=== PATIENT | female | born 1960 | race Caucasian/White ===

== ENCOUNTER 2022-09-17 11:26 | Emergency (ER) | payer BC, OTHER, SELFPAY ==
--- NOTE | ~2022-09-17 | CT_ITS ---
EXAMINATION: CT abdomen pelvis w con DATE: 09/17/2022 13:39 INDICATION: Left upper and lower quadrant abdominal pain, nausea, vomiting and diarrhea for 2 to 3 da ys. TECHNIQUE: Computed tomography (CT) of the abdomen and pelvis was performed with 100 CC Omnipaque 350 intravenous contrast. Automated exposure control and iterative reconstruction technique were employe d. Exam dose: 266.80 mGy-cm total exam DLP. COMPARISON: None. FINDINGS: Minimal dependent posterior basilar left lower lobe atelectasis. The lung bases are otherwi se clear. Normal heart size. No pericardial or pleural effusion. No hepatic, splenic, pancreatic, and adrenal space-occupying mass lesion. The gallbladder is present. No bile duct or pancreatic duct dilatation. There is a 7 mm cortical cyst of the lower pole of left kidney. The kidneys are otherwise unremarkabl e. Normal caliber of the abdominal aorta. No intraperitoneal or retroperitoneal or pelvic mass lesion or adenopathy or ascites. The uterus, adnexal areas and urinary bladder are unremarkable except for a prominent left adnexal ve ins and prominent left gonadal vein. No bowel obstruction or intraperitoneal free air. Severe degenerative disc disease at L4-5 and L5-S1 Very small fat-containing umbilical hernia.. There is degenerative change at the apophyseal joints wi th associated grade 1 anterolisthesis at L4-5. No suspicious osteolytic or osteoblastic lesions are noted. IMPRESSION: 7 mm left renal cyst Prominent left adnexal vessels Severe degenerative disc disease at L4-5 and L5-S1 Grade 1 anterolisthesis at L4-5 due to degenerative change at the apophyseal joints Reviewed, dictated and finalized at [facility]. Reviewed, dictated and finalized at [facility]. IMPRESSION: 7 mm left renal cyst Prominent left adnexal vessels Severe degenerative disc disease at L4-5 and L5-S1 Grade 1 anterolisthesis at L4-5 due to degenerative change at the apophyseal daryl ints
--- NOTE | ~2022-09-17 | XR_ITS ---
XR chest 2V DATE: 09/17/2022 13:45 INDICATION: Left lower rib pain. No injury. TECHNIQUE: AP and lateral views COMPARISON: None FINDINGS: Normal heart size. No hilar or mediastinal enlargement. Aortic arch calcification. No pulmonary infiltrate or consolidation, pleural effusion or pulmonary vascular congestion or pneumo thorax. IMPRESSION: No active cardiac pulmonary disease Reviewed, dictated and finalized at [facility].
--- NOTE | ~2022-09-17 | US_ITS ---
Pelvic ultrasound. Clinical History: Torsion, pelvic pain Technique: Realtime transabdominal scanning of the pelvis was performed. Color flow Doppler and Doppl er spectral analysis were performed. Findings: The uterus is anteverted. The endometrial stripe has a thickness of 3 mm. No focal mass is identified. The right ovary measures 2.1 x 1.5 x 1.2 cm. No significant right ovarian or adnexal mass is seen. The left ovary measures 3.0 x 2.2 x 2.0 cm. No significant left ovarian or adnexal mass is seen. Vascular flow present in both ovaries on Doppler spectral analysis. There is no evidence of free fluid in the cul de sac. Impression: Unremarkable pelvic ultrasound. No evidence for torsion. Reviewed, dictated and finalized at [facility]. Impression: Unremarkable pelvic ultrasound. No evidence for torsion.
[2022-09-17 11:34] VITALS: BP 162/75; PULSE 67; RESP 16; TEMP 36.4; O2SAT 99
--- NOTE | 2022-09-17 11:53 | ECG_ITS ---
Measurements Intervals [place] Rate: 60 P: 75 ND: 155 QRS: 56 QRSD: 92 T: 59 QT: 429 QTc: 429 Interpretive Statements SINUS RHYTHM NORMAL ECG NO PREVIOUS ECG AVAILABLE FOR COMPARISON Electronically Signed On 09-18-2022 9:32:30 CDT by Antonio Bennett M.D.
--- NOTE | 2022-09-17 11:56 | ED.GENADULT ---
HPI - General Adult General Chief complaint: Abdominal Pain Stated complaint: abd pain Time Seen by Provider: 09/17/22 11:45 Related Data Allergies Allergy/AdvReac Type Severity Reaction Status Date / Time codeine Allergy Itching Verified 09/17/22 11:27 Sulfa (Sulfonamide Allergy Itching Verified 09/17/22 11:27 Antibiotics) Course Vital Signs Vital signs: Vital Signs Temperature 97.6 F 09/17/22 11:34 Pulse Rate 67 09/17/22 11:34 Respiratory Rate 16 09/17/22 11:34 Blood Pressure 162/75 H 09/17/22 11:34 Pulse Oximetry 99 09/17/22 11:34 Oxygen Delivery Room Air 09/17/22 11:34 Temperature 97.6 F 09/17/22 11:34 Pulse Rate 67 09/17/22 11:34 Respiratory Rate 16 09/17/22 11:34 Blood Pressure 162/75 H 09/17/22 11:34 Pulse Oximetry 99 09/17/22 11:34 Oxygen Delivery Room Air 09/17/22 11:34 Medical Decision Making Vital Signs Vital Signs: Vital Signs Temperature 97.6 F 09/17/22 11:34 Pulse Rate 67 09/17/22 11:34 Respiratory Rate 16 09/17/22 11:34 Blood Pressure 162/75 H 09/17/22 11:34 Pulse Oximetry 99 09/17/22 11:34 Oxygen Delivery Room Air 09/17/22 11:34 Temperature 97.6 F 09/17/22 11:34 Pulse Rate 67 09/17/22 11:34 Respiratory Rate 16 09/17/22 11:34 Blood Pressure 162/75 H 09/17/22 11:34 Pulse Oximetry 99 09/17/22 11:34 Oxygen Delivery Room Air 09/17/22 11:34 Discharge Plan Discharge Instructions: Antibiotic Form Follow-up/Referrals: Simone Mckeon MD [Primary Care Provider] -
--- NOTE | 2022-09-17 11:58 | ED.ABDPAIN ---
HPI - Abdominal Pain General Chief Complaint: Abdominal Pain Stated Complaint: abd pain Time Seen by Provider: 09/17/22 11:45 History of Present Illness HPI narrative: 62-year-old female with a history of appendectomy and section reports for evaluation of abdominal pain x4 days. Patient reports the first 2-day of abdominal pain, was located in the left lower quadrant. She reports 2 episodes of diarrhea on the first day and one episode the second day. She reports the diarrhea is since resolved but she has been having soft stools. Last bowel movement was this morning and soft. She states now the pain has moved to her left upper quadrant up into her left lower ribs. She denies nausea, vomiting, fever, bodies, chills, cough or congestion, chest pain or shortness of breath, urinary complaints, back pain. Patient was seen in urgent care prior to arrival and was sent here to evaluate for diverticulitis. Related Data Allergies Allergy/AdvReac Type Severity Reaction Status Date / Time codeine Allergy Itching Verified 09/17/22 11:27 Sulfa (Sulfonamide Allergy Itching Verified 09/17/22 11:27 Antibiotics) Review of Systems Review of Systems: CONSTITUTIONAL: Denies fever, chills EYES: Denies visual changes, redness, or discharge. ENT: Denies rhinorrhea, congestion, sore throat, or otalgia. CARDIOVASCULAR: Denies chest pain, palpitations, or edema. RESPIRATORY: Denies cough or dyspnea. GASTROINTESTINAL: See HPI GENITOURINARY: Denies dysuria or hematuria. SKIN: Denies rash or itching. MUSCULOSKELETAL: Denies back pain, joint pain, or myalgia. NEUROLOGIC: Denies headache, numbness, dizziness, or weakness. PSYCHIATRIC: Denies anxiety or depression. Exam Narrative: GENERAL: Well-appearing, in no acute distress. Patient resting comfortably in exam bed. She is pleasant and conversational HEAD: Normocephalic EYES: PERRLA ENT: Nares clear. Mucous membranes moist. Oropharynx without tonsillar hypertrophy exudate or other lesions. NECK: Supple. CHEST: No respiratory distress. Clear to auscultation, no adventitious breath sounds. No tenderness to left lower ribs with palpation. HEART: Regular rate and rhythm. No murmur heard. Normal peripheral pulses. ABDOMEN: Normal active bowel sounds. Abdomen soft, tenderness to the left lower and left upper quadrant without rebound, guarding or rigidity. No peritoneal signs. Negative CVA tenderness. EXTREMITIES: Normal range of motion. No edema. SKIN: Warm, dry, no rash. NEURO: No focal deficits. Alert and oriented x3. PSYCH: Normal mood and affect. Course Vital Signs Vital signs: Vital Signs Temperature 97.6 F 09/17/22 11:34 Pulse Rate 67 09/17/22 11:34 Respiratory Rate 16 09/17/22 11:34 Blood Pressure 162/75 H 09/17/22 11:34 Pulse Oximetry 99 09/17/22 11:34 Oxygen Delivery Room Air 09/17/22 11:34 Temperature 97.6 F 09/17/22 11:34 Pulse Rate 63 09/17/22 16:32 Respiratory Rate 18 09/17/22 16:32 Blood Pressure 131/81 09/17/22 16:32 Pulse Oximetry 100 09/17/22 16:32 Oxygen Delivery Room Air 09/17/22 12:22 MDM - Abdominal Pain MDM Narrative Medical decision making narrative: 62-year-old female reports for evaluation of left lower quadrant, left upper quadrant and left lower rib pain x4 days. Vital stable. Work-up for abdominal pain and chest pain initiated. EKG reveals normal sinus rhythm without ST elevations or depressions. Troponin negative. D-dimer not elevated. Chest x-ray without acute cardiopulmonary findings. Chemistries unremarkable. CBC without leukocytosis. Lipase unremarkable. Urinalysis with 1+ blood. CT abdomen pelvis shows a 7 mm left renal cyst, prominent left adnexal vessels, severe degenerative disc disease at L4-L5 and L5-S1 and grade 1 anterior listhesis at L4-L5 due to degenerative changes of the apophyseal joints. Due to prominent left adnexal vessels, pelvic ultrasound obtained to rule out torsio
[2022-09-17 12:22] VITALS: BP 151/77; PULSE 60; RESP 18; O2SAT 100
[2022-09-17] MEDS: KETOROLAC 15 MG/ML VIAL (*BKC) IV PUSH ×2 (12:39→14:30)
[2022-09-17] MEDS: SODIUM CHLORIDE 0.9% IV 1,000 ML 999 ML IV CONT (12:46)
[2022-09-17 13:02] LABS: Basophils Absolute Auto 0.1 K/mm3 (0.0-0.1); Basophils Percent Auto 1.6 % (0.2-1.2); Eosinophils Absolute Auto 0.4 K/mm3 (0-0.3); Eosinophils Percent Auto 6.9 % (0-4.4); Hematocrit 36.3 % (37.0-47.0); Hemoglobin 11.9 g/dL (12.0-15.0); Lymphocytes Absolute Auto 1.46 K/mm3 (0.9-3.2); Lymphocytes Percent Auto 25.7 % (18.3-44.2); Mean Corpuscular HGB Conc 32.8 g/dl (32-36); Mean Corpuscular Hemoglobin 30.7 pg (26-34); Mean Corpuscular Volume 93.8 fl (80-100); Mean Platelet Volume 10.6 fl (7.4-10.4); Monocytes Absolute Auto 0.5 K/mm3 (0.1-0.6); Monocytes Percent Auto 8.3 % (2.6-8.5); Neutrophils Absolute Auto 3.3 K/mm3 (1.3-6.7); Neutrophils Percent Auto 57.5 % (45.5-73.1); Platelet Count Result 253 k/mm3 (150-375); Red Blood Count 3.87 M/mm3 (4.2-5.4); Red Cell Distribution Width 12.3 % (11.5-14.5); White Blood Count 5.7 K/mm3 (4.5-10.0)
[2022-09-17 13:09] LABS: Appearance Urine Clear (Clear); Bacteria Urine None Seen /hpf; Bilirubin Urine Negative (Negative); Blood Urine 1+ (Negative); Color Urine Yellow (Yellow); Glucose Urine UA Negative (Negative); Ketones Urine Negative (Negative); Leukocyte Esterase Ur Negative LEU/UL (Negative); Nitrate Urine Negative (Negative); Non Pathogenic Casts 0-2; Protein Urine Negative (Negative); Specific Grav Ur 1.007 (1.001-1.035); Squamous Epithelial Cell Urine None seen /hpf (Few); Urobilinogen Urine 0.2 mg/dL (<2.0); WBC Urine 0-5 /hpf; pH Urine 7.5 (5.0-9.0)
[2022-09-17 13:11] LABS: Add Urine Microscopic? YES
[2022-09-17 13:15] LABS: Alanine Aminotransferase 25 U/L (6-35); Albumin Level 4.1 g/dL (3.5-5.1); Alkaline Phosphatase 71 U/L (38-126); Anion Gap 3 mmol/L (8-16); Aspartate Amino Transferase 30 U/L (14-36); Bilirubin,Total 0.6 mg/dL (0.2-1.3); Blood Urea Nitrogen 15 mg/dL (7-17); Calcium 9.2 mg/dL (8.4-10.2); Carbon Dioxide 34 mmol/L (22-30); Chloride 102 mmol/L (98-107); Estimated CRCL calculation 53 ml/min; Estimated Glomerular Filt Rate > 60; Glucose 84 mg/dL (65-110); Lipase 63 U/L (23-300); Potassium 3.4 mmol/L (3.4-5.0); Sodium 139 mmol/L (137-145)
[2022-09-17 13:27] LABS: Troponin I < 0.012 ng/mL (0.000-0.034)
[2022-09-17 14:56] LABS: D Dimer 0.46 ug/mL (<0.48)
[2022-09-17 16:32] VITALS: BP 131/81; PULSE 63; RESP 18; O2SAT 100
== END 2022-09-17 16:51 | disposition home or self-care (01) ==
PROVIDERS: Emergency Provider Physician Assistant; PCP Family Medicine
DX: R10.12 Left upper quadrant pain (principal); R07.81 Pleurodynia
CPT/HCPCS: 36415; 71046; 74177; 76856; 80053; 81001; 83690; 84484; 85025; 85380; 93005; 96361; 96374; 96375; 99284; J1885; J7030; Q9967

== ENCOUNTER 2022-12-04 11:00 | Outpatient (CLI) | payer BC, SELFPAY ==
[2022-12-04 11:18] LABS: Basophils Absolute Auto 0.1 K/mm3 (0.0-0.1); Eosinophils Absolute Auto 0.3 K/mm3 (0-0.3); Hematocrit 37.2 % (37.0-47.0); Hemoglobin 12.2 g/dL (12.0-15.0); Immature Granulocyte Absolute 0.01 K/mm3 (0.00-0.031); Immature Granulocyte Percent A 0.2 % (0-0.5); Lymphocytes Absolute Auto 1.47 K/mm3 (0.9-3.2); Lymphocytes Percent Auto 26.7 % (18.3-44.2); Mean Corpuscular HGB Conc 32.8 g/dl (32-36); Mean Corpuscular Volume 94.4 fl (80-100); Mean Platelet Volume 10.2 fl (7.4-10.4); Monocytes Absolute Auto 0.5 K/mm3 (0.1-0.6); Monocytes Percent Auto 9.4 % (2.6-8.5); Neutrophils Absolute Auto 3.1 K/mm3 (1.3-6.7); Neutrophils Percent Auto 55.7 % (45.5-73.1); Platelet Count Result 267 k/mm3 (150-375); Red Blood Count 3.94 M/mm3 (4.2-5.4); Red Cell Distribution Width 12.3 % (11.5-14.5); White Blood Count 5.5 K/mm3 (4.5-10.0)
[2022-12-04 11:27] LABS: Cholesterol 218 mg/dL (0-200); HDL Direct 55 mg/dL; Triglycerides 62 mg/dL (<150)
[2022-12-04 11:38] LABS: LDL Cholesterol Direct 129 mg/dL
== END 2022-12-04 11:01 | disposition home or self-care (01) ==
PROVIDERS: PCP Family Medicine; Visit Provider Physician Assistant Medical
DX: E78.5 Hyperlipidemia, unspecified (principal); I10 Essential (primary) hypertension
CPT/HCPCS: 36415; 80061; 85025

== ENCOUNTER 2023-03-20 08:11 | Outpatient (CLI) | payer BC, SELFPAY ==
--- NOTE | ~2023-03-20 | MM_ITS ---
EXAMINATION: MM screening carloz BI w best HISTORY: Screening mammogram, family history of breast cancer in her mother. TECHNIQUE: Craniocaudal and mediolateral oblique 3-D tomosynthesis images were obtained and synthetic 2-D images were generated. CAD analysis was submitted and interpreted. COMPARISON: No prior mammogram is available for comparison at this institution. BREAST PARENCHYMAL COMPOSITION: The breasts are heterogeneously dense, which may obscure small masses . FINDINGS: No suspicious mass, calcification, or architectural distortion are identified in either judd ast to suggest malignancy. IMPRESSION: 1. No mammographic evidence of malignancy. 2. Recommend routine screening mammography in one year. BI-RADS Category 1: Negative Reviewed, dictated and finalized at [facility]. 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
== END 2023-03-20 08:12 | disposition home or self-care (01) ==
PROVIDERS: PCP Family Medicine; Visit Provider Physician Assistant Medical
DX: Z12.31 Encounter for screening mammogram for malignant neoplasm of breast (principal)
CPT/HCPCS: 77063; 77067

== ENCOUNTER 2023-06-06 09:36 | Outpatient (CLI) | payer BC, OTHER, SELFPAY ==
--- NOTE | ~2023-06-06 | US_ITS ---
US renal BI 06/06/2023 10:24 Procedure: Realtime transabdominal ultrasound of the kidneys and bladder. Indication: Disorder of the kidneys and ureter Comparison: No prior studies for comparison. Findings: Renal echotexture is normal bilaterally without hydronephrosis, contour deforming mass or r enal calculus. The right kidney measures 9.6 cm and left kidney measures 9.8 cm. Bladder within norm al limits. Impression: 1: Unremarkable renal ultrasound. No stones, masses or hydronephrosis. Reviewed, dictated and finalized at [facility]. 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 No stones, masses or hydronephrosis.
== END 2023-06-06 09:37 | disposition home or self-care (01) ==
LOC: ANHIMG 09:37
PROVIDERS: PCP Family Medicine; Visit Provider Physician Assistant Medical
DX: N28.89 Other specified disorders of kidney and ureter (principal)
CPT/HCPCS: 76775

== ENCOUNTER 2023-12-05 10:02 | Outpatient (CLI) | payer BC, OTHER, SELFPAY ==
[2023-12-05 11:00] LABS: Basophils Absolute Auto 0.1 K/mm3 (0.0-0.1); Basophils Percent Auto 1.7 % (0.2-1.2); Eosinophils Absolute Auto 0.5 K/mm3 (0-0.3); Eosinophils Percent Auto 7.8 % (0-4.4); Hemoglobin 12.7 g/dL (12.0-15.0); Immature Granulocyte Absolute 0.01 K/mm3 (0.00-0.031); Immature Granulocyte Percent A 0.2 % (0-0.5); Lymphocytes Absolute Auto 1.45 K/mm3 (0.9-3.2); Lymphocytes Percent Auto 22.3 % (18.3-44.2); Mean Corpuscular HGB Conc 32.6 g/dl (32-36); Mean Corpuscular Hemoglobin 30.9 pg (26-34); Mean Corpuscular Volume 94.9 fl (80-100); Mean Platelet Volume 10.8 fl (7.4-10.4); Monocytes Absolute Auto 0.6 K/mm3 (0.1-0.6); Monocytes Percent Auto 9.7 % (2.6-8.5); Neutrophils Absolute Auto 3.8 K/mm3 (1.3-6.7); Neutrophils Percent Auto 58.3 % (45.5-73.1); Platelet Count Result 279 k/mm3 (150-375); Red Blood Count 4.11 M/mm3 (4.2-5.4); Red Cell Distribution Width 12.1 % (11.5-14.5); White Blood Count 6.5 K/mm3 (4.5-10.0)
[2023-12-05 11:07] LABS: Alanine Aminotransferase 16 U/L (6-35); Albumin Level 4.2 g/dL (3.5-5.1); Alkaline Phosphatase 78 U/L (38-126); Anion Gap 7 mmol/L (4-12); Aspartate Amino Transferase 27 U/L (14-36); Bilirubin,Total 0.4 mg/dL (0.2-1.3); Blood Urea Nitrogen 14 mg/dL (7-17); Calcium 9.3 mg/dL (8.4-10.2); Carbon Dioxide 34 mmol/L (22-30); Chloride 99 mmol/L (98-107); Cholesterol 195 mg/dL (0-200); Estimated Glomerular Filt Rate > 60; Glucose 81 mg/dL (65-110); HDL Direct 52 mg/dL; Potassium 3.7 mmol/L (3.4-5.0); Sodium 140 mmol/L (137-145); Triglycerides 70 mg/dL (<150)
[2023-12-05 11:18] LABS: LDL Cholesterol Direct 117 mg/dL
== END 2023-12-05 10:03 | disposition home or self-care (01) ==
PROVIDERS: PCP Family Medicine; Visit Provider Physician Assistant Medical
DX: E78.5 Hyperlipidemia, unspecified (principal); I10 Essential (primary) hypertension
CPT/HCPCS: 36415; 80053; 80061; 84443; 85025

== ENCOUNTER 2023-12-27 06:34 | Outpatient (CLI) | payer BC, OTHER, SELFPAY ==
--- NOTE | ~2023-12-27 | MR_ITS ---
MRI of the lumbar spine Clinical History: Degenerative disc disease Technique: Axial T2-weighted images, and sagittal T1-weighted, T2-weighted, and T2 fat-sat images wer e acquired. Findings: No fracture identified. There is 3 mm anterolisthesis of L3 over L4. There is 5 mm anteroli sthesis of L4 over L5. There is advanced degenerative disc narrowing at L4-L5 and L5-S1. No suspiciou s bone marrow signal abnormality seen. At L1-L2, there is no disc bulge or herniation. There is moderate facet arthropathy. No central canal stenosis or neural foraminal narrowing. At L2-L3, there is no disc bulge or herniation. There is severe facet arthropathy. No central canal s tenosis or neural foraminal narrowing. L3-L4, there is moderate degenerative disc narrowing. There is diffuse disc bulge with severe facet a rthropathy. No norman central canal stenosis. There is mild to moderate bilateral neural foraminal renaldo rowing. At L4-L5, there is disc bulge and severe facet arthropathy. No central canal stenosis. There is moder ate left neural foraminal narrowing, and mild right neural foraminal narrowing. At L5-S1, there is diffuse disc bulge with severe facet arthropathy. No central canal stenosis. There is severe left neural foraminal narrowing and mild right neural foraminal narrowing. Paravertebral soft tissues are unremarkable. Impression: Moderate degenerative spondylosis overall, as detailed above, especially at L3-L4, L4-L5, and L5-S1. 5 mm anterolisthesis of L4 over L5. 3 mm anterolisthesis of L3 over L4. Reviewed, dictated and finalized at [facility]. Impression: Moderate degenerative spondylosis overall, as detailed above, especially at L3- L4, L4-L5, and L5-S1. 5 mm anterolisthesis of L4 over L5. 3 mm anterolisthesis of L3 over L4.
== END 2023-12-27 06:35 | disposition home or self-care (01) ==
PROVIDERS: PCP Family Medicine; Visit Provider Nurse Practitioner Adult Health
DX: M51.37 Other intervertebral disc degeneration, lumbosacral region (principal); M47.896 Other spondylosis, lumbar region; M47.897 Other spondylosis, lumbosacral region
CPT/HCPCS: 72148

== ENCOUNTER 2024-03-30 07:09 | Emergency (ER) | payer BC, SELFPAY ==
--- NOTE | ~2024-03-30 | XR_ITS ---
Clinical Indication: Fever PA and lateral views of the chest: Comparison: 09/17/2022 Findings: The lungs are clear, without evidence of focal consolidation or pleural effusion. Cardiome diastinal silhouette is within normal limits. Bones and soft tissues are unremarkable. Impression: Normal chest. Reviewed, dictated and finalized at [facility]. 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
--- NOTE | ~2024-03-30 | CT_ITS ---
Non-contrast CT scan of the Abdomen and Pelvis Clinical indication: Abdominal pain Technique: 2.5 mm axial scans were obtained through the abdomen and pelvis without intravenous or or al contrast. Dose reduction technique was used on this scan by utilizing automated exposure control a nd iterative reconstruction technique. The dose-length product (DLP) was 198.54 mGy-cm. COMPARISON: 09/17/2022 Findings: Images through the lung bases reveal no abnormalities. There is no evidence of renal or ureteral calculi. The kidneys and the ureters are nondilated. The liver, spleen, pancreas, gallbladder, and adrenals appear normal. There is no aortic aneurysm. There is no evidence of bowel obstruction. Images through the pelvis were performed. There is no evidence of ascites or lymphadenopathy. Urinary bladder unremarkable. No pelvic mass seen. No ascites. Impression: No significant abnormality seen. Reviewed, dictated and finalized at [facility]. SETTER Impression: No significant abnormality seen.
[2024-03-30 07:38] VITALS: BP 99/61; PULSE 82; RESP 18; TEMP 37.1; O2SAT 97
[2024-03-30] MEDS: ONDANSETRON INJ 4 MG/2 ML VIAL IV PUSH (07:58)
[2024-03-30] MEDS: KETOROLAC 15 MG/ML VIAL (*BKC) IV PUSH (08:01)
[2024-03-30] MEDS: SODIUM CHLORIDE 0.9% IV 1,000 ML 999 ML IV CONT (08:02)
--- NOTE | 2024-03-30 08:07 | ED_ITS ---
HPI - General Adult General Chief complaint: Fever Stated complaint: fever x 4 days Time Seen by Provider: 03/30/24 07:36 History of Present Illness HPI narrative: Patient 63-year-old female who presents emergency department with chief complaint of fever and nausea. Patient reports for the last several days she has been having nausea and has had a fever up to 102 at home patient reports that she was seen in Urgent Care tested negative for COVID flu patient reports had nausea and reports that she is developing some abdominal pain worse in the left lower quadrant the patient reports no diarrhea patient denies nuchal rigidity denies headache denies vomiting or diarrhea Related Data Home Medications ?Medication ?Instructions ?Recorded ?Confirmed ?Last Taken ?Type cholecalciferol (vitamin D3) 10 10 mcg PO DAILY 12/04/22 12/05/23 Unknown History mcg (400 unit) capsule naratriptan 2.5 mg tablet See Rx Instructions PO .COMPLEX 12/04/22 12/05/23 Unknown History Allergies Allergy/AdvReac Type Severity Reaction Status Date / Time codeine Allergy Itching Verified 12/05/23 09:32 Sulfa (Sulfonamide Allergy Itching Verified 12/05/23 09:32 Antibiotics) Review of Systems 2 Review of Systems: A 10 system review of systems was completed on the patient and is negative except for what is stated in the HPI. Nursing and ancillary documentation was reviewed. [facility] Past Medical History Medical History Anterolisthesis of lumbar spine Degenerative disc disease, lumbar Degenerative disc disease at L5-S1 level Screening for breast cancer Migraine Hypertension Anxiety Surgical History Surgical History History of rotator cuff surgery History of delivery History of laparoscopic appendectomy Family History Family History Other Anxiety Breast cancer Cerebrovascular accident Diabetes mellitus Hypertension Social History Social History Smoking status: Never smoker Alcohol intake: never Substance use: never Lack of Transportation: No Lack of Food: Never True Current Housing: I Have Housing Concerned About Future Housing: No Difficulty Paying Gas/Electric Bills: No Difficulty Paying for Meds: No Education: Associate Degree Difficulty w/ Childcare or Family Care: No Living arrangements: with family Exam 2 Narrative: GENERAL: Well-appearing, well-nourished, and in no acute distress. HEAD: Normocephalic, atraumatic. EYES: PERRLA and EOMI. ENT: Nares clear, no rhinorrhea or epistaxis. Mucous membranes moist. NECK: Supple. CHEST: Clear to auscultation. No respiratory distress. HEART: Regular rate and rhythm. No murmur heard. Normal peripheral pulses. ABDOMEN: Soft, tenderness to palpation left lower quadrant, nondistended, normal active bowel sounds. EXTREMITIES: Normal range of motion. No edema. SKIN: Warm, dry, no rash. NEURO: No focal deficits. Alert and oriented x3. PSYCH: Normal mood and affect. Course Vital Signs Vital signs: Vital Signs Temperature 37.1 C 03/30/24 07:38 Pulse Rate 82 03/30/24 07:38 Respiratory Rate 18 03/30/24 07:38 Blood Pressure 99/61 L 03/30/24 07:38 Pulse Oximetry 97 03/30/24 07:38 Oxygen Delivery Room Air 03/30/24 07:38 Temperature 37.1 C 03/30/24 07:38 Pulse Rate 71 03/30/24 09:42 Respiratory Rate 20 03/30/24 09:42 Blood Pressure 127/71 03/30/24 09:42 Pulse Oximetry 93 03/30/24 09:42 Oxygen Delivery Room Air 03/30/24 07:38 Medical Decision Making [facility] Narrative Medical decision making narrative: differential diagnosis includes UTI, sepsis, COVID, flu, RSV, intra-abdominal infection pneumonia laboratory studies were obtained on the patient white count 6.6 electrolytes showed a potassium of 3.2 AST and ALT were slightly elevated at 247 and 220 bilirubin was normal procalcitonin 0.3 urinalysis showed 6-10 white blood cells in the urine and 1+ leukocyte esterase influenza RSV COVID and strep were negative chest x-ray showed no focal infiltrate CT scan of the abdomen pelvis showed no acute abnormality the patient will be started on Keflex and will be discharged home to follow-up with her primary care provider Vital Signs Vital Signs: Vital Signs Temperature 37.1 C 03/30/24 07:38 Pulse Rate 82 03/30/24 07:38 Respiratory Rate 18 03/30/24 07:38 Blood Pressure 99/61 L 03/30/24 07:38 Pulse Oximetry 97 03/30/24 07:38 Oxygen Delivery Room Air 03/30/24 07:38 Temperature 37.1 C 03/30/24 07:38 Pulse Rate 71 03/30/24 09:42 Respiratory Rate 20 03/30/24 09:42 Blood Pressure 127/71 03/30/24 09:42 Pulse Oximetry 93 03/30/24 09:42 Oxygen Delivery Room Air 03/30/24 07:38 Lab Data 03/30/24 08:03 03/30/24 08:03 Labs: Lab Results 03/30/24 03/30/24 03/30/24 Range/Units 08:03 08:22 08:43 WBC 6.6 (4.5-10.0) K/mm3 RBC 3.82 L (4.2-5.4) M/mm3 Hgb 11.6 L (12.0-15.0) g/dL Hct 34.2 L (37.0-47.0) % MCV 89.5 (80-100) fl MCH 30.4 (26-34) pg MCHC 33.9 (32-36) g/dl RDW 12.9 (11.5-14.5) % Plt Count 163 (150-375) k/mm3 MPV 10.5 H (7.4-10.4) fl Immature Gran % (Auto) 0.2 (0-0.5) % Neut % (Auto) 43.0 L (45.5-73.1) % Lymph % (Auto) 45.6 H (18.3-44.2) % [place] % (Auto) 5.1 (2.6-8.5) % Eos % (Auto) 4.7 H (0-4.4) % Baso % (Auto) 1.4 H (0.2-1.2) % Lymph # (Auto) 3.02 (0.9-3.2) K/mm3 [place] # (Auto) 0.3 (0.1-0.6) K/mm3 Eos # (Auto) 0.3 (0-0.3) K/mm3 Baso # (Auto) 0.1 (0.0-0.1) K/mm3 Abs Immat Gran (auto) 0.01 (0.00-0.031) K/mm3 Absolute Neuts (auto) 2.9 (1.3-6.7) K/mm3 Absolute Nucleated RBC 0.000 (0.0-0.012) K/mm3 Nucleated RBC % 0.0 (0.0-0.2) % Atypical Lymphocytes Present Platelet Estimate Adequate (Adequate) Large Platelets Present Schistocytes None seen Sodium 134 L (137-145) mmol/L Potassium 3.2 L (3.4-5.0) mmol/L Chloride 102 (98-107) mmol/L Carbon Dioxide 29 (22-30) mmol/L Anion Gap 3 L (4-12) mmol/L BUN 13 (7-17) mg/dL Creatinine 0.80 (0.7-1.0) mg/dL Estim Creat Clear Calc 47 ml/min Estimated GFR > 60 (59 - ) Glucose 130 H (65-110) mg/dL Lactic Acid 1.6 (0.7-2.0) mmol/L Calcium 8.8 (8.4-10.2) mg/dL Total Bilirubin 0.4 (0.2-1.3) mg/dL AST 247 H (14-36) U/L ALT 220 H (6-35) U/L Alkaline Phosphatase 106 (38-126) U/L Total Protein 7.0 (6.3-8.2) g/dL Albumin 3.3 L (3.5-5.1) g/dL Procalcitonin 0.3 ng/mL Urine Color Yellow (Yellow) Urine Appearance Clear (Clear) Urine pH 6.0 (5.0-9.0) Ur Specific [place] 1.009 (1.001-1.035) Urine Protein Negative (Negative) mg/dL Urine Glucose (UA) Negative (Negative) mg/dL Urine Ketones Negative (Negative) mg/dL Ur Blood (Man) 1+ H (Negative) Urine Nitrate Negative (Negative) Urine Bilirubin Negative (Negative) Urine Urobilinogen 1.0 (<2.0) mg/dL Leukocyte Esterase Rfl 1+ H (Negative) DIMA/UL Urine RBC 6-10 H (0-2) /hpf Urine WBC 6-10 H (0-3) /hpf Ur Squamous Epith Cells None seen (Few) /hpf Urine Bacteria None seen /hpf Urine Casts 0-2 Influenza A (RT-PCR) Negative (Negative) Influenza B (RT-PCR) Negative (Negative) RSV (RT-PCR) Negative (Negative) SARS-CoV-2 RNA (RT-PCR) Negative (Negative) Group A Strep (PCR) Not detected (Negative) Discharge Plan Discharge Clinical Impression: UTI (urinary tract infection) Patient Disposition: Home, Self-Care Condition: Stable Instructions: Antibiotic Form Patient Language: Vietnamese Prescriptions: New cephalexin 500 mg capsule 500 mg PO Q12H 7 Days Qty: 14 0RF No Action naratriptan 2.5 mg tablet See Rx Instructions PO .COMPLEX Rx Instructions: take 1 tab at onset of headache; if no relief may repeat 1 tab after at least 4 hrs; max = 2 tabs/24 hrs PO cholecalciferol (vitamin D3) 10 mcg (400 unit) capsule 10 mcg PO DAILY lisinopril 40 mg tablet See Rx Instructions .ROUTE .COMPLEX Qty: 90 0RF Dose Instruction: TAKE 1 TABLET BY MOUTH EVERY DAY Rx Instructions: TAKE 1 TABLET BY MOUTH EVERY DAY meloxicam 7.5 mg tablet 15 mg PO DAILY Qty: 60 6RF hydrochlorothiazide 12.5 mg tablet 12.5 mg PO DAILY Qty: 90 3RF cyclobenzaprine 5 mg tablet 5 mg PO TID PRN (Reason: muscle spasm) Qty: 30 0RF fluoxetine 40 mg capsule See Rx Instructions .ROUTE .COMPLEX Qty: 90 0RF Dose Instruction: TAKE 1 CAPSULE BY MOUTH EVERY DAY Rx Instructions: TAKE 1 CAPSULE BY MOUTH EVERY DAY Follow-up/Referrals: Simone Mckeon MD [Primary Care Provider] - Time of Disposition: 10:07
[2024-03-30 08:09] VITALS: BP 113/61; PULSE 78; RESP 18; O2SAT 95
[2024-03-30 08:11] LABS: Basophils Absolute Auto 0.1 K/mm3 (0.0-0.1); Basophils Percent Auto 1.4 % (0.2-1.2); Eosinophils Absolute Auto 0.3 K/mm3 (0-0.3); Eosinophils Percent Auto 4.7 % (0-4.4); Hematocrit 34.2 % (37.0-47.0); Hemoglobin 11.6 g/dL (12.0-15.0); Immature Granulocyte Absolute 0.01 K/mm3 (0.00-0.031); Immature Granulocyte Percent A 0.2 % (0-0.5); Lymphocytes Absolute Auto 3.02 K/mm3 (0.9-3.2); Lymphocytes Percent Auto 45.6 % (18.3-44.2); Mean Corpuscular HGB Conc 33.9 g/dl (32-36); Mean Corpuscular Hemoglobin 30.4 pg (26-34); Mean Corpuscular Volume 89.5 fl (80-100); Mean Platelet Volume 10.5 fl (7.4-10.4); Monocytes Absolute Auto 0.3 K/mm3 (0.1-0.6); Monocytes Percent Auto 5.1 % (2.6-8.5); Neutrophils Absolute Auto 2.9 K/mm3 (1.3-6.7); Platelet Count Result 163 k/mm3 (150-375); Red Blood Count 3.82 M/mm3 (4.2-5.4); Red Cell Distribution Width 12.9 % (11.5-14.5); White Blood Count 6.6 K/mm3 (4.5-10.0)
[2024-03-30 08:24] LABS: Lactic Acid Reflex 1.6 mmol/L (0.7-2.0)
[2024-03-30 08:25] LABS: Alanine Aminotransferase 220 U/L (6-35); Albumin Level 3.3 g/dL (3.5-5.1); Alkaline Phosphatase 106 U/L (38-126); Anion Gap 3 mmol/L (4-12); Aspartate Amino Transferase 247 U/L (14-36); Bilirubin,Total 0.4 mg/dL (0.2-1.3); Blood Urea Nitrogen 13 mg/dL (7-17); Calcium 8.8 mg/dL (8.4-10.2); Carbon Dioxide 29 mmol/L (22-30); Chloride 102 mmol/L (98-107); Estimated CRCL calculation 47 ml/min; Estimated Glomerular Filt Rate > 60; Glucose 130 mg/dL (65-110); Potassium 3.2 mmol/L (3.4-5.0); Sodium 134 mmol/L (137-145)
[2024-03-30 08:42] LABS: Procalcitonin 0.3 ng/mL
[2024-03-30 08:43] LABS: Atypical Lymphocytes Present; Large Platelets Present; Platelet Estimate Adequate (Adequate); Schistocytes None Seen
[2024-03-30 08:49] LABS: Strep Group A RT-PCR NOT DETECTED (Negative)
[2024-03-30 08:50] LABS: Influenza A QL RT-PCR Negative (Negative); Influenza B QL RT-PCR Negative (Negative); RSV RNA, RT-PCR Negative (Negative); SARS-CoV-2 RNA PCR Negative (Negative)
[2024-03-30 08:59] LABS: Add Urine Microscopic? YES; Appearance Urine Clear (Clear); Bacteria Urine None Seen /hpf; Bilirubin Urine Negative (Negative); Blood Urine 1+ (Negative); Color Urine Yellow (Yellow); Glucose Urine UA Negative (Negative); Ketones Urine Negative (Negative); Leukocyte Esterase Ur 1+ LEU/UL (Negative); Nitrate Urine Negative (Negative); Non Pathogenic Casts 0-2; Protein Urine Negative (Negative); Specific Grav Ur 1.009 (1.001-1.035); Squamous Epithelial Cell Urine None Seen /hpf (Few)
[2024-03-30 09:42] VITALS: BP 127/71; PULSE 71; RESP 20; O2SAT 93
[2024-03-30 10:16] VITALS: BP 120/78; PULSE 74; RESP 18; O2SAT 96
--- OUTSIDE RECORDS SUMMARY | 2024-04-03 16:03 | XMS_ITS | Encounter Summary ---
Author Organization [facility] Address [address] [place] [address]. [place], [place] [id number] [place] [id number] Care Team Providers Care Veterinary Manager Name Role Phone Rhonda De La Paz MD Unavailable [phone] Yoselin Murdock NP Primary Care Provider [phone] Encounter Details Date Type Department Care Team (Late st Contact Info) Description 10/05/2022 Orders Only [facility] Family & Internal Medicine [address] [phone] Paulie Braxton I, RN Social History Tobacco Use Types Packs/Day Years Used Date Smoking Tobacco: Never Smokeless Tobacco: Never Alcohol Use Standard Drinks/Week Comments Not Currently 0 (1 standard drink = 0.6 oz pur e alcohol) PHQ-2 Answer Date Recorded Patient Health Questionnaire-2 Score 0 06/30/2022 Comments No Sex and Gender Information Value Date Recorded Sex Assigned at Not on file Legal Sex Female 9:22 AM CDT Gender Identity Not on file Sexual Orientation Not on file Occupation Industry Job Start Date Job End Date [employer] Not on file Not on file Not on file documented as of this encounter Plan of Treatment Not on file documented as of this encounter Visit Diagnoses Diagnosis Migraine without aura and without status migrainosus, not intractable Migraine without aura, without mention of intractable migraine without mention of status migrainosus documented in this encounter Additional Health Concerns Assessment Noted Time PHQ-9 Depression Total Score: 0 07/01/19 7:09 AM CDT documented as of this encounter Care Teams Veterinary Manager Relationship Specialty Start [place] [address] [facility] [address] [place] [address] PCP - General Nurse Practitioner Family 10/05/22 Rhonda De La Paz MD Physician INTERNAL MEDICINE 09/08/20 documented as of this encounter
--- OUTSIDE RECORDS SUMMARY | 2024-04-03 16:03 | XMS_ITS | Encounter Summary ---
Author Organization [facility] Address [address] [place] [address]. [place], [place] [id number] [place] [address] Care Team Providers Care Tool Hardener Name Role Phone Rhonda De La Paz MD Unavailable [phone] Yoselin Murdock NP Primary Care Provider Encounter Details Date Type Department Care Team (Late st Contact Info) Description 11/06/2022 [employer] Message Enc [facility] Family & Internal Medicine [address] [phone] Yoselin Murdock NP [address] [place] [address]. [place] [address] Cyclobenzapril Social History Tobacco Use Types Packs/Day Years [...] on file documented as of this encounter Progress Notes * Yoselin Murdock NP - 11/06/2022 11:11 AM CDT Refills have been sent, TY * Paulie Braxton RN - 11/06/2022 11:07 AM CDT Please advise documented in this encounter Plan of Treatment Not on file documented as of this encounter Visit Diagnoses Diagnosis Muscle spasm Spasm of muscle documented in this encounter Additional Health Concerns Assessment Noted Time PHQ-9 Depression Total Score: 0 07/01/19 7:09 AM CDT documented as of this encounter Care Teams Tool Hardener Relationship Specialty Start [place] [id number] [address] PCP - General Nurse Practitioner Family 10/05/22 Rhonda De La Paz MD Physician INTERNAL MEDICINE 09/08/20 documented as of this encounter
--- OUTSIDE RECORDS SUMMARY | 2024-04-03 16:03 | XMS_ITS | Encounter Summary ---
Author Organization [facility] Address [address] [place] [address]. [place], [place] [address] [place] [address] Care Team Providers Care Intensive Care Nurse Name Role Phone Rhonda De La Paz MD Unavailable [phone] Peggy Best Primary Care Provider [phone] Reason for Visit * Reason Comments Medication Follow up blood pres sure medis Encounter Details Date Type Department Care Team (Late st Contact Info) Description 06/30/2022 7:00 AM CDT Office Visit [facility] Family & Internal Medicine [facility] [address] [place] [address] Peggy Best APNP [address] [address] Medication (Follow up blood pressure medis) Social History Tobacco Use Types Packs/Day Years Used Date Smoking Tobacco: Never Smokeless Tobacco: Never Tobacco Cessation:Counseling Given: No Alcohol Use Standard Drinks/Week Comments Not Currently [...] file Not on file Not on file COVID-19 Exposure Response Date Recorded In the last 10 days, have yo u been in contact with someone who was confirmed or suspected to have Coronavirus/COVID-19? No / Unsure 06/30/2022 6:57 AM CDT documented as of this encounter Last Filed Vital Signs Vital Sign Reading Time Taken Comments Blood Pressure 138/82 06/30/2022 7:28 AM CDT manual taken and provider aware Pulse 74 06/30/2022 7:01 AM CDT Temperature 35.8 ??C (96.4 ??F) 06/30/2022 7 :01 AM CDT Respiratory Rate 20 06/30/2022 7:01 AM CDT Oxygen Saturation 98% 06/30/2022 7:0 1 AM CDT Inhaled Oxygen Concentration - - Weight 59.5 kg (131 lb 3.2 oz) 06/30/2022 7:01 AM CDT Height 154.9 cm (5' 1 ) 06/30/2022 7:01 AM CDT Body Mass Index 24.79 06/30/2022 7:01 AM CDT documented in this encounter Progress Notes * CATALINA Lomas - 06/30/2022 7:00 AM CDTSummary: BP f/u. Reason for Visit: Medication (Follow up blood pressure medis) History of Present Illness: Danielle Brito is a 61-year-old female here for BP f/u. Hypertension ROS: taking medications as instructed, no medication side effects noted, no chest painon exertion, no dyspnea on exertion, no swelling of ankles and no orthostatic dizziness or lightheadedness. New concerns: none. Does not take BP at home. ROS: Review of Systems Constitutional: Negative for appetite change, diaphoresis, fatigue and fever. HENT: Negative for congestion, sore throat and trouble swallowing. Eyes: Negative for photophobia and discharge. Respiratory: Negative for cough, shortness of breath and wheezing. Cardiovascular: Negative for chest pain, palpitations and leg swelling. Gastrointestinal: Negative for abdominal pain. Genitourinary: Negative for dysuria. Musculoskeletal: Negative for gait problem. Skin: Negative for rash. Neurological: Negative for dizziness, syncope and weakness. Psychiatric/Behavioral: Negative for confusion. The patient is not nervous/anxious. Medications: Current Outpatient Medications: ??? Cholecalciferol (VITAMIN D) 50 MCG (1999) Tab, , Disp: , Rfl: ??? cyclobenzaprine 5 MG tablet, Take 1 tablet (5 mg total) by mouth 3 (three) times daily as needed., Disp: 30 tablet, Rfl: 5 ??? FLUoxetine (PROZAC) 40 MG capsule, Take 1 capsule (40 mg total) by mouth daily., Disp: 90 capsule, Rfl: 0 ??? hydroCHLOROthiazide (MICROZIDE) 12.5 MG capsule, Take 1 capsule (12.5 mg total) by mouth every morning., Disp: 90 capsule, Rfl: 0 ??? lisinopril (PRINIVIL) 40 MG tablet, Take 1 tablet (40 mg total) by mouth daily., Disp: 90 tablet, Rfl: 0 ??? multiple vitamins-minerals (OCUVITE-LUTEIN) Cap, Take 1 capsule by mouth daily., Disp: , Rfl: ??? naratriptan 2.5 MG tablet, TAKE 1 TABLET BY MOUTH ONCE. MAY REPEAT AFTER 4 HOURS., Disp: 27 tablet, Rfl: 3 ??? omeprazole (PRILOSEC) 40 MG capsule, Take 1 capsule (40 mg total) by mouth daily., Disp: 90 capsule, Rfl: 1 ??? vitamin B-12 100 MCG tablet, Take 0.5 tablets (50 mcg total) by mouth daily., Disp: , Rfl: Allergies Allergen Reactions ??? Sulfa Antibiotics Hives and Rash ??? Codeine Itching Past Medical History: Diagnosis Date ??? Anxiety ??? Back pain ??? Hypertension Past Surgical History: Procedure Laterality Date ??? APPENDECTOMY ??? COLONOSCOPY N/A 04/22/2021 COLONOSCOPY performed by Charli Yi MD at [facility] OR ??? NASAL AIRWAY ??? TONSILLECTOMY Social History Socioeconomic History ??? Marital status: Occupational History ??? Occupation: [employer] Tobacco Use ??? Smoking status: Never ??? Smokeless tobacco: Never Vaping Use ??? Vaping Use: Never used Substance and Sexual Activity ??? Alcohol use: Not Currently ??? Drug use: Never Social History Narrative LIVE AT WITH Family History Problem Relation Name Age of Onset ??? Breast Cancer Mother ??? Breast Cancer Paternal Grandmother ??? Heart Attack Father Family Status Relation Name Status ??? Mother (Not Specified) ??? PGM (Not Specified) ??? Father (Not Specified) Physical Exam Vitals and nursing note reviewed. Constitutional: General: She is not in acute distress. Appearance: She is well-developed. HENT: Head: Normocephalic. Nose: Nose normal. Cardiovascular: Rate and Rhythm: Normal rate and regular rhythm. Pulses: Normal pulses. Heart sounds: Normal heart sounds. Pulmonary: Effort: Pulmonary effort is normal. No respiratory distress. Breath sounds: Normal breath sounds. Musculoskeletal: Cervical back: Normal range of motion. Neurological: Mental Status: She is alert and oriented to person, place, and time. Psychiatric: Mood and Affect: Mood normal. Behavior: Behavior normal. Thought Content: Thought content normal. Judgment: Judgment normal. Filed Vitals: 06/30/22 0701 06/30/22 0711 06/30/22 0728 BP: (!) 167/92 (!) 173/86 138/82 Pulse: 74 Resp: 20 Temp: 96.4 ??F (35.8 ??C) TempSrc: Temporal SpO2: 98% Weight: 59.5 kg (131 lb 3.2 oz) Height: 5' 1 (1.549 m) Diagnoses/Impression: 1. Essential hypertension lisinopril (PRINIVIL) 40 MG tablet hydroCHLOROthiazide (MICROZIDE) 12.5 MG capsule BASIC METABOLIC PANEL 2. Screening for hyperlipidemia LIPID PANEL Recommendations and Plan: 1. Essential hypertension current treatment plan is effective, no change in therapy, lab results and schedule of future lab studies reviewed with patient, repeat labs ordered prior to next appointment, orders and follow [facility], reviewed diet, exercise and weight control, recommended sodium restriction,very strongly urged to quit smoking to reduce cardiovascular risk, cardiovascular risk and specificlipid/LDL goals reviewed and reviewed medications and side effects in detail. - lisinopril (PRINIVIL) 40 MG tablet; Take 1 tablet (40 mg total) by mouth daily. Dispense: 90 tablet; Refill: 0 - hydroCHLOROthiazide (MICROZIDE) 12.5 MG capsule; Take 1 capsule (12.5 mg total) by mouth every morning. Dispense: 90 capsule; Refill: 0 - BASIC METABOLIC PANEL; Future - BASIC METABOLIC PANEL 2. Screening for hyperlipidemia - LIPID PANEL; Future - LIPID PANEL Counseling: Body mass index is 24.79 kg/m??. ?? Diet recommendations: Vitamins and minerals better absorbed through diet and supplementation; sodium and caffeine in moderation; high fiber through fresh fruits, vegetables and whole grains; low saturated and trans fats. ?? Increasing exercise as is tolerated. ?? Recommend annual physical. ?? See safety paragraph as checked items also addressed F/u in 3 months. Orders Placed This Encounter ??? LIPID PANEL ??? BASIC METABOLIC PANEL ??? lisinopril (PRINIVIL) 40 MG tablet ??? hydroCHLOROthiazide (MICROZIDE) 12.5 MG capsule CATALINA Lomas Referring Provider: No ref. provider found PCP: CATALINA Lomas documented in this encounter Plan of Treatment Scheduled Orders Name Type Priority Associated Diagnoses Orde r Schedule LIPID PANEL Lab Routine Screening for hyperlipidemia Expected: 07/31/2022, Expires: 06/30/2023 BASIC METABOLIC PANEL Lab Routine Essential hypertension Expected: 07/31/2022, Expires: 06/30/2023 documented as of this encounter Visit Diagnoses Diagnosis Essential hypertension- Primary Unspecified essential hypertension Screening for hyperlipidemia Screening for lipoid disorders documented in this encounter Additional Health Concerns Assessment Noted Time PHQ-9 Depression Total Score: 0 07/01/19 23 7:09 AM CDT documented as of this encounter Care Teams Intensive Care Nurse Relationship Specialty Start Date End Date Peggy Best APNP [address] [address] PCP - General Nurse Practitioner Family 12/27/21 6/05/08 Rhonda De La Paz MD Physician INTERNAL MEDICINE 09/08/20 documented as of this encounter
--- OUTSIDE RECORDS SUMMARY | 2024-04-03 16:03 | XMS_ITS | Encounter Summary ---
Author Organization [facility] Address [address] [place] [address]. [place], [place] [address] [place] [address] Care Team Providers Care Industrial Methods Consultant Name Role Phone Rhonda De La Paz MD Unavailable [phone] Peggy Best Primary Care Provider [phone] Reason for Visit * Reason Onset Date Comments Medication Request 08/11/2022 Encounter Details Date Type Department Care Team (Late st Contact Info) Description 08/11/2022 Telephone [facility] Medical Group Family & Internal Medicine [facility] [address] [place] [address] Peggy Best APNP [address] [address] Medication Request Social History Tobacco Use Types Packs/Day Years [...] as of this encounter Progress Notes * Paulie Braxton RN - 08/11/2022 11:54 AM CDT Sent * CATALINA Lomas - 08/11/2022 11:19 AM CDT Ok to send. * Paulie Braxton RN - 08/11/2022 10:56 AM CDT Ok to send? * Michelle Miller LPN - 08/11/2022 10:51 AM CDT Pt called back with [facility] fax [phone] * Michelle Miller LPN - 08/11/2022 10:09 AM CDT Pt called she is in [place] , in family, and did not bring enough meds needs 3 days of Lisinopril 40 mg HTCZ 12.5 mg Fluoxetine 40 mg Send to [address] [place] [address] Fax not known pt was looking for # but call lost or she hung up PT CB # [phone] documented in this encounter Plan of Treatment Not on file documented as of this encounter Visit Diagnoses Diagnosis Essential hypertension Unspecified essential hypertension Anxiety Anxiety state, unspecified documented in this encounter Additional Health Concerns Assessment Noted Time PHQ-9 Depression Total Score: 0 07/01/19 23 7:09 AM CDT documented as of this encounter Care Teams Industrial Methods Consultant Relationship Specialty Start Date End Date Peggy Best APNP [address] [place] [address] PCP - General Nurse Practitioner Family 9/13/22 6/05/08 Rhonda De La Paz MD Physician INTERNAL MEDICINE 09/08/20 documented as of this encounter
--- OUTSIDE RECORDS SUMMARY | 2024-04-03 16:03 | XMS_ITS | Encounter Summary ---
Author Organization [facility] Address [address] [place] [address]. [place], [place] [address] [place] [address] Care Team Providers Care Die Cast Supervisor Name Role Phone Rhonda De La Paz MD Unavailable [phone] Peggy Best Primary Care Provider [phone] Encounter Details Date Type Department Care Team (Latest Contact Info) Description 06/29/2022 Scan HEALTH INFO [facility] Scanned, Doc Med Group Social History Tobacco Use Types Packs/Day Years [...] AM CDT documented as of this encounter Plan of Treatment Not on file documented as of this encounter Visit Diagnoses Not on filedocumented in this encounter Additional Health Concerns Assessment Noted Time PHQ-9 Depression Total Score: 0 03/18/20 21 4:05 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
--- OUTSIDE RECORDS SUMMARY | 2024-04-03 16:03 | XMS_ITS | Clinical Summary ---
Author Organization [facility] Address [address] [place] [address]. [place], [place] [address] [place] [address] Care Team Providers Care Boiler Out Name Role Phone Rhonda De La Paz MD Unavailable [phone] Yoselin Murdock NP Primary Care Provider Allergies Active Allergy Reactions Criticality Noted Date Comments Codeine Itching 04/12/2021 Sulfa Antibiotics Hives,Rash High 09/08/2020 Medications Cholecalciferol (VITAMIN D) 50 MCG (1999) Tab Ac tive lisinopril (PRINIVIL) 40 MG tabletIndications :Essential hypertension Take 1 tablet (40 mg total) by mouth daily. 90 tablet 2 3 Active hydroCHLOROthiazi de (MICROZIDE) 12.5 MG capsuleIndication s:Essential hypertension Take 1 capsule (12.5 mg total) by mouth every morning. 90 capsule 2 3 Active FLUoxetine (PROZAC) 40 MG capsuleIndication s:Anxiety Take 1 capsule (40 mg total) by mouth daily. 90 capsule 2 3 Active cyclobenzaprine (FLEXERIL) 5 MG tabletIndications :Muscle spasm Take 1 tablet (5 mg total) by mouth 3 (three) times daily as needed. 30 tablet 5 3 Active naratriptan (AMERGE) 2.5 MG tabletIndications :Migraine without aura and without status migrainosus, not intractable TAKE 1 TABLET BY MOUTH ONCE. MAY REPEAT AFTER 4 HOURS. 10 tablet 3 4 Active Active Problems Problem Noted Date Diagnosed Date Gastroesophageal reflux disease without esophagi tis 01/30/2022 Screen for colon cancer 03/23/2021 Overview (03/23/2021): Added automatically from request for surgery [id number] History of colon polyps 03/23/2021 Overview (03/23/2021): Added automatically from request for surgery [id number] Essential hypertension Anxiety Immunizations Name Administration Dates Next Due Influenza (Generic) 12/16/2020 Influenza Adult (Generic) 12/25/2021,12/18/2020 Td (Generic) 09/07/2020 Td, Adsorbed, Preservative F ree, Adult Use, Lf Unspecified 09/07/2020 Tetanus Diptheria 09/07/2020 Family History Medical History Relation Comments Heart Attack Father Breast Cancer Mother Breast Cancer Paternal Grandmother Relation Status Comments Father Mother Paternal Grandmother Social History Tobacco Use Types Packs/Day Years [...] file Not on file Not on file Last Filed Vital Signs Vital Sign Reading Time Taken Comments Blood Pressure 155/80 10/16/2022 2:15 PM CDT Pulse 69 10/16/2022 2:10 PM CDT Temperature 37.3 ??C (99.1 ??F) 10/16/2022 2:10 PM CD T Respiratory Rate 16 10/16/2022 2:10 PM CDT Oxygen Saturation 100% 10/16/2022 2:10 PM CDT Inhaled Oxygen Concentration - - Weight 59 kg (130 lb) 10/16/2022 2:10 PM CDT Height 154.9 cm (5' 1 ) 10/16/2022 2:10 PM CDT Body Mass Index 24.56 10/16/2022 2:10 PM CDT Plan of Treatment Health Maintenance Due Date Last Done Comments RSV Immunization or 60+ Years (1 - 1-dose 60+ series) 2019 Annual Physical 02/07/2023 02/07/2022, 10/14, 09/15/2020 Mammogram Screening 11/15/2023 11/14/2021, COVID-19 Vaccine ( season) 2023 12/25/2021, 07/21/2021, 02/03/2021, Additional history exists Influenza Adult (#1) 2024 12/25/2021, 12/18/2020, 12/16/2020 Cervical Cancer Screening Pap Smear (Age 30 to 64) Every 3 Years 02/07/2025 02/07/2022, 09/15/2020 Cervical Cancer Screening Pap with HPV Testing (Age 30 to 64) Every 5 Years 02/07/2027 02/07/2022 Cervical Cancer Screening with HPV 02/07/2027 DTaP, Tdap and Td Vaccines (1 - Tdap) 09/04/2030 09/07/2020, 09/07/2020, 09/07/2020 Postponed from 09/08/2020 (Future Appointment) Colorectal Cancer Screening Colonoscopy (10 Years) 04/22/2031 04/22/2021 Zoster Vaccines (1 of 2) 09/22/2060 Pos tponed from 09/12/2009 (Future Appointment) Hepatitis C Completed 09/15/2020 Meningococcal Vaccine Aged Out No [place]her [place] eligible based on patient's age to complete this topic Pneumococcal Vaccine: Pediatrics (0 to 5 Years) and At-Risk Patients (6 to 64 Years) Aged Out No longer eligible based on patient's age to complete this topic RSV Immunizations Under 20 Months Aged Out No longer eligible based on patient's age to complete this topic Procedures Procedure Name Priority Date/Time Associated Diagnosis Comments THINPREP PAP W AGE BASED SCREENING PROTOCOLS Routine 02/07/2022 10:23 AM CDT Encounter for screening for cervical cancer MG SCREENING W TERRI DELMI DIGI Routine 11/14/2021 10:35 AM CDT Encounter for screening mammogram for malignant neoplasm of breast HEPATITIS C ANTIBODY Routine 09/15/2020 9:30 AM CDT Need for hepatitis C screening test from Last 3 Months or Most Recently Relevant to Health Maintenance Results * THINPREP PAP W AGE BASED SCREENING (QUEST ONLY) (02/07/2022 10:23 AM CDT) Comment: [facility] Comment: This order for age-based cervical cancer and STI screening follows ACOG guidelines(PB 168, 140, XJU230). See individual assays for performing site location. CLINICAL INFORMATION: None given [facility] Clinical Information: NONE GIVEN [facility] Date of Last Pap NONE GIVEN [facility] Previous Biopsy? NONE GIVEN [facility] SOURCE (QST) Endocervix [facility] STATEMENT OF ADEQUACY: SATISFACTORY FOR EVALUATION Partially obscuring inflammation [facility] PAP INTERPRETATION/RESU LTS [facility] [employer] [facility] Comment: Negative for intraepithelial lesion or malignancy. Atrophic pattern; predominantly parabasal cells COMMENT: This Pap test has been evaluated with computer assisted technology. [facility] PUBLICATION MANAGER [facility] Comment: AMW, CT(ASCP) CT screening location: [place] [address] [place] [address] COMMENT: [facility] Comment: EXPLANATORY NOTE: The Pap is a screening test for cervical cancer. It is not a diagnostic test and is subject to false negative and false positive results. It is most reliable when a satisfactory sample, regularly obtained, is submitted with relevant clinical findings and history, and when the Pap result is evaluated along with historic and current clinical information. HPV MRNA E6/E7 Not Detected Not Detected [facility] Comment: Methodology: Metal Furniture Repairer-Mediated Amplification This assay detects E6/E7 viral messenger RNA (mRNA) from 14 high-risk HPV types (16,18,31,33,35,39,45,51,52,56,58,59,66,68). Cervical sources are required for HPV testing. If a vaginal source from a patient who has had a total hysterectomy with removal of cervix was submitted, please contact the testing laboratory for alternative testing options. For additional information, please refer to http://education.Glovico/faq/EEC066w0 (This link if provided for information/ educational purposes only.) 02/07/2022 10:2 3 AM CDT 02/08/2022 12:29 AM CDT us Mis [facility] ORDERABLE S Final Result [facility]AVE[facility] ORD[facility] [address] [place] [address] [facility] [address] [address] [facility] [place] [address] * MG SCREENING W TERRI DELMI DIGI (11/14/2021 10:35 AM CDT) Anatomical Region Laterality Modality Breast Bilateral Mammography 11/14/2021 11:3 8 AM CDT Impressions 11/14/2021 12:17 PM CDT IMPRESSION: 1. No mammographic evidence of malignancy. 2. BI-RADS Category 2 - benign findings. MQSA BI-RADS Categories: Category 0 - needs additional imaging evaluation. Category 1 - negative. Category 2 - benign findings. Category 3 - probably benign findings, but short interval follow-up ?is recommended. Category 4 - suspicious abnormality and biopsy should be considered ?though the lesion may well be benign. Category 5 - highly suggestive of malignancy and appropriate action ?should be taken. ?? Category 6 - known biopsy-proven malignancy A) ??A negative report should not delay a biopsy if a dominant or ?clinically suspicious mass is present. B) ??Adenosis and dense breasts may obscure an underlying neoplasm. C) ??Study interpreted with computer aided detection. Ordered By: ASHLY LANDIN Interpreted By: Leandro Waters, 11/14/2021 11:38 AM Narrative 11/14/2021 12:17 PM CDT IMAGING STUDIES: Bilateral screening mammograms with computer-aided detection with 2-D and 3-D imaging. Tomosynthesis. DATE: 11/14/2021 10:11 AM HISTORY: screen brca ?? . ??Mother diagnosed breast carcinoma age 71. Routine exam. COMPARISON: ??02/16/2017. 09/28/2020 TISSUE TYPE: The breast tissue is heterogeneously dense, which may obscure small masses. FINDINGS: 1. ??Bilateral screening mammograms with computer detection with ??2-D and 3-D imaging. Tomosynthesis. ??Moderate scattered ??fibroglandular tissue pattern is present. This does limit sensitivity of mammography. Benign nodularity. Benign calcifications. 2. ??No malignant microcalfcifications, new dominant masses, or architectural distortion. 3. No skin thickening or nipple retraction. ??Axillary regions are within normal limits. Ashly Landin NP MAMMO Final Result * HEPATITIS C ANTIBODY (09/15/2020 9:30 AM CDT) HEPATITIS C AB NON-REACTI VE NON-REACTI VE 09/15/2020 9:02 PM CDT [facility] 09/15/2020 9:30 AM CDT Mis [facility] Final Result [facility] [address] [place] [address], from Last 3 Months or Most Recently Relevant to Health Maintenance Insurance [facility] [employer] Care Teams Boiler Out Relationship Specialty [place] [address] [address] PCP - General Nurse Practitioner Family 10/05/22 Rhonda De La Paz MD Physician INTERNAL MEDICINE 09/08/20
--- OUTSIDE RECORDS SUMMARY | 2024-04-03 16:03 | XMS_ITS | Encounter Summary ---
Author Organization [facility] Address [address] [place] [address]. [place], [place] [address] [place] [address] Care Team Providers Care Instrument Assembly Supervisor Name Role Phone Rhonda De La Paz MD Unavailable [phone] Peggy Best Primary Care Provider [phone] Encounter Details Date Type Department Care Team (Late st Contact Info) Description 09/22/2022 Orders Only [facility] Medical Group Family & Internal Medicine [address] [address] Paulie Braxton I, IVAN Social History Tobacco Use Types Packs/Day Years [...] Diagnoses Diagnosis Essential hypertension Unspecified essential hypertension Migraine without aura and without status migrainosus, not intractable Migraine without aura, without mention of intractable migraine without mention of status migrainosus Anxiety Anxiety state, unspecified documented in this encounter Additional Health Concerns Assessment Noted Time PHQ-9 Depression Total Score: 0 07/01/19 7:09 AM CDT documented as of this encounter Care Teams Instrument Assembly Supervisor Relationship Specialty Start Date End Date Peggy Best APNP [address] [address] PCP - General Nurse Practitioner Family 12/27/2109/15 Rhonda De La Paz MD Physician INTERNAL MEDICINE 09/08/20 documented as of this encounter
--- OUTSIDE RECORDS SUMMARY | 2024-04-03 16:03 | XMS_ITS | Encounter Summary ---
Author Organization [facility] Address [address] [place] [address]. [place], [place] [address] [place] [address] Care Team Providers Care Glass Smoother Name Role Phone Rhonda De La Paz MD Unavailable [phone] Yoselin Murdock NP Primary Care Provider [phone] Reason for Visit * Reason Comments Follow Up Transfer follow up ( Peggy wetzel)3 month follow up Hypertension Anxiety Encounter Details Date Type Department Care Team (Late st Contact Info) Description 10/16/2022 2:20 PM CDT Office Visit [facility] Medical Group Family & Internal Medicine [address] [address] Yoselin Murdock NP [address] [place] [address]. [place] [address] Follow Up (Transfer follow up (Peggy pt)/3 month follow up); Hypertension; Anxiety Social History Tobacco Use Types Packs/Day Years [...] on file documented as of this encounter Last Filed [...] Mass Index 24.56 10/16/2022 2:10 PM CDT documented in this encounter Progress Notes * Yoselin Murodck, FLOORMAN - 10/16/2022 2:20 PM CDT Reason for Visit: Follow Up (Transfer follow up (Peggy wetzel)/3 month follow up), Hypertension, and Anxiety History of Present Illness: Danielle a 62-year-old female presents for follow-up migraines, HTN, and anxiety needing medication refills. She states she will take Flexeril once monthly as needed for generalized back pain. She denies needfor refill but would like to keep the medication active on her chart. She states migraines are well controlled with PRN triptan use. She may have symptoms once every other month and 1 dose often resolved her symptoms. Her migraine pain is typically to the right scientologist. Blood pressure had measured elevated in the office visit today. She has been monitoring her b/p at home and always gets lower readings 120's / 70's on averaged. She denies CP, palpitations, WINNIE, dizziness, weakness, SOB, or activity intolerance. She states her anxiety is well controlled and wishes to continue the Prozac. ROS: Review of Systems Constitutional: Negative. HENT: Negative. Eyes: Negative. Respiratory: Negative. Cardiovascular: Negative. Negative for chest pain and palpitations. Gastrointestinal: Negative. Musculoskeletal: Positive for back pain (intermittent and chronic). Skin: Negative. Neurological: Positive for headaches (controlled). Negative for dizziness. Psychiatric/Behavioral: Negative. Medications: Current Outpatient Medications: Cholecalciferol (VITAMIN D) 50 MCG (1999) Tab, , Disp: , Rfl: cyclobenzaprine 5 MG tablet, Take 1 tablet (5 mg total) by mouth 3 (three) times daily as needed., Disp: 30 tablet, Rfl: 5 FLUoxetine (PROZAC) 40 MG capsule, Take 1 capsule (40 mg total) by mouth daily., Disp: 90 capsule, Rfl: 2 hydroCHLOROthiazide (MICROZIDE) 12.5 MG capsule, Take 1 capsule (12.5 mg total) by mouth every morning., Disp: 90 capsule, Rfl: 2 lisinopril (PRINIVIL) 40 MG tablet, Take 1 tablet (40 mg total) by mouth daily., Disp: 90 tablet, Rfl: 2 naratriptan (AMERGE) 2.5 MG tablet, TAKE 1 TABLET BY MOUTH ONCE. MAY REPEAT AFTER 4 HOURS., Disp: 10 tablet, Rfl: 3 Review of patient's allergies indicates: Allergen Reactions Sulfa Antibiotics Hives and Rash Codeine Itching Past Medical History: Diagnosis Date Anxiety Back pain Hypertension Past Surgical History: Procedure Laterality Date APPENDECTOMY COLONOSCOPY N/A 04/22/2021 COLONOSCOPY performed by Charli Yi MD at [facility] OR NASAL AIRWAY TONSILLECTOMY Social History Tobacco Use Smoking status: Never Smokeless tobacco: Never Vaping Use Vaping Use: Never used Substance Use Topics Alcohol use: Not Currently Drug use: Never Family History Problem Relation Name Age of Onset Breast Cancer Mother Breast Cancer Paternal Grandmother Heart Attack Father Family Status Relation Name Status Mother (Not Specified) PGM (Not Specified) Father (Not Specified) Physical Exam Vitals and [...] Musculoskeletal: Cervical back: Normal range of motion. Right lower leg: No edema. Left lower leg: No edema. Neurological: Mental Status: She is alert and oriented to person, place, and time. Psychiatric: Mood and Affect: Mood normal. Behavior: Behavior normal. Thought Content: Thought content normal. Judgment: Judgment normal. Filed Vitals: 10/16/22 1410 10/16/22 1415 BP: (!) 150/78 (!) 155/80 Pulse: 69 Resp: 16 Temp: 99.1 ??F (37.3 ??C) TempSrc: Core SpO2: 100% Weight: 59 kg (130 lb) Height: 5' 1 (1.549 m) Assessment Encounter Diagnose(s) ICD-10-CM ICD-9-CM SNOMED CT(R) 1. Essential hypertension I10 401.9 ESSENTIAL HYPERTENSION lisinopril (PRINIVIL) 40 MG tablet hydroCHLOROthiazide (MICROZIDE) 12.5 MG capsule 2. Migraine without aura and without status migrainosus, not intractable G43.009 346.10 MIGRAINE WITHOUT AURA, NOT REFRACTORY naratriptan (AMERGE) 2.5 MG tablet 3. Anxiety F41.9 300.00 ANXIETY FLUoxetine (PROZAC) 40 MG capsule Recommendations and Plan: 1. Essential hypertension Patient reports b/p are controlled with home monitoring Asked her to check and provide log for screening and review Refills today Informant a DASH eating plan. Reduce sodium or salt in daily diet. Increase fruits, vegetables, whole grains. Reduce saturated fat intake. Recommend 90-150 minutes of aerobic exercises and/or 3 sessions of isometric resistance exercises per week. Reduce alcohol intake to 1 drink per day for women. Manage stress. Avoid tobacco products. Monitor blood pressure once weekly at a minimum of 1 hour after blood pressure medication has been taken. - lisinopril (PRINIVIL) 40 MG tablet; Take 1 tablet (40 mg total) by mouth daily. Dispense: 90 tablet; Refill: 2 - hydroCHLOROthiazide (MICROZIDE) 12.5 MG capsule; Take 1 capsule (12.5 mg total) by mouth every morning. Dispense: 90 capsule; Refill: 2 2. Migraine without aura and without status migrainosus, not intractable Controlled PRN Refills, continue current regimen - naratriptan (AMERGE) 2.5 MG tablet; TAKE 1 TABLET BY MOUTH ONCE. MAY REPEAT AFTER 4 HOURS. Dispense: 10 tablet; Refill: 3 3. Anxiety Chronic, controlled, continue current regimen - FLUoxetine (PROZAC) 40 MG capsule; Take 1 capsule (40 mg total) by mouth daily. Dispense: 90 capsule; Refill: 2 Follow up in 6 months. Return to clinic with new, persistent, or worsening symptoms. Danielle Brito is in agreement to and verbalized understanding of treatment plan with no further questions at this time. Yoselin Murdock NP 10/24/2022 10:25 AM Cosigned by Luke Rivera MD at 10/24/2022 1:15 PM CDT documented in this encounter Plan of Treatment Not on file documented as of this encounter Visit Diagnoses Diagnosis Essential hypertension- Primary Unspecified essential hypertension Migraine without aura and without status migrainosus, not intractable Migraine without aura, without mention of intractable migraine without mention of status migrainosus Anxiety Anxiety state, unspecified documented in this encounter Additional Health Concerns Assessment Noted Time PHQ-9 Depression Total Score: 0 07/01/19 23 7:09 AM CDT documented as of this encounter Care Teams Glass Smoother Relationship Specialty [place] [address] [address] PCP - General Nurse Practitioner Family 10/05/22 Rhonda De La Paz MD Physician INTERNAL MEDICINE 09/08/20 documented as of this encounter
--- OUTSIDE RECORDS SUMMARY | 2024-04-03 16:03 | XMS_ITS | Encounter Summary ---
Author Organization [facility] Address [address] [place] [address]. [place], [place] [address] [place] [address] Care Team Providers Care Community Education Specialist Name Role Phone Rhonda De La Paz MD Unavailable [phone] Peggy Best Primary Care Provider [phone] Encounter Details Date Type Department Care Team (Late st Contact Info) Description 06/02/2022 Orders Only [facility] Medical Group Family & Internal Medicine [address] [address] Paulie Braxton I, IVAN Social History Tobacco Use Types Packs/Day Years Used Date Smoking Tobacco: Never Smokeless Tobacco: Never Alcohol Use Standard Drinks/Week Comments Not Currently 0 (1 standard drink = 0.6 oz pur e alcohol) PHQ-2 Answer Date Recorded PHQ-2 Score - If the patient scores above 3, please move on to questions 3-9 0 12/02/2021 Comments No Sex and Gender Information Value [...] suspected to have Coronavirus/COVID-19? No / Unsure 05/30/2022 2:30 PM DESKIDDING MACHINE OPERATOR documented as of this encounter Plan of Treatment Not on file documented as of this encounter Visit Diagnoses Diagnosis Essential hypertension Unspecified essential hypertension documented in this encounter Additional Health Concerns Assessment Noted Time PHQ-9 Depression Total Score: 0 03/18/20 21 4:05 PM DESKIDDING MACHINE OPERATOR documented as of this encounter Care Teams Community Education Specialist Relationship Specialty Start Date End Date Peggy Best APNP [address] [address] PCP - General Nurse Practitioner Family 12/27/21 6/05/08 Rhonda De La Paz MD Physician INTERNAL MEDICINE 09/08/20 documented as of this encounter
--- OUTSIDE RECORDS SUMMARY | 2024-04-03 16:03 | XMS_ITS | Encounter Summary ---
Author Organization [facility] Address [address] [place] [address]. [place], [place] [address] [place] [address] Care Team Providers Care Contact Acid Plant Operator Helper Name Role Phone Rhonda De La Paz MD Unavailable [phone] Peggy Best Primary Care Provider [phone] Encounter Details Date Type Department Care Team (Latest Contact Info) Description 05/30/2022 Travel Social History Tobacco Use Types Packs/Day Years [...] Recorded In the last 10 days, have acosta u been in contact with someone who was confirmed or suspected to have Coronavirus/COVID-19? No / Unsure 05/30/2022 2:30 PM CHIEF DISPATCHER documented as of this encounter Plan of Treatment Not on file documented as of this encounter Visit Diagnoses Not on filedocumented in this encounter Additional Health Concerns Assessment Noted Time PHQ-9 Depression Total Score: 0 03/18/20 21 4:05 PM CHIEF DISPATCHER documented as of this encounter Care Teams Contact Acid Plant Operator Helper Relationship Specialty Start Date End Date Peggy Best APNP [address] [address] PCP - General Nurse Practitioner Family 12/27/2109/15 Rhonda De La Paz MD Physician INTERNAL MEDICINE 09/08/20 documented as of this encounter
--- OUTSIDE RECORDS SUMMARY | 2024-04-03 16:03 | XMS_ITS | Encounter Summary ---
Author Organization [facility] Address [address] [place] [address]. [place], [place] [address] [place] [address] Care Team Providers Care Casing Runner Name Role Phone Rhonda De La Paz MD Unavailable [phone] Peggy Best Primary Care Provider [phone] Encounter Details Date Type Department Care Team (Latest Contact Info) Description 06/30/2022 Travel Social History Tobacco Use Types Packs/Day [...] documented as of this encounter Care Teams Casing Runner Relationship Specialty Start Date End Date Peggy Best APNP [address] [place] [address], [place] [address] PCP - General Nurse Practitioner Family 12/27/2109/15 Rhonda De La Paz MD Physician INTERNAL MEDICINE 09/08/20 documented as of this encounter
--- OUTSIDE RECORDS SUMMARY | 2024-04-03 16:03 | XMS_ITS | Encounter Summary ---
Author Organization [facility] Address [address] [place] [address]. [place], [place] [address] [place] [address] Care Team Providers Care Senior Software Development Manager Name Role Phone Rhonda De La Paz MD Unavailable [phone] Peggy Best Primary Care Provider [phone] Encounter Details Date Type Department Care Team (Late st Contact Info) Description 05/04/2022 Orders Only [facility] Medical Group Family & Internal Medicine [address] [address] Paulie Braxton I, IVAN Social [...] as of this encounter Visit Diagnoses Diagnosis Anxiety Anxiety state, unspecified documented in this encounter Additional Health Concerns Assessment Noted Time PHQ-9 Depression Total Score: 0 03/18/20 21 4:05 PM TERMITE INSPECTOR documented as of this encounter Care Teams Senior Software Development Manager Relationship Specialty Start Date End Date Peggy Best APNP [address] [address] PCP - General Nurse Practitioner Family 12/27/2109/15 Rhonda De La Paz MD Physician INTERNAL MEDICINE 09/08/20 documented as of this encounter
--- OUTSIDE RECORDS SUMMARY | 2024-04-03 16:03 | XMS_ITS | Encounter Summary ---
Author Organization [facility] Address [address] [place] [address]. [place], [place] [address] [place] [address] Care Team Providers Care Irrigator Overhead Name Role Phone Rhonda De La Paz MD Unavailable [phone] Peggy Best Primary Care Provider [phone] Reason for Visit * Reason Onset Date Comments Billing Issue 08/14/2022 Encounter Details Date Type Department Care Team (Late st Contact Info) Description 08/14/2022 Telephone [facility] Medical Group Family & Internal Medicine [facility] [address] [place] [address] Peggy Best APNP [address] [facility] [address] [place] [address] Billing Issue Social History Tobacco Use Types Packs/Day Years [...] as of this encounter Progress Notes * Rachel Allen MA - 08/22/2022 3:05 PM CDT Rosa emailed me and I emailed her back asking to contact through the office or through [email or web address]. * Angela Benavides - 08/14/2022 10:30 AM CDT Rosa calling asking to speak to the telemarketing manager (Rachel) States she has been working with her regarding a billing issue for the lab work. She is also asking for office. Rosa mentioned that she has Rachel's email address and will email trae she does not want to get anyone else involved. documented in this encounter Plan of Treatment Not on file documented as of this encounter Visit Diagnoses Not on filedocumented in this encounter Additional Health Concerns Assessment Noted Time PHQ-9 Depression Total Score: 0 07/01/19 23 7:09 AM CDT documented as of this encounter Care Teams Irrigator Overhead Relationship Specialty Start Date End Date Peggy Best APNP [address] [address] PCP - General Nurse Practitioner Family 12/27/2109/15 Rhonda De La Paz MD Physician INTERNAL MEDICINE 09/08/20 documented as of this encounter
--- OUTSIDE RECORDS SUMMARY | 2024-04-03 16:03 | XMS_ITS | Encounter Summary ---
Author Organization [facility] Address [facility] [place], [place] [address] [place] [address] Care Team Providers Care Medical Equipment Sales Name Role Phone Rhonda De La Paz MD Unavailable [phone] Yoselin Murdock NP Primary Care Provider [phone] Encounter Details Date Type Department Care Team (Latest Contact Info) Description 10/16/2022 Travel Social History Tobacco Use Types Packs/Day [...] documented as of this encounter Care Teams Medical Equipment Sales Relationship Specialty [place] [address] [address]. [place] [address] PCP - General Nurse Practitioner Family 10/05/22 Rhonda De La Paz MD Physician INTERNAL MEDICINE 09/08/20 documented as of this encounter
--- OUTSIDE RECORDS SUMMARY | 2024-04-03 16:03 | XMS_ITS | Encounter Summary ---
Author Organization [facility] Address [address] [place] [address]. [place], [place] [address] [place] [address] Care Team Providers Care Tapeman Name Role Phone Rhonda De La Paz MD Unavailable [phone] Peggy Best Primary Care Provider [phone] Encounter Details Date Type Department Care Team (Late st Contact Info) Description 09/28/2022 Orders Only [facility] Medical Group Family & Internal Medicine [address] [address] Paulie Braxton RN Social History Tobacco Use Types Packs/Day [...] Progress Notes * Paulie Braxton RN - 09/28/2022 12:57 PM CDT Pa requested documented in this encounter Plan of Treatment [...] documented as of this encounter Care Teams Tapeman Relationship Specialty Start Date End Date Peggy Best APNP [address] [address] PCP - General Nurse Practitioner Family 12/27/2109/15 Rhonda De La Paz MD Physician INTERNAL MEDICINE 09/08/20 documented as of this encounter
--- OUTSIDE RECORDS SUMMARY | 2024-04-03 16:03 | XMS_ITS | Encounter Summary ---
Author Organization [facility] Address [address] [place] [address]. [place], [place] [address] [place] [address] Care Team Providers Care Senior Estimator Name Role Phone Rhonda De La Paz MD Unavailable [phone] Peggy Best APNP Primary Care Provider [phone] Yoselin Murdock FORGE HEATER Primary Care Provider [phone] Reason for Visit * Reason Onset Date Comments Billing Issue 06/02/2022 Coding issue Encounter Details Date Type Department Care Team (Late st Contact Info) Description 06/02/2022 Acrolinxt Message Enc [facility] Medical Group Family & Internal Medicine [facility] [address] [place] [address] [place], [place] [address] [place] [address] My Pap test Social History Tobacco Use Types Packs/Day Years [...] Coronavirus/COVID-19? No / Unsure 05/30/2022 2:30 PM SYSTEMS CHECKOUT MECHANIC documented as of this encounter Progress Notes * Rachel Allen MA - 06/07/2022 8:20 AM CST Spoke with patient and Peggy has written a letter for her. I then left her a v/m that her letter and paperwork will be at the front desk assistant for her to picker operator and she should be able to view her letter on My Chart. EMS CHECKOUT MECHANIC * Angela Benavides - 06/05/2022 8:49 AM CST Danielle calling this morning asking to set up an appointment via phone or face to face with Rachel staff antisubmarine officer o discuss the billing issue she is having. CB # [phone] danielle EMS CHECKOUT MECHANIC * Kirsten Diallo - 06/02/2022 3:19 PM CST Patient stopped by the office dropping off forms regarding coding or billing issue for last pap culture. Was told by her insurance the culture sent to [facility] will not be covered do to being not safe and effective for patients condition. Patient contacted [facility] and was told this is not a billing issue that it's a coding issue. Placed in Rachel Allen folder for review. EMS CHECKOUT MECHANIC documented in this encounter Plan of Treatment Not on file documented as of this encounter Visit Diagnoses Not on filedocumented in this encounter Additional Health Concerns Assessment Noted Time PHQ-9 Depression Total Score: 0 03/18/20 21 4:05 PM SYSTEMS CHECKOUT MECHANIC documented as of this encounter Care Teams Senior Estimator Relationship Specialty Start Date End Date Peggy Best APNP [address] [place] [address] PCP - General Nurse Practitioner Family 12/27/21 6/05/08 [place] [address] [address] PCP - General Nurse Practitioner Family 10/05/22 Rhonda De La Paz MD Physician INTERNAL MEDICINE 09/08/20 documented as of this encounter
--- OUTSIDE RECORDS SUMMARY | 2024-04-03 16:03 | XMS_ITS | Encounter Summary ---
Author Organization [facility] Address [address] [place] [address]. [place], [place] [address] [place] [address] Care Team Providers Care Pie Baker Name Role Phone Rhonda De La Paz MD Unavailable [phone] Peggy Best Primary Care Provider [phone] Reason for Visit * Reason Onset Date Comments Follow Up Call 06/06/2022 Encounter Details Date Type Department Care Team (Late st Contact Info) Description 06/06/2022 Telephone [facility] Medical Group Family & Internal Medicine [facility] [address] [place] [address] Peggy Best APNP [address] [facility] [address] [place] [address] Follow Up Call Social History Tobacco Use Types Packs/Day Years [...] Coronavirus/COVID-19? No / Unsure 05/30/2022 2:30 PM SEWING MACHINE REPAIRER documented as of this encounter Progress Notes * CATALINA Lomas - 06/06/2022 10:35 AM CST Note for pt. NG MACHINE REPAIRER documented in this encounter Plan of Treatment Not on file documented as of this encounter Visit Diagnoses Not on filedocumented in this encounter Additional Health Concerns Assessment Noted Time PHQ-9 Depression Total Score: 0 03/18/20 21 4:05 PM SEWING MACHINE REPAIRER documented as of this encounter Care Teams Pie Baker Relationship Specialty Start Date End Date Peggy Best APNP [address] [address] PCP - General Nurse Practitioner Family 12/27/2109/15 Rhonda De La Paz MD Physician INTERNAL MEDICINE 09/08/20 documented as of this encounter
--- OUTSIDE RECORDS SUMMARY | 2024-04-03 16:03 | XMS_ITS | Encounter Summary ---
Author Organization [facility] Address [address] [place] [address]. [place], [place] [address] [place] [address] Care Team Providers Care Spraying Machine Operator Name Role Phone Rhonda De La Paz MD Unavailable [phone] Peggy Best APNP Primary Care Provider [phone] Yoselin Murdock NP Primary Care Provider [phone] Encounter Details Date Type Department Care Team (Late st Contact Info) Description 05/31/[address] [facility] Medical Group Family & Internal Medicine [address] [address] Guilherme, [facility] Provider medication refill Social History Tobacco Use Types Packs/Day Years [...] Coronavirus/COVID-19? No / Unsure 05/30/2022 2:30 PM ENTRY LEVEL ELECTRICAL ENGINEER documented as of this encounter Plan of Treatment Not on file documented as of this encounter Visit Diagnoses Not on filedocumented in this encounter Additional Health Concerns Assessment Noted Time PHQ-9 Depression Total Score: 0 03/18/20 21 4:05 PM ENTRY LEVEL ELECTRICAL ENGINEER documented as of this encounter Care Teams Spraying Machine Operator Relationship Specialty Start Date End Date Peggy Best APNP [address] [address] PCP - General Nurse Practitioner Family 12/27/2109/15 [place] [address] [facility] [address] [facility] [place] [address] PCP - General Nurse Practitioner Family 10/05/22 Rhonda De La Paz MD Physician INTERNAL MEDICINE 09/08/20 documented as of this encounter
--- OUTSIDE RECORDS SUMMARY | 2024-04-03 16:04 | XMS_ITS | Encounter Summary ---
Author Organization [facility] Address [address] [place] [address]. [place], [place] [address] [place] [address] Care Team Providers Care Assembler Chassis Name Role Phone Rhonda De La Paz MD Unavailable [phone] Peggy Best APNP Primary Care Provider [phone] Yoselin Murdock CARTRIDGE ASSEMBLING MACHINE ADJUSTER Primary Care Provider + [phone] Reason for Visit * Reason Comments Lab (SCAN) Encounter Details Date Type Department Care Team (Latest Contact Info) Description 02/24/2022 Scan HEALTH INFO [facility] Scanned, Doc Med Group Lab (SCAN) Social History Tobacco Use Types Packs/Day Years [...] on file documented as of this encounter Procedures Procedure Name Priority Date/Time Associated Diagnosis Comments OUTSIDE LAB (SCAN ORDER) 02/24/2022 documented in this encounter Results * OUTSIDE LAB (SCAN) (02/24/2022) 02/24/2022 us Doc Med Group Scanned SCANNING Final Resu lt documented in this encounter Visit Diagnoses Not on filedocumented in this encounter Additional Health Concerns Assessment Noted Time PHQ-9 Depression Total Score: 0 03/18/20 21 4:05 PM REGIONAL TRAINER documented as of this encounter Care Teams Assembler Chassis Relationship Specialty Start Date End Date Peggy Best APNP [address] [facility] [address] [place] [address] PCP - General Nurse Practitioner Family 12/27/2109/15 [place] [address] [facility] [address] [place] [address] PCP - General Nurse Practitioner Family 10/05/22 Rhonda De La Paz MD Physician INTERNAL MEDICINE 09/08/20 documented as of this encounter
--- OUTSIDE RECORDS SUMMARY | 2024-04-03 16:04 | XMS_ITS | Encounter Summary ---
Author Organization [facility] Address [address] [place] [address]. [place], [place] [address] [place] [address] Care Team Providers Care Irish Moss Bleacher Name Role Phone Rhonda De La Paz MD Unavailable [phone] Peggy Best Primary Care Provider [phone] Encounter Details Date Type Department Care Team (Late st Contact Info) Description 01/25/2022 Orders Only [facility] Family & Internal Medicine [address] [address] Paulie Braxton I, IVAN Social [...] suspected to have Coronavirus/COVID-19? No / Unsure 01/10/2022 2:27 PM CDT documented as of this encounter Plan of Treatment Not on file documented as of this encounter Visit Diagnoses Not on filedocumented in this encounter Additional Health Concerns Assessment Noted Time PHQ-9 Depression Total Score: 0 03/18/20 21 4:05 PM REDEVELOPMENT SPECIALIST documented as of this encounter Care Teams Irish Moss Bleacher Relationship Specialty Start Date End Date Peggy Best APNP [id number] [address] PCP - General Nurse Practitioner Family 12/27/21 6/05/08 Rhonda De La Paz MD Physician INTERNAL MEDICINE 09/08/20 documented as of this encounter
--- OUTSIDE RECORDS SUMMARY | 2024-04-03 16:04 | XMS_ITS | Encounter Summary ---
Author Organization [facility] Address [address] [place] [address]. [place], [place] [address] [place] [address] Care Team Providers Care Emergency Room Registered Nurse Name Role Phone Rhonda De La Paz MD Unavailable Peggy Best Primary Care Provider [phone] Encounter Details Date Type Department Care Team (Latest Contact Info) Description 12/27/2021 Travel Social History Tobacco Use Types Packs/Day [...] suspected to have Coronavirus/COVID-19? No / Unsure 12/27/2021 2:22 PM CDT documented as of this encounter Plan of Treatment Not on file documented as of this encounter Visit Diagnoses Not on filedocumented in this encounter Additional Health Concerns Assessment Noted Time PHQ-9 Depression Total Score: 0 03/18/20 21 4:05 PM PAPER TWISTER documented as of this encounter Care Teams Emergency Room Registered Nurse Relationship Specialty Start Date End Date Peggy Best APNP [address] [address] PCP - General Nurse Practitioner Family 12/27/21 605/08 Rhonda De La Paz MD Physician INTERNAL MEDICINE 09/08/20 documented as of this encounter
--- OUTSIDE RECORDS SUMMARY | 2024-04-03 16:04 | XMS_ITS | Encounter Summary ---
Author Organization [facility] Address [facility] [place] [place], [place] [address] [place] [address] Care Team Providers Care Displayer Merchandise Name Role Phone Rhonda De La Paz MD Unavailable [phone] Peggy Best Primary Care Provider [phone] Reason for Visit * Reason Comments Hypertension 3 month follow up on high bp. Pt forgot to take bp med today. Refill Request Ran out of omeprazol e and needs refill Encounter Details Date Type Department Care Team (Late st Contact Info) Description 01/30/2022 9:00 AM CDT Office Visit [facility] Medical [facility] Family & Internal Medicine [address] [address] Yoselin Murdock, RECEIVING LEAD [id number] [place] [address] [place] [address] Hypertension (3 month follow up on high bp. Pt forgot to take bp med today. ); Refill Request ( Ran out of omeprazole and needs refill ) Social History Tobacco Use Types Packs/Day Years [...] suspected to have Coronavirus/COVID-19? No / Unsure 02/24/2022 2:47 PM ASSISTANT LIBRARIAN documented as of this encounter Last Filed Vital Signs Vital Sign Reading Time Taken Comments Blood Pressure 157/93 01/30/2022 9:05 AM CDT Pulse 72 01/30/2022 9:05 AM CDT Temperature 37.4 ??C (99.3 ??F) 01/30/2022 9:05 AM CD T Respiratory Rate 17 01/30/2022 9:05 AM CDT Oxygen Saturation 98% 01/30/2022 9:05 AM CDT Inhaled Oxygen Concentration - - Weight 56.6 kg (124 lb 12.8 oz) 01/30/2022 9:05 AM CDT Height 154.9 cm (5' 1 ) 01/30/2022 9:05 AM CDT Body Mass Index 23.58 01/30/2022 9:05 AM CDT documented in this encounter Progress Notes * Yoselin Murdock, DIOMEDES - 01/30/2022 9:00 AM CDT Reason for Visit: Hypertension (3 month follow up on high bp. Pt forgot to take bp med today. ) and Refill Request ( Ran out of omeprazole and needs refill ) History of Present Illness: Danielle a 61-year-old female presents for concerns of HTN and medication refills. She has not been monitoring her blood pressure at home and admits to forgetting to take her medication daily at times. She does not feel comfortable increasing or making medication changes today. She would like a refill of omeprazole today. She states she will develop nausea if without her PPI dose. ROS: Review of Systems Constitutional: Negative. HENT: Negative. Eyes: Negative. Respiratory: Negative. Cardiovascular: Negative for chest pain, palpitations, orthopnea, claudication, leg swelling and PND. Gastrointestinal: Positive for heartburn and nausea. Skin: Negative. Neurological: Negative. Negative for dizziness and headaches. Psychiatric/Behavioral: Negative. Medications: Current Outpatient Medications: ??? Cholecalciferol (VITAMIN D) 50 MCG (1999) Tab, , Disp: , Rfl: ??? cyclobenzaprine 5 MG tablet, Take 1 tablet (5 mg total) by mouth 3 (three) times daily as needed., Disp: 30 tablet, Rfl: 5 ??? FLUoxetine (PROZAC) 40 MG capsule, TAKE 2 CAPSULES BY MOUTH IN THE MORNING, Disp: 180 capsule, Rfl: 0 ??? hydroCHLOROthiazide (MICROZIDE) 12.5 MG capsule, TAKE 1 CAPSULE BY MOUTH EVERY DAY IN THE MORNING, Disp: 30 capsule, Rfl: 0 ??? lisinopril (PRINIVIL) 10 MG tablet, TAKE 1 TABLET BY MOUTH EVERY DAY, Disp: 30 tablet, Rfl: 1 ??? multiple vitamins-minerals (OCUVITE-LUTEIN) Cap, Take 1 capsule by mouth daily., Disp: , Rfl: ??? naratriptan 2.5 MG tablet, TAKE 1 TABLET BY MOUTH ONCE. MAY REPEAT AFTER 4 HOURS., Disp: 27 tablet, Rfl: 3 ??? omeprazole (PRILOSEC) 40 MG capsule, Take 1 capsule (40 mg total) by mouth daily., Disp: 90 capsule, Rfl: 1 ??? vitamin B-12 100 MCG tablet, Take 50 mcg by mouth daily., Disp: , Rfl: Allergies Allergen Reactions ??? Sulfa Antibiotics Hives and Rash ??? Codeine Itching Past Medical History: Diagnosis Date ??? Anxiety ??? Back pain ??? Hypertension Past Surgical History: Procedure Laterality Date ??? APPENDECTOMY ??? COLONOSCOPY N/A 04/22/2021 COLONOSCOPY performed by Charli Yi MD at [facility] OR ??? NASAL AIRWAY ??? TONSILLECTOMY Social History Tobacco Use ??? Smoking status: Never Smoker ??? Smokeless tobacco: Never Used Vaping Use ??? Vaping Use: Never used Substance Use Topics ??? Alcohol use: Not Currently ??? Drug use: Never Family History Problem Relation Name Age of Onset ??? Breast Cancer Mother ??? Breast Cancer Paternal Grandmother ??? Heart Attack Father Family Status Relation Name Status ??? Mother (Not Specified) ??? PGM (Not Specified) ??? Father (Not Specified) Physical Exam Vitals and nursing note reviewed. Constitutional: General: She is not in acute distress. Appearance: Normal appearance. She is not ill-appearing. Cardiovascular: Rate and Rhythm: Normal rate and regular rhythm. Pulses: Normal pulses. Heart sounds: Normal heart sounds. Pulmonary: Effort: Pulmonary effort is normal. Breath sounds: Normal breath sounds. Abdominal: General: Abdomen is flat. Bowel sounds are normal. There is no distension. Palpations: Abdomen is soft. There is no mass. Tenderness: There is no abdominal tenderness. There is no right CVA tenderness, left CVA tenderness, guarding or rebound. Hernia: No hernia is present. Lymphadenopathy: Cervical: No cervical adenopathy. Skin: General: Skin is warm and dry. Capillary Refill: Capillary refill takes less than 2 seconds. Neurological: Mental Status: She is alert and oriented to person, place, and time. Psychiatric: Mood and Affect: Mood normal. Behavior: Behavior normal. Filed Vitals: 01/30/22 0905 BP: (!) 157/93 Pulse: 72 Resp: 17 Temp: 99.3 ??F (37.4 ??C) TempSrc: Temporal SpO2: 98% Weight: 56.6 kg (124 lb 12.8 oz) Height: 5' 1 (1.549 m) Assessment Encounter Diagnose(s) ICD-10-CM ICD-9-CM SNOMED CT(R) 1. Essential hypertension I10 401.9 ESSENTIAL HYPERTENSION 2. Gastroesophageal reflux disease without esophagitis K21.9 530.81 GASTROESOPHAGEAL REFLUX DISEASEWITHOUT ESOPHAGITIS omeprazole (PRILOSEC) 40 MG capsule Recommendations and Plan: 1. Essential hypertension Patient declined medication changes today Encouraged home monitoring and recording resutls Reduce sodium or salt in daily diet. [...] after blood pressure medication has been taken. Encouraged compliance with daily dose. 2. Gastroesophageal reflux disease without esophagitis Refill Chronic, controlled, continue current regimen - omeprazole (PRILOSEC) 40 MG capsule; Take 1 capsule (40 mg total) by mouth daily. Dispense: 90 capsule; Refill: 1 Follow up in 4 weeks, sooner if needed. Return to clinic with new, persistent, or worsening symptoms. Danielle Brito is in agreement to and verbalized understanding of treatment plan with no further questions at this time. Yoselin Murdock NP 02/09/2022 4:56 PM STANT LIBRARIAN documented in this encounter Plan of Treatment Not on file documented as of this encounter Visit Diagnoses Diagnosis Essential hypertension- Primary Unspecified essential hypertension Gastroesophageal reflux disease without esophagitis Esophageal reflux documented in this encounter Additional Health Concerns Assessment Noted Time PHQ-9 Depression Total Score: 0 03/18/20 21 4:05 PM ASSISTANT LIBRARIAN documented as of this encounter Care Teams Displayer Merchandise Relationship Specialty Start Date End Date Peggy Best APNP [phone] [address] PCP - General Nurse Practitioner Family 12/27/2109/15 Rhonda De La Paz MD Physician INTERNAL MEDICINE 09/08/20 documented as of this encounter
--- OUTSIDE RECORDS SUMMARY | 2024-04-03 16:04 | XMS_ITS | Encounter Summary ---
Author Organization [facility] Address [address] [place] [address]. [place], [place] [address] [place] [address] Care Team Providers Care Yarn Winder Name Role Phone Rhonda De La Paz MD Unavailable [phone] Peggy Best Primary Care Provider [phone] Encounter Details Date Type Department Care Team (Late st Contact Info) Description 01/31/2022 Orders Only [facility] Medical Group Family & Internal Medicine [address] [address] Paulie Braxton I, IVAN Social [...] suspected to have Coronavirus/COVID-19? 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
--- OUTSIDE RECORDS SUMMARY | 2024-04-03 16:04 | XMS_ITS | Encounter Summary ---
Author Organization [facility] Address [address] [place] [address]. [place], [place] [address] [place] [address] Care Team Providers Care Water Valve Mechanic Name Role Phone Rhonda De La Paz MD Unavailable [phone] Job Martínez Primary Care Provider [phone] Encounter Details Date Type Department Care Team (Latest Contact Info) Description 12/27/2021 3:16 PM CDT - 12/27/2021 11:59 PM CDT Hospital Encounter [facility] [id number] [place] [address] Job Martínez APNP [address] [place] [address] Discharge Disposition: Home or Self Care (Routine Discharge) Social History Tobacco Use Types Packs/Day Years [...] PM CDT documented as of this encounter Medications at Time of Discharge Cholecalciferol (VITAMIN D) 50 MCG (1999) Tab biotin [address] MCG tablet Take 5,000 mcg by mouth daily. 2 cyclobenzaprine 5 MG tabletIndications: Muscle spasm Take 1 tablet (5 mg total) by mouth 3 (three) times daily as needed. 30 tablet 5 07/22/2021 3 famotidine (PEPCID) 40 MG tabletIndications: Gastroesophageal reflux disease without esophagitis TAKE 1 TABLET BY MOUTH EVERY DAY 90 tablet 12/23/2021 2 FLUOXETINE 40 MG capsuleIndications :Anxiety TAKE 2 CAPSULES BY MOUTH IN THE MORNING 180 capsule 10/24/2021 2 hydroCHLOROthiazid e (MICROZIDE) 12.5 MG capsuleIndications :Essential hypertension TAKE 1 CAPSULE BY MOUTH EVERY DAY IN THE MORNING 30 capsule 11/17/2021 2 lisinopril (PRINIVIL) 10 MG tabletIndications: Essential hypertension Take 1 tablet (10 mg total) by mouth daily. 30 tablet 1 10/31/2021 2 multiple vitamins-minerals (OCUVITE-LUTEIN) Cap Take 1 capsule by mouth daily. 3 naproxen (NAPROSYN) 500 MG tabletIndications: Acute pain of left knee Take 1 tablet (500 mg total) by mouth 2 (two) times daily with meals. 14 tablet 12/27/2021 2 naratriptan 2.5 MG tabletIndications: Migraine without aura and without status migrainosus, not intractable TAKE 1 TABLET BY MOUTH ONCE. MAY REPEAT AFTER 4 HOURS. 27 tablet 3 07/22/2021 3 omeprazole (PRILOSEC) 40 MG capsuleIndications :Gastroesophageal reflux disease without esophagitis Take 1 capsule (40 mg total) by mouth daily. 30 capsule 1 10/31/2021 2 vitamin B-12 100 MCG tablet Take 0.5 tablets (50 mcg total) by mouth daily. 3 documented as of this encounter Progress Notes * CATALINA Lomas - 12/27/2021 3:30 PM CDT No acute findings. Some mild spurring but this is a chronic finding. Will see how she does in the next few weeks and consider f/u if needed. Thank you. documented in this encounter Plan of Treatment Not on file documented as of this encounter Procedures Procedure Name Priority Date/Time Associated Diagnosis Comments XR KNEE LT MIN 4V Routine 12/27/2021 3:2 9 PM CDT Acute pain of left knee documented in this encounter Results * XR KNEE LT MIN 4V (12/27/2021 3:29 PM CDT) Anatomical Region Laterality Modality Knee Radiographic Elisabeth ging 12/27/2021 3:43 PM CDT Impressions 12/27/2021 3:44 PM CDT IMPRESSION: 1. ??No evidence of acute fracture or dislocation. 2. ??Mild tricompartmental narrowing. Mild spurring along the superior and inferior aspect of the patella. No bone destruction or large joint effusion. 3. ??If clinical concern persists, consider MRI. Ordered By: JOB MARTÍNEZ Interpreted By: Cari Moon, 12/27/2021 3:43 PM Narrative 12/27/2021 3:44 PM CDT EXAMINATION: XR KNEE LT MIN 4V EXAM DATE/TIME: 12/27/2021 3:21 PM CLINICAL HISTORY: Pain. Injury. COMPARISON: No comparison. Procedure Note Raul Moon MD - 12/27/2021 EXAMINATION: XR KNEE LT MIN 4V EXAM DATE/TIME: 12/27/2021 3:21 PM CLINICAL HISTORY: Pain. Injury. COMPARISON: No comparison. IMPRESSION: 1. No evidence of acute fracture or dislocation. 2. Mild tricompartmental narrowing. Mild spurring along the superior andinferior aspect of the patella. No bone destruction or large jointeffusion. 3. If clinical concern persists, consider MRI. Ordered By: JOB MARTÍNEZ Interpreted By: Cari Moon, 12/27/2021 3:43 PM us Job [facility] Final Resul t documented in this encounter Visit Diagnoses Diagnosis Acute pain of left knee documented in this encounter Additional Health Concerns Assessment Noted Time PHQ-9 Depression Total Score: 0 03/18/20 21 4:05 PM HELPDESK ANALYST documented as of this encounter Care Teams Water Valve Mechanic Relationship Specialty Start Date End Date Job Martínez APNP [address] [address] PCP - General Nurse Practitioner Family 12/27/21 6/05/08 Rhonda De La Paz MD Physician INTERNAL MEDICINE 09/08/20 documented as of this encounter
--- OUTSIDE RECORDS SUMMARY | 2024-04-03 16:04 | XMS_ITS | Encounter Summary ---
Author Organization [facility] Address [address] [place] [address]. 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
--- OUTSIDE RECORDS SUMMARY | 2024-04-03 16:04 | XMS_ITS | Encounter Summary ---
Author Organization [facility] Address [facility] access hospital[facility]. [place], [place] [address] [place] [address] Care Team Providers Care It Technical Support Specialist Name Role Phone Rhonda De La Paz MD Unavailable [phone] Peggy Best Primary Care Provider [phone] Reason for Visit * Reason Comments Follow Up Pt here for follow u p on left knee pain. Pt states she is still having pain in the knee. Encounter Details Date Type Department Care Team (Late st Contact Info) Description 01/10/2022 2:40 PM CDT Office Visit [facility] Medical Group Family & Internal Medicine [address] [address] Peggy Best APNP [address] [place] [address] Follow Up (Pt here for follow up on left knee pain. Pt states she is still having pain in the knee.) Social History Tobacco Use Types Packs/Day Years [...] PM CDT documented as of this encounter Last Filed Vital Signs Vital Sign Reading Time Taken Comments Blood Pressure 152/84 01/10/2022 2:33 PM CDT Pulse 73 01/10/2022 2:33 PM CDT Temperature 37.3 ??C (99.2 ??F) 01/10/2022 2:33 PM CD T Respiratory Rate 18 01/10/2022 2:33 PM CDT Oxygen Saturation 97% 01/10/2022 2:33 PM CDT Inhaled Oxygen Concentration - - Weight 59.4 kg (131 lb) 01/10/2022 2:33 PM CDT Height 154.9 cm (5' 1 ) 01/10/2022 2:33 PM CDT Body Mass Index 24.75 01/10/2022 2:33 PM CDT documented in this encounter Progress Notes * Peggy Best, CATALINA - 01/10/2022 2:40 PM CDTSummary: f/u knee pain. Reason for Visit: Follow Up (Pt here for follow up on left knee pain. Pt states she is still having pain in the knee.) History of Present Illness: Danielle Brito is a 61-year-old female here for acute pain in left knee. Was doing water exercises in her pool and noted pain in her knee. Has cont to get worse. Using some ice/heat that has helped. 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 Hurts with movement and walking. Daily icing. ROS: Review of Systems Constitutional: Negative for appetite change, diaphoresis, fatigue and fever. HENT: Negative for congestion, sore throat and trouble swallowing. Eyes: Negative for photophobia and discharge. Respiratory: Negative for cough, shortness of breath and wheezing. Cardiovascular: Negative for chest pain, palpitations and leg swelling. Gastrointestinal: Negative for abdominal pain. Genitourinary: Negative for dysuria. Musculoskeletal: Negative for gait problem. Left knee pain Skin: Negative for rash. Neurological: Negative for dizziness, syncope and weakness. Psychiatric/Behavioral: Negative for confusion. The patient is not nervous/anxious. Medications: Current Outpatient Medications: ??? Cholecalciferol (VITAMIN D) 50 MCG (1999) Tab, , Disp: , Rfl: ??? cyclobenzaprine 5 MG tablet, Take 1 tablet (5 mg total) by mouth 3 (three) times daily as needed., Disp: 30 tablet, Rfl: 5 ??? FLUOXETINE 40 MG capsule, TAKE 2 CAPSULES BY [...] by mouth daily., Disp: , Rfl: ??? naproxen (NAPROSYN) 500 MG tablet, Take 1 tablet (500 mg total) by mouth 2 (two) times daily with meals., Disp: 14 tablet, Rfl: 0 ??? naratriptan 2.5 MG tablet, TAKE 1 TABLET BY MOUTH ONCE. MAY REPEAT AFTER 4 HOURS., Disp: 27 tablet, Rfl: 3 ??? omeprazole (PRILOSEC) 40 MG capsule, Take 1 capsule (40 mg total) by mouth daily., Disp: 30 capsule, Rfl: 1 ??? vitamin B-12 100 MCG tablet, Take 50 mcg by mouth daily., Disp: , Rfl: ??? biotin [address] MCG tablet, Take 5,000 mcg by mouth daily., Disp: , Rfl: ??? famotidine (PEPCID) 40 MG tablet, TAKE 1 TABLET BY MOUTH EVERY DAY, Disp: 90 tablet, Rfl: 0 Allergies Allergen Reactions ??? Sulfa Antibiotics Hives and Rash ??? Codeine Itching Past Medical History: Diagnosis Date ??? Anxiety ??? Back pain ??? Hypertension Past Surgical History: Procedure Laterality Date ??? APPENDECTOMY ??? COLONOSCOPY N/A 04/22/2021 COLONOSCOPY performed by Charli Yi MD at [facility] OR ??? NASAL AIRWAY ??? TONSILLECTOMY Social History Socioeconomic History ??? Marital status: Occupational History ??? Occupation: [employer] Tobacco Use ??? Smoking status: Never Smoker [...] in acute distress. Appearance: She is well-developed. Cardiovascular: Rate and Rhythm: Normal rate. Pulmonary: Effort: Pulmonary effort is normal. No respiratory distress. Musculoskeletal: Cervical back: Normal range of motion. Left knee: Swelling present. Decreased range of motion. Tenderness present over the ACL and patellar tendon. Neurological: Mental Status: She is alert and oriented to person, place, and time. Psychiatric: Behavior: Behavior normal. Filed Vitals: 01/10/22 1433 BP: (!) 152/84 Pulse: 73 Resp: 18 Temp: 99.2 ??F (37.3 ??C) TempSrc: Core SpO2: 97% Weight: 59.4 kg (131 lb) Height: 5' 1 (1.549 m) Diagnoses/Impression: 1. Acute pain of left knee Recommendations and Plan: 1. Acute pain of left knee Will do depo 80mg today and pt does not want oral steroids so will do another round of high dose nsaids x 2 weeks. If no improvement or worsens in 10 days pt to call office and consider MRI. Cont to focus on RICE. Reviewed XR with pt. - naproxen (NAPROSYN) 500 MG tablet; Take 1 tablet (500 mg total) by mouth 2 (two) times daily withmeals. Dispense: 14 tablet; Refill: 0 - XR KNEE LT MIN 4V; Future No orders of the defined types were placed in this encounter. CATALINA Lomas Referring Provider: No ref. provider found PCP: CATALINA Lomas documented in this encounter Plan of Treatment Not on file documented as of this encounter Visit Diagnoses Diagnosis Acute pain of left knee- Primary documented in this encounter Administered Medications Inactive Administered Medications - up to 3 most recent administrations Medication Order MAR Action Action Date Dose Rate Site methylPREDNISolone acetate (DEPO-Medrol) injection 80 mg 80 mg, Intramuscular, Once, 1 dose, On Sun01/10/22 at 1530, Shake WellIndications:Acute pain of left knee Given 01/10/2022 3:14 PM CDT 80 mg Left Dorsal Gluteal documented in this encounter Additional Health Concerns Assessment Noted Time PHQ-9 Depression Total Score: 0 03/18/20 21 4:05 PM SENIOR 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
--- OUTSIDE RECORDS SUMMARY | 2024-04-03 16:04 | XMS_ITS | Encounter Summary ---
Author Organization [facility] Address [address] [place] [address]. [place], [place] [id number] [place] [address] Care Team Providers Care Physician Primary Care Sports Medicine Name Role Phone Rhonda De La Paz MD Unavailable [phone] Peggy Best Primary Care Provider [phone] Reason for Visit * Reason Onset Date Comments Information 01/30/2022 Billing Instruct ions for patient Ins. Encounter Details Date Type Department Care Team (Late st Contact Info) Description 01/30/2022 Telephone [facility] - [place] [address] [place] [address] Peggy Best APNP [id number] [facility] [address] [place] [address] Information (Billing Instructions for patient Ins.) Social History Tobacco Use Types Packs/Day Years [...] AM CDT documented as of this encounter Progress Notes * Nayla Alvarez Sarwat - 01/30/2022 11:31 AM CDT I called [place], and was sent over to [facility] and I spoke with Mitra Montes De Oca, and she stated that all claims for PCP care are to go to [facility] [address] [facility] [address] All hospital claims are to be sent to [facility] [address] [place] [address] Call Ref# Mitra Montes De Oca / [id number] I then called [facility] [employer] [facility] where I spoke with Rain. She stated to leave the [facility] and the [facility] as they are in the chart. She will also be putting in a note with they information that we discussed. 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
--- OUTSIDE RECORDS SUMMARY | 2024-04-03 16:04 | XMS_ITS | Encounter Summary ---
Author Organization [facility] Address [address] [place] [address]. [place], [place] [id number] [place] [address] Care Team Providers Care Sr. Media Manager Name Role Phone Rhonda De La Paz MD Unavailable [phone] Ashly Cabrales MAMMOGRAPHY TECHNICIAN Primary Care Provider Unavailabl e Encounter Details Date Type Department Care Team (Latest Contact Info) Description 12/05/2021 Travel Social History Tobacco Use Types Packs/Day [...] suspected to have Coronavirus/COVID-19? No / Unsure 12/05/2021 7:53 AM CDT documented as of this encounter Plan of Treatment Not on file documented as of this encounter Visit Diagnoses Not on filedocumented in this encounter Additional Health Concerns Assessment Noted Time PHQ-9 Depression Total Score: 0 03/18/20 21 4:05 PM ICE SCULPTOR documented as of this encounter Care Teams Sr. Media Manager Relationship Specialty Start Date End Date Ashly Cabrales, MAMMOGRAPHY TECHNICIAN PCP - General NURSE PRACTITIONER 07/22/21 12/26/21 Rhonda De La Paz MD Physician INTERNAL MEDICINE 09/08/20 documented as of this encounter
--- OUTSIDE RECORDS SUMMARY | 2024-04-03 16:04 | XMS_ITS | Encounter Summary ---
Author Organization [facility] Address [address] [place] [address]. [place], [place] [id number] [place] [address] Care Team Providers Care Hygiene Teacher Name Role Phone Rhonda De La Paz MD Unavailable [phone] Peggy Best Primary Care Provider [phone] Encounter Details Date Type Department Care Team (Latest Contact Info) Description 02/24/2022 Travel Social History Tobacco Use Types Packs/Day [...] Coronavirus/COVID-19? No / Unsure 02/24/2022 2:47 PM LEGAL WORD PROCESSOR documented as of this encounter Plan of Treatment Not on file documented as of this encounter Visit Diagnoses Not on filedocumented in this encounter Additional Health Concerns Assessment Noted Time PHQ-9 Depression Total Score: 0 03/18/20 21 4:05 PM LEGAL WORD PROCESSOR documented as of this encounter Care Teams Hygiene Teacher Relationship Specialty Start Date End Date Peggy Best APNP [phone] [address] PCP - General Nurse Practitioner Family 12/27/2109/15 Rhonda De La Paz MD Physician INTERNAL MEDICINE 09/08/20 documented as of this encounter
--- OUTSIDE RECORDS SUMMARY | 2024-04-03 16:04 | XMS_ITS | Encounter Summary ---
Author Organization [facility] Address [address] [place] [address]. [place], [place] [id number] [place], [place] [id number] Care Team Providers Care Nutritionists Name Role Phone Rhonda De La Paz MD Unavailable [phone] Ashly Cabrales NP Primary Care Provider Unavailabl e Reason for Referral * Imaging (Emergency) - Closed Specialty Diagnoses / Procedures Referred By Contac t Referred To Contact RADIOLOGY Procedures CT CERV SPINE WO CON Nayla Kevin NP [address] [address] Phone: tel: fax: Referral ID Status Reason Start Date Expiration Date Visits Re quested Visits Authorized [id number] Closed 12/13/2021 12/13/2022 1 1 * Imaging (Emergency) - Closed Specialty Diagnoses / Procedures Referred By Contac t Referred To Contact RADIOLOGY Procedures CT HEAD WO CON Nayla Kevin NP [address] [address] Phone: tel: fax: Referral ID Status Reason Start Date Expiration Date Visits Re quested Visits Authorized [id number] Closed 12/13/2021 12/13/2022 1 1 Reason for Visit * Reason Comments Head Injury Encounter Details Date Type Department Care Team (Late st Contact Info) Description 12/13/2021 2:50 PM CDT - 12/13/2021 4:32 PM CDT Emergency [facility] Emergency Room [address] [place] [address] Nayla Kevin NP [address] [address] Head Injury Discharge Disposition: Home or Self Care (Routine [...] suspected to have Coronavirus/COVID-19? No / Unsure 12/13/2021 2:44 PM CDT documented as of this encounter Last Filed Vital Signs Vital Sign Reading Time Taken Comments Blood Pressure 144/69 12/13/2021 3:05 PM CDT Pulse 74 12/13/2021 3:05 PM CDT Temperature 36.8 ??C (98.2 ??F) 12/13/2021 3:05 PM CD T Respiratory Rate 18 12/13/2021 3:09 PM CDT Oxygen Saturation 100% 12/13/2021 3:05 PM CDT Inhaled Oxygen Concentration - - Weight - - Height - - Body Mass Index - - documented in this encounter Discharge Instructions * Discharge Instructions* Nayla Kevin NP - 12/13/2021 3:57 PM CDT Take Tylenol every 4 hours as needed for headache or neck pain. Be sure to apply ice pack to affected area on forehead for 10 minutes every 6 hours for the next 72hours. You may have a bruise that will take more than a week to heal on your forehead. You may use ice pack for 30 minutes on your neck and alternate with 10 minutes of heat for comfort. If he have any continuing symptoms related to this injury, you need to follow-up with Workmen's Comp. from [facility]. Your senior production supervisor can help direct you to human resources or their occupational healthprogram. * Attachments The following attachments cannot be sent through Care Everywhere. * Concussion Discharge Instructions, Adult (Liberian) documented in this encounter Medications at Time of Discharge Cholecalciferol (VITAMIN D) 50 MCG (2000 UT) Tab biotin 78656 MCG tablet Take 5,000 mcg by mouth daily. 2 cyclobenzaprine (FLEXERIL) 5 MG tablet Take 1 tablet (5 mg total) by mouth 3 (three) times daily as needed for Muscle Spasms. 30 tablet 12/13/2021 2 cyclobenzaprine 5 MG tabletIndications: Muscle spasm Take 1 tablet (5 mg total) by mouth 3 (three) times daily as needed. 30 tablet 5 07/22/2021 3 famotidine 40 MG tabletIndications: Gastroesophageal reflux disease without esophagitis Take 1 tablet (40 mg total) by mouth daily. 90 tablet 07/22/2021 2 FLUOXETINE 40 MG capsuleIndications :Anxiety TAKE [...] Take 1 capsule by mouth daily. 3 naratriptan 2.5 MG tabletIndications: Migraine without aura [...] daily. 3 documented as of this encounter ED Notes * Corry Alexander RN - 12/13/2021 4:31 PM CDT Provider discussed today's findings with the patient/family. The patient has been given informationregarding their treatment, follow up and concerning symptoms for which they should seek urgent or emergent attention. I have expressed the importance of seeking attention should there be any new, or w orsening symptoms or persistence of their condition. Patient verbalized understanding of the discharge instructions. * Nayla Kevin NP - 12/13/2021 3:21 PM CDT Images from the original note were not included. Emergency Department Note Chief Complaint Chief Complaint Patient presents with ??? 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 She reaches above her head at is a 10 foot shelf, with a tool in order to grab a 10 ounce can of soup from the top shelf. The can fell struck another can on the same 10 foot shelf and that can that second can, fell and hit her in the left side of the head. She was dazed for a moment, did not fall down, and has had a mild headache all day. Denies any blurry vision, did not break her glasses. She did take a dose of Tylenol at the time of the injury for aheadache which has continued to bother her. She woke up with a sore neck this morning and it has remained sore all day. Denies any weakness or numbness. She was able to work through the rest the day and came in to get checked out. She is not on blood thinners. She has a history of hypertension anxiety and back pain. Medical History ALLERGIES: Allergies Allergen Reactions ??? Sulfa Antibiotics Hives and Rash ??? Codeine Itching MEDICATIONS: Prior to Admission medications Medication Sig Start Date End Date Taking? Authorizing Provider cyclobenzaprine (FLEXERIL) 5 MG tablet Take 1 tablet (5 mg total) by mouth 3 (three) times daily asneeded for Muscle Spasms. 12/13/21 12/23/21 Yes Nayla Kevin NP biotin 98980 MCG tablet Take 5,000 mcg by mouth daily. Doc Abstract Cholecalciferol (VITAMIN D) 50 MCG (1999 UT) Tab Doc Abstract cyclobenzaprine 5 MG tablet Take 1 tablet (5 mg total) by mouth 3 (three) times daily as needed. 07/22/21 Ashly Cabrales NP famotidine 40 MG tablet Take 1 tablet (40 mg total) by mouth daily. 07/22/21 Ashly Cabrales NP FLUOXETINE 40 MG capsule TAKE 2 CAPSULES BY MOUTH IN THE MORNING 10/24/21 Ashly Cabrales NP hydroCHLOROthiazide (MICROZIDE) 12.5 MG capsule TAKE 1 CAPSULE BY MOUTH EVERY DAY IN THE MORNING 11/17/21 Rhonda De La Paz MD lisinopril (PRINIVIL) 10 MG tablet Take 1 tablet (10 mg total) by mouth daily. 10/31/21 10/31/22 Aslhy Cabrales NP multiple vitamins-minerals (OCUVITE-LUTEIN) Cap Take 1 capsule by mouth daily. Doc Abstract naratriptan 2.5 MG tablet TAKE 1 TABLET BY MOUTH ONCE. MAY REPEAT AFTER 4 HOURS. 07/22/21 Ashly Cabrales NP omeprazole (PRILOSEC) 40 MG capsule Take 1 capsule (40 mg total) by mouth daily. 10/31/21 Ashly Cabrales NP vitamin B-12 100 MCG tablet Take 50 mcg by mouth daily. Doc Abstract PAST MEDICAL HISTORY: Past Medical History: Diagnosis Date ??? Anxiety ??? Back pain ??? Hypertension PAST SURGICAL HISTORY: Past Surgical History: Procedure Laterality Date ??? APPENDECTOMY ??? COLONOSCOPY N/A 04/22/2021 COLONOSCOPY performed by Charli Yi MD at [facility] OR ??? NASAL AIRWAY ??? TONSILLECTOMY FAMILY HISTORY: Family History Problem Relation Name Age of Onset ??? Breast Cancer Mother ??? Breast Cancer Paternal Grandmother ??? Heart Attack Father SOCIAL HISTORY: Social History Tobacco Use ??? Smoking status: Never Smoker ??? Smokeless tobacco: Never Used Vaping Use ??? Vaping Use: Never used Substance Use Topics ??? Alcohol use: Not Currently ??? Drug use: Never Review of Systems Review of Systems Neurological: Positive for headaches. Negative for tremors, syncope, weakness and numbness. All other systems reviewed and are negative. Physical Exam Filed Vitals: 12/13/21 1505 12/13/21 1509 BP: (!) 144/69 Pulse: 74 Resp: 18 Temp: 98.2 ??F (36.8 ??C) TempSrc: Oral SpO2: 100% Physical Exam Vitals reviewed. Constitutional: General: She is not in acute distress. Appearance: She is well-developed. HENT: Head: Normocephalic. Comments: 2 cm raised hematoma to left side of forehead. No abrasion and no repair required. No drainage from nose or ears Eyes: Pupils: Pupils are equal, round, and reactive to light. Cardiovascular: Rate and Rhythm: Normal rate and regular rhythm. Heart sounds: Normal heart sounds. No murmur heard. Pulmonary: Effort: Pulmonary effort is normal. Breath sounds: Normal breath sounds. Musculoskeletal: General: No tenderness. Cervical back: Normal range of motion and neck supple. No rigidity or tenderness. Skin: General: Skin is warm and dry. Coloration: Skin is not pale. Neurological: General: No focal deficit present. Mental Status: She is alert and oriented to person, place, and time. Mental status is at baseline. Sensory: No sensory deficit. Coordination: Coordination normal. Psychiatric: Behavior: Behavior normal. Thought Content: Thought content normal. Judgment: Judgment normal. Diagnostic Studies / Procedures ELECTROCARDIOGRAMS: No results found for this visit on 12/13/21. LABORATORY STUDIES: No results found for this visit on 12/13/21. IMAGING STUDIES CT HEAD WO CON Final Result by User, [email or web address] (12/13 9417) IMAGING STUDIES: CT HEAD WO CON DATE: 12/13/2021 3:22 PM CLINICAL HISTORY: Head trauma, minor, normal mental status (Age 19-64y) . Pain IMPRESSION: 1. Routine noncontrast head CT. No comparison. Radiation dose reduction technique was utilized. 2. No evidence of intracranial hemorrhage or major vessel infarct. 3. Brainstem and posterior fossa within normal limits. Mild intracranial vascular calcifications.. Slightly low-lying cerebellar tonsils. 4. Martinez/white differentiation is within normal limits. No significant atrophy. 5. No cranial fracture. Visualized mastoid air cells and paranasal air cells are well aerated. Ordered By: NAYLA KEVIN Interpreted By: Leandro Waters, 12/13/2021 3:[address] CERV SPINE WO CON Final Result by User, [email or web address] (12/13 9631) IMAGING STUDIES: CT CERV SPINE WO CON DATE: 12/13/2021 3:22 PM CLINICAL HISTORY: Polytrauma, critical, head/C-spine injury suspected . Pain IMPRESSION: 1. Routine ct of the cervical spine with coronal and sagittal reconstructions performed at the workstation. No comparison. Radiation dose reduction technique was utilized. 2. C1-C7 without acute fracture or dislocation. No prevertebral soft tissue swelling. Straightening of normal cervical lordosis may be due to patient positioning versus cervical strain. 3. Moderate multilevel endplate and facet joint degenerative change. Multilevel neural foramen narrowing due to degenerative change. Mild spinal stenosis due to degenerative change at C5-6 and C6-7. Minor grade 1 anterior spondylolisthesis of C3 on C4 and C4 on C5 due to facet joint degenerative change. 4. Airways is patent. No neck mass. Minor carotid arterial calcifications.. Mild scar formation in lung apices. Ordered By: NAYLA KEVIN Interpreted By: Leandro Waters, 12/13/2021 3:43 PM ED Course / Medical Decision Making Results: I reviewed old medical records, obtained from Care Everywhere, as well as internal past medical records, where needed and available. I interpreted the patient's pulse oximeter at rest, which is 100% on room air which is normal and determined that this patient is not hypoxic The elements of the HPI, review of systems, past medical history, past surgical history, past family history, social history, medication list, allergies, and examination documented above were personally obtained by me via direct interaction of the patient when possible, with the exception of circumstances or patient factors limiting my ability to do so, as above. In instances where nursing or other providers documented this information prior to my encounter, I personally confirmed the accuracy of this information to the best of my ability given the circumstances. Laboratory Data Reviewed: Noted labs, and abnormals noted on work sheet Imaging Studies Reviewed: Read interpretation report from radiologist. Reviewed images of xrays, independently. Did not speakwith radiologist re: CT head and c spine ED Course: Patient was provided with a prescription : see discharge instructions Outpatient recommendation to PCP ordered, and provided with phone number to call for an appointment. Patient instructed to call on the next business day during business hours, and informed that he should be evaluated by this specialist within 1 week Patient provided with printed and verbal discharge care instructions and was instructed to return to the emergency department immediately with worsening symptoms or new worrisome symptoms. I did spend time answering questions. Patient condition at time of discharge stable Diagnoses & treatment discussed with patient Patient expressed understanding and agreed. ED Diagnosis: Clinical Impression Concussion without loss of consciousness, initial encounter (Primary) DJD (degenerative joint disease) of cervical spine Disposition: Discharge Medications - No data to display Clinical Impression Concussion without loss of consciousness, initial encounter (Primary) DJD (degenerative joint disease) of cervical spine Discharge Medication List as of 12/13/2021 3:59 PM START taking these medications Details !! cyclobenzaprine (FLEXERIL) 5 MG tablet Take 1 tablet (5 mg total) by mouth 3 (three) times dailyas needed for Muscle Spasms., Starting Sun12/13/2021, Until Sun12/23/2021 at 2359, Eprescribe Class: Eprescribe Pharmacy: [facility]/pharmacy #[id number] [facility] [address] (Ph #: [phone]) !! - Potential duplicate medications found. Please discuss with provider. Medications - No data to display Discharge Medication List as of 12/13/2021 3:59 PM START taking these medications Details !! cyclobenzaprine (FLEXERIL) 5 MG tablet Take 1 tablet (5 mg total) by mouth 3 (three) times dailyas needed for Muscle Spasms., Starting Sun12/13/2021, Until Sun12/23/2021 at 2359, Eprescribe Class: Eprescribe Pharmacy: [facility]/pharmacy [id number] - [place], [place] - [address] [address] (Ph #: [phone]) !! - Potential duplicate medications found. Please discuss with provider. Disposition: Discharge Follow-[place]: [place] [id number] [facility] [address] [facility] [address] As needed NAYLA KEVIN NP 12/14/2021 Note: This H+P / note was created with the aid of dictation software, thus there may be some word substitutions or errors. Nayla Kevin NP 12/14/21 7824 Cosigned by Valentin Han MD at 12/15/2021 8:32 AM CDT * Corry Alexander RN - 12/13/2021 3:14 PM CDT Patient presents to ED from work for chief complaint of head injury. 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 Patient reports this happen at about 0900 this morning. Denies loss of consciousness. Endorses mild blurred vision to lefteye. Mild swelling noted to head at hairline. Vital signs stable. documented in this encounter Plan of Treatment Not on file documented as of this encounter Procedures Procedure Name Priority Date/Time Associated Diagnosis Comments CT HEAD WO CON STAT 12/13/2021 3:[address] CERV SPINE WO CON STAT 12/13/2021 3:38 PM CDT documented in this encounter Results * CT CERV SPINE WO CON (12/13/2021 3:38 PM CDT) Anatomical Region Laterality Modality Spine Computed Tomogra phy 12/13/2021 3:43 PM CDT Impressions 12/13/2021 3:50 PM CDT IMPRESSION: 1. ??Routine ct of the cervical spine with coronal and sagittal reconstructions performed at the workstation. No comparison. Radiation dose reduction technique was utilized. 2. ??C1-C7 without acute fracture or dislocation. No prevertebral soft tissue swelling. Straightening of normal cervical lordosis may be due to patient positioning versus cervical strain. 3. ??Moderate multilevel endplate and facet joint degenerative change. Multilevel neural foramen narrowing due to degenerative change. Mild spinal stenosis due to degenerative change at C5-6 and C6-7. Minor grade 1 anterior spondylolisthesis of C3 on C4 and C4 on C5 due to facet joint degenerative change. 4. ??Airways is patent. No neck mass. Minor carotid arterial calcifications.. Mild scar formation in lung apices. Ordered By: NAYLA KEVIN Interpreted By: Leandro Waters, 12/13/2021 3:43 PM Narrative 12/13/2021 3:50 PM CDT IMAGING STUDIES: CT CERV SPINE WO CON ?? DATE: 12/13/2021 3:22 PM CLINICAL HISTORY: Polytrauma, critical, head/C-spine injury suspected ?? . ??Pain Procedure Note Royal Waters MD - 12/13/2021 IMAGING STUDIES: CT CERV SPINE WO CON DATE: 12/13/2021 3:22 PM CLINICAL HISTORY: Polytrauma, critical, head/C-spine injury suspected .Pain IMPRESSION: 1. Routine ct of the cervical spine with coronal and sagittalreconstructions performed at the workstation. No comparison. Radiationdose reduction technique was utilized. 2. C1-C7 without acute fracture or dislocation. No prevertebral softtissue swelling. Straightening of normal cervical lordosis may be due topatient positioning versus cervical strain. 3. Moderate multilevel endplate and facet joint degenerative change.Multilevel neural foramen narrowing due to degenerative change. Mildspinal stenosis due to degenerative change at C5-6 and C6-7. Minor grade 1anterior spondylolisthesis of C3 on C4 and C4 on C5 due to facet jointdegenerative change. 4. Airways is patent. No neck mass. Minor carotid arterialcalcifications.. Mild scar formation in lung apices. Ordered By: NAYLA KEVIN Interpreted By: Leandro Waters, 12/13/2021 3:43 PM Nayla Kevin LIVING SKILLS ADVISOR CT Final Result * CT HEAD WO CON (12/13/2021 3:38 PM CDT) Anatomical Region Laterality Modality Head Computed Tomogra phy 12/13/2021 3:40 PM CDT Impressions 12/13/2021 3:43 PM CDT IMPRESSION: 1. ??Routine noncontrast head CT. No comparison. Radiation dose reduction technique was utilized. 2. ??No evidence of intracranial hemorrhage or major vessel infarct. 3. ??Brainstem and posterior fossa within normal limits. Mild intracranial vascular calcifications.. Slightly low-lying cerebellar tonsils. 4. ??Martinez/white differentiation is within normal limits. No significant atrophy. 5. ??No cranial fracture. Visualized mastoid air cells and paranasal air cells are well aerated. Ordered By: NAYLA KEVIN Interpreted By: Leandro Waters, 12/13/2021 3:40 PM Narrative 12/13/2021 3:43 PM CDT IMAGING STUDIES: CT HEAD WO CON ??DATE: 12/13/2021 3:22 PM CLINICAL HISTORY: Head trauma, minor, normal mental status (Age 19-64y) ?? . Pain Procedure Note Royal Waters MD - 12/13/2021 IMAGING STUDIES: CT HEAD WO CON DATE: 12/13/2021 3:22 PM CLINICAL HISTORY: Head trauma, minor, normal mental status (Age 19-64y). Pain IMPRESSION: 1. Routine noncontrast head CT. No comparison. Radiation dose reductiontechnique was utilized. 2. No evidence of intracranial hemorrhage or major vessel infarct. 3. Brainstem and posterior fossa within normal limits. Mild intracranialvascular calcifications.. Slightly low-lying cerebellar tonsils. 4. Maritnez/white differentiation is within normal limits. No significantatrophy. 5. No cranial fracture. Visualized mastoid air cells and paranasal aircells are well aerated. Ordered By: NAYLA KEVIN Interpreted By: Leandro Waters, 12/13/2021 3:40 PM us Nayla Kevin LIVING SKILLS ADVISOR CT Final Result documented in this encounter Visit Diagnoses Diagnosis Concussion without loss of consciousness, initial encounter- Primary DJD (degenerative joint disease) of cervical spine Cervical spondylosis without myelopathy documented in this encounter Active and Recently Administered Medications Times are shown in CDT. Scheduled Medication Order 12/11/2021 12/12/2021 12/13/2021 acetaminophen (TYLENOL) tablet 1,000 mg 1,000 mg, Oral, Once, 1 dose, On Sun12/13/21 at 1530, Maximum dose of acetaminophen is 4000 mg from all sources in 24 hours. 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
--- OUTSIDE RECORDS SUMMARY | 2024-04-03 16:04 | XMS_ITS | Encounter Summary ---
Author Organization [facility] Address [address] [place] [address]. [place], [place] [address] [place] [address] Care Team Providers Care Cloth Burler Name Role Phone Rhonda De La Paz MD Unavailable [phone] Peggy Best Primary Care Provider [phone] Encounter Details Date Type Department Care Team (Latest Contact Info) Description 02/07/2022 Travel Social History Tobacco Use Types Packs/Day [...] suspected to have Coronavirus/COVID-19? No / Unsure 02/07/2022 9:27 AM CDT documented as of this encounter Plan of Treatment Not on file documented as of this encounter Visit Diagnoses Not on filedocumented in this encounter Additional Health Concerns Assessment Noted Time PHQ-9 Depression Total Score: 0 03/18/20 21 4:05 PM POULTRY HATCHERY SUPERVISOR documented as of this encounter Care Teams Cloth Burler Relationship Specialty Start Date End Date Peggy Best APNP [phone] [address] PCP - General Nurse Practitioner Family 12/27/21 605/08 Rhonda De La Paz MD Physician INTERNAL MEDICINE 09/08/20 documented as of this encounter
--- OUTSIDE RECORDS SUMMARY | 2024-04-03 16:04 | XMS_ITS | Encounter Summary ---
Author Organization [facility] Address [address] [place] [address]. [place], [place] [address] [place] [id number] Care Team Providers Care Toll Test Worker Name Role Phone Rhonda De La Paz MD Unavailable [phone] Peggy Best Primary Care Provider [phone] Encounter Details Date Type Department Care Team (Latest Contact Info) Description 01/10/2022 Travel Social History Tobacco Use Types Packs/Day [...] Total Score: 0 03/18/20 21 4:05 PM PREVENTION SPECIALIST documented as of this encounter Care Teams Toll Test Worker Relationship Specialty Start Date End Date Peggy Best APNP [phone] [address] PCP - General Nurse Practitioner Family 12/27/21 605/08 Rhonda De La Paz MD Physician INTERNAL MEDICINE 09/08/20 documented as of this encounter
--- OUTSIDE RECORDS SUMMARY | 2024-04-03 16:04 | XMS_ITS | Encounter Summary ---
Author Organization [facility] Address [address] [place] [address]. [place], [place] [address] [place] [address] Care Team Providers Care Hat Finishing Materials Preparer Name Role Phone Rhonda De La Paz MD Unavailable [phone] Peggy Best Primary Care Provider [phone] Reason for Visit * Reason Onset Date Comments Refill Request 03/28/2022 Encounter Details Date Type Department Care Team (Late st Contact Info) Description 03/28/2022 Telephone [facility] Family & Internal Medicine [facility] [address] [place] [address] Peggy Best APNP [address] [facility] [address] [place] [address] Refill Request Social History Tobacco Use Types Packs/Day [...] Progress Notes * Paulie Braxton RN - 03/30/2022 12:49 PM CST Called patient and she states she is not taking Famotidine or Omeprazole. Disregard. No further action needed. SCAPE ARCHITECT AND PLANNER * JONATHAN Zee - 03/29/2022 5:37 PM CST With review of chart patient is on chronic PPI therapy. Does she use the famotidine as needed for break though? The 40 mg daily dose is typically treatment for ulcers. For acid reflux I recommend famotidine 20 mg twice a day. If symptoms are worsening on omeprazole I do recommend an appointment with PCP. Yoselin documented on last chronic disease management appointment she was well controlled. SCAPE ARCHITECT AND PLANNER * Paulie Braxton RN - 03/28/2022 1:35 PM CST Received a refill request for famotidine 40mg daily. Medication is not on med list. Ok to send in? SCAPE ARCHITECT AND PLANNER documented in this encounter Plan of Treatment Not on file documented as of this encounter Visit Diagnoses Not on filedocumented in this encounter Additional Health Concerns Assessment Noted Time PHQ-9 Depression Total Score: 0 03/18/20 21 4:05 PM LANDSCAPE ARCHITECT AND PLANNER documented as of this encounter Care Teams Hat Finishing Materials Preparer Relationship Specialty Start Date End Date Peggy Best APNP [address] [address] PCP - General Nurse Practitioner Family 12/27/2109/15 Rhonda De La Paz MD Physician INTERNAL MEDICINE 09/08/20 documented as of this encounter
--- OUTSIDE RECORDS SUMMARY | 2024-04-03 16:04 | XMS_ITS | Encounter Summary ---
Author Organization [facility] Address [address] [place] [address]. [place], [place] [address] [place] [address] Care Team Providers Care Child Care Specialist Name Role Phone Rhonda De La Paz MD Unavailable [phone] Peggy Best Primary Care Provider [phone] Reason for Visit * Reason Comments Key Ringer Exam [employer] Encounter Details Date Type Department Care Team (Late st Contact Info) Description 02/07/2022 9:40 AM CDT Office Visit [facility] Family & Internal Medicine [facility] [id number] [place] [phone] [place]ks [place] [id number] [place] [address] Key Ringer Exam (WWE) Social History Tobacco Use Types Packs/Day Years [...] Sign Reading Time Taken Comments Blood Pressure 155/82 02/07/2022 9:42 AM CDT Pulse 73 02/07/2022 9:38 AM CDT Temperature 36.6 ??C (97.9 ??F) 02/07/2022 9:38 AM CD T Respiratory Rate 18 02/07/2022 9:38 AM CDT Oxygen Saturation 98% 02/07/2022 9:38 AM CDT Inhaled Oxygen Concentration - - Weight 57.2 kg (126 lb) 02/07/2022 9:38 AM CDT Height 154.9 cm (5' 1 ) 02/07/2022 9:38 AM CDT Body Mass Index 23.81 02/07/2022 9:38 AM CDT documented in this encounter Progress Notes * RAFIQ Zavala - 02/07/2022 9:40 AM CDT Images from the original note were not included. Reason for Visit: Key Ringer Exam (WWE) Exam Chaperoned By by Jazmín. History of Present Illness: Danielle Brito is a 61-year-old female here for well woman examination. She is asking for a Pap test today. She is still having issues with elevated blood pressure and we discussed treatment options. Menopausal yes LMP: No LMP recorded. Patient is postmenopausal. Last Pap smear over a year ago ROS: Review of Systems Feeling well. Denies headaches, vision or hearing problems. No recent colds or flus, denies symptoms suggestive of allergies. Denies dysphagia, heartburn or indigestion. No dyspnea or chest pain on exertion. No nausea, abdominal pain, change in bowel habits, black or bloody stools. No urinary tractsymptoms. No muscle or joint aches or pains. No foot or leg edema. No numbness, tingling,or weakness. No anxiety or depressive symptoms, Sleeping well. No significant weight gain or loss. No fatigue. Medications: Outpatient Medications Marked as Taking for the 02/07/22 encounter (Office Visit) with RAFIQ Zavala Medication Sig Dispense Refill ??? Cholecalciferol (VITAMIN D) 50 MCG (1999 UT) Tab ??? cyclobenzaprine 5 MG tablet Take 1 tablet (5 mg total) by mouth 3 (three) times daily as needed. 30 tablet 5 ??? FLUoxetine (PROZAC) 40 MG capsule TAKE 2 CAPSULES BY MOUTH IN THE MORNING 180 capsule 0 ??? hydroCHLOROthiazide (MICROZIDE) 12.5 MG capsule TAKE 1 CAPSULE BY MOUTH EVERY DAY IN THE MORNING 30 capsule 0 ??? lisinopril (PRINIVIL) 10 MG tablet TAKE 1 TABLET BY MOUTH EVERY DAY 30 tablet 1 ??? multiple vitamins-minerals (OCUVITE-LUTEIN) Cap Take 1 capsule by mouth daily. ??? naratriptan 2.5 MG tablet TAKE 1 TABLET BY MOUTH ONCE. MAY REPEAT AFTER 4 HOURS. 27 tablet 3 ??? vitamin B-12 100 MCG tablet Take 50 mcg by mouth daily. Allergies Allergen Reactions ??? Sulfa Antibiotics Hives and Rash ??? Codeine Itching Past Medical History: Diagnosis Date ??? Anxiety ??? Back pain ??? Hypertension Past Surgical History: Procedure Laterality Date ??? APPENDECTOMY ??? COLONOSCOPY N/A 04/22/2021 COLONOSCOPY performed by Charli Yi MD at [facility] OR ??? NASAL AIRWAY ??? TONSILLECTOMY Social [...] Specified) ??? Father (Not Specified) Physical Exam Constitutional: She is oriented to person, place, and time. She appears well- developed and well-nourished. HENT: Head: Normocephalic. Nose: Nose normal. Mouth/Throat: Oropharynx is clear and moist. Eyes: Pupils are equal, round, and reactive to light. Neck: No JVD present. No thyromegaly present. Cardiovascular: Normal rate, regular rhythm, normal heart sounds and intact distal pulses. No murmur heard. Pulmonary/Chest: No respiratory distress. She has no wheezes. She has no rales. She exhibits no tenderness. Abdominal: She exhibits no distension and no mass. There is no tenderness. There is no rebound and no guarding. No enlargement of the spleen or liver. No evidence of abdominal or inguinal hernia noted BREAST EXAM: bilateral no lump or mass noted no tenderness no dimpling no retraction Genitourinary: external genitalia no lesions normal appearance, no urethral masses .Bladder not distended Vagina pale no cystocele or rectocele noted and uterus normal contour and size No adnexal masses or enlargement noted. No vaginal discharge found. Cervix pale atrophy no lesions, vagina pink Digital Rectal exam shows guaiac negative for occult blood, no rectal masses, no hemorrhoids and normal sphincter tone and normal appearing anus Musculoskeletal: Normal range of motion. She exhibits no edema, tenderness or deformity. Lymphadenopathy: She has no cervical adenopathy. Neurological: She is alert and oriented to person, place, and time. Skin: No rash noted. No erythema. Psychiatric: She has a normal mood and affect. Her behavior is normal. Thought content normal. No flowsheet data found. Vitals: 02/07/22 0938 02/07/22 0942 Patient Position: Sitting BP Location: Left arm Cuff size: Adult Regular BP: (!) 155/86 (!) 155/82 Pulse: 73 Body mass index is 23.81 kg/m??. Diagnoses/Impression: 1. Encounter for screening for cervical cancer THINPREP PAP W AGE BASED SCREENING ([facility] ONLY) 2. Well woman exam 3. Essential hypertension Orders Placed This Encounter ??? THINPREP PAP W AGE BASED SCREENING ([facility] ONLY) We discussed increasing her lisinopril to 20 mg daily. She will return next week and a nurses schedule to have her blood pressure check. She will bring her home cuff with her. We also discussed if this dosage is better for her we can then switch her medication to have lisinopril/hydrochlorothiazidecombined. She is agreeable. HTN Suggest that patient consistently eat a reduced calorie diet low fat low cholesterol diet and rich in fresh fruits and vegetables low carbs. Deitary consult available if desires. Recommend exercise 3-5 times weekly up to 45 minutes or for both cardiac endurance. Suggest the patient be compliant with medication. Avoid tobacco of any form including cigarettes cigars chewing tobacco and vaping. Suggested patient keep their BMI around 25. Encourage patient to use a home cuff to monitor blood pressure and contact the office if blood pressure is consistently above 140/90. Recommendations and Plan: Take Calcium with Vitamin D 1200mg daily if not eating in diet. Do monthly self-breast exams. Genetic testing is available for patients with family history of cancer. It is strongly advised to have an annual flu shot in the fall, keep up to date with Tdap every 10 years and consider a Shingles Vaccine. She could obtain at most pharmacies. Have mammogram yearly, bone density every 2-3 years and colonoscopy every 5-10 years depending on history. Engage in daily exercise of low impact aerobic exercise 45-60 minutes 4-5 times weekly. Avoid tobacco and illicit drugs as well as using moderation with alcohol intake less than 1-2 8 oz beverages daily. This lifestyle behavior pattern will lead to less health conditions and longer life span. If Body Mass Index greater than 25 weight watchers or dietary consult advise If PAP is normal, next PAP is due in 3-5 years. Follow up with Primary Care needs if any abnormalities are noted. Mammograms should continue annually age 50-70, discussed recommendation to start baseline at 40 and reviewed her Family Risk Factors for Breast Cancer. Portions of this note were dictated using [employer] speech recognition software. Occasional wrong wordor sound-alike substitutions may have occurred due to the inherent limitations of voice recognition software. Please read the chart carefully and recognize, using context, where the substitutions may have occurred. Mis Burks PA-C evaluated and Dr Luke Rivera reviewed and agrees with plan. Cosigned by Luke Rivera MD at 02/07/2022 7:30 PM CDT documented in this encounter Plan of Treatment Not on file documented as of this encounter Procedures Procedure Name Priority Date/Time Associated Diagnosis Comments THINPREP PAP W AGE BASED SCREENING PROTOCOLS Routine 02/07/2022 10:23 AM CDT Encounter for screening for cervical cancer documented in this encounter Results * THINPREP PAP W AGE BASED SCREENING ([facility] ONLY) (02/07/2022 10:23 AM CDT) Comment: [facility] Comment: This order for age-based cervical cancer and STI screening follows ACOG guidelines(PB 168, 140, CJD729). See individual assays for performing site location. CLINICAL INFORMATION: None given [facility] Clinical Information: NONE GIVEN [facility] [employer] [facility] Date of Last Pap NONE GIVEN [employer] [facility] Previous Biopsy? NONE GIVEN [employer] [facility] SOURCE (QST) [employer]erv[employer] [facility] [employer] [facility] STATEMENT OF ADEQUACY: SATISFACTORY FOR EVALUATION Partially obscuring inflammation [facility] PAP INTERPRETATION/RESU LTS [facility] [employer] [facility] Comment: Negative for intraepithelial lesion or malignancy. Atrophic pattern; predominantly parabasal cells COMMENT: This Pap test has been evaluated with computer assisted technology. [facility] TRAVEL ADMINISTRATOR Grant [employer] [facility] Comment: AMW, CT(ASCP) CT screening location: [place] [address] [place] [address] COMMENT: [facility] Comment: EXPLANATORY NOTE: The Pap is a [...] HPV MRNA E6/E7 Not Detected Not Detected [facility] [place] Comment: Methodology: Senior Data Scientist-Mediated Amplification This assay detects E6/E7 viral messenger RNA (mRNA) from 14 high-risk HPV types (16,18,31,33,35,39,45,51,52,56,58,59,66,68). Cervical sources are required for HPV testing. If a vaginal source from a patient who has had a total hysterectomy with removal of cervix was submitted, please contact the testing laboratory for alternative testing options. For additional information, please refer to http://education.pocketvillage/faq/XZN603u4 (This link if provided for information/ educational purposes only.) 02/07/2022 10:2 3 AM CDT 02/08/2022 12:29 AM CDT us Mis [facility] PATHOLOGY/CYTOLOGY ORDERABLE S Final Result [facility] [address] [place] [address] [facility] [address] [place] [address] documented in this encounter Visit Diagnoses Diagnosis Encounter for screening for cervical cancer- Primary Well woman exam Routine general medical examination at a health care facility Essential hypertension Unspecified essential hypertension documented in this encounter Additional Health Concerns Assessment Noted Time PHQ-9 Depression Total Score: 0 03/18/20 21 4:05 PM SECTION REPAIRER documented as of this encounter Care Teams Child Care Specialist Relationship Specialty Start Date End Date Peggy Best APNP [address] [place] [address] PCP - General Nurse Practitioner Family 12/27/21 6/05/08 Rhonda De La Paz MD Physician INTERNAL MEDICINE 09/08/20 documented as of this encounter
--- OUTSIDE RECORDS SUMMARY | 2024-04-03 16:04 | XMS_ITS | Encounter Summary ---
Author Organization [facility] Address [facility]. [place], [place] [address] [place] [address] Care Team Providers Care Dot Etcher Apprentice Name Role Phone Rhonda De La Paz MD Unavailable [phone] Job Martínez Primary Care Provider [phone] Reason for Visit * Reason Comments Knee Pain Left knee pain. Was jumping in the pool Sunday/Sunday with some swelling. Used ice for relief Encounter Details Date Type Department Care Team (Late st Contact Info) Description 12/27/2021 2:40 PM CDT Office Visit [facility] Family & Internal Medicine [address] [address] Job Martínez APNP [phone] [place] [address] [place] [address] Knee Pain (Left knee pain. /Was jumping in the pool Sunday/Sunday with some swelling. /Used ice for relief ) Social History Tobacco Use Types Packs/Day [...] Sign Reading Time Taken Comments Blood Pressure 131/75 12/27/2021 2:37 PM CDT Pulse 79 12/27/2021 2:37 PM CDT Temperature 36.8 ??C (98.3 ??F) 12/27/2021 2:37 PM CD T Respiratory Rate 19 12/27/2021 2:37 PM CDT Oxygen Saturation 98% 12/27/2021 2:37 PM CDT Inhaled Oxygen Concentration - - Weight 58.9 kg (129 lb 12.8 oz) 12/27/2021 2:37 PM CDT Height 154.9 cm (5' 1 ) 12/27/2021 2:37 PM CDT Body Mass Index 24.53 12/27/2021 2:37 PM CDT documented in this encounter Patient Instructions * Patient Instructions* CATALINA Lomas - 12/27/2021 2:40 PM CDT Knee injury: Focus on taking NSAIDs (sent to pharmacy: naproxen) Brace: obtain a compression knee brace at your pharmacy and use this daily, removed at night. You will get an Xray today and we will follow up with results this week. Follow up if no improvement in 2 weeks. documented in this encounter Progress Notes * CATALINA Lomas - 12/27/2021 2:40 PM CDTSummary: knee pain Reason for Visit: Knee Pain (Left knee pain. /Was jumping in the pool Sunday/Sunday with some swelling. /Used ice for relief ) History of Present Illness: Danielle Brito is a 61-year-old female here for acute pain in left knee. Was doing water exercises in her pool and noted pain in her knee. Has cont to get worse. Using some ice/heat that has helped. ROS: Review of Systems Constitutional: Negative for [...] not nervous/anxious. Medications: Current Outpatient Medications: ??? biotin [address]4747 MCG tablet, Take 5,000 mcg by mouth daily., Disp: , Rfl: ??? Cholecalciferol (VITAMIN D) 50 MCG (1999 UT) Tab, , Disp: , Rfl: ??? cyclobenzaprine 5 MG tablet, Take 1 tablet (5 mg total) by mouth 3 (three) times daily as needed., Disp: 30 tablet, Rfl: 5 ??? famotidine (PEPCID) 40 MG tablet, TAKE 1 TABLET BY MOUTH EVERY DAY, Disp: 90 tablet, Rfl: 0 ??? FLUOXETINE 40 MG capsule, TAKE 2 CAPSULES BY MOUTH IN THE MORNING, Disp: 180 capsule, Rfl: 0 ??? hydroCHLOROthiazide (MICROZIDE) 12.5 MG capsule, TAKE 1 CAPSULE BY MOUTH EVERY DAY IN THE MORNING, Disp: 30 capsule, Rfl: 0 ??? lisinopril (PRINIVIL) 10 MG tablet, Take 1 tablet (10 mg total) by mouth daily., Disp: 30 tablet, Rfl: 1 ??? multiple [...] COLONOSCOPY performed by Charli Yi MD at [facility] OR ??? NASAL AIRWAY ??? TONSILLECTOMY Social [...] time. Psychiatric: Behavior: Behavior normal. Filed Vitals: 12/27/21 1437 BP: 131/75 Pulse: 79 Resp: 19 Temp: 98.3 ??F (36.8 ??C) TempSrc: Temporal SpO2: 98% Weight: 58.9 kg (129 lb 12.8 oz) Height: 5' 1 (1.549 m) Diagnoses/Impression: 1. Acute pain of left knee naproxen (NAPROSYN) 500 MG tablet XR KNEE LT MIN 4V Recommendations and Plan: 1. Acute pain of left knee Focus on RICE and nsaid use today. XR, will f/u this week with results. If no improvement f/u in 2 weeks. - naproxen (NAPROSYN) 500 MG tablet; Take 1 tablet (500 mg total) by mouth 2 (two) times daily withmeals. Dispense: 14 tablet; Refill: 0 - XR KNEE LT MIN 4V; Future Orders Placed This Encounter ??? XR KNEE LT MIN 4V ??? naproxen (NAPROSYN) 500 MG tablet CATLAINA Lomas Referring Provider: No ref. provider found PCP: CATALINA Lomas documented in this encounter Plan of Treatment Not on file documented as of this encounter Results * XR KNEE LT [...] Interpreted By: Cari Moon, 12/27/2021 3:43 PM [facility] Final Resul t documented in this encounter Visit Diagnoses Diagnosis Acute pain of left knee- Primary Acute pain of left knee documented in this encounter Additional Health Concerns Assessment Noted Time PHQ-9 Depression Total Score: 0 03/18/20 21 4:05 PM FUNCTIONAL TESTER documented as of this encounter Care Teams Dot Etcher Apprentice Relationship Specialty Start Date End Date Job Martínez APNP [address] [address] PCP - General Nurse Practitioner Family 12/27/21 6/05/08 Rhonda De La Paz MD Physician INTERNAL MEDICINE 09/08/20 documented as of this encounter
--- OUTSIDE RECORDS SUMMARY | 2024-04-03 16:04 | XMS_ITS | Encounter Summary ---
Author Organization [facility] Address [address] [place] [address]. [place], [place] [id number] [place] [address] Care Team Providers Care Microarray Analyst Name Role Phone Rhonda De La Paz MD Unavailable [phone] Peggy Best Primary Care Provider [phone] Yoselin Murdock NP Primary Care Provider [phone] Reason for Referral * (Routine) - Closed Specialty Diagnoses / Procedures Referred By Contac t Referred To Contact Diagnoses Vaginal discharge Procedures VAGINITIS SCREEN Peggy Best APNP [id number] [facility] [address] [place] [address] Phone: tel: fax: Referral ID Status Reason Start Date Expiration Date Visits Re quested Visits Authorized [id number] Closed 02/24/2022 02/24/2023 1 1 LY RESOURCE COORDINATOR Reason for Visit * Reason Comments Vaginal Discharge Pt is having vaginal discharge and is here for a culture. Encounter Details Date Type Department Care Team (Late st Contact Info) Description 02/24/2022 3:00 PM FAMILY RESOURCE COORDINATOR Office Visit [facility] Family & Internal Medicine [address] [address] Peggy Best APNP [id number] [facility] [address] [place] [address] Vaginal Discharge (Pt is having vaginal discharge and is here for a culture. ) Social History Tobacco Use Types Packs/Day [...] Sign Reading Time Taken Comments Blood Pressure 153/86 02/24/2022 3:05 PM FAMILY RESOURCE COORDINATOR Pulse 64 02/24/2022 3:05 PM FAMILY RESOURCE COORDINATOR Temperature 37.2 ??C (99 ??F) 02/24/2022 3:05 PM FAMILY RESOURCE COORDINATOR Respiratory Rate 17 02/24/2022 3:05 PM FAMILY RESOURCE COORDINATOR Oxygen Saturation 99% 02/24/2022 3:05 PM FAMILY RESOURCE COORDINATOR Inhaled Oxygen Concentration - - Weight 58.4 kg (128 lb 11.2 oz) 02/24/2022 3:05 PM FAMILY RESOURCE COORDINATOR Height 154.9 cm (5' 1 ) 02/24/2022 3:05 PM FAMILY RESOURCE COORDINATOR Body Mass Index 24.32 02/24/2022 3:05 PM FAMILY RESOURCE COORDINATOR documented in this encounter Progress Notes * CATALINA Lomas - 02/24/2022 3:00 PM CSTSummary: vaginal dc Reason for Visit: Vaginal Discharge (Pt is having vaginal discharge and is here for a culture. ) History of Present Illness: Danielle Brito is a 61-year-old female here for concerns about vaginal dc before and after pap. Pap noted some inflammation and if she had dc was encouraged to rtc for culture. ROS: Review of Systems Constitutional: Negative for appetite change, diaphoresis, fatigue and fever. HENT: Negative for congestion, sore throat and trouble swallowing. Eyes: Negative for photophobia and discharge. Respiratory: Negative for cough, shortness of breath and wheezing. Cardiovascular: Negative for chest pain, palpitations and leg swelling. Gastrointestinal: Negative for abdominal pain. Genitourinary: Positive for vaginal discharge. Negative for dysuria. Musculoskeletal: Negative for gait [...] MORNING, Disp: 180 capsule, Rfl: 0 ??? lisinopril-hydroCHLOROthiazide (ZESTORETIC) 20-12.5 MG tablet, Take 1 tablet by mouth daily., Disp: 90 tablet, Rfl: 0 ??? multiple vitamins-minerals (OCUVITE-LUTEIN) Cap, Take 1 capsule by mouth daily., Disp: , Rfl: ??? naratriptan 2.5 MG tablet, TAKE 1 TABLET BY MOUTH ONCE. MAY REPEAT AFTER 4 HOURS., Disp: 27 tablet, Rfl: 3 ??? vitamin B-12 100 MCG tablet, Take 50 mcg by mouth daily., Disp: , Rfl: ??? omeprazole (PRILOSEC) 40 MG capsule, Take 1 capsule (40 mg total) by mouth daily., Disp: 90 capsule, Rfl: 1 Allergies Allergen Reactions ??? Sulfa Antibiotics Hives [...] Pulmonary effort is normal. No respiratory distress. Genitourinary: Vagina: Normal. Cervix: Normal. Musculoskeletal: Cervical back: Normal range of motion. Neurological: Mental Status: She is alert and oriented to person, place, and time. Psychiatric: Behavior: Behavior normal. Filed Vitals: 02/24/22 1505 BP: (!) 153/86 Pulse: 64 Resp: 17 Temp: 99 ??F (37.2 ??C) TempSrc: Temporal SpO2: 99% Weight: 58.4 kg (128 lb 11.2 oz) Height: 5' 1 (1.549 m) Diagnoses/Impression: 1. Vaginal discharge VAGINITIS SCREEN Recommendations and Plan: 1. Vaginal discharge I did not see abnormality with exam today. Will wait on results prior to tx. Ok for vit E for possible atrophy. See if this helps. - VAGINITIS SCREEN; Future - VAGINITIS SCREEN 2. Essential hypertension Elevated here and at home. Will add 10mg to her daily BP medication and see if this helps. Will take home BP. reviewed diet, exercise and weight control, recommended sodium restriction and cardiovascular risk and specific lipid/LDL goals reviewed. - lisinopril (PRINIVIL) 10 MG tablet; Take 1 tablet (10 mg total) by mouth daily. Dispense: 30 tablet; Refill: 0 Orders Placed This Encounter ??? VAGINITIS SCREEN CATALINA Lomas Referring Provider: No ref. provider found PCP: CATALINA Lomas LY RESOURCE COORDINATOR documented in this encounter Plan of Treatment Not on file documented as of this encounter Procedures Procedure Name Priority Date/Time Associated Diagnosis Comments VAGINITIS SCREEN Routine 02/24/2022 3:26 PM FAMILY RESOURCE COORDINATOR documented in this encounter Results * VAGINITIS SCREEN (02/24/2022 3:26 PM FAMILY RESOURCE COORDINATOR) BACTERIAL VAGINITIS NEGATIVE [facility] AMRIT SPECIES NOT DETECTED NEGATIVE Q [facility] AMRIT GLABRATA NOT DETECTED [facility] TRICHOMONAS VAGINALIS QL NOT DETECTED [facility] CHLAMYDIA TRACHOMATIS RNA TMA NOT DETECTED [facility] N.GONORRHOEAE RNA TMA (QST) NOT DETECTED [facility] VAGINAL SPECIMEN 02/24/2022 3:26 PM FAMILY RESOURCE COORDINATOR Peggy ARNOLD MICROBIOLOGY - GENERAL VENTURAE CHUCK Final Result [facility] documented in this encounter Visit Diagnoses Diagnosis Vaginal discharge- Primary Leukorrhea, not specified as infective Essential hypertension Unspecified essential hypertension documented in this encounter Additional Health Concerns Assessment Noted Time PHQ-9 Depression Total Score: 0 03/18/20 21 4:05 PM FAMILY RESOURCE COORDINATOR documented as of this encounter Care Teams Microarray Analyst Relationship Specialty Start Date End Date Peggy Best APNP [address] [place] [address] PCP - General Nurse Practitioner Family 12/27/2109/15 Yoselin Murdock NP [address] [place] [address]. [place] [address] PCP - General Nurse Practitioner Family 10/05/22 Rhonda De La Paz MD Physician INTERNAL MEDICINE 09/08/20 documented as of this encounter
--- OUTSIDE RECORDS SUMMARY | 2024-04-03 16:04 | XMS_ITS | Encounter Summary ---
Author Organization [facility] Address [address] [place] [address]. [place], [place] [address] [place] [address] Care Team Providers Care Field Insurance Sales Manager Name Role Phone Rhonda De La Paz MD Unavailable [phone] Ashly Cabrales NEUROSURGICAL PHYSICIAN ASSISTANT Primary Care Provider Unavailabl e Encounter Details Date Type Department Care Team (Latest Contact Info) Description 12/13/2021 Travel Social History Tobacco Use Types Packs/Day [...] Total Score: 0 03/18/20 21 4:05 PM CARE AID documented as of this encounter Care Teams Field Insurance Sales Manager Relationship Specialty Start Date End Date Ashly Cabrales, NEUROSURGICAL PHYSICIAN ASSISTANT PCP - General NURSE PRACTITIONER 07/22/21 12/26/21 Rhonda De La Paz MD Physician INTERNAL MEDICINE 09/08/20 documented as of this encounter
--- OUTSIDE RECORDS SUMMARY | 2024-04-03 16:04 | XMS_ITS | Encounter Summary ---
Author Organization [facility] Address [address] [place] [address]. [place], [place] [address] [place] [address] Care Team Providers Care Division Controller Name Role Phone Rhonda De La Paz MD Unavailable [phone] Peggy Best Primary Care Provider [phone] Encounter Details Date Type Department Care Team (Late st Contact Info) Description 02/22/2022 Orders Only [facility] Family & Internal Medicine [address] [address] Paulie Braxton I, IAVN Social History Tobacco Use Types Packs/Day Years [...] Total Score: 0 03/18/20 21 4:05 PM CORRECTION WARDEN documented as of this encounter Care Teams Division Controller Relationship Specialty Start Date End Date Peggy Best APNP [id number] [address] PCP - General Nurse Practitioner Family 12/27/21 6/05/08 Rhonda De La Paz MD Physician INTERNAL MEDICINE 09/08/20 documented as of this encounter
--- OUTSIDE RECORDS SUMMARY | 2024-04-03 16:05 | XMS_ITS | Encounter Summary ---
Author Organization [facility] Address [address] [place] [address]. [place], [place] [address] [place] [address] Care Team Providers Care Packing Machine Operator Name Role Phone Rhonda De La Paz MD Unavailable [phone] Ashly Cabrales HARBOR TUG CAPTAIN Primary Care Provider Unavailabl e Reason for Visit * Reason Comments Follow Up hemorroids * Consultation (Routine) - Closed Specialty Diagnoses / Procedures Referred By Master sweet Referred To Contact GASTROENTEROLOGY Diagnoses Hemorrhoids, unspecified hemorrhoid type Ashly Cabrales, Charli Pereira [place] [id number] [place] [address] Phone: tel: fax: Referral ID Status Reason Start Date Expiration Date Visits Re quested Visits Authorized [id number] Closed 10/31/2021 12/02/2022 100 100 Encounter Details Date Type Department Care Team (Latest Contact Info) Description 12/02/2021 3:00 PM CDT Office Visit [facility] [address] [address] Charli Yi MD 3 [facility] [address] [place] [address] Ashlee Rivera NP 3 [facility] [address] [place] [address] Follow Up (hemorroids) Social History Tobacco Use Types Packs/Day Years [...] suspected to have Coronavirus/COVID-19? No / Unsure 12/02/2021 2:41 PM CDT documented as of this encounter Last Filed Vital Signs Vital Sign Reading Time Taken Comments Blood Pressure 138/72 12/02/2021 3:24 PM CDT Pulse 80 12/02/2021 3:24 PM CDT Temperature 36.4 ??C (97.5 ??F) 12/02/2021 3:24 PM CD T Respiratory Rate - - Oxygen Saturation 98% 12/02/2021 3:24 PM CDT Inhaled Oxygen Concentration - - Weight 58.1 kg (128 lb) 12/02/2021 3:24 PM CDT Height 154.9 cm (5' 1 ) 12/02/2021 3:24 PM CDT Body Mass Index 24.19 12/02/2021 3:24 PM CDT documented in this encounter Patient Instructions * Attachments The following attachments cannot be sent through Care Everywhere. * Hemorrhoids (Rwandan) documented in this encounter Progress Notes * Ashlee Rivera NP - 12/02/2021 3:00 PM CDT Images from the original note were not included. GASTROENTEROLOGY CONSULT 12/02/2021 3:56 PM Reason for Visit: Follow Up (hemorroids) History of Present Illness: Danielle Brito is a 61-year-old female who presents today with c/o intermittently occurring hemorrhoids for past 3 yrs. Flare-ups occur once a month lasting 10 days. Symptoms are burning, itching and discomfort at her anus when she wipes. Denies any BRBPR. Has used OTC witch apolonia wipes and preparation H suppositories. Has a BM daily, stool is mostly soft and formed. May have a hard stool once a month. No known triggers to the hard stool, however feels she may not be drinking adequate water when that occurs. Deniesmelena, hematochezia, diarrhea, persistent constipation, abdominal pain, N/V, dysphagia, or heartburn. Appetite appropriate. No unexplained weight loss Family history of GI malignancies, Celiac disease, IBD, or colon polyps: None No hx of hepatitis infection, no prior tattoos. NSAID/Anticoagulant use: Denies hx of tobacco use. No alcohol use, denies hx of alcohol abuse. No drug use. Prior abdominal surgeries: appendectomy EGD: None Colonoscopy: 04/22/2021 Past Medical History: Diagnosis Date ??? Anxiety ??? Back pain ??? Hypertension Past Surgical History: Procedure Laterality Date ??? APPENDECTOMY ??? COLONOSCOPY N/A 04/22/2021 COLONOSCOPY performed by Charli Yi MD at [facility] OR ??? NASAL AIRWAY ??? TONSILLECTOMY Family History Problem Relation Name Age of Onset ??? Breast Cancer Mother ??? Breast Cancer Paternal Grandmother ??? Heart Attack Father Social History Tobacco Use ??? Smoking status: Never Smoker ??? Smokeless tobacco: Never Used Vaping Use ??? Vaping Use: Never used Substance Use Topics ??? Alcohol use: Not Currently ??? Drug use: Never Outpatient Medications Marked as Taking for the 12/02/21 encounter (Office Visit) with Ashlee Rivera NP Medication Sig Dispense Refill ??? biotin 85936 MCG tablet Take 5,000 mcg by mouth daily. ??? Cholecalciferol (VITAMIN D) 50 MCG (2000 UT) Tab ??? cyclobenzaprine 5 MG tablet Take 1 tablet (5 mg total) by mouth 3 (three) times daily as needed. 30 tablet 5 ??? famotidine 40 MG tablet Take 1 tablet (40 mg total) by mouth daily. 90 tablet 0 ??? FLUOXETINE 40 MG capsule TAKE 2 CAPSULES BY MOUTH IN THE MORNING 180 capsule 0 ??? hydroCHLOROthiazide (MICROZIDE) 12.5 MG capsule TAKE 1 CAPSULE BY MOUTH EVERY DAY IN THE MORNING 30 capsule 0 ??? lisinopril (PRINIVIL) 10 MG tablet Take 1 tablet (10 mg total) by mouth daily. 30 tablet 1 ??? multiple vitamins-minerals (OCUVITE-LUTEIN) Cap Take 1 capsule by mouth daily. ??? naratriptan 2.5 MG tablet TAKE 1 TABLET BY MOUTH ONCE. MAY REPEAT AFTER 4 HOURS. 27 tablet 3 ??? omeprazole (PRILOSEC) 40 MG capsule Take 1 capsule (40 mg total) by mouth daily. 30 capsule 1 ??? vitamin B-12 100 MCG tablet Take 50 mcg by mouth daily. Allergies Allergen Reactions ??? Sulfa Antibiotics Hives and Rash ??? Codeine Itching REVIEW OF SYSTEMS: Review of Systems Constitutional: Negative for fatigue and fever. Respiratory: Negative for shortness of breath. Cardiovascular: Negative for leg swelling. Gastrointestinal: Per HPI Musculoskeletal: Negative for joint swelling. Skin: Negative for rash. Neurological: Negative for dizziness and headaches. Psychiatric/Behavioral: The patient is not nervous/anxious. PHYSICAL EXAM: Filed Vitals: 12/02/21 1524 BP: 138/72 Pulse: 80 Temp: 97.5 ??F (36.4 ??C) SpO2: 98% Weight: 58.1 kg (128 lb) Height: 5' 1 (1.549 m) Wt Readings from Last 1 Encounters: 12/02/21 58.1 kg (128 lb) Physical Exam Vitals reviewed. Exam conducted with a forestry laborer present. Constitutional: Appearance: Normal appearance. Cardiovascular: Rate and Rhythm: Normal rate and regular rhythm. Pulmonary: Breath sounds: Normal breath sounds. No wheezing. Abdominal: General: Abdomen is flat. Bowel sounds are normal. There is no distension. Palpations: Abdomen is soft. There is no mass. Tenderness: There is no abdominal tenderness. There is no guarding or rebound. Hernia: No hernia is present. Genitourinary: Comments: Negative for fissures, rash or visible bleeding from anus Musculoskeletal: Right lower leg: No edema. Left lower leg: No edema. Skin: General: Skin is warm and dry. Findings: No rash. Neurological: Mental Status: She is alert and oriented to person, place, and time. Psychiatric: Mood and Affect: Mood normal. Behavior: Behavior normal. Labs: Lab Results Component Value Date WBC 5.2 07/22/2021 RBC 4.16 (L) 07/22/2021 HGB 12.8 07/22/2021 HCT 39.3 07/22/2021 RDW 12.5 07/22/2021 PLT 269 07/22/2021 NA 143 07/22/2021 K 4.1 07/22/2021 CL 106 07/22/2021 AGAP 7.4 07/22/2021 GLU 83 07/22/2021 BUN 15 07/22/2021 CR 0.72 07/22/2021 GFRNON >90 07/22/2021 GFR >90 07/22/2021 CA 9.7 07/22/2021 ALB 3.7 07/22/2021 ALT 22 07/22/2021 AST 18 07/22/2021 ALKP 83 07/22/2021 Imaging: None Endoscopies: 04/22/[address] Yi Findings: Negative colon to cecum with excellent bowel prep. Repeat screening colonoscopy in 7 to 10 years. Plan: Repeat screening colonoscopy in 7 to 10 years. Assessment 1. External hemorrhoid Recommendations/Plan: ?? Two non inflamed external hemorrhoids present with physical exam ?? Recommended hydrocortisone cream vs suppositories during exacerbation of hemorrhoids. May continue to use topical witch apolonia wipes as needed ?? Avoid food triggers which may cause constipation, may use OTC Miralax as needed to promote regular, healthy bowel habits ?? It is recommended to consume 20-35 grams of fiber per day and at least 64 ounces/2 liters of water per day. ?? All questions answered ?? More recommendations to follow endoscopic evaluation ?? Co-morbidities: HTN, anxiety Risks/Benefits/Options: Risks, benefits and alternatives of the procedure(s) were discussed which can include but are not limited to: discomfort, missing lesions, allergic or adverse reaction to the sedation, perforation ofthe bowel or upper GI tract which may require hospitalization and surgery, bleeding, infection, aspiration. All questions were answered, patient is in agreement to proceed as planned. Orders placed this encounter: No orders of the defined types were placed in this encounter. Ashlee Rivera NP Gastroenterology documented in this encounter Plan of Treatment Not on file documented as of this encounter Visit Diagnoses Diagnosis External hemorrhoid- Primary External hemorrhoids without mention of complication documented in this encounter Additional Health Concerns Assessment Noted Time PHQ-9 Depression Total Score: 0 03/18/20 21 4:05 PM MEDICAL ACCOUNTING CLERK documented as of this encounter Care Teams Packing Machine Operator Relationship Specialty Start Date End Date Ashly Cabrales NP PCP - General NURSE PRACTITIONER 07/22/21 12/26/21 Rhonda De La Paz MD Physician INTERNAL MEDICINE 09/08/20 documented as of this encounter
--- OUTSIDE RECORDS SUMMARY | 2024-04-03 16:05 | XMS_ITS | Encounter Summary ---
Author Organization [facility] Address [address] [place] [address]. [place], [place] [id number] [place] [address] Care Team Providers Care Geology Associate Name Role Phone Rhonda De La Paz MD Unavailable [phone] Ashly Cabrales RN OR LPN Primary Care Provider Unavailabl e Encounter Details Date Type Department Care Team (Latest Contact Info) Description 12/02/2021 Travel Social History Tobacco Use Types Packs/Day [...] Total Score: 0 03/18/20 21 4:05 PM AIRFREIGHT LOADING SUPERVISOR documented as of this encounter Care Teams Geology Associate Relationship Specialty Start Date End Date Ashly Cabrales, RN OR LPN PCP - General NURSE PRACTITIONER 07/22/21 12/26/21 Rhonda De La Paz MD Physician INTERNAL MEDICINE 09/08/20 documented as of this encounter
--- OUTSIDE RECORDS SUMMARY | 2024-04-03 16:06 | XMS_ITS | Encounter Summary ---
Author Organization [facility] Address [address] [place] [address]. [place], [place] [id number] [place] [id number] Care Team Providers Care Service Representative Name Role Phone Rhonda De La Paz MD Unavailable Ashly Landin NP Primary Care Provider Unavailabl e Reason for Referral * Imaging (Routine) - Closed Specialty Diagnoses / Procedures Referred By Master sweet Referred To Contact RADIOLOGY Diagnoses Encounter for screening mammogram for malignant neoplasm of breast Procedures MG SCREENING W TERRI DELMI DIGI Ashly Landin NP Referral ID Status Reason Start Date Expiration Date Visits Re quested Visits Authorized [id number] Closed 07/22/2021 08/21/2022 1 1 Reason for Visit * Reason Comments Follow Up f/u medication refil ls Encounter Details Date Type Department Care Team (Late st Contact Info) Description 07/22/2021 1:20 PM CDT Office Visit [facility] Family & Internal Medicine [address] [phone] Ashly Landin NP Follow Up (f/u medication refills) Social History Tobacco Use Types Packs/Day Years Used Date Smoking Tobacco: Never Smokeless Tobacco: Never Tobacco Cessation:Counseling Given: No Alcohol Use Standard Drinks/Week Comments Not Currently 0 (1 standard drink = 0.6 oz pur e alcohol) PHQ-2 Answer Date Recorded PHQ-2 Score - If the patient scores above 3, please move on to questions 3-9 0 03/18/2021 Comments No Sex and Gender Information Value [...] suspected to have Coronavirus/COVID-19? No / Unsure 07/22/2021 1:15 PM CDT documented as of this encounter Last Filed Vital Signs Vital Sign Reading Time Taken Comments Blood Pressure 120/74 07/22/2021 1:33 PM CDT Pulse 70 07/22/2021 1:33 PM CDT Temperature 36.2 ??C (97.1 ??F) 07/22/2021 1:33 PM CD T Respiratory Rate 20 07/22/2021 1:33 PM CDT Oxygen Saturation 98% 07/22/2021 1:33 PM CDT Inhaled Oxygen Concentration - - Weight 57.6 kg (127 lb) 07/22/2021 1:33 PM CDT Height 154.9 cm (5' 1 ) 07/22/2021 1:33 PM CDT Body Mass Index 24 07/22/2021 1:33 PM CDT documented in this encounter Patient Instructions * Patient Instructions* Ashly Landin NP - 07/22/2021 1:20 PM CDT Patient Education Patient Education High Blood Pressure in Adults The Basics Written by the doctors and editors at [facility] What is high blood pressure???--??High blood pressure is a condition that puts you at risk for heart attack, stroke, and kidney disease. It does not usually cause symptoms. But it can be serious. When your doctor or nurse tells you your blood pressure, they will say 2 numbers. For instance, your doctor or nurse might say that your blood pressure is 130 over 80. The top number is the pressure inside your arteries when your heart is archana. The bottom number is the pressure inside yourarteries when your heart is relaxed. Elevated blood pressure is a term doctors or nurses use as a warning. People with elevated blood pressure do not yet have high blood pressure. But their blood pressure is not as low as it should befor good health. Many experts define high, elevated, and normal blood pressure as follows: ?? High - Top number of 130 or above and/or bottom number of 80 or above ?? Elevated - Top number between 120 and 129 and bottom number of 79 or below ?? Normal - Top number of 119 or below and bottom number of 79 or below This information is also in the table (table 1). How can I lower my blood pressure???--??If your doctor or nurse has prescribed blood pressure medicine, the most important thing you can do is to take it. If it causes side effects, do not just stop taking it. Instead, talk to your doctor or nurse about the problems it causes. They might be able tolower your dose or switch you to another medicine. If cost is a problem, mention that too. They might be able to put you on a less expensive medicine. Taking your blood pressure medicine can keep youfrom having a heart attack or stroke, and it can save your life! Can I do anything on my own???--??You have a lot of control over your blood pressure. To lower it: ?? Lose weight (if you are overweight) ?? Choose a diet low in fat and rich in fruits, vegetables, and low-fat dairy products ?? Reduce the amount of salt you eat ?? Do something active for at least 30 minutes a day on most days of the week ?? Cut down on alcohol (if you drink more than 2 alcoholic drinks per day) It's also a good idea to get a home blood pressure meter. People who check their own blood pressureat home do better at keeping it low and can sometimes even reduce the amount of medicine they take. All topics are updated as new evidence becomes available and our peer review process is complete. This topic retrieved from [employer] on: Mar 22, 2021. Topic 07283 Version 15.0 Release: 29.5.2 - C29.340 ?2020??[employer]. and/or its affiliates.??All rights reserved. table 1: Definition of normal and high blood pressure Level Top number Bottom number High 130 or above 80 or above Elevated 120 to 129 79 or below Normal 119 or below 79 or below ?? These definitions are from the [place] [employer]/[place] [employer]. Other expert groups might use slightly different definitions. ?? Elevated blood pressure is a term doctor or nurses use as a warning. It means you do not yet have high blood pressure, but your blood pressure is not as low as it should be for good health. Graphic 56818 Version 6.0 Consumer Information Use and Disclaimer This information is not specific medical advice and does not replace information you receive from your health care provider. This is only a brief summary of general information. It does NOT include all information about conditions, illnesses, injuries, tests, procedures, treatments, therapies, discharge instructions or life-style choices that may apply to you. You must talk with your health care provider for complete information about your health and treatment options. This information should not be used to decide whether or not to accept your health care provider's advice, instructions or recommendations. Only your health care provider has the knowledge and training to provide advice that is right for you. The use of this information is governed by the [employer] End User License Agreement, available at https://www.Site Lock/en/solutions/Coupons.com/about/veena.The use of [employer] content is governed by the [employer] Terms of Use. ??2020 [employer]. All rights reserved. Copyright ?2020??[employer] and/or its affiliates.??All rights reserved. Blood work and urine done today and will call with results Patient currently controlled on current treatment for hypertension. Will continue. Continued to discuss weight loss, adequate cardiovascular fitness. DASH diet was discussed as well as decrease in sodium intake. BP goal of < 140/90 expressed. Continue all current medications documented in this encounter Progress Notes * Ashly Landin NP - 07/22/2021 1:20 PM CDT Reason for Visit: Follow Up (f/u medication refills) History of Present Illness: 60-year-old female is here today for refills of medications and regular follow up Chronic low back pain Takes cyclobenzaprine for spasms She has been working out in the yard or other things her back starts to spasm up and she needs refills. Hypertension On hydrochlorothiazide Compliant with medications. Does not report any headaches, blurry vision, dizziness, chest pain, shortness of breath, or palpitations. Following a low sodium diet. Exercising. GERD for which she takes famotidine Depression with anxiety for which she takes fluoxetine she does not need any other refills at this time and is otherwise doing well ROS: Review of Systems Constitutional: Negative. Negative for fatigue and fever. Respiratory: Negative. Negative for cough and shortness of breath. Cardiovascular: Negative. Negative for chest pain. Gastrointestinal: Negative for abdominal pain. Endocrine: Negative. Genitourinary: Negative. Musculoskeletal: Positive for back pain (low back pain). Skin: Negative. Allergic/Immunologic: Negative. Negative for environmental allergies. Neurological: Positive for headaches. Psychiatric/Behavioral: Negative. Negative for suicidal ideas (Denies). Depression controlled Medications: Current Outpatient Medications: ??? biotin 58259 MCG tablet, Take 5,000 mcg by mouth daily., Disp: , Rfl: ??? Cholecalciferol (VITAMIN D) 50 MCG (1999 UT) Tab, , Disp: , Rfl: ??? cyclobenzaprine 5 MG tablet, Take 1 tablet (5 mg total) by mouth 3 (three) times daily as needed., Disp: 30 tablet, Rfl: 5 ??? famotidine 40 MG tablet, Take 1 tablet (40 mg total) by mouth daily., Disp: 90 tablet, Rfl: 0 ??? FLUOXETINE 40 MG capsule, TAKE 2 CAPSULES BY MOUTH EVERY MORNING, Disp: 180 capsule, Rfl: 0 ??? hydroCHLOROthiazide 12.5 MG capsule, Take 1 capsule (12.5 mg total) by mouth every morning., Disp: 30 capsule, Rfl: 0 ??? multiple vitamins-minerals (OCUVITE ADULT 50+) Cap, Take 1 capsule by mouth daily., [...] COLONOSCOPY performed by Charli Yi MD at [facility] OR ??? NASAL AIRWAY ??? TONSILLECTOMY Social History Socioeconomic History ??? Marital status: Spouse name: Not on file ??? Number of children: Not on file ??? Years of education: Not on file ??? Highest education level: Not on file Occupational History ??? Occupation: [employer] Tobacco Use ??? Smoking status: Never Smoker ??? Smokeless tobacco: Never Used Vaping Use ??? Vaping Use: Never used Substance and Sexual Activity ??? Alcohol use: Not Currently ??? Drug use: Never ??? Sexual activity: Not on file Other Topics Concern ??? Not on file Social History Narrative LIVE AT WITH Social Determinants of Health Financial Resource Strain: Not on file Food Insecurity: Not on file Transportation Needs: Not on file Physical Activity: Not on file Stress: Not on file Social Connections: Not on file Intimate Partner Violence: Not on file Family History Problem Relation Name Age of Onset ??? Breast Cancer Mother ??? Breast Cancer Paternal Grandmother ??? Heart Attack Father Family Status Relation Name Status ??? Mother (Not Specified) ??? PGM (Not Specified) ??? Father (Not Specified) PHQ-9: Over the last two weeks, how often have you been bothered by any of the following problems? 03/18/2021 07/22/2021 LITTLE INTEREST OR PLEASURE IN DOING THINGS 0-Not at All - FEELING DOWN, DEPRESSSED,OR HOPELESS 0-Not at All - PHQ2 DEPRESSION TOTAL SCORE 0 - TROUBLE FALLING OR STAYING ASLEEP OR SLEEPING TOO MUCH - 0-Not at All FEELING TIRED OR HAVING LITTLE ENERGY - 0-Not at All POOR APPETITE OR OVEREATING - 0-Not at All FEELING BAD ABOUT YOURSELF - 0-Not at All TROUBLE CONCENTRATING ON THINGS - 0-Not at All MOVING OR SPEAKING SO SLOWLY THAT OTHER PEOPLE COULD HAVE NOTICED - 0-Not at All THOUGHTS THAT YOU WOULD BE BETTER OFF - 0-Not at All DEPRESSION SCREENING TOTAL SCORE 0 - IF YOU CHECKED OFF ANY PROBLEMS - Not difficult at all PHYSICAL EXAM Filed Vitals: 07/22/21 1333 BP: 120/74 Pulse: 70 Resp: 20 Temp: 97.1 ??F (36.2 ??C) TempSrc: Temporal SpO2: 98% Weight: 57.6 kg (127 lb) Height: 5' 1 (1.549 m) Assessment Encounter Diagnose(s) ICD-10-CM ICD-9-CM SNOMED CT(R) 1. Essential hypertension I10 401.9 ESSENTIAL HYPERTENSION CBC W/DIFF AUTOMATED COMPREHENSIVE METABOLIC PANEL LIPID PANEL ALBUMIN URINE RANDOM VENIPUNC ARM DRAW hydroCHLOROthiazide 12.5 MG capsule 2. Gastroesophageal reflux disease without esophagitis K21.9 530.81 GASTROESOPHAGEAL REFLUX DISEASEWITHOUT ESOPHAGITIS VENIPUNC ARM DRAW famotidine 40 MG tablet 3. Anxiety F41.9 300.00 ANXIETY THYROID STIM HORMONE, TSH VENIPUNC ARM DRAW 4. Vitamin D deficiency E55.9 268.9 VITAMIN D DEFICIENCY VITAMIN D, 25 OH VENIPUNC ARM DRAW 5. Migraine without aura and without status migrainosus, not intractable G43.009 346.10 MIGRAINE WITHOUT AURA, NOT REFRACTORY VENIPUNC ARM DRAW naratriptan 2.5 MG tablet 6. Muscle spasm M62.838 728.85 SPASM cyclobenzaprine 5 MG tablet Recommendations and Plan: Blood work and urine done today and will call with results Continue all current medications 1. Essential hypertension Patient currently controlled on current treatment for hypertension. Will continue. Continued to discuss weight loss, adequate cardiovascular fitness. DASH diet was discussed as well as decrease in sodium intake. BP goal of < 140/90 expressed. - CBC W/DIFF AUTOMATED; Future - COMPREHENSIVE METABOLIC PANEL; Future - LIPID PANEL; Future - ALBUMIN URINE RANDOM; Future - VENIPUNC ARM DRAW - hydroCHLOROthiazide 12.5 MG capsule; Take 1 capsule (12.5 mg total) by mouth every morning. Dispense: 30 capsule; Refill: 0 2. Gastroesophageal reflux disease without esophagitis - VENIPUNC ARM DRAW - famotidine 40 MG tablet; Take 1 tablet (40 mg total) by mouth daily. Dispense: 90 tablet; Refill:0 3. Anxiety Continue fluoxetine - THYROID STIM HORMONE, TSH; Future - VENIPUNC ARM DRAW 4. Vitamin D deficiency Will monitor - VITAMIN D, 25 OH; Future - VENIPUNC ARM DRAW 5. Migraine without aura and without status migrainosus, not intractable Continue current medications as needed - VENIPUNC ARM DRAW - naratriptan 2.5 MG tablet; TAKE 1 TABLET BY MOUTH ONCE. MAY REPEAT AFTER 4 HOURS. Dispense: 27 tablet; Refill: 3 6. Muscle spasm continue cyclobenzaprine - cyclobenzaprine 5 MG tablet; Take 1 tablet (5 mg total) by mouth 3 (three) times daily as needed.Dispense: 30 tablet; Refill: 5 ASHLY LANDIN NP 07/22/2021 1:54 PM * Ashly Landin NP - 07/22/2021 1:20 PM CDT Sent through My Chart Your mammogram is normal and advise follow up in 1 year. If you have any questions please call the office documented in this encounter Plan of Treatment Not on file documented as of this encounter Procedures Procedure Name Priority Date/Time Associated Diagnosis Comments MG SCREENING W TERRI DELMI DIGI Routine 11/14/2021 10:35 AM CDT Encounter for screening mammogram for malignant neoplasm of breast VENIPUNC ARM DRAW Routine 07/22/2021 1:5 2 PM CDT Essential hypertension Gastroesophageal reflux disease without esophagitis Anxiety Vitamin D deficiency Migraine without aura and without status migrainosus, not intractable documented in this encounter Results * MG SCREENING W TERRI DELMI DIGI [...] regions are within normal limits. Ashly Landin DESK REPORTER MAMMO Final Result * (ABNORMAL) ALBUMIN URINE RANDOM (07/22/2021 1:52 PM CDT) CREATININE (U) 27.3(L) 28 - 217 MG/DL 07/22/2021 5:36 PM CDT [facility] MICROALBUMIN (U) 0.2 <2.0 mg/dL 07/23/19 5:36 PM CDT [facility] ALBUMIN/CREAT RATIO 7.3 <30.0 MG/G 07/22/2021 5:36 PM CDT [facility] URINE SPECIMEN / Unknown 07/22/2021 1:52 PM CDT us Ashly Landin DESK REPORTER URINE ORDERABLES Final Result Performing Organization Address [facility] de Phone Number [facility] [address] [place] [address], * VITAMIN D, 25 OH (07/22/2021 1:52 PM CDT) VITAMIN D 25 HYDROXY S/P/B 54 30 - 100 NG/ML 07/22/2021 6:00 PM CDT [facility] Comment: ? INTERPRETATION ? DEFICIENT ??<20 ? INSUFFICIENT 20-29 ?SUFFICIENT 30-100 07/22/2021 1:52 PM CDT us Ashly Landin NP LABORATORY Final Result Performing Organization Address [facility] de Phone Number [facility] [address] [place] [address], [place] [phone] * THYROID STIM HORMONE, TSH (07/22/2021 1:52 PM CDT) Pathologist [facility] TSH 1.615 0.358 - 3.74 uIU/ML 07/22/2021 5:41 PM CDT [facility] Comment: HIGH DOSES OF BIOTIN MAY INTERFERE WITH THIS TEST RESULT. CORRELATION TO CLINICAL HISTORY AND PRESENTATION RECOMMENDED. 07/22/2021 1:52 PM CDT us Ashly Landin NP LABORATORY Final Result Performing Organization Address [facility] de Phone Number [facility] [address] [place] [address], * (ABNORMAL) LIPID PANEL (07/22/2021 1:52 PM CDT) [facility] [address] CHOLESTEROL 200(H) <200.0 MG/DL 07/22/2021 5:41 PM T [facility] TRIGLYCERIDES 51 <150 MG/DL 07/22/2021 5:41 PM T [facility] HDL 64 >40.0 MG/DL 07/22/2021 5:41 PM T [facility] LDL (CALCULATED) 126(H) <100 MG/DL 07/22/2021 5:41 PM T [facility] NON HDL CHOLESTEROL 136(H) <130 MG/DL 07/22/2021 5:41 PM T [facility] CHOL/HDL RATIO 3.1 0.0 - 4.5 07/22/2021 5:41 PM T [facility] VLDL CALCULATION 10 5 - 55 MG/DL 07/22/2021 5:41 PM [facility] LIPID INTERPRETATION 07/22/2021 5:41 PM [facility] Comment: [facility] CONCENSUS REPORT RECOMMENDATIONS: ?ADULT ?CHILD ??LOW RISK: ?CHOLESTEROL ? <200 ? <170 ?TRIGLYCERIDE ?<150 ?--- ?HDL ? >=60 ?--- ?LDL ? <100 ? <110 ??BORDERLINE: ?CHOLESTEROL ? 200-239 ?? 170-199 ?TRIGLYCERIDE ?150-199 ? --- ?HDL ?40-59 ?--- ?LDL ? 100-159 ?? 110-129 ??HIGH RISK: ?CHOLESTEROL ? >=240 ?>=200 ?TRIGLYCERIDE ?>=200 ? --- ?HDL ?<40 ?--- ?LDL ? >=160 ?>=130 07/22/2021 1:52 PM CDT us Ashly Landin NP LABORATORY Final Result Performing Organization Address [facility] Co de Phone Number [facility] [address] [place] [address], * COMPREHENSIVE METABOLIC PANEL (07/22/2021 1:52 PM CDT) GLUCOSE 83 70 - 99 MG/DL 07/22/2021 5:41 PM CDT [facility] BUN 15 7 - 18 MG/DL 07/22/2021 5:41 PM CDT [facility] CREATININE S/P/B 0.72 0.55 - 1.02 MG/DL 07/22/2021 5:41 PM CDT [facility] SODIUM S/P/B 143 136 - 145 MMOL/L 07/22/2021 5:41 PM CDT [facility] POTASSIUM S/P/B 4.1 3.5 - 5.1 MMOL/L 07/22/2021 5:41 PM [facility] CHLORIDE S/P/B 106 100 - 108 MMOL/L 07/22/2021 5:41 PM [facility] CO2 29.6 21 - 32 MMOL/L 07/22/2021 5:41 PM [facility] CALCIUM S/P/B 9.7 8.5 - 10.1 MG/DL 07/22/2021 5:41 PM [facility] BILIRUBIN TOTAL S/P/B 0.6 0.2 - 1.2 MG/DL 07/22/2021 5:41 PM [facility] TOTAL PROTEIN S/P/B 6.7 6.4 - 8.2 G/DL 07/22/2021 5:41 PM [facility] ALBUMIN S/P/B 3.7 3.4 - 5.0 G/DL 07/22/2021 5:41 PM [facility] AST 18 15 - 37 U/L 07/22/2021 5:41 PM [facility] ALT 22 14 - 55 U/L 07/22/2021 5:41 PM [facility] ALKALINE PHOSPHATASE S/P/B 83 50 - 136 U/L 07/22/2021 5:41 PM [facility] ANION GAP 7.4 5 - 15 MMOL/L 07/22/2021 5:41 PM [facility] BUN CREATININE RATIO 20.8 6 - 26 07/22/2021 5:41 PM [facility] A/G RATIO 1.2 1.0 - 2.0 RATIO 07/22/2021 5:41 PM CDT [facility] EGFR NON-AFR. AMER. >90 >90 ML/MIN/1.7 3 M2 07/22/2021 5:41 PM CDT [facility] EGFR AFR. AMER. >90 >90 ML/MIN/1.7 3 M2 07/22/2021 5:41 PM CDT [facility] Comment: NOTE: eGFR is not calculated for patients <18 years of age. This is an estimated GFR (CKD EPI) and should not be used for calculating drug doses. 07/22/2021 1:52 PM CDT Ashly Landin NP LABORATORY Final Result [facility] [address] [place] [address], * (ABNORMAL) CBC W/DIFF AUTOMATED (07/22/2021 1:52 PM CDT) WBC 5.2 4.4 - 11.0 x10'3/uL 07/22/2021 5:26 PM CDT [facility] RBC 4.16(L) 4.50 - 5.10 x10'6/uL 07/22/2021 5:26 PM CDT [facility] HGB 12.8 12.3 - 15.3 G/DL 07/22/2021 5:26 PM CDT [facility] HCT 39.3 35.9 - 44.6 % 07/22/2021 5:26 PM CDT [facility] MCV 94.5 80.0 - 96.0 FL 07/22/2021 5:26 PM CDT [facility] MCH 30.8 25.3 - 30.9 PG 07/22/2021 5:26 PM CDT [facility] MCHC 32.6 31.0 - 34.1 G/DL 07/22/2021 5:26 PM CDT [facility] RDW 12.5 12.4 - 15.1 % 07/22/2021 5:26 PM CDT [facility] PLT 269 151 - 353 x10'3/uL 07/22/2021 5:26 PM CDT [facility] MPV 11.5 9.6 - 12.0 FL 07/22/2021 5:26 PM CDT [facility] RBC MORPHOLOGY NORMAL 07/22/2021 5:26 PM T [facility] PLT MORPH. NORMAL 07/22/2021 5:26 PM T [facility] WBC MORPHOLOGY NORMAL 07/22/2021 5:26 PM T [facility] LYMPHOCYTES % 21.6 15.8 - 45.0 % 07/22/2021 5:26 PM T [facility] NEUTROPHILS % 62.4 42.1 - 71.9 % 07/22/2021 5:26 PM CDT [facility] MONOCYTES % 9.1 5.7 - 12.5 % 07/22/2021 5:26 PM CDT [facility] EOSINOPHILS 5.2 0.0 - 5.6 % 07/22/2021 5:26 PM T [facility] BASOPHILS 1.7(H) 0.0 - 1.3 % 07/22/2021 5:26 PM CDT [facility] ABS. NEUTROPHILS 3.23 1.40 - 6.00 x10'3/uL 07/22/2021 5:26 PM T [facility] IMMATURE GRANS % 0.0 0.0 - 0.5 % 07/22/2021 5:26 PM CDT [facility] ABS. LYMPHOCYTES 1.12 0.80 - 4.70 x10'3/uL 07/22/2021 5:26 PM CDT [facility] 07/22/2021 1:52 PM CDT Ashly Landin DESK REPORTER LABORATORY Final Result Performing Organization Address City/State/[facility] Co de Phone Number [facility] [address] [place] [address], documented in this encounter Visit Diagnoses Diagnosis Essential hypertension- Primary Unspecified essential hypertension Gastroesophageal reflux disease without esophagitis Esophageal reflux Anxiety Anxiety state, unspecified Vitamin D deficiency Unspecified vitamin D deficiency Migraine without aura and without status migrainosus, not intractable Migraine without aura, without mention of intractable migraine without mention of status migrainosus Muscle spasm Spasm of muscle Encounter for screening mammogram for malignant neoplasm of breast Other screening mammogram documented in this encounter Additional Health Concerns Assessment Noted Time PHQ-9 Depression Total Score: 0 03/18/20 4:05 PM MAGNETIZER documented as of this encounter Care Teams Service Representative Relationship Specialty Start Date End Date Ashly Landin NP PCP - General NURSE PRACTITIONER 07/22/21 12/26/21 Rhonda De La Paz MD Physician INTERNAL MEDICINE 09/08/20 documented as of this encounter
--- OUTSIDE RECORDS SUMMARY | 2024-04-03 16:06 | XMS_ITS | Encounter Summary ---
Author Organization [facility] Address [address] [place] [address]. [place], [place] [id number] [place] [address] Care Team Providers Care Clam Sorter Name Role Phone Rhonda De La Paz MD Unavailable Ashly Cabrales MANAGEMENT AND BUDGET ANALYST Primary Care Provider Unavailabl e Encounter Details Date Type Department Care Team (Latest Contact Info) Description 07/22/2021 Travel Social History Tobacco Use Types Packs/Day [...] Total Score: 0 03/18/20 21 4:05 PM CLERICAL INVESTIGATOR documented as of this encounter Care Teams Clam Sorter Relationship Specialty Start Date End Date Ashly Cabrales, MANAGEMENT AND BUDGET ANALYST PCP - General NURSE PRACTITIONER 07/22/21 12/26/21 Rhonda De La Paz MD Physician INTERNAL MEDICINE 09/08/20 documented as of this encounter
--- OUTSIDE RECORDS SUMMARY | 2024-04-03 16:06 | XMS_ITS | Encounter Summary ---
Author Organization [facility] Address [address] [place] [address]. [place], [place] [id number] [place] [address] Care Team Providers Care Industrial Paramedic Name Role Phone Rhonda De La Paz MD Unavailable [phone] Rhonda De La Paz MD Primary Care Provider [phone] Reason for Visit * Auth/Cert Specialty Diagnoses / Procedures Referred By Master sweet Referred To Contact Diagnoses Screen for colon cancer History of colon polyps Screening colonoscopy Procedures COLONOSCOPY,DIAGNOSTIC COLONOSCOPY Referral ID Status Reason Start Date Expiration Date Visits Re quested Visits Authorized [id number] 1 1 Encounter Details Date Type Department Care Team (Late st Contact Info) Description 04/22/2021 12:19 PM OLD COIN DEALER Anesthesia Event [facility] Surgery [address] [place] [address] Brandi Corrales CRNA [address] [place] [address] Cecy Marcos CRNA [address] [place] [address] Anesthesia Record Procedure Summary Procedure Name Responsible Anesthesiologist Anesthesia Start Time Anesthesia Stop Time COLONOSCOPY (Colon) Brandi Corrales CRNA 04/22/21 121 9 04/22/21 1238 Events Date Time Event Comment 04/22/2021 0928 0928 AN MEDICAL VOUCHER CLERK Prepped 1219 An Start Patient ID and consent checked and patient reassessed. 1219 An Start Data 1220 AN Immediate Reassess The pa tient was reevaluated immediately before sedation or regional anesthesia. 1220 Face Mask Applied 1222 Anesthesia Ready 1238 An Stop 1238 an stop data Meds Name Total propofol (DIPRIVAN) 200 mg/20 mL injecti on 350 mg lidocaine (PF) (XYLOCAINE) 1% injection 50 mg lactated ringers infusion 900 mL * Agents Name O2 * Blood No blood administrations on file. Lines, Drains, and Airways Type Details Placement Removal Peripheral IV Orientation: Right; Location: Forearm; Site Prep: Chlorhexidine; Insertion attempts: 1; Patient Tolerance: Tolerated well; Removal Date: 04/22/21; Removal Time: 1315; Removal Reason: Patient Discharged 04/22/21 0939 by 04/22/21 1315 by Nayla Wayne RN documented in this encounter Social History Tobacco Use Types Packs/Day Years [...] Exposure Response Date Recorded In the last month, have you been in contact with someone who was confirmed or suspected to have Coronavirus / COVID-19? No / Unsure 04/22/2021 8:58 AM OLD COIN DEALER documented as of this encounter OR Notes * Anesthesia Postprocedure Evaluation - Brandi Corrales CRNA - 04/22/2021 12:38 PM CST Anesthesia Post-op Note Danielle Brito Procedure(s): COLONOSCOPY (N/A Colon) Anesthesia type: MAC Vitals: 04/22/21920 BP: 115/66 Vitals: 04/22/21920 Pulse: 67 Vitals: 04/22/21920 Resp: 16 Vitals: 04/22/21920 Temp: 36.6 ??C Vitals: 04/22/21920 SpO2: 98% Patient Location: Phase II/Outpatient Level of Consciousness: sedated and responds to stimulation Pain Management: adequate analgesia Airway Patency: patent Respiratory Status: acceptable Cardiovascular Status: acceptable Postoperative Hydration: euvolemic There were no known complications for this encounter. COIN DEALER * Anesthesia Preprocedure Evaluation - Brandi Corrales CRNA - 04/13/2021 1:48 PM CST Anesthesia ROS/MED History Reviewed: Patient summary , Nursing notes , Family history anesthesia, Anesthesia history , Medications Pre-Anesthetic State: alert, awake and responds appropriately Pulmonary neg pulmonary ROS Cardiovascular Exercise tolerance:good (+) hypertension, (well controlled) Neuro/Psych (+) psychiatric problem, (anxiety) GI/Hepatic/Renal neg GI/hepatic/renal ROS Endo/Other neg endo/other ROS Physical Evaluation Airway Mallampati: II TM Distance: >3 FB Neck ROM: small mouth opening Dental No notable dental history Pulmonary Pulmonary exam normal Breath sounds clear to auscultation Cardiovascular Rhythm: regular Rate: normal Cardiovascular exam normal Anesthesia Plan ASA 2 Intravenous Induction Anesthesia type: MAC Plan for Airway: nasal cannula/simple face mask Informed Consent Anesthetic plan and risks discussed with patient of whom consent was obtained. . Cosigned by Charli Yi MD at 04/29/2021 10:43 AM OLD COIN DEALER COIN DEALER COIN DEALER COIN DEALER documented in this encounter Plan of Treatment Not on file documented as of this encounter Visit Diagnoses Not on filedocumented in this encounter Administered Medications Inactive Administered Medications - up to 3 most recent administrations Medication Order MAR Action Action Date Dose Rate Site lactated ringers infusion at 10 mL/hr, Intravenous, Continuous, Starting on Sun04/22/21 at 0930, Until Sun04/22/21 at 1535, Infuse at TKO rate, Pre-Op Restarted 04/22/2021 12:19 PM OLD COIN DEALER New Bag 04/22/2021 9:39 AM OLD COIN DEALER 10 mL/hr lidocaine (PF) (XYLOCAINE) 1 % injection Intravenous, PRN, Starting on Sun04/22/21 at 1222, Until Sun04/22/21 at 1238, Anesthesia Intra-Op Given 04/22/2021 12:22 PM OLD COIN DEALER 50 mg propofol (DIPRIVAN) IV bolus Intravenous, PRN, Starting on Sun04/22/21 at 1222, Until Sun04/22/21 at 1238, Anesthesia Intra-Op Given 04/22/2021 12:35 PM OLD COIN DEALER 50 mg Given 04/22/2021 12:33 PM OLD COIN DEALER 50 mg Given 04/22/2021 12:29 PM OLD COIN DEALER 50 mg documented in this encounter Additional Health Concerns Assessment Noted Time PHQ-9 Depression Total Score: 0 03/18/20 21 4:05 PM OLD COIN DEALER documented as of this encounter Care Teams Industrial Paramedic Relationship Specialty Start Date End Date Rhonda De La Paz MD PCP - General INTERNAL MEDICINE 09/08/20 07/05/21 Rhonda De La Paz MD Physician INTERNAL MEDICINE 09/08/20 documented as of this encounter
--- OUTSIDE RECORDS SUMMARY | 2024-04-03 16:06 | XMS_ITS | Encounter Summary ---
Author Organization [facility] Address [address] [place] [address]. [place], [place] [id number] [place] [address] Care Team Providers Care Ice Cream Freezer Helper Name Role Phone Rhonda De La Paz MD Unavailable [phone] Rhonda De La Paz MD Primary Care Provider [phone] Encounter Details Date Type Department Care Team (Latest Contact Info) Description 02/15/2021 Travel Social History Tobacco Use Types Packs/Day Years Used Date Smoking Tobacco: Never Smokeless Tobacco: Never Alcohol Use Standard Drinks/Week Comments Not Currently 0 (1 standard drink = 0.6 oz pur e alcohol) PHQ-2 Answer Date Recorded PHQ-2 Score - If the patient scores above 3, please move on to questions 3-9 0 09/08/2020 Comments No Sex and Gender Information Value [...] have Coronavirus / COVID-19? No / Unsure 02/15/2021 11:43 PM CDT documented as of this encounter Plan of Treatment Not on file documented as of this encounter Visit Diagnoses Not on filedocumented in this encounter Care Teams Ice Cream Freezer Helper Relationship Specialty Start Date End Date Rhonda De La Paz MD PCP - General INTERNAL MEDICINE 5/26/21 3/22/22 Rhonda De La Paz MD Physician INTERNAL MEDICINE 09/08/20 documented as of this encounter
--- OUTSIDE RECORDS SUMMARY | 2024-04-03 16:06 | XMS_ITS | Encounter Summary ---
Author Organization [facility] Address [address] [place] [address]. [place], [place] [id number] [place] [address] Care Team Providers Care Ice Crusher Name Role Phone Rhonda De La Paz MD Unavailable [phone] Rhonda De La Paz MD Primary Care Provider [phone] Reason for Visit * Reason Comments Consult For Colonoscopy * Consultation (Routine) - Closed Specialty Diagnoses / Procedures Referred By Master sweet Referred To Contact GASTROENTEROLOGY Diagnoses Colon cancer screening Polyp of colon, unspecified part of [place], [place] [address] [place] [address] Phone: tel: fax: [facility] [place] [id number] [place] [phone] Phone: tel: fax: Referral ID Status Reason Start Date Expiration Date Visits Re quested Visits Authorized [id number] Closed 09/15/2020 10/17/2021 99 99 Encounter Details Date Type Department Care Team (Latest Contact Info) Description 03/18/2021 2:40 PM PURCHASING ADMINISTRATOR Office Visit [facility] [place] [id number] [place] [phone] Glenn Yi MD [address] [place] [address] Consult For Colonoscopy Social History Tobacco Use Types Packs/Day Years [...] have Coronavirus / COVID-19? No / Unsure 03/18/2021 1:59 PM PURCHASING ADMINISTRATOR documented as of this encounter Last Filed Vital Signs Vital Sign Reading Time Taken Comments Blood Pressure 128/74 03/18/2021 4:04 PM PURCHASING ADMINISTRATOR Pulse 74 03/18/2021 4:04 PM PURCHASING ADMINISTRATOR Temperature 36.5 ??C (97.7 ??F) 03/18/2021 4:04 PM CS T Respiratory Rate - - Oxygen Saturation 98% 03/18/2021 4:04 PM PURCHASING ADMINISTRATOR Inhaled Oxygen Concentration - - Weight 63 kg (139 lb) 03/18/2021 4:04 PM PURCHASING ADMINISTRATOR Height 154.9 cm (5' 1 ) 03/18/2021 4:04 PM PURCHASING ADMINISTRATOR Body Mass Index 26.26 03/18/2021 4:04 PM PURCHASING ADMINISTRATOR documented in this encounter Progress Notes * Glenn Yi MD - 03/18/2021 2:40 PM CST Images from the original note were not included. Gastroenterology Initial Visit Reason for Visit: Consult For Colonoscopy History of Present Illness: Patient comes in for screening colonoscopy. Last examination about 5 years ago. She is doing well. Does have a personal history of colon polyps. Denies any other medical issues at this time. Does nottake any blood thinners. ROS: General: No fever, chills, malaise, fatigue, weight loss or gain HEENT: No acute changes in vision or hearing Respiratory: No shortness of breath, cough, sputum production, hemoptysis Cardiovascular: No chest pain, palpitations, orthopnea Gastrointestinal: As per HPI Musculoskeletal: No dysuria, hematuria, incontinence Neuro: No extremity edema, myalgia Hematology: No easy bruising, bleeding Skin: No new skin rashes or lesions Medications: Current Outpatient Medications: ??? biotin 94005 MCG tablet, Take 5,000 mcg by mouth daily., Disp: , Rfl: ??? Cholecalciferol (VITAMIN D) 50 MCG (1999 UT) Tab, , Disp: , Rfl: ??? cyclobenzaprine 5 MG tablet, Take 1 tablet (5 mg total) by mouth 3 (three) times daily as needed., Disp: 30 tablet, Rfl: 5 ??? FAMOTIDINE 40 MG tablet, TAKE 1 TABLET BY MOUTH EVERY DAY, Disp: 90 tablet, Rfl: 1 ??? FLUoxetine 40 MG capsule, Take 40 mg by mouth daily., Disp: , Rfl: ??? hydroCHLOROthiazide 12.5 MG capsule, Take 1 capsule (12.5 mg total) by mouth every morning., Disp: 90 capsule, Rfl: 1 ??? multiple vitamins-minerals (OCUVITE ADULT 50+) Cap, Take 1 capsule by mouth daily., Disp: , Rfl: ??? NARATRIPTAN 2.5 MG tablet, TAKE 1 TABLET BY MOUTH ONCE. MAY REPEAT AFTER 4 HOURS., Disp: 27 tablet, Rfl: 3 ??? vitamin B-12 100 MCG tablet, Take 50 mcg by mouth daily., Disp: , Rfl: Allergies: Allergies Allergen Reactions ??? Sulfa Antibiotics Hives and Rash Medical History: Past Medical History: Diagnosis Date ??? Anxiety ??? Hypertension Surgical History: Past Surgical History: Procedure Laterality Date ??? APPENDECTOMY ??? NASAL AIRWAY ??? TONSILLECTOMY Social History: Family History: Family History Problem Relation Name Age of Onset ??? Breast Cancer Mother ??? Breast Cancer Paternal Grandmother ??? Heart Attack Father PE: There were no vitals filed for this visit. General: In NAD, pleasant and appropriate HEENT: Anicteric Cardiovascular: RRR, no m Pulmonary: CTA BL, no added sounds Skin: Anicteric, no rashes Neuro: A&Ox3 Labs: Diagnoses/Impression: Screening colonoscopy for personal history of colon polyps. Recommendations and Plan: ?? Colonoscopy ?? All questions answered ?? More recommendations to follow endoscopic evaluation Risks/Benefits/Options: Patient presented with risks (can include but are not limited to: discomfort, missing lesions, allergic or adverse reaction to the sedation, perforation of the bowel which may require hospitaliztion and surgery, bleeding, infection, aspiration), benefits, and alternatives to the procedure(s) and they are in agreement to proceed as planned. GLENN YI MD 03/18/2021 Voice recognition software utilized HASING ADMINISTRATOR documented in this encounter Plan of Treatment Not on file documented as of this encounter Visit Diagnoses Diagnosis Screen for colon cancer- Primary Special screening for malignant neoplasms, colon History of colon polyps Personal history of colonic polyps documented in this encounter Additional Health Concerns Assessment Noted Time PHQ-9 Depression Total Score: 0 03/18/20 21 4:05 PM PURCHASING ADMINISTRATOR documented as of this encounter Care Teams Ice Crusher Relationship Specialty Start Date End Date Rhonda De La Paz MD PCP - General INTERNAL MEDICINE 09/08/20 07/05/21 Rhonda De La Paz MD Physician INTERNAL MEDICINE 09/08/20 documented as of this encounter
--- OUTSIDE RECORDS SUMMARY | 2024-04-03 16:06 | XMS_ITS | Encounter Summary ---
Author Organization [facility] Address [address] [place] [address]. [place], [place] [address] [place] [address] Care Team Providers Care Kingsbury Machine Operator Name Role Phone Rhonda De La Paz MD Unavailable [phone] Ashly Landin [employer]IN ROLLER Primary Care Provider Unavailabl e Reason for Referral * Consultation (Routine) - Closed Specialty Diagnoses / Procedures Referred By Master sweet Referred To Contact GASTROENTEROLOGY Diagnoses Hemorrhoids, unspecified hemorrhoid type Ashly Landin, [place] [address] [place] [address] Phone: tel: fax: Referral ID Status Reason Start Date Expiration Date Visits Re quested Visits Authorized [id number] Closed 10/31/2021 12/02/2022 100 100 Scheduling Instructions For hemorrhoids Reason for Visit * Reason Comments Follow Up 3 month f/u up on me ds. Pt states she has hemorids she's been using preparation H wipes. Also has heartburn. Last cpl of days she has had sore in nose, and end of tongue. Encounter Details Date Type Department Care Team (Late st Contact Info) Description 10/31/2021 9:00 AM CDT Office Visit [facility] [id number] [place] [phone] Ashly Landin, DIOMEDES Follow Up (3 month f/u up on meds. Pt states she has hemorids she's been using preparation H wipes. Also has heartburn. Last cpl of days she has had sore in nose, and end of tongue. ) Social History Tobacco Use Types Packs/Day [...] suspected to have Coronavirus/COVID-19? No / Unsure 10/31/2021 8:20 AM CDT documented as of this encounter Last Filed Vital Signs Vital Sign Reading Time Taken Comments Blood Pressure 170/94 10/31/2021 9:31 AM CDT man ual by Ashly Pulse 64 10/31/2021 8:56 AM CDT Temperature 37.4 ??C (99.4 ??F) 10/31/2021 8:56 AM CD T Respiratory Rate 18 10/31/2021 8:56 AM CDT Oxygen Saturation 100% 10/31/2021 8:56 AM CDT Inhaled Oxygen Concentration - - Weight 58.1 kg (128 lb) 10/31/2021 8:56 AM CDT Height 154.9 cm (5' 1 ) 10/31/2021 8:56 AM CDT Body Mass Index 24.19 10/31/2021 8:56 AM CDT documented in this encounter Patient Instructions * Patient Instructions* Ashly Landin NP - 10/31/2021 9:00 AM CDT Start Lisinopril 10 mg daily Patient currently uncontrolled on current treatment for hypertension. Will continue and adjust medications as ordered. Continued to discuss weight loss, adequate cardiovascular fitness. DASH diet wasdiscussed as well as decrease in sodium intake. BP goal of < 140/90 expressed. Follow up in 1 month * Attachments The following attachments cannot be sent through Care Everywhere. * High Blood Pressure in Adults (Peruvian) documented in this encounter Progress Notes * Ashly Landin NP - 10/31/2021 9:00 AM CDT Reason for Visit: Follow Up (3 month f/u up on meds. Pt states she has hemorids she's been using preparation H wipes.Also has heartburn. Last cpl of days she has had sore in nose, and end of tongue. ) History of Present Illness: 60-year-old female is here today for refills of medications and regular follow up. Reports that shehas hemorrhoids that are painful and itching. Reports that she has a migraine that has been consistent for the past week. Chronic low back pain Takes cyclobenzaprine for spasms She reports that she needs refills. Hypertension On hydrochlorothiazide Compliant with medications. Does report any headaches, Denies blurry vision, dizziness, chest pain, shortness of breath, or palpitations. Following a low sodium diet. Not Exercising. GERD for which she takes famotidine and is uncontrolled. Complains of increase GERD Depression with anxiety for which she takes fluoxetine she does not need any other refills at this time and is otherwise doing well ROS: Review of Systems Constitutional: Negative. Negative for fatigue and fever. HENT: Reports sore to left side of tongue Respiratory: Negative. Negative for cough and shortness of breath. Cardiovascular: Negative. Negative for chest pain. Gastrointestinal: Negative for abdominal pain. Reports hemorrhoids that are painful and itching. Reports increase in GERD symptoms Genitourinary: Negative. Musculoskeletal: Positive for back pain (uses muscle relaxer). Skin: Negative. Allergic/Immunologic: Negative. Negative for environmental allergies. Neurological: Positive for headaches. Hematological: Negative for adenopathy. Psychiatric/Behavioral: Negative. Negative for suicidal ideas (Denies). Medications: Current Outpatient Medications: ??? biotin 66815 MCG tablet, Take 5,000 mcg by mouth [...] MORNING, Disp: 180 capsule, Rfl: 0 ??? HYDROCHLOROTHIAZIDE 12.5 MG capsule, TAKE 1 CAPSULE BY MOUTH EVERY DAY IN THE MORNING, Disp: 30capsule, Rfl: 0 ??? lisinopril (PRINIVIL) 10 MG tablet, Take 1 tablet (10 mg total) by mouth daily., Disp: 30 tablet, Rfl: 1 ??? naratriptan 2.5 MG tablet, TAKE 1 TABLET BY MOUTH ONCE. MAY REPEAT AFTER 4 HOURS., Disp: 27 tablet, Rfl: 3 ??? omeprazole (PRILOSEC) 40 MG capsule, Take 1 capsule (40 mg total) by mouth daily., Disp: 30 capsule, Rfl: 1 ??? multiple vitamins-minerals (OCUVITE-LUTEIN) Cap, Take 1 capsule by mouth daily., Disp: , Rfl: ??? vitamin B-12 100 MCG tablet, Take 50 mcg by mouth daily., Disp: , Rfl: Allergies Allergen Reactions ??? Sulfa Antibiotics Hives and Rash ??? Codeine Itching Past Medical History: Diagnosis Date ??? Anxiety ??? Back pain ??? Hypertension Past Surgical History: Procedure Laterality Date ??? APPENDECTOMY ??? COLONOSCOPY N/A 04/22/2021 COLONOSCOPY performed by Charli Yi MD at [facility] OR ??? NASAL AIRWAY ??? TONSILLECTOMY Social [...] ANY PROBLEMS - Not difficult at all Physical Exam Constitutional: General: She is not in acute distress. Appearance: Normal appearance. She is not ill-appearing. HENT: Mouth/Throat: Oral lesions (blister to tongue) present. Eyes: Pupils: Pupils are equal, round, and reactive to light. Cardiovascular: Rate and Rhythm: Normal rate and regular rhythm. Pulmonary: Effort: Pulmonary effort is normal. Chest: Chest wall: No tenderness. Abdominal: Palpations: Abdomen is soft. Tenderness: There is no abdominal tenderness. Genitourinary: Comments: External hemorrhoid Skin: General: Skin is warm and dry. Neurological: Mental Status: She is alert and oriented to person, place, and time. Psychiatric: Mood and Affect: Mood is anxious. Behavior: Behavior normal. I spent 35 minutes today reviewing the patient's medical record, obtaining history, performing an exam, ordering medications, tests, and/or procedures, documenting in the medical record, counseling and educating the patient/family/caregiver, reviewing and communicating test results and coordinationof care. Filed Vitals: 10/31/21 0856 10/31/21 0931 BP: (!) 172/89 (!) 170/94 Pulse: 64 Resp: 18 Temp: 99.4 ??F (37.4 ??C) TempSrc: Temporal SpO2: 100% Weight: 58.1 kg (128 lb) Height: 5' 1 (1.549 m) Assessment Encounter Diagnose(s) ICD-10-CM ICD-9-CM SNOMED CT(R) 1. Annual physical exam Z00.00 V70.0 PATIENT ENCOUNTER STATUS 2. Body mass index (BMI) 24.0-24.9, adult Z68.24 V85.1 BODY MASS INDEX 20-24 - NORMAL 3. Essential hypertension I10 401.9 ESSENTIAL HYPERTENSION lisinopril (PRINIVIL) 10 MG tablet 4. Gastroesophageal reflux disease without esophagitis K21.9 530.81 GASTROESOPHAGEAL REFLUX DISEASEWITHOUT ESOPHAGITIS omeprazole (PRILOSEC) 40 MG capsule 5. Migraine without aura and without status migrainosus, not intractable G43.009 346.10 MIGRAINE WITHOUT AURA, NOT REFRACTORY 6. Hemorrhoids, unspecified hemorrhoid type K64.9 455.6 HEMORRHOIDS Ambulatory referral to Gastroenterology ([facility]) 7. Screening for depression Z13.31 V79.0 PATIENT ENCOUNTER STATUS Recommendations and Plan: Start Lisinopril 10 mg daily Patient currently uncontrolled on current treatment for hypertension. Will continue and adjust medications as ordered. Continued to discuss weight loss, adequate cardiovascular fitness. DASH diet wasdiscussed as well as decrease in sodium intake. BP goal of < 140/90 expressed. Follow up in 1 month 1. Annual physical exam Patient past medical, surgical, family history and social history updated. Allergies, immunizationsand medications updated. Also did discuss healthy lifestyle including exercising, dietary changes and safe sexual practices as well as safe habits common to patient age group including wearing seat belt when transporting in a vehicle and limiting alcohol and avoiding smoking/second hand smoking. 2. Body mass index (BMI) 24.0-24.9, adult As above 3. Essential hypertension Patient currently uncontrolled on current treatment for hypertension. Will continue and adjust medications as ordered. Continued to discuss weight loss, adequate cardiovascular fitness. DASH diet wasdiscussed as well as decrease in sodium intake. BP goal of < 140/90 expressed. - lisinopril (PRINIVIL) 10 MG tablet; Take 1 tablet (10 mg total) by mouth daily. Dispense: 30 tablet; Refill: 1 4. Gastroesophageal reflux disease without esophagitis Start omeprazole - omeprazole (PRILOSEC) 40 MG capsule; Take 1 capsule (40 mg total) by mouth daily. Dispense: 30 capsule; Refill: 1 5. Migraine without aura and without status migrainosus, not intractable monitor 6. Hemorrhoids, unspecified hemorrhoid type Follow with GI - Ambulatory referral to Gastroenterology ([facility]) ASHLY LANDIN NP 10/31/2021 12:54 PM documented in this encounter Plan of Treatment Scheduled Referrals Name Type Priority Associated Diagnoses Orde r Schedule Ambulatory referral to Gastroenterology ([facility]) Referral Routine Hemorrhoids, unspecified hemorrhoid type Ordered: 10/31/2021 documented as of this encounter Visit Diagnoses Diagnosis Annual physical exam- Primary Routine general medical examination at a health care facility Body mass index (BMI) 24.0-24.9, adult Essential hypertension Unspecified essential hypertension Gastroesophageal reflux disease without esophagitis Esophageal reflux Migraine without aura and without status migrainosus, not intractable Migraine without aura, without mention of intractable migraine without mention of status migrainosus Hemorrhoids, unspecified hemorrhoid type Screening for depression documented in this encounter Additional Health Concerns Assessment Noted Time PHQ-9 Depression Total Score: 0 03/18/20 21 4:05 PM CENTRAL OFFICE MAINTAINER documented as of this encounter Care Teams Kingsbury Machine Operator Relationship Specialty Start Date End Date Ashly Landin NP PCP - General NURSE PRACTITIONER 07/22/21 12/26/21 Rhonda De La Paz MD Physician INTERNAL MEDICINE 09/08/20 documented as of this encounter
--- OUTSIDE RECORDS SUMMARY | 2024-04-03 16:06 | XMS_ITS | Encounter Summary ---
Author Organization [facility] Address [facility]. [place], [place] [address] [place] [address] Care Team Providers Care Oil Deliverer Name Role Phone Rhonda De La Paz MD Unavailable [phone] Rhonda De La Paz MD Primary Care Provider [phone] Reason for Referral * Surgical (Routine) - Closed Specialty Diagnoses / Procedures Referred By Master sweet Referred To Contact Diagnoses Screen for colon cancer History of colon polyps Procedures Case request operating room: COLONOSCOPY DIAGNOSTIC WITH/WITHOUT SPECIMEN BRUSH/WASH Charli Yi MD [address] [place] [address] Phone: tel: fax: Referral ID Status Reason Start Date Expiration Date Visits Re quested Visits Authorized [id number] Closed 03/23/2021 04/23/2022 1 1 RESELLER Encounter Details Date Type Department Care Team (Late st Contact Info) Description 03/23/2021 Orders Only [facility] Medical Group Multispecialty Care - [facility] [address] [facility] [address] [place] [id number] Charli Yi MD [address] [place] [address] [address] [place], [place] [id number] Social History Tobacco Use Types Packs/Day Years [...] COVID-19? No / Unsure 03/18/2021 1:59 PM EBAY RESELLER documented as of this encounter Plan of Treatment Scheduled Orders Name Type Priority Associated Diagnoses Orde r Schedule Case request operating room: COLONOSCOPY DIAGNOSTIC WITH/WITHOUT SPECIMEN BRUSH/WASH Case Request Routine Screen for colon cancer History of colon polyps Expected: 04/01/2021, Expires: 03/23/2022 documented as of this encounter Visit Diagnoses Diagnosis Screen for colon cancer- Primary Special screening for malignant neoplasms, colon History of colon polyps Personal history of colonic polyps documented in this encounter Additional Health Concerns Assessment Noted Time PHQ-9 Depression Total Score: 0 03/18/20 21 4:05 PM EBAY RESELLER documented as of this encounter Care Teams Oil Deliverer Relationship Specialty Start Date End Date Rhonda De La Paz MD PCP - General INTERNAL MEDICINE 09/08/20 07/05/21 Rhonda De La Paz MD Physician INTERNAL MEDICINE 09/08/20 documented as of this encounter
--- OUTSIDE RECORDS SUMMARY | 2024-04-03 16:06 | XMS_ITS | Encounter Summary ---
Author Organization [facility] Address [address] [place] [address]. [place], [place] [address] [place] [address] Care Team Providers Care Orthotic Technician Name Role Phone Rhonda De La Paz MD Unavailable [phone] Rhonda De La Paz MD Primary Care Provider [phone] Encounter Details Date Type Department Care Team (Latest Contact Info) Description 12/27/2020 Travel Social History Tobacco Use Types Packs/Day [...] on file Sexual Orientation Not on file COVID-19 Exposure Response Date Recorded In the last month, have you been in contact with someone who was confirmed or suspected to have Coronavirus / COVID-19? No / Unsure 12/27/2020 10:13 PM CDT documented as of this encounter Plan of Treatment Not on file documented as of this encounter Visit Diagnoses Not on filedocumented in this encounter Care Teams Orthotic Technician Relationship Specialty Start Date End Date Rhonda De La Paz MD PCP - General INTERNAL MEDICINE 09/08/20 07/05/21 Rhonda De La Paz MD Physician INTERNAL MEDICINE 09/08/20 documented as of this encounter
--- OUTSIDE RECORDS SUMMARY | 2024-04-03 16:06 | XMS_ITS | Encounter Summary ---
Author Organization [facility] Address [address] [place] [address]. [place], [place] [address] [place] [address] Care Team Providers Care Carbon Accountant Name Role Phone Rhonda De La Paz MD Unavailable [phone] Rhonda De La Paz MD Primary Care Provider [phone] Reason for Visit * Reason Onset Date Comments Prior Authorization 03/24/2021 Encounter Details Date Type Department Care Team (Late st Contact Info) Description 03/24/2021 Telephone [facility] Medical Group Multispecialty Care - [facility] [address] [facility], [address] [place] [address] Charli Yi MD 3 [facility] [address] [place] [address] Prior Authorization Social History Tobacco Use Types Packs/Day Years [...] COVID-19? No / Unsure 03/18/2021 1:59 PM BINDING MACHINE OPERATOR documented as of this encounter Progress Notes * Lea Joseph MA - 03/24/2021 10:53 AM CSTSummary: prior auth Auth is not required for colonoscopy per Magdalene zafar @ [facility] REF# [id number] ING MACHINE OPERATOR documented in this encounter Plan of Treatment Not on file documented as of this encounter Visit Diagnoses Not on filedocumented in this encounter Additional Health Concerns Assessment Noted Time PHQ-9 Depression Total Score: 0 03/18/20 21 4:05 PM BINDING MACHINE OPERATOR documented as of this encounter Care Teams Carbon Accountant Relationship Specialty Start Date End Date Rhonda De La Paz MD PCP - General INTERNAL MEDICINE 09/08/20 07/05/21 Rhonda De La Paz MD Physician INTERNAL MEDICINE 09/08/20 documented as of this encounter
--- OUTSIDE RECORDS SUMMARY | 2024-04-03 16:06 | XMS_ITS | Encounter Summary ---
Author Organization [facility] Address [address] [place] [address]. [place], [place] [address] [place] [address] Care Team Providers Care Armament Mechanic Name Role Phone Rhonda De La Paz MD Unavailable [phone] Ashly Cabrales COOK APPRENTICE PASTRY Primary Care Provider Unavailabl e Encounter Details Date Type Department Care Team (Latest Contact Info) Description 11/14/2021 Travel Social History Tobacco Use Types Packs/Day [...] suspected to have Coronavirus/COVID-19? No / Unsure 11/14/2021 9:51 AM CDT documented as of this encounter Plan of Treatment Not on file documented as of this encounter Visit Diagnoses Not on filedocumented in this encounter Additional Health Concerns Assessment Noted Time PHQ-9 Depression Total Score: 0 03/18/20 21 4:05 PM CVT RN documented as of this encounter Care Teams Armament Mechanic Relationship Specialty Start Date End Date Ashly Cabrales, COOK APPRENTICE PASTRY PCP - General NURSE PRACTITIONER 07/22/21 12/26/21 Rhonda De La Paz MD Physician INTERNAL MEDICINE 09/08/20 documented as of this encounter
--- OUTSIDE RECORDS SUMMARY | 2024-04-03 16:06 | XMS_ITS | Encounter Summary ---
Author Organization [facility] Address [address] [place] [address]. [place], [place] [address] [place] [address] Care Team Providers Care Horse Show Manager Name Role Phone Rhonda De La Paz MD Unavailable [phone] Rhonda De La Paz MD Primary Care Provider [phone] Encounter Details Date Type Department Care Team (Latest Contact Info) Description 03/18/2021 Travel Social History Tobacco Use Types Packs/Day [...] COVID-19? No / Unsure 03/18/2021 1:59 PM INFORMATION SECURITY ENGINEER documented as of this encounter Plan of Treatment Not on file documented as of this encounter Visit Diagnoses Not on filedocumented in this encounter Additional Health Concerns Assessment Noted Time PHQ-9 Depression Total Score: 0 03/18/20 21 4:05 PM INFORMATION SECURITY ENGINEER documented as of this encounter Care Teams Horse Show Manager Relationship Specialty Start Date End Date Rhonda De La Paz MD PCP - General INTERNAL MEDICINE 09/08/20 07/05/21 Rhonda De La Paz MD Physician INTERNAL MEDICINE 09/08/20 documented as of this encounter
--- OUTSIDE RECORDS SUMMARY | 2024-04-03 16:06 | XMS_ITS | Encounter Summary ---
Author Organization [facility] Address [address] [place] [address]. [place], [place] [address] [place] [address] Care Team Providers Care Drug Safety Specialist Name Role Phone Rhonda De La Paz MD Unavailable [phone] Rhonda De La Paz MD Primary Care Provider [phone] Reason for Visit * Reason Onset Date Comments Follow Up Call 03/18/2021 Encounter Details Date Type Department Care Team (Late st Contact Info) Description 03/18/2021 Telephone [facility] Medical Group Multispecialty Care - [facility] 3 [facility], [address] [place] [address] Charli Yi MD 3 [facility] [address] [place] [address] Follow Up Call Social History Tobacco Use [...] as of this encounter Progress Notes * Antonina Maravilla - 03/18/2021 10:14 AM CST Spoke with patient appt confirmed for today. TECHNICIAN * Jason Partida - 03/18/2021 9:53 AM CST Pt called and asked to speak with 's office. Clicked back over to transfer call to Antonina king was silent and no response. Please give Pt a call back to discuss [phone] TECHNICIAN documented in this encounter Plan of Treatment Not on file documented as of this encounter Visit Diagnoses Not on filedocumented in this encounter Additional Health Concerns Assessment Noted Time PHQ-9 Depression Total Score: 0 03/18/20 21 4:05 PM ROOF TECHNICIAN documented as of this encounter Care Teams Drug Safety Specialist Relationship Specialty Start Date End Date Rhonda De La Paz MD PCP - General INTERNAL MEDICINE 09/08/20 07/05/21 Rhonda De La Paz MD Physician INTERNAL MEDICINE 09/08/20 documented as of this encounter
--- OUTSIDE RECORDS SUMMARY | 2024-04-03 16:06 | XMS_ITS | Encounter Summary ---
Author Organization [facility] Address [address] [place] [address]. [place], [place] [address] [place] [address] Care Team Providers Care Flight Security Specialist Name Role Phone Rhonda De La Paz MD Unavailable [phone] Ashly Cabrales SUB ASSEMBLY TEAM WORKER Primary Care Provider Unavailabl e Encounter Details Date Type Department Care Team (Latest Contact Info) Description 09/28/2021 Travel Social History Tobacco Use Types Packs/Day [...] suspected to have Coronavirus/COVID-19? No / Unsure 09/28/2021 3:02 PM CDT documented as of this encounter Plan of Treatment Not on file documented as of this encounter Visit Diagnoses Not on filedocumented in this encounter Additional Health Concerns Assessment Noted Time PHQ-9 Depression Total Score: 0 03/18/20 21 4:05 PM INOCULATOR documented as of this encounter Care Teams Flight Security Specialist Relationship Specialty Start Date End Date Ashly Cabrales, SUB ASSEMBLY TEAM WORKER PCP - General NURSE PRACTITIONER 07/22/21 12/26/21 Rhonda De La Paz MD Physician INTERNAL MEDICINE 09/08/20 documented as of this encounter
--- OUTSIDE RECORDS SUMMARY | 2024-04-03 16:06 | XMS_ITS | Encounter Summary ---
Author Organization [facility] Address [address] [place] [address]. [place], [place] [address] [place] [address] Care Team Providers Care Case Packer Name Role Phone Rhonda De La Paz MD Unavailable [phone] Rhonda De La Pza MD Primary Care Provider [phone] Encounter Details Date Type Department Care Team (Latest Contact Info) Description 04/18/2021 Travel Social History Tobacco Use Types Packs/Day [...] Total Score: 0 03/18/20 21 4:05 PM TELESALES PROFESSIONAL documented as of this encounter Care Teams Case Packer Relationship Specialty Start Date End Date Rhonda De La Paz MD PCP - General INTERNAL MEDICINE 09/08/20 07/05/21 Rhonda De La Paz MD Physician INTERNAL MEDICINE 09/08/20 documented as of this encounter
--- OUTSIDE RECORDS SUMMARY | 2024-04-03 16:06 | XMS_ITS | Encounter Summary ---
Author Organization [facility] Address [address] [place] [address]. [place], [place] [address] [place] [address] Care Team Providers Care Material Handler Name Role Phone Rhonda De La Paz MD Unavailable [phone] Ashly Cabrales PHP WEBSITE DEVELOPER Primary Care Provider Unavailabl e Encounter Details Date Type Department Care Team (Latest Contact Info) Description 10/31/2021 Travel Social History Tobacco Use Types Packs/Day [...] Total Score: 0 03/18/20 21 4:05 PM [employer] documented as of this encounter Care Teams Material Handler Relationship Specialty Start Date End Date Ashly Cabrales, PHP WEBSITE DEVELOPER PCP - General NURSE PRACTITIONER 07/22/21 12/26/21 Rhonda De La Paz MD Physician INTERNAL MEDICINE 09/08/20 documented as of this encounter
--- OUTSIDE RECORDS SUMMARY | 2024-04-03 16:06 | XMS_ITS | Encounter Summary ---
Author Organization [facility] Address [address] [place] [address]. [place], [place] [address] [place] [address] Care Team Providers Care Chilling Hood Operator Name Role Phone Rhonda De La Paz MD Unavailable [phone] Ashly Cabrales INSULATION BOARD COATER OPERATOR Primary Care Provider Unavailabl e Encounter Details Date Type Department Care Team (Latest Contact Info) Description 07/22/2021 5:07 PM CDT - 07/22/2021 11:59 PM CDT Hospital Encounter [facility] [address] [place] [address] Ashly Cabrales, INSULATION BOARD COATER OPERATOR Discharge Disposition: Home or Self Care (Routine [...] of Discharge Cholecalciferol (VITAMIN D) 50 MCG (1999 UT) Tab biotin 73964 MCG tablet Take 5,000 mcg by mouth daily. 2 cyclobenzaprine 5 MG tabletIndications: Muscle spasm Take 1 tablet (5 mg total) by mouth 3 (three) times daily as needed. 30 tablet 5 07/22/2021 3 famotidine 40 MG tabletIndications: Gastroesophageal reflux disease without esophagitis Take 1 tablet (40 mg total) by mouth daily. 90 tablet 07/22/2021 2 FLUoxetine 40 MG capsuleIndications :Anxiety Take 2 capsules (80 mg total) by mouth every morning. 180 capsule 07/22/2021 2 hydroCHLOROthiazid e 12.5 MG capsuleIndications :Essential hypertension Take 1 capsule (12.5 mg total) by mouth every morning. 30 capsule 07/22/2021 2 multiple vitamins-minerals (OCUVITE-LUTEIN) Cap Take 1 capsule by mouth daily. 3 naratriptan 2.5 MG tabletIndications: Migraine without aura and without status migrainosus, not intractable TAKE 1 TABLET BY MOUTH ONCE. MAY REPEAT AFTER 4 HOURS. 27 tablet 3 07/22/2021 3 vitamin B-12 100 MCG tablet Take 0.5 tablets (50 mcg total) by mouth daily. 3 documented as of this encounter Plan of Treatment Not on file documented as of this encounter Procedures Procedure Name Priority Date/Time Associated Diagnosis Comments ALBUMIN URINE RANDOM W/CREATININE Routine 07/22/2021 1:52 PM CDT Essential hypertension COMPREHENSIVE METABOLIC PANEL Today 07/22/2021 1:52 PM CDT Essential hypertension LIPID PANEL Today 07/22/2021 1:52 PM CDT Essential hypertension CBC W/DIFF AUTOMATED Today 07/22/2021 1:52 PM CDT Essential hypertension THYROID STIM HORMONE TSH Today 07/22/2021 1:52 PM CDT Anxiety VITAMIN D, 25 OH Today 07/22/2021 1:52 PM CDT Vitamin D deficiency documented in this encounter Results * (ABNORMAL) CBC W/DIFF AUTOMATED (07/22/2021 1:52 PM CDT) WBC 5.2 4.4 - 11.0 x10'3/uL 07/22/2021 5:26 PM CDT [facility] RBC 4.16(L) 4.50 - 5.10 x10'6/uL 07/22/2021 5:26 PM CDT [facility] HGB 12.8 12.3 - 15.3 G/DL 07/22/2021 5:26 PM CDT [facility] HCT 39.3 35.9 - 44.6 % 07/22/2021 5:26 PM CDT [facility] MCV 94.5 80.0 - 96.0 FL 07/22/2021 5:26 PM CDT [facility] MCH 30.8 25.3 - 30.9 PG 07/22/2021 5:26 PM CDT [facility] MCHC 32.6 31.0 - 34.1 G/DL 07/22/2021 5:26 PM CDT [facility] RDW 12.5 12.4 - 15.1 % 07/22/2021 5:26 PM CDT [facility] PLT 269 151 - 353 x10'3/uL 07/22/2021 5:26 PM CDT [facility] MPV 11.5 9.6 - 12.0 FL 07/22/2021 5:26 PM CDT [facility] RBC MORPHOLOGY NORMAL 07/22/2021 5:26 PM CDT [facility] PLT MORPH. NORMAL 07/22/2021 5:26 PM CDT [facility] WBC MORPHOLOGY NORMAL 07/22/2021 5:26 PM CDT [facility] LYMPHOCYTES % 21.6 15.8 - 45.0 % 07/22/2021 5:26 PM CDT [facility] NEUTROPHILS % 62.4 42.1 - 71.9 % 07/22/2021 5:26 PM CDT [facility] MONOCYTES % 9.1 5.7 - 12.5 % 07/22/2021 5:26 PM CDT [facility] EOSINOPHILS 5.2 0.0 - 5.6 % 07/22/2021 5:26 PM CDT [facility] BASOPHILS 1.7(H) 0.0 - 1.3 % 07/22/2021 5:26 PM CDT [facility] ABS. NEUTROPHILS 3.23 1.40 - 6.00 x10'3/uL 07/22/2021 5:26 PM CDT [facility] IMMATURE GRANS % 0.0 0.0 - 0.5 % 07/22/2021 5:26 PM CDT [facility] ABS. LYMPHOCYTES 1.12 0.80 - 4.70 x10'3/uL 07/22/2021 5:26 PM CDT [facility] 07/22/2021 1:52 PM CDT us Ashly Cabrales NP LABORATORY Final Result [facility] [address] [place] [address], * COMPREHENSIVE METABOLIC PANEL (07/22/2021 1:52 PM CDT) [facility] GLUCOSE 83 70 - 99 MG/DL 07/22/2021 5:41 PM CDT [facility] BUN 15 7 - 18 MG/DL 07/22/2021 5:41 PM CDT [facility] CREATININE S/P/B 0.72 0.55 - 1.02 MG/DL 07/22/2021 5:41 PM [facility] SODIUM S/P/B 143 136 - 145 MMOL/L 07/22/2021 5:41 PM T [facility] POTASSIUM S/P/B 4.1 3.5 - 5.1 MMOL/L 07/22/2021 5:41 PM [facility] CHLORIDE S/P/B 106 100 - 108 MMOL/L 07/22/2021 5:41 PM T [facility] CO2 29.6 21 - 32 MMOL/L 07/22/2021 5:41 PM [facility] CALCIUM S/P/B 9.7 8.5 - 10.1 MG/DL 07/22/2021 5:41 PM [facility] BILIRUBIN TOTAL S/P/B 0.6 0.2 - 1.2 MG/DL 07/22/2021 5:41 PM [facility] TOTAL PROTEIN S/P/B 6.7 6.4 - 8.2 G/DL 07/22/2021 5:41 PM [facility] ALBUMIN S/P/B 3.7 3.4 - 5.0 G/DL 07/22/2021 5:41 PM [facility] AST 18 15 - 37 U/L 07/22/2021 5:41 PM [facility] ALT 22 14 - 55 U/L 07/22/2021 5:41 PM [facility] ALKALINE PHOSPHATASE S/P/B 83 50 - 136 U/L 07/22/2021 5:41 PM [facility] ANION GAP 7.4 5 - 15 MMOL/L 07/22/2021 5:41 PM CDT [facility] BUN CREATININE RATIO 20.8 6 - 26 07/22/2021 5:41 PM CDT [facility] A/G RATIO 1.2 1.0 - 2.0 RATIO 07/22/2021 5:41 PM CDT [facility] EGFR NON-AFR. AMER. >90 >90 ML/MIN/1.7 3 M2 07/22/2021 5:41 PM CDT [facility] EGFR AFR. AMER. >90 >90 ML/MIN/1.7 3 M2 07/22/2021 5:41 PM CDT [facility] Comment: NOTE: eGFR is not calculated for patients <18 years of age. This is an estimated GFR (CKD EPI) and should not be used for calculating drug doses. 07/22/2021 1:52 PM CDT Ashly Cabrales NP LABORATORY Final Result [facility] [address] [place] [id number], * (ABNORMAL) LIPID PANEL (07/22/2021 1:52 PM CDT) CHOLESTEROL 200(H) <200.0 MG/DL 07/22/2021 5:41 PM CDT [facility] TRIGLYCERIDES 51 <150 MG/DL 07/22/2021 5:41 PM CDT [facility] HDL 64 >40.0 MG/DL 07/22/2021 5:41 PM CDT [facility] LDL (CALCULATED) 126(H) <100 MG/DL 07/22/2021 5:41 PM CDT [facility] NON HDL CHOLESTEROL 136(H) <130 MG/DL 07/22/2021 5:41 PM CDT [facility] CHOL/HDL RATIO 3.1 0.0 - 4.5 07/22/2021 5:41 PM CDT [facility] VLDL CALCULATION 10 5 - 55 MG/DL 07/22/2021 5:41 PM T [facility] LIPID INTERPRETATION 07/22/2021 5:41 PM CDT [facility] Comment: NIH CONCENSUS REPORT RECOMMENDATIONS: [...] ? >=160 ?>=130 07/22/2021 1:52 PM CDT Ashly Cabrales INSULATION BOARD COATER OPERATOR LABORATORY Final Result Performing Organization Address [facility] de Phone Number [facility] [address] [place] [address], [place] [phone] * THYROID STIM HORMONE, TSH (07/22/2021 1:52 PM CDT) Pathologist [facility] TSH 1.615 0.358 - 3.74 uIU/ML 07/22/2021 5:41 PM CDT [facility] Comment: HIGH DOSES OF BIOTIN MAY INTERFERE WITH THIS TEST RESULT. CORRELATION TO CLINICAL HISTORY AND PRESENTATION RECOMMENDED. 07/22/2021 1:52 PM CDT Ashly Cabrales INSULATION BOARD COATER OPERATOR LABORATORY Final Result Performing Organization Address [facility] de Phone Number [facility] [address] [place] [address], [place] [phone] * VITAMIN D, 25 OH (07/22/2021 1:52 PM CDT) Pathologist [facility] VITAMIN D 25 HYDROXY S/P/B 54 30 - 100 NG/ML 07/22/2021 6:00 PM CDT [facility] Comment: ? INTERPRETATION ? DEFICIENT ??<20 ? INSUFFICIENT 20-29 ?SUFFICIENT 30-100 07/22/2021 1:52 PM CDT Ashly Cabrales INSULATION BOARD COATER OPERATOR LABORATORY Final Result Performing Organization Address [facility]/ZIP Co de Phone Number [facility] [address] [place] [address], [place] [phone] * (ABNORMAL) ALBUMIN URINE RANDOM (07/22/2021 1:52 PM CDT) CREATININE (U) 27.3(L) 28 - 217 MG/DL 07/22/2021 5:36 PM CDT [facility] MICROALBUMIN (U) 0.2 <2.0 mg/dL 07/23/19 5:36 PM CDT [facility] ALBUMIN/CREAT RATIO 7.3 <30.0 MG/G 07/22/2021 5:36 PM CDT [facility] URINE SPECIMEN / Unknown 07/22/2021 1:52 PM CDT us Ashly Cabrales INSULATION BOARD COATER OPERATOR URINE ORDERABLES Final Result Performing Organization Address [facility] Co de Phone Number [facility] [address] [place] [address], [place] [phone] documented in this encounter Visit Diagnoses Diagnosis Essential hypertension Unspecified essential hypertension Vitamin D deficiency Unspecified vitamin D deficiency Anxiety Anxiety state, unspecified documented in this encounter Additional Health Concerns Assessment Noted Time PHQ-9 Depression Total Score: 0 03/18/20 21 4:05 PM OPERATIONS VICE PRESIDENT documented as of this encounter Care Teams Chilling Hood Operator Relationship Specialty Start Date End Date Ashly Cabrales NP PCP - General NURSE PRACTITIONER 07/22/21 12/26/21 Rhonda De La Paz MD Physician INTERNAL MEDICINE 09/08/20 documented as of this encounter
--- OUTSIDE RECORDS SUMMARY | 2024-04-03 16:06 | XMS_ITS | Encounter Summary ---
Author Organization [facility] Address [address] [place] [address]. [place], [place] [address] [place] [address] Care Team Providers Care Plan Rep Name Role Phone Rhonda De La Paz MD Unavailable [phone] Grace Landin NP Primary Care Provider Unavailabl e Reason for Visit * Imaging (Routine) - Closed Specialty Diagnoses / Procedures Referred By Master sweet Referred To Contact RADIOLOGY Diagnoses Encounter for screening mammogram for malignant neoplasm of breast Procedures MG SCREENING W TERRI DELMI DIGI Grace Landin NP Referral ID Status Reason Start Date Expiration Date Visits Re quested Visits Authorized [id number] Closed 07/22/2021 08/21/2022 1 1 Encounter Details Date Type Department Care Team (Latest Contact Info) Description 11/14/2021 9:51 AM CDT - 11/14/2021 11:59 PM CDT Hospital Encounter [facility] Mammography [address] [place] [address] Grace Landin, DIOMEDES Discharge Disposition: Home or Self Care (Routine [...] In the last 10 days, have acosta feng been in contact with someone who was confirmed or suspected to have Coronavirus/COVID-19? No / Unsure 11/14/2021 9:51 AM CDT documented as of this encounter Medications at Time of Discharge Cholecalciferol (VITAMIN D) 50 MCG (2000 UT) Tab biotin 44272 MCG tablet Take 5,000 mcg by mouth [...] IN THE MORNING 180 capsule 10/24/2021 2 HYDROCHLOROTHIAZID E 12.5 MG capsuleIndications :Essential hypertension TAKE 1 CAPSULE BY MOUTH EVERY DAY IN THE MORNING 30 capsule 10/06/2021 2 lisinopril (PRINIVIL) 10 MG tabletIndications: Essential [...] screening mammogram for malignant neoplasm of breast documented in this encounter Results * MG [...] interpreted with computer aided detection. Ordered By: GRACE LANDIN Interpreted By: Leandro Waters, 11/14/2021 11:38 [...] retraction. ??Axillary regions are within normal limits. Grace Landin CLINICAL APPLICATIONS SPECIALIST MAMMO Final Result documented in this encounter Visit Diagnoses Not on filedocumented in this encounter Additional Health Concerns Assessment Noted Time PHQ-9 Depression Total Score: 0 03/18/20 21 4:05 PM LABORATORY WORKER documented as of this encounter Care Teams Plan Rep Relationship Specialty Start Date End Date Grace Landin NP PCP - General NURSE PRACTITIONER 07/22/21 12/26/21 Rhonda De La Paz MD Physician INTERNAL MEDICINE 09/08/20 documented as of this encounter
--- OUTSIDE RECORDS SUMMARY | 2024-04-03 16:06 | XMS_ITS | Encounter Summary ---
Author Organization [facility] Address [address] [place] [address]. [place], [place] [address] [place] [address] Care Team Providers Care Maintainer Central Office Name Role Phone Rhonda De La Paz MD Unavailable [phone] Rhonda De La Paz MD Primary Care Provider [phone] Encounter Details Date Type Department Care Team (Latest Contact Info) Description 04/22/2021 Travel Social History Tobacco Use Types Packs/Day [...] COVID-19? No / Unsure 04/22/2021 8:58 AM WATER QUALITY TECHNICIAN documented as of this encounter Plan of Treatment Not on file documented as of this encounter Visit Diagnoses Not on filedocumented in this encounter Additional Health Concerns Assessment Noted Time PHQ-9 Depression Total Score: 0 03/18/20 21 4:05 PM WATER QUALITY TECHNICIAN documented as of this encounter Care Teams Maintainer Central Office Relationship Specialty Start Date End Date Rhonda De La Paz MD PCP - General INTERNAL MEDICINE 09/08/20 07/05/21 Rhonda De La Paz MD Physician INTERNAL MEDICINE 09/08/20 documented as of this encounter
--- OUTSIDE RECORDS SUMMARY | 2024-04-03 16:06 | XMS_ITS | Encounter Summary ---
Author Organization [facility] Address [address] [place] [address]. [place], [place] [address] [place] [address] Care Team Providers Care Gerontology Aide Name Role Phone Rhonda De La Paz MD Unavailable [phone] Yoselin Murdock NP Primary Care Provider [phone] Ashly Cabrales PUPPET MASTER Primary Care Provider Peggy Sheffield APNP Primary Care Provider Yoselin Murdock PUPPET MASTER Primary Care Provider [phone] Encounter Details Date Type Department Care Team (Late st Contact Info) Description 07/06/2021 Photometicst Message Enc [facility] Medical Group Family & Internal Medicine [address] [phone] [place] [id number] [place] [address] [address]. [place] [address] Appointment on 07/08/21 Social History Tobacco Use Types Packs/Day Years [...] Total Score: 0 03/18/20 21 4:05 PM DIRECTOR OF ACCOUNTS RECEIVABLE documented as of this encounter Care Teams Gerontology Aide Relationship Specialty Start Date End Date Yoselin Murdock PUPPET MASTER [address] [facility] [address] [place] [address] PCP - General Nurse Practitioner Family 07/06/2107/21 [place] [address] [facility] [address] [place] [address] PCP - General NURSE PRACTITIONER 07/22/21 12/26/21 Peggy Best APNP [address] [place] [address] PCP - General Nurse Practitioner Family 12/27/2109/15 [place] [address] [facility] [address] [place] [address] PCP - General Nurse Practitioner Family 10/05/22 Rhonda De aL Paz MD Physician INTERNAL MEDICINE 09/08/20 documented as of this encounter
--- OUTSIDE RECORDS SUMMARY | 2024-04-03 16:06 | XMS_ITS | Encounter Summary ---
Author Organization [facility] Address [address] [place] [address]. [place], [place] [address] [place] [address] Care Team Providers Care Timber Watchman Name Role Phone Rhonda De La Paz MD Unavailable [phone] Ashly Cabrales RUBBER THREAD SPOOLER Primary Care Provider Unavailabl e Reason for Visit * Reason Onset Date Comments Referral 10/31/2021 Encounter Details Date Type Department Care Team (Late st Contact Info) Description 10/31/2021 Telephone [facility] [id number] [place] [phone] Ashly Cabrales, RUBBER THREAD SPOOLER Referral Social History Tobacco Use Types Packs/Day Years [...] as of this encounter Progress Notes * Farida Freeman RN - 11/01/2021 1:30 PM CDT Spoke with Lovely in the referral department and inquired about patient request to change order. Per Lovely, no changes need to be made to referral as Dr Yi's office should know if patient is new or existing. Per Lovely, she will call patient and explain referral process to patient. * Ashlee Contreras - 10/31/2021 2:42 PM CDT Pt called stating the ref that was sent to Dr Yi's office is for a new patient and she is not a new patient it needs to state existing patient please resend. documented in this encounter Plan of Treatment Not on file documented as of this encounter Visit Diagnoses Not on filedocumented in this encounter Additional Health Concerns Assessment Noted Time PHQ-9 Depression Total Score: 0 03/18/20 21 4:05 PM PATIENT FINANCIAL ADVOCATE documented as of this encounter Care Teams Timber Watchman Relationship Specialty Start Date End Date Ashly Cabrales NP PCP - General NURSE PRACTITIONER 07/22/21 12/26/21 Rhonda De La Paz MD Physician INTERNAL MEDICINE 09/08/20 documented as of this encounter
--- OUTSIDE RECORDS SUMMARY | 2024-04-03 16:06 | XMS_ITS | Encounter Summary ---
Author Organization [facility] Address [address] [place] [address]. [place], [place] [address] [place] [address] Care Team Providers Care Accounts Payable Representative Name Role Phone Rhonda De La Paz MD Unavailable [phone] Rhonda De La Paz MD Primary Care Provider [phone] Encounter Details Date Type Department Care Team (Latest Contact Info) Description 09/28/2020 Travel Social History Tobacco Use Types Packs/Day [...] have Coronavirus / COVID-19? No / Unsure 09/28/2020 9:18 AM CDT documented as of this encounter Plan of Treatment Not on file documented as of this encounter Visit Diagnoses Not on filedocumented in this encounter Care Teams Accounts Payable Representative Relationship Specialty Start Date End Date Rhonda De La Paz MD PCP - General INTERNAL MEDICINE 09/08/20 07/05/21 Rhonda De La Paz MD Physician INTERNAL MEDICINE 09/08/20 documented as of this encounter
--- OUTSIDE RECORDS SUMMARY | 2024-04-03 16:06 | XMS_ITS | Encounter Summary ---
Author Organization [facility] Address [address] [place] [address]. [place], [place] [address] [place] [address] Care Team Providers Care Nurse Advisor Name Role Phone Rhonda De La Paz MD Unavailable [phone] Rhonda De La Paz MD Primary Care Provider [phone] Reason for Visit * Auth/Cert Specialty Diagnoses / Procedures Referred By Master sweet Referred To Contact Diagnoses Screen for colon cancer History of colon polyps Screening colonoscopy Procedures COLONOSCOPY,DIAGNOSTIC COLONOSCOPY Referral ID Status Reason Start Date Expiration Date Visits Re quested Visits Authorized [id number] 1 1 Encounter Details Date Type Department Care Team (Late st Contact Info) Description 04/22/2021 10:04 AM MUSIC EDUCATION DIRECTOR - 04/22/2021 10:32 AM MUSIC EDUCATION DIRECTOR Surgery [facility] [address] [place] [address] Glenn Yi MD [address] [place] [address] [id number] COLONOSCOPY Surgery Details Date/Time Status Location OR Service Patient Class Case Class Case Type Trauma Case? 04/22/2021 10:04 AM Posted [facility] OR Endo Gastroenterology Short Stay/Outpa tient Surgery No Panel 1 Procedure LRB Anes Op Region Wound Class Comments COLONOSCOPY N/A Monitor Anesthesia Care Colon Lulu n Contaminated Surgeon Surgeon Role Service Panel Glenn Yi MD Primary Gastroenterology 1 Special Needs 8548 documented in this encounter Social History Tobacco [...] COVID-19? No / Unsure 04/22/2021 8:58 AM MUSIC EDUCATION DIRECTOR documented as of this encounter Last Filed Vital Signs Vital Sign Reading Time Taken Comments Blood Pressure 115/66 04/22/2021 9:21 AM MUSIC EDUCATION DIRECTOR Pulse 67 04/22/2021 9:21 AM MUSIC EDUCATION DIRECTOR Temperature 36.6 ??C (97.9 ??F) 04/22/2021 9:21 AM CS T Respiratory Rate 16 04/22/2021 9:21 AM MUSIC EDUCATION DIRECTOR Oxygen Saturation 98% 04/22/2021 9:21 AM MUSIC EDUCATION DIRECTOR Inhaled Oxygen Concentration - - Weight 61.2 kg (135 lb) 04/12/2021 3:39 PM MUSIC EDUCATION DIRECTOR Height 154.9 cm (5' 1 ) 04/12/2021 3:39 PM MUSIC EDUCATION DIRECTOR Body Mass Index 25.51 04/12/2021 3:39 PM MUSIC EDUCATION DIRECTOR documented in this encounter Discharge Instructions * Discharge Instructions* Nayla Wayne RN - 04/22/2021 12:56 PM MUSIC EDUCATION DIRECTOR Images from the original note were not included. Repeat colonoscopy in 7-10 years Patient Education Colonoscopy Discharge Instructions About this topic Colonoscopy is done so your doctor can see the inside of your large intestines, also called your colon, and your rectum. It uses a lighted tube called a scope, which has a tiny camera that can be moved through the large intestine. This may be done to: ?? Screen for colon cancer or polyps ?? Look for the source of rectal bleeding ?? Find the cause of changes in your bowel movement ?? Find the cause of belly or rectal pain ?? Check results from other tests ?? Check your response to treatment for other diseases What care is needed at home? ?? Ask your doctor what you need to do when you go home. Make sure you ask questions if you do not understand what the doctor says. This way you will know what you need to do. ?? Rest. Do not drive the rest of the day. Do not sign any important papers or make any important decisions for the next 24 hours. ?? You may feel groggy. Take extra care when moving about. ?? You may have gas or mild cramping. This is normal. ?? A small amount of bleeding may happen during the first few days after your procedure. ?? Start back on your normal diet unless you need some changes in your diet. What follow-up care is needed? ?? Your doctor will talk to you about your test results. Your doctor may ask you to make visits to the office to check on your progress. Be sure to keep these visits. ?? Ask your doctor when you need to have another colonoscopy. The amount of time between tests is based on what was found during this test. People with no polyps may be able to wait 10 years to have another colonoscopy. Other people may need to have this test repeated in 1 year because of the kind of polyps that were found in their colon. Ask your doctor when you need to come back. What drugs may be needed? Ask your doctor what drugs you will need to take. Take your drugs as told by your doctor. Will physical activity be limited? Physical activities may be limited for a short time. Rest after the procedure. You may go back to your normal activities within a day or so. What changes to diet are needed? ?? Drink 6 to 8 glasses of water each day. ?? Eat food rich in fiber like fresh fruits and vegetables. What problems could happen? ?? Tear inside your colon ?? Bleeding can happen up to a few days afterwards When do I need to call the doctor? ?? Fever of 100.4??F (38??C) or higher, chills ?? Bleeding during bowel movements (1 teaspoon (5 mL) or more) or maroon stool ?? Throwing up more than 3 times in the next 48 hours ?? Feeling dizzy ?? Feeling weak ?? Belly pain that is getting worse ?? Not able to have a bowel movement for more than 2 days ?? Hard swollen belly Teach Back: Helping You Understand The Teach Back Method helps you understand the information we are giving you. After you talk with the staff, tell them in your own words what you learned. This helps to make sure the staff has described each thing clearly. It also helps to explain things that may have been confusing. Before going home, make sure you can do these: ?? I can tell you about my procedure. ?? I can tell you what signs are normal after my procedure. ?? I can tell you what I will do if I throw up more than 3 times in the next 48 hours or I have more belly pain. Where can I learn more? [employer] https://www.cancer.org/cancer/uzusm-gpitkn-whrxpp/zieapmhmv-aynnplgdq-sceamwm/sc crtnhzs-vlqke-sckw.html [place] Society of Clinical Oncology https://www.cancer.net/ndjottrkxx-bkilid-wlfv/diagnosing-cancer/eicmo-dyq-uleros ures/colonoscopy Last Reviewed Date 2020-06-23 Consumer Information Use and Disclaimer This generalized information is a limited summary of diagnosis, treatment, and/or medication information. It is not meant to be comprehensive and should be used as a tool to help the user understand and/or assess potential diagnostic and treatment options. It does NOT include all information about conditions, treatments, medications, side effects, or risks that may apply to a specific patient. Itis not intended to be medical advice or a substitute for the medical advice, diagnosis, or treatment of a health care provider based on the health care provider's examination and assessment of a patient???s specific and unique circumstances. Patients must speak with a health care provider for complete information about their health, medical questions, and treatment options, including any risks orbenefits regarding use of medications. This information does not endorse any treatments or medications as safe, effective, or approved for treating a specific patient. #[employer] and its affiliates disclaim any warranty or liability relating to this information or the use thereof. The use of this information is governed by the Terms of Use, available at https://www.T-VIPS.Urban Traffic/en/solutions/lexicomp/about/veena Copyright Copyright ?? 2020 #[employer] and its affiliates and/or licensors. All rights reserved. C EDUCATION DIRECTOR * Attachments The following attachments cannot be sent through Care Everywhere. * Monitored Anesthesia Care (Chinese) documented in this encounter Medications at Time of Discharge Cholecalciferol (VITAMIN D) 50 MCG (1999) Tab biotin 06159 MCG tablet Take 5,000 mcg by mouth daily. 2 cyclobenzaprine 5 MG tabletIndications: Muscle spasm Take 1 tablet (5 mg total) by mouth 3 (three) times daily as needed. 30 tablet 5 12/28/2020 2 FAMOTIDINE 40 MG tabletIndications: Gastroesophageal reflux disease without esophagitis TAKE 1 TABLET BY MOUTH EVERY DAY 90 tablet 1 12/30/2020 2 FLUoxetine 40 MG capsule Take 40 mg by mouth daily. 2 HYDROCHLOROTHIAZID E 12.5 MG capsuleIndications :Essential hypertension TAKE 1 CAPSULE BY MOUTH EVERY DAY IN THE MORNING 30 capsule 03/28/2021 2 multiple vitamins-minerals (OCUVITE-LUTEIN) Cap Take 1 capsule by mouth daily. 3 NARATRIPTAN 2.5 MG tabletIndications: Migraine without aura and without status migrainosus, not intractable TAKE 1 TABLET BY MOUTH ONCE. MAY REPEAT AFTER 4 HOURS. 27 tablet 3 03/15/2021 2 vitamin B-12 100 MCG tablet Take 0.5 tablets (50 mcg total) by mouth daily. 3 documented as of this encounter H&P Notes * Glenn Yi MD - 04/22/2021 12:04 PM CST GASTROENTEROLOGY H&P 04/22/2021 12:05 PM Reason for Consult: Screening colonoscopy. History of Present Illness: Danielle Brito is a 60-year-old screening colonoscopy for personal history of polyps Patient Active Problem List Diagnosis ??? Hypertension ??? Anxiety ??? Screen for colon cancer ??? History of colon polyps Past Medical History: Diagnosis Date ??? Anxiety ??? Back pain ??? Hypertension Past Surgical History: Procedure Laterality Date ??? APPENDECTOMY ??? NASAL AIRWAY ??? TONSILLECTOMY Family History Problem Relation Name Age of Onset ??? Breast Cancer Mother ??? Breast Cancer Paternal Grandmother ??? Heart Attack Father Social History Socioeconomic History ??? Marital status: [...] file Intimate Partner Violence: Not on file Allergies Allergen Reactions ??? Sulfa Antibiotics Hives and Rash ??? Codeine Itching PHYSICAL EXAM: Filed Vitals: 04/12/21 1539 04/22/21 0921 BP: 115/66 Pulse: 67 Resp: 16 Temp: 97.9 ??F (36.6 ??C) TempSrc: Tympanic SpO2: 98% Weight: 61.2 kg (135 lb) Height: 5' 1 (1.549 m) Wt Readings from Last 3 Encounters: 04/12/21 61.2 kg (135 lb) 03/18/21 63 kg (139 lb) 12/28/20 63.3 kg (139 lb 9.6 oz) ? Assessment and Plan: Screening colonoscopy for personal history of polyps. The procedural risks, benefits, alternatives were discussed fully with the patient, including the risks of complications of bleeding, infection, bowel injury or perforation, anesthesia related risks but not limited to the above. Post complication remedies could include hospitalization, antibiotics,surgery or even the remote possibility of . The patient verbalized understanding of the risks and wishes to proceed. Thank you for this consult. Please do not hesitate to contact us with further questions. GLENN YI MD Voice recognition software utilized C EDUCATION DIRECTOR documented in this encounter OR Notes * Op Note - Glenn Yi MD - 04/22/2021 12:39 PM CST [facility] OpNote COLONOSCOPY Procedure Note Danielle Brito 04/22/2021 1004 Procedure(s) (LRB): COLONOSCOPY (N/A) Surgeon(s): Glenn Yi MD Staff: Scrub Person 1: Alton De La Rosa RN Anesthesia: Monitor Anesthesia Care LAMINATED PLASTICS ASSEMBLER AND GLUER: Brandi Corrales CRNA Pre-Op Diagnosis: Screening colonoscopy Post-Op Diagnosis: Negative screening colonoscopy. Procedure Description: Informed consent was obtained earlier. Patient was brought to the OR and placed in supine lateral decubitus position and sedated under MAC anesthesia. PCF 190 colonoscope was lubricated inserted into the rectum and advanced to the cecum. Bowel prep was excellent. Cecum was identified by the ileocecal valve and the appendiceal orifice. Cecum ascending colon transverse colon descending sigmoid rectum all carefully visualized and found to be normal. Retroflexion to anal verge revealed mild hemorrhoids and scope withdrawn. Findings: Negative colon to cecum with excellent bowel prep. Repeat screening colonoscopy in 7 to 10 years. Plan: Repeat screening colonoscopy in 7 to 10 years. Complications: None Estimated Blood Loss: * No values recorded between 04/22/2021 12:19 PM and 04/22/2021 12:38 PM * Specimens:* No orders in the log * Voice recognition software utilized. GLENN YI MD Date: 04/22/2021 Time: 12:39 PM Voice recognition software utilized. C EDUCATION DIRECTOR documented in this encounter Plan of Treatment Not on file documented as of this encounter Procedures Procedure Name Priority Date/Time Associated Diagnosis Comments COLONOSCOPY FLX DX W/COLLJ SPEC WHEN PFRMD 04/22/2021 12:18 PM MUSIC EDUCATION DIRECTOR Screen for colon cancer History of colon polyps Special Needs 0930 documented in this encounter Visit Diagnoses Diagnosis Screen for colon cancer Special screening for malignant neoplasms, colon History of colon polyps Personal history of colonic polyps Screen for colon cancer Special screening for malignant neoplasms, colon History of colon polyps Personal history of colonic polyps documented in this encounter Admitting Diagnoses Diagnosis Screen for colon cancer Special screening for malignant neoplasms, colon History of colon polyps Personal history of colonic polyps documented in this encounter Administered Medications Inactive Administered Medications - up to 3 most recent administrations Medication Order MAR Action Action Date Dose Rate Site lactated ringers infusion at 10 mL/hr, Intravenous, Continuous, Starting on Sun04/22/21 at 0930, Until Sun04/22/21 at 1535, Infuse at TKO rate, Pre-Op Restarted 04/22/2021 12:19 PM MUSIC EDUCATION DIRECTOR New Bag 04/22/2021 9:39 AM MUSIC EDUCATION DIRECTOR 10 mL/hr documented in this encounter Active and Recently Administered Medications Times are shown in MUSIC EDUCATION DIRECTOR. Continuous Medication Order 04/20/2021 04/21/2021 04/22/2021 lactated ringers infusion at 10 mL/hr, Intravenous, Continuous, Starting on Sun04/22/21 at 0930, Until Sun04/22/21 at 1535, Infuse at TKO rate, Pre-Op 0939 (New Bag - Prov ider: Margret Palm RN)1218 (Paused - Provider: Brandi Corrales CRNA - Comment: Switch to gravity)1219 (Restarted - Provider: Brandi Corrales CRNA)1236 (Anesthesia Volume Adjustment - Provider: Brandi Corrales CRNA)1315 (Infusion Stop Time - Provider: Nayla Wayne RN) documented in this encounter Additional Health Concerns Assessment Noted Time PHQ-9 Depression Total Score: 0 03/18/20 21 4:05 PM MUSIC EDUCATION DIRECTOR documented as of this encounter Care Teams Nurse Advisor Relationship Specialty Start Date End Date Rhonda De La Paz MD PCP - General INTERNAL MEDICINE 09/08/20 07/05/21 Rhonda De La Paz MD Physician INTERNAL MEDICINE 09/08/20 documented as of this encounter
--- OUTSIDE RECORDS SUMMARY | 2024-04-03 16:06 | XMS_ITS | Encounter Summary ---
Author Organization [facility] Address [address] [place] [address]. [place], [place] [address] [place] [address] Care Team Providers Care Pipe Cleaning Machine Operator Name Role Phone Rhonda De La Paz MD Unavailable [phone] Rhonda De La Paz MD Primary Care Provider [phone] Reason for Visit * Reason Onset Date Comments Question 03/16/2021 Encounter Details Date Type Department Care Team (Late st Contact Info) Description 03/16/2021 Telephone [facility] Multispecialty Care - [facility] [address] [facility] [address] [place] [phone] Charli Yi MD [address] [facility] [address] [place], [place] [id number] Question Social History Tobacco Use Types Packs/Day Years [...] PM CDT documented as of this encounter Progress Notes * Cat Goldberg - 03/16/2021 2:41 PM CST Danielle returned you call. Please give her a call back. M ANALYST * Antonina Maravilla - 03/16/2021 11:39 AM CST LVM for pt to give the office a call. M ANALYST documented in this encounter Plan of Treatment Not on file documented as of this encounter Visit Diagnoses Not on filedocumented in this encounter Care Teams Pipe Cleaning Machine Operator Relationship Specialty Start Date End Date Rhonda De La Paz MD PCP - General INTERNAL MEDICINE 09/08/20 07/05/21 Rhonda De La Paz MD Physician INTERNAL MEDICINE 09/08/20 documented as of this encounter
--- OUTSIDE RECORDS SUMMARY | 2024-04-03 16:06 | XMS_ITS | Encounter Summary ---
Author Organization [facility] Address [address] [place] [address]. [place], [place] [address] [place] [address] Care Team Providers Care Director Of Business Continuity Name Role Phone Rhonda De La Paz MD Unavailable [phone] Rhonda De La Paz MD Primary Care Provider [phone] Reason for Visit * Auth/Cert Specialty Diagnoses / Procedures Referred By Master sweet Referred To Contact Diagnoses Screen for colon cancer History of colon polyps Screening colonoscopy Procedures COLONOSCOPY,DIAGNOSTIC COLONOSCOPY Referral ID Status Reason Start Date Expiration Date Visits Re quested Visits Authorized [id number] 1 1 Encounter Details Date Type Department Care Team (Latest Contact Info) Description 04/22/2021 8:57 AM MARKET NEWS REPORTER - 04/22/2021 1:20 PM [facility] Hospital Encounter [facility] Surgery [address] [place] [address] Glenn Yi MD [address] [id number] Discharge Disposition: Home or Self Care (Routine [...] COVID-19? No / Unsure 04/22/2021 8:58 AM MARKET NEWS REPORTER documented as of this encounter Last Filed Vital Signs Vital Sign Reading Time Taken Comments Blood Pressure 95/55 04/22/2021 1:09 PM MARKET NEWS REPORTER Pulse 70 04/22/2021 1:09 PM MARKET NEWS REPORTER Temperature 36.6 ??C (97.9 ??F) 04/22/2021 9:21 AM CS T Respiratory Rate 20 04/22/2021 1:09 PM MARKET NEWS REPORTER Oxygen Saturation 100% 04/22/2021 1:09 PM MARKET NEWS REPORTER Inhaled Oxygen Concentration - - Weight 61.2 kg (135 lb) 04/12/2021 3:39 PM MARKET NEWS REPORTER Height 154.9 cm (5' 1 ) 04/12/2021 3:39 PM MARKET NEWS REPORTER Body Mass Index 25.51 04/12/2021 3:39 PM MARKET NEWS REPORTER documented in this encounter Discharge Instructions * Discharge Instructions* Nayla Wayne RN - 04/22/2021 12:56 PM MARKET NEWS REPORTER Images from the original note were not [...] belly pain. Where can I learn more? [employer] https://www.cancer.org/cancer/yrkke-rfbiwe-hufvtw/ofpaxghrj-bllvdiffv-dwfduzg/sc hbxeqht-aasup-mrwp.html [employer] https://www.cancer.net/phqigvythp-nmvfal-giwx/diagnosing-cancer/acmer-krz-jwktnd ures/colonoscopy Last Reviewed Date 2020-06-23 Consumer Information [...] or approved for treating a specific patient. [employer] and its affiliates disclaim any warranty or liability relating to this information or the use thereof. The use of this information is governed by the Terms of Use, available at https://www.iPerceptions.com/en/solutions/lexicomp/about/veena Copyright Copyright ?? 2020 [employer] and its affiliates and/or licensors. All rights reserved. ET NEWS REPORTER * Attachments The following attachments cannot be sent through Care Everywhere. * Monitored Anesthesia Care (Lithuanian) documented in this encounter Medications at Time of Discharge Cholecalciferol (VITAMIN D) 50 MCG (2000 UT) Tab biotin 03733 MCG tablet Take 5,000 mcg by mouth [...] GLENN YI MD Voice recognition software utilized ET NEWS REPORTER documented in this encounter OR Notes * Op Note - Glenn Yi MD - 04/22/2021 12:39 PM CST [facility] OpNote COLONOSCOPY Procedure Note Danielle Brito 04/22/2021 1004 Procedure(s) (LRB): COLONOSCOPY (N/A) Surgeon(s): Glenn Yi MD Staff: Scrub Person 1: Alton De La Rosa RN Anesthesia: Monitor Anesthesia Care TOUCH UP PAINTER HAND: Brandi Corrales CRNA Pre-Op Diagnosis: Screening colonoscopy [...] Time: 12:39 PM Voice recognition software utilized. ET NEWS REPORTER documented in this encounter Plan of Treatment Not on file documented as of this encounter Procedures Procedure Name Priority Date/Time Associated Diagnosis Comments COLONOSCOPY FLX DX W/COLLJ SPEC WHEN PFRMD 04/22/2021 12:18 PM MARKET NEWS REPORTER Screen for colon cancer History of colon [...] TKO rate, Pre-Op Restarted 04/22/2021 12:19 PM MARKET NEWS REPORTER New Bag 04/22/2021 9:39 AM MARKET NEWS REPORTER 10 mL/hr documented in this encounter Active and Recently Administered Medications Times are shown in MARKET NEWS REPORTER. Continuous Medication Order 04/20/2021 04/21/2021 04/22/2021 lactated ringers infusion at 10 mL/hr, Intravenous, Continuous, Starting on Sun04/22/21 at 0930, Until Sun04/22/21 at 1535, Infuse at TKO rate, Pre-Op 0939 (New Bag - Prov ider: Margret Palm, IVAN)1218 (Paused - Provider: Brandi Corrales CRNA - Comment: Switch to gravity)1219 (Restarted - Provider: Brandi Corrales CRNA)1236 (Anesthesia Volume Adjustment - Provider: Brandi Corrales CRNA)1315 (Infusion Stop Time - Provider: Nayla Wayne, IVAN) documented in this encounter Additional Health Concerns Assessment Noted Time PHQ-9 Depression Total Score: 0 03/18/20 21 4:05 PM MARKET NEWS REPORTER documented as of this encounter Care Teams Director Of Business Continuity Relationship Specialty Start Date End Date Rhonda De La Paz MD PCP - General INTERNAL MEDICINE 09/08/20 07/05/21 Rhonda De La Paz MD Physician INTERNAL MEDICINE 09/08/20 documented as of this encounter
--- OUTSIDE RECORDS SUMMARY | 2024-04-03 16:06 | XMS_ITS | Encounter Summary ---
Author Organization [facility] Address [address] [place] [address]. [place], [place] [id number] [place] [id number] Care Team Providers Care Composer Teaching Artist Name Role Phone Rhonda De La Paz MD Unavailable Rhonda De La Paz MD Primary Care Provider [phone] Encounter Details Date Type Department Care Team (Latest Contact Info) Description 04/15/2021 Travel Social History Tobacco Use Types Packs/Day [...] COVID-19? No / Unsure 03/18/2021 1:59 PM COLDFUSION documented as of this encounter Plan of Treatment Not on file documented as of this encounter Visit Diagnoses Not on filedocumented in this encounter Additional Health Concerns Assessment Noted Time PHQ-9 Depression Total Score: 0 03/18/20 21 4:05 PM COLDFUSION documented as of this encounter Care Teams Composer Teaching Artist Relationship Specialty Start Date End Date Rhonda De La Paz MD PCP - General INTERNAL MEDICINE 09/08/20 07/05/21 Rhonda De La Paz MD Physician INTERNAL MEDICINE 09/08/20 documented as of this encounter
--- OUTSIDE RECORDS SUMMARY | 2024-04-03 16:06 | XMS_ITS | Encounter Summary ---
Author Organization [facility] Address [address] [place] [address]. [place], [place] [id number] [place] [address] Care Team Providers Care Business Operations Specialist Name Role Phone Rhonda De La Paz MD Unavailable [phone] Rhonda De La Paz MD Primary Care Provider [phone] Reason for Visit * Reason Comments Follow Up NEEDS REFILL CYCLOBE NZAPRINE 5 MG / AND OTHER ISSUES Encounter Details Date Type Department Care Team (Latest Contact Info) Description 12/28/2020 3:40 PM CDT Office Visit [facility] Family & Internal Medicine [facility] [id number] [place] [phone] [place] [id number] [place] [address] Follow Up (NEEDS REFILL CYCLOBENZAPRINE 5 MG / AND OTHER ISSUES) Social History Tobacco Use Types Packs/Day Years [...] Sign Reading Time Taken Comments Blood Pressure 136/74 12/28/2020 4:15 PM CDT Pulse 74 12/28/2020 4:15 PM CDT Temperature 36.5 ??C (97.7 ??F) 12/28/2020 4:15 PM CD T Respiratory Rate 16 12/28/2020 4:15 PM CDT Oxygen Saturation 98% 12/28/2020 4:15 PM CDT Inhaled Oxygen Concentration - - Weight 63.3 kg (139 lb 9.6 oz) 12/28/2020 4:15 P M CDT Height 154.9 cm (5' 1 ) 12/28/2020 4:15 PM CDT Body Mass Index 26.38 12/28/2020 4:15 PM CDT documented in this encounter Progress Notes * Rhonda De La Paz MD - 12/28/2020 3:40 PM CDT Reason for Visit: Follow Up (NEEDS REFILL CYCLOBENZAPRINE 5 MG / AND OTHER ISSUES) HPI 60-year-old female is here today for refill of her muscle relaxant for chronic low back pain and spasms normally she does pretty good. She has been working out in the yard or other things her back starts to spasm up and she needs refills. She also has hypertension which has been stable on hydrochlorothiazide, GERD for which she takes famotidine and depression with anxiety for which she takes fluoxetine she does not need any other refills at this time and is otherwise doing well Review of Systems Constitutional: Negative. HENT: Negative. Eyes: Negative. Respiratory: Negative. Cardiovascular: Negative. Gastrointestinal: Negative. Musculoskeletal: Positive for back pain. Skin: Negative. Neurological: Negative. Psychiatric/Behavioral: Negative. Current Outpatient Medications: ??? biotin 45850 MCG tablet, Take 5,000 mcg by mouth daily., Disp: , Rfl: ??? Cholecalciferol (VITAMIN D) 50 MCG (1999 UT) Tab, , Disp: , Rfl: ??? cyclobenzaprine 5 MG tablet, Take 1 tablet (5 mg total) by mouth 3 (three) times daily as needed., Disp: 30 tablet, Rfl: 5 ??? famotidine 40 MG tablet, Take 40 mg by mouth daily., Disp: , Rfl: ??? FLUoxetine 40 MG capsule, Take 40 [...] ONCE. MAY REPEAT AFTER 4 HOURS., Disp: 30 tablet, Rfl: 2 ??? vitamin B-12 100 MCG tablet, Take 50 mcg by mouth daily., Disp: , Rfl: Allergies Allergen Reactions ??? Sulfa Antibiotics Hives and Rash Past Medical History: Diagnosis Date ??? Anxiety ??? Hypertension Past Surgical History: Procedure Laterality Date ??? APPENDECTOMY ??? NASAL AIRWAY ??? TONSILLECTOMY Social History Socioeconomic History ??? Marital status: Spouse name: Not on file ??? Number of children: Not on file ??? Years of education: Not on file ??? Highest education level: Not on file Occupational History ??? Occupation: [employer] Tobacco Use ??? Smoking status: Never Smoker ??? Smokeless tobacco: Never Used Substance and Sexual Activity ??? Alcohol use: Not Currently ??? Drug use: Never ??? Sexual activity: Not on file Other Topics Concern ??? Not on file Social History Narrative LIVE AT WITH Social Determinants of Health Financial Resource Strain: ??? Difficulty of Paying Living Expenses: Food Insecurity: ??? Worried About Running Out of Food in the Last Year: ??? Ran Out of Food in the Last Year: Transportation Needs: ??? Lack of Transportation (Medical): ??? Lack of Transportation (Non-Medical): Physical Activity: ??? Days of Exercise per Week: ??? Minutes of Exercise per Session: Stress: ??? Feeling of Stress : Social Connections: ??? Frequency of Communication with Friends and Family: ??? Frequency of Social Gatherings with Friends and Family: ??? Attends Evangelical Services: ??? Active Member of Clubs or Organizations: ??? Attends Club or Organization Meetings: ??? Marital Status: Intimate Partner Violence: ??? Fear of Current or Ex-Partner: ??? Emotionally Abused: ??? Physically Abused: ??? Sexually Abused: Family History Problem Relation Name Age of Onset ??? Breast Cancer Mother ??? Breast Cancer Paternal Grandmother ??? Heart Attack Father Family Status Relation Name Status ??? Mother (Not Specified) ??? PGM (Not Specified) ??? Father (Not Specified) Filed Vitals: 12/28/20 1615 BP: 136/74 Pulse: 74 Resp: 16 Temp: 97.7 ??F (36.5 ??C) TempSrc: Temporal SpO2: 98% Weight: 63.3 kg (139 lb 9.6 oz) Height: 5' 1 (1.549 m) Body mass index is 26.38 kg/m??. Physical Exam Constitutional: She is oriented to person, place, and time. She appears well- developed and well-nourished. HENT: Head: Normocephalic. Eyes: Pupils are equal, round, and reactive to light. Conjunctivae are normal. Cardiovascular: Normal rate, regular rhythm and normal heart sounds. Pulmonary/Chest: Effort normal and breath sounds normal. Abdominal: Soft. Bowel sounds are normal. Musculoskeletal: General: Tenderness present. Normal range of motion. Cervical back: Neck supple. Comments: Paraspinal tenderness and spasm Neurological: She is alert and oriented to person, place, and time. No cranial nerve deficit. Skin: Skin is dry. Psychiatric: She has a normal mood and affect. Judgment normal. Assessment/PLAN 1. Muscle spasm - cyclobenzaprine 5 MG tablet; Take 1 tablet (5 mg total) by mouth 3 (three) times daily as needed.Dispense: 30 tablet; Refill: 5 COUNSELING: I spent 25 minutes today reviewing the patient's medical record, obtaining history, performing an exam, ordering medications,, documenting in the medical record, , counseling and educating the patient/family/caregiver. Reviewing and communicating test results & coordination of care. Back pain with increased spasm worsening at this time we will go ahead and refill her cyclobenzaprine follow-up in 6 months for blood pressure check and labs otherwise RTO as needed Follow up FU 6 MONTHS RHONDA DE LA PAZ MD 12/30/2020 5:14 PM documented in this encounter Plan of Treatment Not on file documented as of this encounter Visit Diagnoses Diagnosis Muscle spasm- Primary Spasm of muscle documented in this encounter Care Teams Business Operations Specialist Relationship Specialty Start Date End Date Rhonda De La Paz MD PCP - General INTERNAL MEDICINE 09/08/20 07/05/21 Rhonda De La Paz MD Physician INTERNAL MEDICINE 09/08/20 documented as of this encounter
--- OUTSIDE RECORDS SUMMARY | 2024-04-03 16:06 | XMS_ITS | Encounter Summary ---
Author Organization [facility] Address [address] [place] [address]. [place], [place] [id number] [place] [address] Care Team Providers Care Civil Engineer In Training Name Role Phone Rhonda De La Paz MD Unavailable [phone] Rhonda De La Paz MD Primary Care Provider [phone] Reason for Visit * Reason Onset Date Comments Surgery Follow Up 04/18/2021 Encounter Details Date Type Department Care Team (Late st Contact Info) Description 04/18/2021 Telephone [facility] Multispecialty Care - [facility] [address] [facility] [place] [address] Charli Yi MD [address] [facility] [address] [place] [address] Surgery Follow Up Social History Tobacco Use Types Packs/Day Years [...] as of this encounter Progress Notes * Vanda Coffman NP - 04/18/2021 1:18 PM CSTAddended by: VANDA COFFMAN on: 04/18/2021 01:18 PM Modules accepted: Orders RAL SERVICE TECHNICIAN * Antonina Maravilla - 04/18/2021 1:15 PM CSTAddended by: ANTONINA MARAVILLA on: 04/18/2021 01:15 PM Modules accepted: Orders RAL SERVICE TECHNICIAN * Angela Gupta - 04/18/2021 12:59 PM CST Pt called to request that prep for surgery Sunday [facility] sent [facility] to [facility] today so theycan pick this up. RAL SERVICE TECHNICIAN documented in this encounter Plan of Treatment Not on file documented as of this encounter Visit Diagnoses Diagnosis Screen for colon cancer- Primary Special screening for malignant neoplasms, colon History of colon polyps Personal history of colonic polyps documented in this encounter Additional Health Concerns Assessment Noted Time PHQ-9 Depression Total Score: 0 03/18/20 21 4:05 PM GENERAL SERVICE TECHNICIAN documented as of this encounter Care Teams Civil Engineer In Training Relationship Specialty Start Date End Date Rhonda De La Paz MD PCP - General INTERNAL MEDICINE 09/08/20 07/05/21 Rhonda De La Paz MD Physician INTERNAL MEDICINE 09/08/20 documented as of this encounter
--- OUTSIDE RECORDS SUMMARY | 2024-04-03 16:06 | XMS_ITS | Encounter Summary ---
Author Organization [facility] Address [address] [place] [address]. [place], [place] [address] [place] [address] Care Team Providers Care Compatibility Test Engineer Name Role Phone Rhonda De La Paz MD Unavailable [phone] Ashly Cabrales NP Primary Care Provider Unavailabl e Reason for Visit * Reason Comments Urinary Frequency Encounter Details Date Type Department Care Team (Late st Contact Info) Description 09/28/2021 3:06 PM CDT - 09/28/2021 4:21 PM CDT Emergency [facility] Emergency Room [address] [place] [address] Chyna Goodman PA-C [address] [place] [address] Urinary Frequency Discharge Disposition: Home or Self Care (Routine [...] Sign Reading Time Taken Comments Blood Pressure 135/78 09/28/2021 4:15 PM CDT Pulse 70 09/28/2021 4:15 PM CDT Temperature 36.8 ??C (98.3 ??F) 09/28/2021 3:16 PM CD T Respiratory Rate 16 09/28/2021 4:15 PM CDT Oxygen Saturation 100% 09/28/2021 4:15 PM CDT Inhaled Oxygen Concentration - - Weight 55.4 kg (122 lb 3.2 oz) 09/28/2021 3:16 P M CDT Height 154.9 cm (5' 1 ) 09/28/2021 3:16 PM CDT Body Mass Index 23.09 09/28/2021 3:16 PM CDT documented in this encounter Discharge Instructions * Discharge Instructions* Chyna Goodman PA-C - 09/28/2021 4:11 PM CDT Follow up as needed. Take medications as directed. We will call if there is a need to switch antibiotic based off culture. Lots of fluids. Return for worsening pain, fever, vomiting, severe pain in back/flank, or any other concerns. * Attachments The following attachments cannot be sent through Care Everywhere. * Urinary Tract Infection, Adult ED (Ukrainian) documented in this encounter Medications at Time of Discharge Cholecalciferol (VITAMIN D) 50 MCG (1999 UT) Tab biotin 52367 MCG tablet Take 5,000 mcg by mouth daily. 2 cephALEXin (KEFLEX) 500 MG capsule Take 1 capsule (500 mg total) by mouth 2 (two) times daily for 7 days. 14 capsule 09/28/2021 2 cyclobenzaprine 5 MG tabletIndications: Muscle spasm [...] mouth every morning. 180 capsule 07/22/2021 2 HYDROCHLOROTHIAZID E 12.5 MG capsuleIndications :Essential hypertension TAKE 1 CAPSULE BY MOUTH EVERY DAY IN THE MORNING 30 capsule 08/24/2021 2 multiple vitamins-minerals (OCUVITE-LUTEIN) Cap Take 1 capsule by mouth daily. 3 naratriptan 2.5 MG tabletIndications: Migraine without aura and without status migrainosus, not intractable TAKE 1 TABLET BY MOUTH ONCE. MAY REPEAT AFTER 4 HOURS. 27 tablet 3 07/22/2021 3 phenazopyridine 200 MG tablet Take 1 tablet (200 mg total) by mouth 3 (three) times daily as needed for Pain. 9 tablet 09/28/2021 2 vitamin B-12 100 MCG tablet Take 0.5 tablets (50 mcg total) by mouth daily. 3 documented as of this encounter ED Notes * Tracey Prince RN - 09/28/2021 4:13 PM CDT Provider discussed today's findings with the patient/family. The patient has been given informationregarding their treatment, follow up and concerning symptoms for which they should seek urgent or emergent attention. I have expressed the importance of seeking attention should there be any new, or w orsening symptoms or persistence of their condition. Patient verbalized understanding of the discharge instructions. * Chyna Goodman PA-C - 09/28/2021 3:49 PM CDT Emergency Department Note Chief Complaint Chief Complaint Patient presents with ??? Urinary Frequency History of Present Illness 61 year old female presents due to concerns of possible UTI. Complains of urinary frequency, urgency, and dysuria x 1 day. Denies fever, chills, nausea, vomiting, abdominal pain, back pain, flank pain, or hematuria. Hx of UTI in the distant past. Denies other complaints. Medical History ALLERGIES: Allergies Allergen Reactions ??? Sulfa Antibiotics Hives and Rash ??? Codeine Itching MEDICATIONS: Prior to Admission medications Medication Sig Start Date End Date Taking? Authorizing Provider cephALEXin (KEFLEX) 500 MG capsule Take 1 capsule (500 mg total) by mouth 2 (two) times daily for 7days. 09/28/21 10/05/21 Yes Chyna Goodman PA-C phenazopyridine 200 MG tablet Take 1 tablet (200 mg total) by mouth 3 (three) times daily as neededfor Pain. 09/28/21 10/01/21 Yes Chyna Goodman PA-C biotin 08332 MCG tablet Take 5,000 mcg by mouth daily. Doc Abstract Cholecalciferol (VITAMIN D) 50 MCG (2000 UT) Tab Doc Abstract cyclobenzaprine 5 MG tablet Take 1 tablet (5 mg total) by mouth 3 (three) times daily as needed. 07/22/21 Ashly Cabrales NP famotidine 40 MG tablet Take 1 tablet (40 mg total) by mouth daily. 07/22/21 Ashly Cabrales NP FLUoxetine 40 MG capsule Take 2 capsules (80 mg total) by mouth every morning. 07/22/21 Ashly Cabrales NP HYDROCHLOROTHIAZIDE 12.5 MG capsule TAKE 1 CAPSULE BY MOUTH EVERY DAY IN THE MORNING 08/24/21 Rhonda De La Paz MD multiple vitamins-minerals (OCUVITE ADULT 50+) Cap Take 1 capsule by mouth daily. Doc Abstract naratriptan 2.5 MG tablet TAKE 1 TABLET BY MOUTH ONCE. MAY REPEAT AFTER 4 HOURS. 07/22/21 Ashly Cabrales NP vitamin B-12 100 MCG tablet Take 50 mcg by mouth daily. Doc Abstract PAST MEDICAL HISTORY: Past Medical History: Diagnosis Date ??? Anxiety ??? Back pain ??? Hypertension PAST SURGICAL HISTORY: Past Surgical History: Procedure Laterality Date ??? APPENDECTOMY ??? COLONOSCOPY N/A 04/22/2021 COLONOSCOPY performed by Charli Yi MD at [facility] OR ??? NASAL AIRWAY ??? TONSILLECTOMY FAMILY [...] Never Review of Systems Review of Systems Constitutional: Negative. Negative for fever. HENT: Negative. Eyes: Negative. Respiratory: Negative. Negative for chest tightness and shortness of breath. Cardiovascular: Negative. Negative for chest pain and leg swelling. Gastrointestinal: Negative. Negative for abdominal pain, diarrhea and vomiting. Genitourinary: Positive for dysuria, frequency and urgency. Negative for flank pain and hematuria. Musculoskeletal: Negative. Negative for back pain, neck pain and neck stiffness. Skin: Negative. Neurological: Negative. Negative for headaches. Physical Exam Filed Vitals: 09/28/21 1516 09/28/21 1615 BP: (!) 142/44 135/78 Pulse: 69 70 Resp: 16 16 Temp: 98.3 ??F (36.8 ??C) TempSrc: Temporal SpO2: 98% 100% Weight: 55.4 kg (122 lb 3.2 oz) Height: 5' 1 (1.549 m) Physical Exam Constitutional: General: She is not in acute distress. Appearance: She is well-developed. HENT: Head: Normocephalic and atraumatic. Eyes: Conjunctiva/sclera: Conjunctivae normal. Pupils: Pupils are equal, round, and reactive to light. Cardiovascular: Rate and Rhythm: Normal rate and regular rhythm. Heart sounds: Normal heart sounds. Pulmonary: Effort: Pulmonary effort is normal. No respiratory distress. Breath sounds: Normal breath sounds. Abdominal: General: Bowel sounds are normal. Palpations: Abdomen is soft. Tenderness: There is no abdominal tenderness. There is no right CVA tenderness or left CVA tenderness. Musculoskeletal: Cervical back: Normal range of motion and neck supple. Skin: General: Skin is warm and dry. Neurological: Mental Status: She is alert and oriented to person, place, and time. Psychiatric: Behavior: Behavior normal. Diagnostic Studies / Procedures ELECTROCARDIOGRAMS: No results found for this visit on 09/28/21. LABORATORY STUDIES: Results for orders placed or performed during the hospital encounter of 09/28/21 URINALYSIS WI REFLEX TO CULTURE Specimen: URINE, CLEAN CATCH Result Value Ref Range COLOR (U) YELLOW TRANSPARENCY HAZY Specific [place] (U) 1.010 1.000 - 1.030 U PH 7.0 5.0 - 9.0 LEUKOCYTE ESTERASE 3+ (A) NEGATIVE NITRITES NEGATIVE NEGATIVE PROTEIN (U) NEGATIVE NEGATIVE URINE GLUCOSE NEGATIVE NEGATIVE U KETONES NEGATIVE NEGATIVE BILIRUBIN (U) NEGATIVE NEGATIVE BLOOD 2+ (A) NEGATIVE WBC/HPF 25-50 0 - 5 /HPF RBC/HPF 5-10 0 - 5 /HPF EPI/HPF FEW /HPF CULTURE & SENSITIVITY INDICATED? SPECIMEN SETUP FOR CULTURE BACTERIA (URINE) FEW /HPF IMAGING STUDIES No orders to display ED Course / Medical Decision Making Triage notes and available nursing notes reviewed. Pertinent Labs & Imaging studies reviewed (See chart for details). ED Course as of 09/28/21 1618 SunSep 28, 2021 1609 Ua suggestive of UTI. Will tx with keflex at this time and notify if need to change antibiotics based off urine culture. Pt well appearin. No signs of obstructing stone or pyelo. Return precautions discussed. [NB] ED Course User Index [NB] Chyna Goodman PA-C I have discussed today's findings with the patient/family and provided information regarding the likely diagnosis. I believe at this time that the patient has no medical emergency and is appropriate for outpatient management. The patient/family has been given information regarding their treatment, follow up and concerning symptoms for which they should seek urgent or emergent attention; all questions were answered. I have expressed the importance of seeking attention should there be any new, orworsening symptoms or persistence of their condition. The patient is stable at discharge and has verbalized understanding of these instructions. Clinical Impression UTI (urinary tract infection) (Primary) Medications - No data to display Current Discharge Medication List START taking these medications Details cephALEXin (KEFLEX) 500 MG capsule Take 1 capsule (500 mg total) by mouth 2 (two) times daily for 7days. Qty: 14 capsule, Refills: 0 Class: Eprescribe Pharmacy: [facility]/pharmacy #[id number] [facility] [address] (Ph #: [phone]) phenazopyridine 200 MG tablet Take 1 tablet (200 mg total) by mouth 3 (three) times daily as neededfor Pain. Qty: 9 tablet, Refills: 0 Class: Eprescribe Pharmacy: [facility]/pharmacy #[id number] [place], [place] - [address] (Ph #: [phone]) Follow-Up: Ashly Cabrales, [employer] [address] [facility] [address] As needed Disposition: Discharge Chyna Goodman PA-C 09/28/2021 Chyna Goodman PA-C 09/28/21 161 Chyna Goodman PA-C 09/28/21 1618 Cosigned by Lisandra Villarreal MD at 09/28/2021 4:52 PM CDT * Tracey Prince RN - 09/28/2021 3:14 PM CDT Pt from home with chief complaint of I have a UTI . C/o burning with urination and urinary urgencyx this morning. Does not have hx of UTIs. Denies any other complaints. documented in this encounter Plan of Treatment Not on file documented as of this encounter Procedures Procedure Name Priority Date/Time Associated Diagnosis Comments URINALYSIS WI REFLEX TO CULTURE STAT 09/28/2021 3:53 PM CDT URINE BACTERIA CULTURE Routine 09/28/2021 3:24 PM CDT documented in this encounter Results * (ABNORMAL) URINALYSIS WI REFLEX TO CULTURE (09/28/2021 3:53 PM CDT) COLOR (U) YELLOW 09/28/2021 4:06 PM CDT [facility] TRANSPARENCY HAZY 09/28/2021 4:06 PM [facility] SPECIFIC GRAVITY (U) 1.010 1.000 - 1.030 09/28/2021 4:06 PM [facility] U PH 7.0 5.0 - 9.0 09/28/2021 4:06 PM [facility] LEUKOCYTES (U) 3+(A) NEGATIVE 09/28/2021 4:06 PM [facility] NITRITES NEGATIVE NEGATIVE 09/28/2021 4:06 PM [facility] PROTEIN (U) NEGATIVE NEGATIVE 09/28/2021 4:06 PM [facility] URINE GLUCOSE NEGATIVE NEGATIVE 09/28/2021 4:06 PM [facility] KETONES MG/DL (U) NEGATIVE NEGATIVE 09/28/2021 4:06 PM [facility] BILIRUBIN (U) NEGATIVE NEGATIVE 09/28/2021 4:06 PM [facility] BLOOD (U) 2+(A) NEGATIVE 09/28/2021 4:06 PM [facility] WBC/HPF 25-50 0 - 5 /HPF 09/28/2021 4:06 PM [facility] RBC/HPF 5-10 0 - 5 /HPF 09/28/2021 4:06 PM [facility] EPI/HPF FEW /HPF 09/28/2021 4:06 PM [facility] CULTURE & SENSITIVITY INDICATED? SPECIMEN SETUP FOR CULTURE 09/28/2021 4:06 PM [facility] BACTERIA (U) FEW /HPF 09/28/2021 4:06 PM [facility] URINE SPECIMEN OBTAINED BY CLEAN CATCH PROCEDURE / Unknown 09/28/2021 3:53 PM CDT Chyna Goodman PA-C URINE ORDERABLES Final R esult [facility] [address] [place] [address], [place] [phone] * (ABNORMAL) CULTURE URINE (09/28/2021 3:24 PM CDT) SPEC DESCRIPTION URINE CLEAN CATCH 09/28/2021 4:[address] [facility] SPECIAL REQUESTS NO SPECIAL REQUEST 09/28/2021 4:[address] [facility] CULTURE RESULT >100,000 COL/ML ENTEROBACTE R CLOACAE COMPLEX (A) 09/30/2021 6:41 AM CDT [facility] URINE SPECIMEN OBTAINED BY CLEAN CATCH PROCEDURE / Unknown 09/28/2021 3:24 PM CDT 09/28/2021 4:06 PM CDT Narrative Organism Antibiotic Method Susceptibility Enterobacter cloacae complex CEFTRIAXONE TRINH (VITEK) <=1: Sensitive Enterobacter cloacae complex CEFTAZIDIME TRINH (VITEK) <=1: Sensitive Enterobacter cloacae complex CEFAZOLIN TRINH (VITEK) >=64: Resistant Enterobacter cloacae complex NITROFURANTOIN TRINH (VITEK ) 32: Sensitive Enterobacter cloacae complex GENTAMICIN TRINH (VITEK) <=1: Sensitive Enterobacter cloacae complex LEVOFLOXACIN TRINH (VITEK) <=0.12: Sensitive Enterobacter cloacae complex PIPRACIL/TAZO TRINH (VITEK) <=4: Sensitive Enterobacter cloacae complex TRIMETH-SULFAMETH. TRINH (V ITEK) <=20: Sensitive Chyna Goodman PA-C MICROBIOLOGY - GENERAL O RDERABLES Final Result [facility] [address] [place] [address], [place] [phone] [facility] [address] [place] [address], documented in this encounter Visit Diagnoses Diagnosis UTI (urinary tract infection)- Primary Urinary tract infection, site not specified documented in this encounter Additional Health Concerns Assessment Noted Time PHQ-9 Depression Total Score: 0 03/18/20 21 4:05 PM DB2 DEVELOPER documented as of this encounter Care Teams Compatibility Test Engineer Relationship Specialty Start Date End Date Ashly Cabrales NP PCP - General NURSE PRACTITIONER 07/22/21 12/26/21 Rhonda De La Paz MD Physician INTERNAL MEDICINE 09/08/20 documented as of this encounter
--- OUTSIDE RECORDS SUMMARY | 2024-04-03 16:06 | XMS_ITS | Encounter Summary ---
Author Organization [facility] Address [address] [place] [address]. [place], [place] [address] [place] [address] Care Team Providers Care Keg Varnisher Name Role Phone Rhonda De La Paz MD Unavailable [phone] Rhonda De La Paz MD Primary Care Provider [phone] Encounter Details Date Type Department Care Team (Latest Contact Info) Description 03/16/2021 Travel Social History Tobacco Use Types Packs/Day [...] on filedocumented in this encounter Care Teams Keg Varnisher Relationship Specialty Start Date End Date Rhonda De La Paz MD PCP - General INTERNAL MEDICINE 5/26/21 3/22/22 Rhonda De La Paz MD Physician INTERNAL MEDICINE 09/08/20 documented as of this encounter
--- OUTSIDE RECORDS SUMMARY | 2024-04-03 16:07 | XMS_ITS | Encounter Summary ---
Author Organization [facility] Address [address] [place] [address]. [place], [place] [address] [place] [address] Care Team Providers Care Sanding Machine Operator Name Role Phone Rhonda De La Paz MD Unavailable [phone] Rhonda De La Paz MD Primary Care Provider [phone] Encounter Details Date Type Department Care Team (Latest Contact Info) Description 06/03/2019 Scan HEALTH INFO SRVCS Scanned, Documents Social History Tobacco Use Types Packs/Day Years Used Date Smoking Tobacco: Never Assessed PHQ-2 Answer Date Recorded PHQ-2 Score - If the patient scores above 3, please move on to questions 3-9 0 09/08/2020 Comments Unknown Sex and Gender Information Value Date Recorded Sex Assigned at Not on file Legal Sex Female 9:22 AM CDT Gender Identity Not on file Sexual Orientation Not on file COVID-19 Exposure Response Date Recorded In the last month, have you been in contact with someone who was confirmed or suspected to have Coronavirus / COVID-19? No / Unsure 09/15/2020 8:30 AM CDT documented as of this encounter Plan of Treatment Not on file documented as of this encounter Visit Diagnoses Not on filedocumented in this encounter Care Teams Sanding Machine Operator Relationship Specialty Start Date End Date Rhonda De La Paz MD PCP - General INTERNAL MEDICINE 09/08/20 07/05/21 Rhonda De La Paz MD Physician INTERNAL MEDICINE 09/08/20 documented as of this encounter
--- OUTSIDE RECORDS SUMMARY | 2024-04-03 16:07 | XMS_ITS | Encounter Summary ---
Author Organization [facility] Address [address] [place] [address]. [place], [place] [id number] [place] [address] Care Team Providers Care Decatizer Name Role Phone Rhonda De La Paz MD Unavailable [phone] Rhonda De La Paz MD Primary Care Provider [phone] Reason for Visit * Reason Comments Lab (SCAN) Encounter Details Date Type Department Care Team (Latest Contact Info) Description 01/07/2020 Scan HEALTH INFO SRVCS Scanned, Documents Lab (SCAN) Social History Tobacco Use Types [...] Associated Diagnosis Comments OUTSIDE LAB (SCAN ORDER) 01/07/2020 documented in this encounter Results * OUTSIDE LAB (SCAN) (01/07/2020) 01/07/2020 Narrative 01/07/2020 Ordered by an unspecified provider. us Documents Scanned SCANNING Final Result documented in this encounter Visit Diagnoses Not on filedocumented in this encounter Care Teams Decatizer Relationship Specialty Start Date End Date Rhonda De La Paz MD PCP - General INTERNAL MEDICINE 09/08/20 07/05/21 Rhonda De La Paz MD Physician INTERNAL MEDICINE 09/08/20 documented as of this encounter
--- OUTSIDE RECORDS SUMMARY | 2024-04-03 16:07 | XMS_ITS | Encounter Summary ---
Author Organization [facility] Address [address] [place] [address]. [place], [place] [address] [place] [address] Care Team Providers Care Road Builder Name Role Phone Rhonda De La Paz MD Unavailable [phone] Rhonda De La Paz MD Primary Care Provider [phone] Encounter Details Date Type Department Care Team (Latest Contact Info) Description 05/07/2018 Scan HEALTH INFO SRVCS Scanned, Documents Social [...] on filedocumented in this encounter Care Teams Road Builder Relationship Specialty Start Date End Date Rhonda De La Paz MD PCP - General INTERNAL MEDICINE 09/08/20 07/05/21 Rhonda De La Paz MD Physician INTERNAL MEDICINE 09/08/20 documented as of this encounter
--- OUTSIDE RECORDS SUMMARY | 2024-04-03 16:07 | XMS_ITS | Encounter Summary ---
Author Organization [facility] Address [address] [place] [address]. [place], [place] [address] [place] [address] Care Team Providers Care Psychological Examiner Name Role Phone Rhonda De La Paz MD Unavailable [phone] Rhonda De La Paz MD Primary Care Provider [phone] Yoselin Murdock PEDIATRIC INTENSIVE PHYSICIAN Primary Care Provider [phone] Ashly Cabrales PEDIATRIC INTENSIVE PHYSICIAN Primary Care Provider Peggy Sheffield APNP Primary Care Provider [phone] Yoselin Murdock PEDIATRIC INTENSIVE PHYSICIAN Primary Care Provider + [phone] Encounter Details Date Type Department Care Team (Late st Contact Info) Description 09/08/2020 Acamicat Message Enc [facility] Family [facility] Internal Medicine [facility] [address] [place] [address] [place] [id number] [place] [address] RE: Other Social History Tobacco Use Types Packs/Day Years [...] have Coronavirus / COVID-19? No / Unsure 09/08/2020 1:51 PM CDT documented as of this encounter Progress Notes * Deborah Hernández MA - 09/09/2020 7:27 AM CDT Please advise documented in this encounter Plan of Treatment Not on file documented as of this encounter Visit Diagnoses Not on filedocumented in this encounter Care Teams Psychological Examiner Relationship Specialty Start Date End Date Rhonda De La Paz MD PCP - General INTERNAL MEDICINE 09/08/20 07/05/21 [place] [address] [facility] [address] [address] PCP - General Nurse Practitioner Family 07/06/2107/21 [place] [address] [facility] [address] [address] PCP - General NURSE PRACTITIONER 07/22/21 12/26/21 Peggy Best APNP [address] [facility] [address] [place] [address] PCP - General Nurse Practitioner Family 12/27/2109/15 [place] [address] [facility] [address] [place] [address] PCP - General Nurse Practitioner Family 10/05/22 Rhonda De La Paz MD Physician INTERNAL MEDICINE 09/08/20 documented as of this encounter
--- OUTSIDE RECORDS SUMMARY | 2024-04-03 16:07 | XMS_ITS | Encounter Summary ---
Author Organization [facility] Address [address] [place] [address]. [place], [place] [address] [place] [address] Care Team Providers Care Psychology Tech Name Role Phone Rhonda De La Paz MD Unavailable [phone] Rhonda De La Paz MD Primary Care Provider [phone] Reason for Referral * Imaging (Routine) - Closed Specialty Diagnoses / Procedures Referred By Contac t Referred To Contact RADIOLOGY Diagnoses Breast cancer screening by mammogram Cervical cancer screening Procedures MG SCREENING [place] [address] [place] [address] Phone: tel: fax: Referral ID Status Reason Start Date Expiration Date Visits Re quested Visits Authorized [id number] Closed 09/27/2020 10/27/2021 1 1 * Consultation (Routine) - Closed Specialty Diagnoses / Procedures Referred By Contbianca t Referred To Contact GASTROENTEROLOGY Diagnoses Colon cancer screening Polyp of colon, unspecified part of colon, [place] [address] [place] [address] Phone: tel: fax: [facility] [address] [address] Phone: tel: fax: Referral ID Status Reason Start Date Expiration Date Visits Re quested Visits Authorized [id number] Closed 09/15/2020 10/17/2021 99 99 * Imaging (Routine) - Closed Specialty Diagnoses / Procedures Referred By Contac t Referred To Contact RADIOLOGY Diagnoses Post-menopause Procedures BONE DENSITY/[place] [address] [place] [address] Phone: tel: fax: Referral ID Status Reason Start Date Expiration Date Visits Re quested Visits Authorized [id number] Closed 09/15/2020 10/15/2021 1 1 Reason for Visit * Reason Comments 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 Exam Encounter Details Date Type Department Care Team (Late st Contact Info) Description 09/15/2020 8:40 AM CDT Office Visit [facility] Family & Internal [facility] [id number] [place] [phone] [place] [address] [place], [place] [id number] 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 Exam Social History Tobacco Use Types Packs/Day Years [...] Sign Reading Time Taken Comments Blood Pressure 110/70 09/15/2020 8:37 AM CDT Pulse 71 09/15/2020 8:37 AM CDT Temperature 36.7 ??C (98 ??F) 09/15/2020 8:37 AM CDT Respiratory Rate 16 09/15/2020 8:37 AM CDT Oxygen Saturation 98% 09/15/2020 8:37 AM CDT Inhaled Oxygen Concentration - - Weight 62.1 kg (136 lb 12.8 oz) 09/15/2020 8:37 AM CDT Height 154.9 cm (5' 1 ) 09/15/2020 8:37 AM CDT Body Mass Index 25.85 09/15/2020 8:37 AM CDT documented in this encounter Progress Notes * RAFIQ Zavala - 09/15/2020 8:40 AM CDT Images from the original note were not included. 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 She is agreeable to having her screening mammogram and bone density. She is due for colonoscopy she had her last 5 years ago was found to have polyps. Her last Pap was at least 5 years ago she thinks longer. She has had HPV but has been many years ago Menopausal yes LMP: No LMP recorded. Patient is postmenopausal. Last Pap smear 5 plus years ago ROS: Review of Systems Feeling well. [...] Outpatient Medications Marked as Taking for the 09/15/20 encounter (Office Visit) with RAFIQ Zavala Medication Sig Dispense Refill ??? biotin 00103 MCG tablet Take 5,000 mcg by mouth daily. ??? Cholecalciferol (VITAMIN D) 50 MCG (1999 UT) Tab ??? famotidine 40 MG tablet Take 40 mg by mouth daily. ??? FLUoxetine 40 MG capsule Take 40 mg by mouth daily. ??? hydroCHLOROthiazide 12.5 MG capsule Take 12.5 mg by mouth every morning. ??? multiple vitamins-minerals (OCUVITE ADULT 50+) Cap Take 1 capsule by mouth daily. ??? naratriptan 2.5 MG tablet Take 2.5 mg by mouth as needed for Migraine. 2.5 mg at onset of headache, may repeat in 4 hours if needed ??? vitamin B-12 100 MCG tablet Take 50 mcg by mouth daily. Allergies Allergen Reactions ??? Sulfa Antibiotics Hives and Rash Past Medical History: Diagnosis Date ??? Anxiety ??? Hypertension Past Surgical History: Procedure Laterality Date ??? APPENDECTOMY ??? NASAL AIRWAY ??? TONSILLECTOMY Social History Tobacco Use ??? Smoking status: Never Smoker ??? Smokeless tobacco: Never Used Substance Use Topics ??? Alcohol use: Not [...] no urethral masses .Bladder not distended Vagina normal no cystocele or rectocele noted and uterus normal contour and size No adnexal masses or enlargement noted. No vaginal discharge found. Cervix pink no lesions, vagina pink Digital Rectal exam [...] content normal. No flowsheet data found. Vitals: 09/15/20 0837 BP: 110/70 Pulse: 71 Body mass index is 25.85 kg/m??. Diagnoses/Impression: 1. Breast cancer screening by mammogram MG SCREENING DELMI DIGI 2. Cervical cancer screening MG SCREENING DELMI DIGI CYTOPATH CERV/VAG THIN LAYER [31614] CANCELED: CYTOPATH CERV/VAG THIN LAYER [13092] 3. Well woman exam 4. Post-menopause BONE DENSITY/DEXA 5. Colon cancer screening Ambulatory referral to Gastroenterology ([facility]) 6. Polyp of colon, unspecified part of colon, unspecified type Ambulatory referral to Gastroenterology ([facility]) 7. Need for hepatitis C screening test HEPATITIS C ANTIBODY VENIPUNC ARM DRAW 8. Essential hypertension VENIPUNC ARM DRAW 9. Lipid screening VENIPUNC ARM DRAW 10. Vitamin D deficiency VENIPUNC ARM DRAW Orders Placed This Encounter ??? VENIPUNC ARM DRAW ??? HEPATITIS C ANTIBODY ??? Ambulatory referral to Gastroenterology ([facility]) ??? MG SCREENING DELMI DIGI ??? CYTOPATH CERV/VAG THIN LAYER [63053] ??? BONE DENSITY/DEXA Recommendations and Plan: Take Calcium with Vitamin [...] her Family Risk Factors for Breast Cancer. Darian Burks PA-C evaluated and Dr Luke Rivera reviewed and agrees with plan. Cosigned by Luke Rivera MD at 09/15/2020 12:12 PM CDT documented in this encounter Plan of Treatment Scheduled Referrals Name Type Priority Associated Diagnoses Orde r Schedule Ambulatory referral to Gastroenterology ([facility]) Referral Routine Colon cancer screening Polyp of colon, unspecified part of colon, unspecified type Ordered: 09/15/2020 documented as of this encounter Procedures Procedure Name Priority Date/Time Associated Diagnosis Comments MG SCREENING W TERRI DELMI DIGI Routine 09/28/2020 9:50 AM CDT Breast cancer screening by mammogram Cervical cancer screening VENIPUNC ARM DRAW Routine 09/15/2020 9:3 9 AM CDT Need for hepatitis C screening test Essential hypertension Lipid screening Vitamin D deficiency documented in this encounter Results * MG SCREENING W TERRI DELMI DIGI (09/28/2020 9:50 AM CDT) Anatomical Region Laterality Modality Breast Bilateral Mammography 10/06/2020 2:29 PM CDT Impressions 10/06/2020 2:36 PM CDT IMPRESSION: 1. No mammographic evidence of malignancy. 2. BI-RADS Category 2 - benign findings. Annual screening mammography recommended MQSA BI-RADS Categories: Category 0 - needs additional imaging evaluation. Category 1 - negative. Category 2 - benign findings. Category 3 - probably benign findings, but short interval follow-up ?is recommended. Category 4 - suspicious abnormality and biopsy should be considered ?though the lesion may well be benign. Category 5 - highly suggestive of malignancy and appropriate action ?should be taken. ?? A) ??A negative report should not delay a biopsy if a dominant or ?clinically suspicious mass is present. B) ??Adenosis and dense breasts may obscure an underlying neoplasm. C) ??Study interpreted with computer aided detection. Referred By: DARIAN BURKS Interpreted By: Leandro Waters, 10/06/2020 2:29 PM Narrative 10/06/2020 2:36 PM CDT IMAGING STUDIES: Bilateral screening mammograms with computer-aided detection with 2-D and 3-D imaging. Tomosynthesis. DATE: 09/28/2020 9:24 AM HISTORY: Screening ?? . ??No current complaints. Mother diagnosed with breast carcinoma at age 71. COMPARISON: ??08/28/2015. 02/16/2017. TISSUE TYPE: Category C: The breasts are heterogeneously dense, which may obscure small masses. FINDINGS: 1. ??Bilateral screening mammograms with computer detection with ??2-D and 3-D imaging. Tomosynthesis. ??Moderate scattered ??fibroglandular tissue pattern is present. This does limit the sensitivity of mammography. Benign nodularity. 2. ??No malignant microcalfcifications, new dominant masses, or architectural distortion. Architectural prominence within the slightly lateral left retroareolar region is shown to be parenchymal overlap on 3-D images. 3. No skin thickening or nipple retraction. ??Axillary regions are within normal limits. us Darian Burks PA MAMMO Final Result * BONE DENSITY/DEXA (09/28/2020 9:50 AM CDT) Anatomical Region Laterality Modality Bone Bone Density 09/28/2020 12:0 4 PM CDT Impressions 09/28/2020 12:08 PM CDT FINDINGS AND IMPRESSION: Examination performed on a Hologic Discovery SL .: LUMBAR SPINE L2-L4: 1. BMD: 1.122 g/cm2. 2. T score: 0.4. ??Previous T score: No previous available. 3. WHO classification: Normal young adult range. 4. Fracture risk: Very low. LEFT FEMORAL NECK: 1. BMD: 0.691 g/cm2. 2. T score: -1.4. Previous T score: No previous available. 3. WHO classification: Mild osteopenia. 4. Fracture risk: Very low. Voice recognition software utilized. Referred By: DARIAN BURKS Interpreted By: Blu Soto, 09/28/2020 12:04 PM Narrative 09/28/2020 12:08 PM CDT Examination: BONE DENSITY/DEXA Exam date/time: 09/28/2020 9:25 AM Comparison studies:No previous available. Clinical history: Postmenopausal status, screening. Procedure Note Blu Soto MD - 09/28/2020 Examination: BONE DENSITY/DEXA Exam date/time: 09/28/2020 9:25 AM Comparison studies:No previous available. Clinical history: Postmenopausal status, screening. FINDINGS AND IMPRESSION: Examination performed on a [employer] Discovery SL .: LUMBAR SPINE L2-L4: 1. BMD: 1.122 g/cm2. 2. T score: 0.4. Previous T score: No previous available. 3. WHO classification: Normal young adult range. 4. Fracture risk: Very low. LEFT FEMORAL NECK: 1. BMD: 0.691 g/cm2. 2. T score: -1.4. Previous T score: No previous available. 3. WHO classification: Mild osteopenia. 4. Fracture risk: Very low. Voice recognition software utilized. Referred By: DARIAN BURKS Interpreted By: Blu Soto, 09/28/2020 12:04 PM Darian CONROY DEXA Final Result * HEPATITIS C ANTIBODY (09/15/2020 9:30 AM CDT) HEPATITIS C AB NON-REACTI VE NON-REACTI VE 09/15/2020 9:02 PM CDT [facility] 09/15/2020 9:30 AM CDT Darian CONROY [facility] Final Result [facility] [address] [place] [address], [place] [phone] documented in this encounter Visit Diagnoses Diagnosis Breast cancer screening by mammogram- Primary Cervical cancer screening Screening for malignant neoplasm of the cervix Well woman exam Routine general medical examination at a health care facility Post-menopause Asymptomatic postmenopausal status (age-related) (natural) Colon cancer screening Special screening for malignant neoplasms, colon Polyp of colon, unspecified part of colon, unspecified type Need for hepatitis C screening test Special screening examination for other specified viral diseases Essential hypertension Unspecified essential hypertension Lipid screening Screening for lipoid disorders Vitamin D deficiency Unspecified vitamin D deficiency Post-menopause Asymptomatic postmenopausal status (age-related) (natural) documented in this encounter Care Teams Psychology Tech Relationship Specialty Start Date End Date Rhonda De La Paz MD PCP - General INTERNAL MEDICINE 09/08/20 07/05/21 Rhonda De La Paz MD Physician INTERNAL MEDICINE 09/08/20 documented as of this encounter
--- OUTSIDE RECORDS SUMMARY | 2024-04-03 16:07 | XMS_ITS | Encounter Summary ---
Author Organization [facility] Address [address] [place] [address]. [place], [place] [address] [place] [address] Care Team Providers Care Aerial Erector Name Role Phone Rhonda De La Paz MD Unavailable [phone] Rhonda De La Paz MD Primary Care Provider [phone] Reason for Visit * Reason Comments Lab (SCAN) Encounter Details Date Type Department Care Team (Latest Contact Info) Description 06/13/2019 Scan HEALTH INFO SRVCS Scanned, Documents Lab [...] Associated Diagnosis Comments OUTSIDE LAB (SCAN ORDER) Routine 06/13/2019 documented in this encounter Results * OUTSIDE LAB (SCAN) (06/13/2019) H[facility] A1C 5.7 % [facility] CREATININE (U) 56 [facility] MICROALBUMIN (U) 1.1 [facility] MICROALB/CREAT 19.6 [facility] 06/13/2019 us Documents Scanned SCANNING Final Result [facility] documented in this encounter Visit Diagnoses Not on filedocumented in this encounter Care Teams Aerial Erector Relationship Specialty Start Date End Date Rhonda De La Paz MD PCP - General INTERNAL MEDICINE 09/08/20 07/05/21 Rhonda De La Paz MD Physician INTERNAL MEDICINE 09/08/20 documented as of this encounter
--- OUTSIDE RECORDS SUMMARY | 2024-04-03 16:07 | XMS_ITS | Encounter Summary ---
Author Organization [facility] Address [address] [place] [address]. [place], [place] [address] [place] [address] Care Team Providers Care Direct Support Staff Name Role Phone Rhonda De La Paz MD Unavailable [phone] Rhonda De La Paz MD Primary Care Provider [phone] Encounter Details Date Type Department Care Team (Latest Contact Info) Description 10/07/2019 Scan HEALTH INFO SRVCS Scanned, Documents Social [...] on filedocumented in this encounter Care Teams Direct Support Staff Relationship Specialty Start Date End Date Rhonda De La Paz MD PCP - General INTERNAL MEDICINE 09/08/20 07/05/21 Rhonda De La Paz MD Physician INTERNAL MEDICINE 09/08/20 documented as of this encounter
--- OUTSIDE RECORDS SUMMARY | 2024-04-03 16:07 | XMS_ITS | Encounter Summary ---
Author Organization [facility] - [facility] Address [address] [place] [address]. [place], [place] [address] [place] [address] Care Team Providers Care Surgical Instruments Inspector Name Role Phone Rhonda De La Paz MD Unavailable [phone] Rhonda De La Paz MD Primary Care Provider + [phone] Encounter Details Date Type Department Care Team (Latest Contact Info) Description 06/18/2019 Scan HEALTH INFO SRVCS Scanned, Documents Social [...] on filedocumented in this encounter Care Teams Surgical Instruments Inspector Relationship Specialty Start Date End Date Rhonda De La Paz MD PCP - General INTERNAL MEDICINE 09/08/20 07/05/21 Rhonda De La Paz MD Physician INTERNAL MEDICINE 09/08/20 documented as of this encounter
--- OUTSIDE RECORDS SUMMARY | 2024-04-03 16:07 | XMS_ITS | Encounter Summary ---
Author Organization [facility] Address [address] [place] [address]. [place], [place] [address] [place] [address] Care Team Providers Care Candy Counter Clerk Name Role Phone Rhonda De La Paz MD Unavailable [phone] Rhonda De La Paz MD Primary Care Provider [phone] Encounter Details Date Type Department Care Team (Latest Contact Info) Description 09/15/2020 Travel Social History Tobacco Use Types Packs/Day [...] on filedocumented in this encounter Care Teams Candy Counter Clerk Relationship Specialty Start Date End Date Rhonda De La Paz MD PCP - General INTERNAL MEDICINE 09/08/20 07/05/21 Rhonda De La Paz MD Physician INTERNAL MEDICINE 09/08/20 documented as of this encounter
--- OUTSIDE RECORDS SUMMARY | 2024-04-03 16:07 | XMS_ITS | Encounter Summary ---
Author Organization [facility] Address [address] [place] [address]. [place], [place] [address] [place] [address] Care Team Providers Care Plate Keeper Name Role Phone Rhonda De La Paz MD Unavailable [phone] Rhonda De La Paz MD Primary Care Provider [phone] Encounter Details Date Type Department Care Team (Latest Contact Info) Description 01/01/2018 Scan HEALTH INFO SRVCS Scanned, Documents Social [...] on filedocumented in this encounter Care Teams Plate Keeper Relationship Specialty Start Date End Date Rhonda De La Paz MD PCP - General INTERNAL MEDICINE 09/08/20 07/05/21 Rhonda De La Paz MD Physician INTERNAL MEDICINE 09/08/20 documented as of this encounter
--- OUTSIDE RECORDS SUMMARY | 2024-04-03 16:07 | XMS_ITS | Encounter Summary ---
Author Organization [facility] Address [address] [place] [address]. [place], [place] [address] [place] [address] Care Team Providers Care Fine Arts Instructor Name Role Phone Rhonda De La Paz MD Unavailable [phone] Rhonda De La Paz MD Primary Care Provider [phone] Encounter Details Date Type Department Care Team (Latest Contact Info) Description 04/30/2018 Scan HEALTH INFO SRVCS Scanned, Documents Social [...] on filedocumented in this encounter Care Teams Fine Arts Instructor Relationship Specialty Start Date End Date Rhonda De La Paz MD PCP - General INTERNAL MEDICINE 09/08/20 07/05/21 Rhonda De La Paz MD Physician INTERNAL MEDICINE 09/08/20 documented as of this encounter
--- OUTSIDE RECORDS SUMMARY | 2024-04-03 16:07 | XMS_ITS | Encounter Summary ---
Author Organization [facility] Address [address] [place] [address]. [place], [place] [address] [place] [address] Care Team Providers Care Supply Chain Engineer Name Role Phone Rhonda De La Paz MD Unavailable [phone] Rhonda De La Paz MD Primary Care Provider + [phone] Encounter Details Date Type Department Care Team (Latest Contact Info) Description 08/18/2017 Scan HEALTH INFO SRVCS Scanned, Documents Social [...] on filedocumented in this encounter Care Teams Supply Chain Engineer Relationship Specialty Start Date End Date Rhonda De La Paz MD PCP - General INTERNAL MEDICINE 09/08/20 07/05/21 Rhonda De La Paz MD Physician INTERNAL MEDICINE 09/08/20 documented as of this encounter
--- OUTSIDE RECORDS SUMMARY | 2024-04-03 16:07 | XMS_ITS | Encounter Summary ---
Author Organization [facility] Address [address] [place] [address]. [place], [place] [address] [place] [address] Care Team Providers Care Lock And Dam Repairer Name Role Phone Rhonda De La Paz MD Unavailable [phone] Rhonda De La Paz MD Primary Care Provider [phone] Reason for Visit * Reason Comments Lab (SCAN) Encounter Details Date Type Department Care Team (Latest Contact Info) Description 11/13/2019 Scan HEALTH INFO SRVCS Scanned, Documents Lab [...] Associated Diagnosis Comments OUTSIDE LAB (SCAN ORDER) 11/13/2019 documented in this encounter Results * OUTSIDE LAB (SCAN) (11/13/2019) 11/13/2019 Narrative 11/13/2019 Ordered by an unspecified provider. us Documents Scanned SCANNING Final Result documented in this encounter Visit Diagnoses Not on filedocumented in this encounter Care Teams Lock And Dam Repairer Relationship Specialty Start Date End Date Rhonda De La Paz MD PCP - General INTERNAL MEDICINE 09/08/20 07/05/21 Rhonda De La Paz MD Physician INTERNAL MEDICINE 09/08/20 documented as of this encounter
--- OUTSIDE RECORDS SUMMARY | 2024-04-03 16:07 | XMS_ITS | Encounter Summary ---
Author Organization [facility] Address [address] [place] [address]. [place], [place] [address] [place] [address] Care Team Providers Care Rn Ambulatory Name Role Phone Rhonda De La Paz MD Unavailable [phone] Rhonda De La Paz MD Primary Care Provider [phone] Encounter Details Date Type Department Care Team (Latest Contact Info) Description 09/15/2020 7:00 AM CDT - 09/15/2020 12:45 PM CDT Hospital Encounter [facility] [address] [place] [address] Darian Burks, RAFIQ [address] [place] [address] Discharge Disposition: Home or Self Care (Routine [...] D) 50 MCG (1999 UT) Tab biotin 64360 MCG tablet Take 5,000 mcg by mouth daily. 01/10/2022 cyclobenzaprine 5 MG tablet Take 5 mg by mouth 3 (three) times daily as needed. 08/10/2020 12/28/2020 famotidine 40 MG tablet Take 40 mg by mouth daily. 12/30/2020 FLUoxetine 40 MG capsule Take 40 mg by mouth daily. 05/10/2021 hydroCHLOROthiazi de 12.5 MG capsule Take 12.5 mg by mouth every morning. 10/01/2020 multiple vitamins-minerals (OCUVITE-LUTEIN) Cap Take 1 capsule by mouth daily. 10/16/2022 naratriptan 2.5 MG tablet Take 2.5 mg by mouth as needed for Migraine. 2.5 mg at onset of headache, may repeat in 4 hours if needed 10/20/2020 vitamin B-12 100 MCG tablet Take 0.5 tablets (50 mcg total) by mouth daily. 10/16/2022 documented as of this encounter Plan of Treatment Not on file documented as of this encounter Procedures Procedure Name Priority Date/Time Associated Diagnosis Comments CYTOPATH CERV/VAG THIN LAYER Routine 09/15/2020 7:01 AM CDT documented in this encounter Results * Cytopath Cerv/Vag Thin Layer (09/15/2020 7:01 AM CDT) THIN PREP PAP ? [facility] ?[address] ?[place] [address] ? Department of Pathology ? Pathology Report ? CERVICAL/VAGINAL PAP SMEAR REPORT Name: DANIELLE BRITO ? Age: 5 1960 (Age: 60) ?Location: [facility] Sex: F ?Collected Date: 09/15/2020 Hospital #: [id number] ?Date Received: 09/17/2020 Date Reported: 09/21/2020 Provider: DARIAN CONROY INTERPRETATION CERVICAL/ENDOCERVI PRUDENCE: ? SATISFACTORY FOR EVALUATION. ENDOCERVICAL/TRANS FORMATION ZONE COMPONENT PRESENT. ? NEGATIVE FOR INTRAEPITHELIAL LESION OR MALIGNANCY. NEGATIVE FOR HIGH RISK HPV. The FDA approved Aptima HPV assay is an in vitro nucleic acid amplification test for the qualitative detection of E6/E7 viral messenger RNA (mRNA) from 14 high-risk types of human papillomavirus (HPV) in cervical specimens. ??The high-risk HPV types detected by the assay include: 16,18,31,33,35,39, 45,51,52,56,58,59, 66, and 68. Electronically Signed Out By WALT Prado (ASCP) CLINICAL HISTORY Z12.4 SCREENING PAP TEST ThinPrep Pap Test with HR HPV testing in patient > 30 years requested. Date of Last Menstrual Period: ? YEARS Menstrual Status: Post-Menopausal SPECIMEN SUBMITTED CERVICAL/ENDOCERVI PRUDENCE ?Specimen Received:1 Thin Prep Vial, Image Assisted Pap (SMD) ? Please note: The Pap smear is not a diagnostic test. ??It is a screening test. ??Negative results on combined screening (Pap test and HPV-DNA) have a high negative predictive value (99.1-100 percent) for cervical cancer. ??The pap test is not effective in detecting cervical adenocarcinoma. [facility] 09/15/2020 7:01 AM CDT 09/17/2020 7:01 AM CDT Comment:CERVICAL/ENDOCERVICA L Darian CONROY PATHOLOGY/CYTOLOGY ORDERABLE S Final Result [facility] [address] [place] [address], documented in this encounter Visit Diagnoses Not on filedocumented in this encounter Care Teams Rn Ambulatory Relationship Specialty Start Date End Date Rhonda De La Paz MD PCP - General INTERNAL MEDICINE 09/08/20 07/05/21 Rhonda De La Paz MD Physician INTERNAL MEDICINE 09/08/20 documented as of this encounter
--- OUTSIDE RECORDS SUMMARY | 2024-04-03 16:07 | XMS_ITS | Encounter Summary ---
Author Organization [facility] Address [address] [place] [address]. [place], [place] [id number] [place] [address] Care Team Providers Care Author Name Role Phone Rhonda De La Paz MD Unavailable [phone] Rhonda De La Paz MD Primary Care Provider Reason for Visit * Reason Comments Establish Care no refills needed. Encounter Details Date Type Department Care Team (Late st Contact Info) Description 09/08/2020 2:40 PM CDT Office Visit [facility] Family & Internal Medicine [facility] [id number] [place] [phone] Rhonda De La Paz MD [address] [place] [address] Establish Care (no refills needed.) Social History Tobacco Use Types Packs/Day Years [...] Reading Time Taken Comments Blood Pressure 120/74 09/08/2020 2:31 PM CDT Pulse 64 09/08/2020 2:31 PM CDT Temperature 35.7 ??C (96.3 ??F) 09/08/2020 2:31 PM CD T Respiratory Rate 16 09/08/2020 2:31 PM CDT Oxygen Saturation 98% 09/08/2020 2:31 PM CDT Inhaled Oxygen Concentration - - Weight 61.8 kg (136 lb 3.2 oz) 09/08/2020 2:31 P M CDT Height 154.9 cm (5' 1 ) 09/08/2020 2:31 PM CDT Body Mass Index 25.73 09/08/2020 2:31 PM CDT documented in this encounter Progress Notes * Rhonda De La Paz MD - 09/08/2020 2:40 PM CDT Reason for Visit: Establish Care (no refills needed.) HPI 59-year-old female here to establish for new physician. She has history of hypertension on hydrochlorothiazide, anxiety on fluoxetine and GERD on famotidine, she had labs about 6 months ago. Yesterday she bumped into picnic table went to the ER had would and it a did an incision to remove the wood and this is tender but healing well and they updated her tetanus shot yesterday. She is also up-to-date on her COVID-19 vaccination and will forward her records from the previous physician. Review of Systems Constitutional: Negative. HENT: Negative. Eyes: Negative. Respiratory: Negative. Cardiovascular: Negative. Gastrointestinal: Positive for heartburn. Musculoskeletal: Hematoma left thigh Skin: Half-inch laceration left thigh Neurological: Negative. Psychiatric/Behavioral: Positive for depression. Current Outpatient Medications: ??? biotin 16923 MCG tablet, Take 5,000 mcg by mouth daily., Disp: , Rfl: ??? Cholecalciferol (VITAMIN D) 50 MCG (1999) Tab, , Disp: , Rfl: ??? famotidine 40 MG tablet, Take 40 mg by mouth daily., Disp: , Rfl: ??? FLUoxetine 40 MG capsule, Take 40 mg by mouth daily., Disp: , Rfl: ??? hydroCHLOROthiazide 12.5 MG capsule, Take 12.5 mg by mouth every morning., Disp: , Rfl: ??? multiple vitamins-minerals (OCUVITE ADULT 50+) Cap, Take 1 capsule by mouth daily., Disp: , Rfl: ??? naratriptan 2.5 MG tablet, Take 2.5 mg by mouth as needed for Migraine. 2.5 mg at onset of headache, may repeat in 4 hours if needed, Disp: , Rfl: ??? vitamin B-12 100 [...] level: Not on file Occupational History ??? Not on file Tobacco Use ??? Smoking status: Never Smoker ??? Smokeless tobacco: Never Used Substance and Sexual Activity ??? Alcohol use: Not Currently ??? Drug use: Never ??? Sexual activity: Not on file Other Topics Concern ??? Not on file Social History Narrative ??? Not on file Social Determinants of Health Financial Resource Strain: [...] Gatherings with Friends and Family: ??? Attends Orthodox Services: ??? Active Member of Clubs or [...] Specified) ??? Father (Not Specified) Filed Vitals: 09/08/20 1431 BP: 120/74 Pulse: 64 Resp: 16 Temp: 96.3 ??F (35.7 ??C) TempSrc: Skin Probe SpO2: 98% Weight: 61.8 kg (136 lb 3.2 oz) Height: 5' 1 (1.549 m) Body mass index is 25.73 kg/m??. Physical Exam Constitutional: She is oriented [...] range of motion. Cervical back: Neck supple. Neurological: She is alert and oriented to person, place, and time. No cranial nerve deficit. Skin: Skin is dry. Left thigh half inch incision and not draining, some distal hematoma formation and tenderness Psychiatric: She has a normal mood and affect. Judgment normal. Assessment/PLAN 1. Establishing care with new doctor, encounter for 2. Essential hypertension - CBC W/DIFF AUTOMATED; Future - COMPREHENSIVE METABOLIC PANEL; Future - TSH W/REFLEX; Future - VITAMIN B12 / FOLATE; Future 3. Anxiety 4. BMI 25.0-25.9,adult 5. Need for hepatitis C screening test - HEPATITIS C ANTIBODY W/RFX TO HCV RNA ([facility]); Future 6. Lipid screening - LIPID PANEL; Future 7. Vitamin D deficiency - VITAMIN D, 25 OH; Future New patient establishing does not need refills at this time, we will have her follow-up in 6 monthswith the above labs for refills. Laceration left thigh seen in ER tetanus updated recommend continued home care plus Arnica gel to help with bruising and inflammation. She is otherwise doing well. Follow up FU 6 MONTHS or PRN RHONDA DE LA PAZ MD 09/08/2020 3:09 PM documented in this encounter Plan of Treatment Not on file documented as of this encounter Results * VITAMIN D, 25 OH (09/15/2020 9:30 AM CDT) VITAMIN D 25 HYDROXY S/P/B 49 30 - 100 NG/ML 09/15/2020 1:[address] [facility] Comment: ? INTERPRETATION ? DEFICIENT ??<20 ? INSUFFICIENT 20-29 ?SUFFICIENT 30-100 09/15/2020 9:30 AM CDT Rhonda De La Paz MD LABORATORY Final Result Performing Organization Address [facility] de Phone Number [facility] [address] [place] [address], [place] [phone] * (ABNORMAL) VITAMIN B12 / FOLATE (09/15/2020 9:30 AM CDT) VITAMIN B12 S/P/B 530 193 - 986 PG/ML 09/15/2020 4:[address] [facility] FOLATE 7.0(L) 8.6 - 58.9 NG/ML 09/15/2020 4:[address] [facility] 09/15/2020 9:30 AM CDT Rhonda De La Paz MD LABORATORY Final Result Performing Organization Address [facility] Co de Phone Number [facility] [address] [place] [address], [place] [phone] * TSH W/REFLEX (09/15/2020 9:30 AM CDT) TSH 3.024 0.358 - 3.74 uIU/ML 09/15/2020 4:[address] [facility] Comment: HIGH DOSES OF BIOTIN MAY INTERFERE WITH THIS TEST RESULT. CORRELATION TO CLINICAL HISTORY AND PRESENTATION RECOMMENDED. FREE T4 NOT INDICATED 09/15/2020 9:30 AM CDT Rhonda De La Paz MD LABORATORY Final Result [facility] [address] [place] [address], * (ABNORMAL) LIPID PANEL (09/15/2020 9:30 AM CDT) CHOLESTEROL 208(H) <200.0 MG/DL 09/15/2020 4:[address] [facility] TRIGLYCERIDES 44 <150 MG/DL 09/15/2020 4:[address] [facility] HDL 61 >40.0 MG/DL 09/15/2020 4:[address] [facility] LDL (CALCULATED) 138(H) <100 MG/DL 09/15/2020 4:[address] [facility] NON HDL CHOLESTEROL 147(H) <130 MG/DL 09/15/2020 4:[address] [facility] CHOL/HDL RATIO 3.4 0.0 - 4.5 09/15/2020 4:[address] [facility] VLDL CALCULATION 9 5 - 55 MG/DL 09/15/2020 4:[address] [facility] LIPID INTERPRETATION 09/15/2020 4:[address] [facility] Comment: NIH CONCENSUS REPORT RECOMMENDATIONS: ?ADULT ?CHILD ??LOW RISK: ?CHOLESTEROL ? <200 ? <170 ?TRIGLYCERIDE ?<150 ?--- ?HDL ? >=60 ?--- ?LDL ? <100 ? <110 ??BORDERLINE: ?CHOLESTEROL ? 200-239 ?? 170-199 ?TRIGLYCERIDE ?150-199 ? --- ?HDL ?40-59 ?--- ?LDL ? 100-159 ?? 110-129 ??HIGH RISK: ?CHOLESTEROL ? >=240 ?>=200 ?TRIGLYCERIDE ?>=200 ? --- ?HDL ?<40 ?--- ?LDL ? >=160 ?>=130 09/15/2020 9:30 AM CDT us Rhonda De La Paz MD LABORATORY Final Result [facility] () [facility] [address] [place] [address], * (ABNORMAL) COMPREHENSIVE METABOLIC PANEL (09/15/2020 9:30 AM CDT) [facility] GLUCOSE 75 70 - 99 MG/DL 09/15/2020 4:27 PM [facility] BUN 16 7 - 18 MG/DL 09/15/2020 4:[address] [facility] CREATININE S/P/B 0.79 0.55 - 1.02 MG/DL 09/15/2020 4:[address] [facility] SODIUM S/P/B 143 136 - 145 MMOL/L 09/15/2020 4:[address] [facility] POTASSIUM S/P/B 4.7 3.5 - 5.1 MMOL/L 09/15/2020 4:[address] [facility] CHLORIDE S/P/B 104 100 - 108 MMOL/L 09/15/2020 4:[address] [facility] CO2 31.3 21 - 32 MMOL/L 09/15/2020 4:[address] [facility] CALCIUM S/P/B 9.3 8.5 - 10.1 MG/DL 09/15/2020 4:27 PM [facility] BILIRUBIN TOTAL S/P/B 0.4 0.2 - 1.2 MG/DL 09/15/2020 4:27 PM [facility] TOTAL PROTEIN S/P/B 7.2 6.4 - 8.2 G/DL 09/15/2020 4:27 PM [facility] ALBUMIN S/P/B 3.7 3.4 - 5.0 G/DL 09/15/2020 4:27 PM [facility] AST 19 15 - 37 U/L 09/15/2020 4:[address] [facility] ALT 28 14 - 55 U/L 09/15/2020 4:[address] [facility] ALKALINE PHOSPHATASE S/P/B 75 50 - 136 U/L 09/15/2020 4:[address] [facility] ANION GAP 7.7 5 - 15 MMOL/L 09/15/2020 4:[address] [facility] BUN CREATININE RATIO 20.3 6 - 26 09/15/2020 4:[address] [facility] A/G RATIO 1.1 1.0 - 2.0 RATIO 09/15/2020 4:[address] [facility] EGFR NON-AFR. AMER. 81(L) >90 ML/MIN/1.7 3 M2 09/15/2020 4:[address] [facility] EGFR AFR. AMER. >90 >90 ML/MIN/1.7 3 M2 09/15/2020 4:[address] [facility] Comment: NOTE: eGFR is not calculated for patients <18 years of age. This is an estimated GFR (CKD EPI) and should not be used for calculating drug doses. 09/15/2020 9:30 AM CDT us Rhonda De La Paz MD LABORATORY Final Result [facility] [address] [place] [address], [place] [phone] * (ABNORMAL) CBC W/DIFF AUTOMATED (09/15/2020 9:30 AM CDT) WBC 5.7 4.4 - 11.0 x10'3/uL 09/15/2020 1:[address] [facility] RBC 4.10(L) 4.50 - 5.10 x10'6/uL 09/15/2020 1:[address] [facility] HGB 12.6 12.3 - 15.3 G/DL 09/15/2020 1:[address] [facility] HCT 38.8 35.9 - 44.6 % 09/15/2020 1:[address] [facility] MCV 94.6 80.0 - 96.0 FL 09/15/2020 1:[address] [facility] MCH 30.7 25.3 - 30.9 PG 09/15/2020 1:[address] [facility] MCHC 32.5 31.0 - 34.1 G/DL 09/15/2020 1:[address] [facility] RDW 12.7 12.4 - 15.1 % 09/15/2020 1:[address] [facility] PLT 311 151 - 353 x10'3/uL 09/15/2020 1:[address] [facility] MPV 11.3 9.6 - 12.0 FL 09/15/2020 1:[address] [facility] RBC MORPHOLOGY NORMAL 09/15/2020 1:[address] [facility] PLT MORPH. NORMAL 09/15/2020 1:[address] [facility] WBC MORPHOLOGY NORMAL 09/15/2020 1:[address] [facility] LYMPHOCYTES % 25.5 15.8 - 45.0 % 09/15/2020 1:[address] [facility] NEUTROPHILS % 57.3 42.1 - 71.9 % 09/15/2020 1:[address] [facility] MONOCYTES % 9.0 5.7 - 12.5 % 09/15/2020 1:[address] [facility] EOSINOPHILS 6.2(H) 0.0 - 5.6 % 09/15/2020 1:[address] [facility] BASOPHILS 1.8(H) 0.0 - 1.3 % 09/15/2020 1:[address] [facility] ABS. NEUTROPHILS TOTAL 3.26 1.40 - 6.00 x10'3/uL 09/15/2020 1:[address] [facility] IMMATURE GRANS % 0.2 0.0 - 0.5 % 09/15/2020 1:[address] [facility] ABS. LYMPHOCYTES 1.45 0.80 - 4.70 x10'3/uL 09/15/2020 1:[address] [facility] 09/15/2020 9:30 AM CDT Rhonda De La Paz MD LABORATORY Final Result Performing Organization Address City/State/[facility] Co de Phone Number [facility] [address] [place] [address], documented in this encounter Visit Diagnoses Diagnosis Establishing care with new doctor, encounter for- Primary Other reasons for seeking consultation Essential hypertension Unspecified essential hypertension Anxiety Anxiety state, unspecified BMI 25.0-25.9,adult Body Mass Index 25.0-25.9, adult Need for hepatitis C screening test Special screening examination for other specified viral diseases Lipid screening Screening for lipoid disorders Vitamin D deficiency Unspecified vitamin D deficiency documented in this encounter Care Teams Author Relationship Specialty Start Date End Date Rhonda De La Paz MD PCP - General INTERNAL MEDICINE 09/08/20 07/05/21 Rhonda De La Paz MD Physician INTERNAL MEDICINE 09/08/20 documented as of this encounter
--- OUTSIDE RECORDS SUMMARY | 2024-04-03 16:07 | XMS_ITS | Encounter Summary ---
Author Organization [facility] Address [address] [place] [address]. [place], [place] [address] [place] [address] Care Team Providers Care Carpenter Supervisor Wooden Ship Name Role Phone Rhonda De La Paz MD Unavailable [phone] Rhonda De La Paz MD Primary Care Provider [phone] Encounter Details Date Type Department Care Team (Latest Contact Info) Description 05/13/2019 Scan HEALTH INFO SRVCS Scanned, Documents Social [...] on filedocumented in this encounter Care Teams Carpenter Supervisor [employer]en [employer] Relationship Specialty Start Date End Date Rhonda De La Paz MD PCP - General INTERNAL MEDICINE 09/08/20 07/05/21 Rhonda De La Paz MD Physician INTERNAL MEDICINE 09/08/20 documented as of this encounter
--- OUTSIDE RECORDS SUMMARY | 2024-04-03 16:07 | XMS_ITS | Encounter Summary ---
Author Organization [facility] Address [address] [place] [address]. [place], [place] [address] [place] [address] Care Team Providers Care Asl Interpreter Name Role Phone Rhonda De La Paz MD Unavailable [phone] Rhonda De La Paz MD Primary Care Provider [phone] Encounter Details Date Type Department Care Team (Latest Contact Info) Description 09/15/2020 12:46 PM CDT - 09/15/2020 11:59 PM CDT Hospital Encounter [facility] [address] [place], [place] [id number] [place] [address] [place] [address] Discharge Disposition: Home or Self Care (Routine [...] D) 50 MCG (1999 [place]) Tab biotin 34973 MCG tablet Take 5,000 mcg by mouth [...] Procedure Name Priority Date/Time Associated Diagnosis Comments VITAMIN B12 / FOLATE Routine 09/15/2020 9:30 AM CDT Essential hypertension TSH W/REFLEX Routine 09/15/2020 9:30 AM CDT Essential hypertension COMPREHENSIVE METABOLIC PANEL Routine 09/15/2020 9:30 AM CDT Essential hypertension LIPID PANEL Routine 09/15/2020 9:30 AM CDT Lipid screening HEPATITIS C ANTIBODY Routine 09/15/2020 9:30 AM CDT Need for hepatitis C screening test CBC W/DIFF AUTOMATED Routine 09/15/2020 9:30 AM CDT Essential hypertension VITAMIN D, 25 OH Routine 09/15/2020 9:30 AM CDT Vitamin D deficiency documented in this encounter Results * (ABNORMAL) CBC W/DIFF AUTOMATED (09/15/2020 9:30 AM CDT) WBC 5.7 4.4 - 11.0 x10'3/uL 09/15/2020 1:16 PM CDT [facility] RBC 4.10(L) 4.50 - 5.10 x10'6/uL 09/15/2020 1:16 PM CDT [facility] HGB 12.6 12.3 - 15.3 G/DL 09/15/2020 1:16 PM CDT [facility] HCT 38.8 35.9 - 44.6 % 09/15/2020 1:16 PM CDT [facility] MCV 94.6 80.0 - 96.0 FL 09/15/2020 1:16 PM CDT [facility] MCH 30.7 25.3 - 30.9 PG 09/15/2020 1:16 PM CDT [facility] MCHC 32.5 31.0 - 34.1 G/DL 09/15/2020 1:16 PM CDT [facility] RDW 12.7 12.4 - 15.1 % 09/15/2020 1:16 PM CDT [facility] PLT 311 151 - 353 x10'3/uL 09/15/2020 1:16 PM CDT [facility] MPV 11.3 9.6 - 12.0 FL 09/15/2020 1:16 PM CDT [facility] RBC MORPHOLOGY NORMAL 09/15/2020 1:16 PM CDT [facility] PLT MORPH. NORMAL 09/15/2020 1:16 PM CDT [facility] WBC MORPHOLOGY NORMAL 09/15/2020 1:16 PM CDT [facility] LYMPHOCYTES % 25.5 15.8 - 45.0 % 09/15/2020 1:16 PM CDT [facility] NEUTROPHILS % 57.3 42.1 - 71.9 % 09/15/2020 1:16 PM CDT [facility] MONOCYTES % 9.0 5.7 - 12.5 % 09/15/2020 1:16 PM CDT [facility] EOSINOPHILS 6.2(H) 0.0 - 5.6 % 09/15/2020 1:16 PM CDT [facility] BASOPHILS 1.8(H) 0.0 - 1.3 % 09/15/2020 1:16 PM CDT [facility] ABS. NEUTROPHILS TOTAL 3.26 1.40 - 6.00 x10'3/uL 09/15/2020 1:16 PM CDT [facility] IMMATURE GRANS % 0.2 0.0 - 0.5 % 09/15/2020 1:16 PM CDT [facility] ABS. LYMPHOCYTES 1.45 0.80 - 4.70 x10'3/uL 09/15/2020 1:16 PM CDT [facility] 09/15/2020 9:30 AM CDT Rhonda De La Paz MD LABORATORY Final Result [facility] [address] [place] [address], * (ABNORMAL) COMPREHENSIVE METABOLIC PANEL (09/15/2020 9:30 AM CDT) GLUCOSE 75 70 - 99 MG/DL 09/15/2020 4:27 PM CDT [facility] BUN 16 7 - 18 MG/DL 09/15/2020 4:27 PM CDT [facility] CREATININE S/P/B 0.79 0.55 - 1.02 MG/DL 09/15/2020 4:27 PM [facility] SODIUM S/P/B 143 136 - 145 MMOL/L 09/15/2020 4:27 PM [facility] POTASSIUM S/P/B 4.7 3.5 - 5.1 MMOL/L 09/15/2020 4:27 PM [facility] CHLORIDE S/P/B 104 100 - 108 MMOL/L 09/15/2020 4:27 PM [facility] CO2 31.3 21 - 32 MMOL/L 09/15/2020 4:27 PM [facility] CALCIUM S/P/B 9.3 8.5 - 10.1 MG/DL 09/15/2020 4:27 PM [facility] BILIRUBIN TOTAL S/P/B 0.4 0.2 - 1.2 MG/DL 09/15/2020 4:27 PM [facility] TOTAL PROTEIN S/P/B 7.2 6.4 - 8.2 G/DL 09/15/2020 4:27 PM [facility] ALBUMIN S/P/B 3.7 3.4 - 5.0 G/DL 09/15/2020 4:27 PM [facility] AST 19 15 - 37 U/L 09/15/2020 4:27 PM [facility] ALT 28 14 - 55 U/L 09/15/2020 4:27 PM [facility] ALKALINE PHOSPHATASE S/P/B 75 50 - 136 U/L 09/15/2020 4:27 PM [facility] ANION GAP 7.7 5 - 15 MMOL/L 09/15/2020 4:27 PM CDT [facility] BUN CREATININE RATIO 20.3 6 - 26 09/15/2020 4:27 PM CDT [facility] A/G RATIO 1.1 1.0 - 2.0 RATIO 09/15/2020 4:27 PM CDT [facility] EGFR NON-AFR. AMER. 81(L) >90 ML/MIN/1.7 3 M2 09/15/2020 4:27 PM CDT [facility] EGFR AFR. AMER. >90 >90 ML/MIN/1.7 3 M2 09/15/2020 4:27 PM CDT [facility] Comment: NOTE: eGFR is not calculated for patients <18 years of age. This is an estimated GFR (CKD EPI) and should not be used for calculating drug doses. 09/15/2020 9:30 AM CDT Rhonda De La Paz MD LABORATORY Final Result [facility] [address] [place] [address], * (ABNORMAL) LIPID PANEL (09/15/2020 9:30 AM CDT) CHOLESTEROL 208(H) <200.0 MG/DL 09/15/2020 4:27 PM CDT [facility] TRIGLYCERIDES 44 <150 MG/DL 09/15/2020 4:27 PM CDT [facility] HDL 61 >40.0 MG/DL 09/15/2020 4:27 PM CDT [facility] LDL (CALCULATED) 138(H) <100 MG/DL 09/15/2020 4:27 PM CDT [facility] NON HDL CHOLESTEROL 147(H) <130 MG/DL 09/15/2020 4:27 PM CDT [facility] CHOL/HDL RATIO 3.4 0.0 - 4.5 09/15/2020 4:27 PM CDT [facility] VLDL CALCULATION 9 5 - 55 MG/DL 09/15/2020 4:27 PM T [facility] LIPID INTERPRETATION 09/15/2020 4:27 PM CDT [facility] Comment: NIH CONCENSUS REPORT [...] ? >=160 ?>=130 09/15/2020 9:30 AM CDT Rhonda De La Paz MD LABORATORY Final Result Performing Organization Address [facility] Co de Phone Number [facility] [address] [place] [address], [place] [phone] * TSH W/REFLEX (09/15/2020 9:30 AM CDT) TSH 3.024 0.358 - 3.74 uIU/ML 09/15/2020 4:27 PM CDT [facility] Comment: HIGH DOSES OF BIOTIN MAY INTERFERE WITH THIS TEST RESULT. CORRELATION TO CLINICAL HISTORY AND PRESENTATION RECOMMENDED. FREE T4 NOT INDICATED 09/15/2020 9:30 AM CDT Rhonda De La Paz MD LABORATORY Final Result Performing Organization Address [facility] de Phone Number [facility] [address] [place] [address], [place] [phone] * (ABNORMAL) VITAMIN B12 / FOLATE (09/15/2020 9:30 AM CDT) VITAMIN B12 S/P/B 530 193 - 986 PG/ML 09/15/2020 4:24 PM CDT [facility] FOLATE 7.0(L) 8.6 - 58.9 NG/ML 09/15/2020 4:24 PM CDT [facility] 09/15/2020 9:30 AM CDT Rhonda De La Paz MD LABORATORY Final Result Performing Organization Address [facility] Co de Phone Number [facility] [address] [place] [address], [place] [phone] * VITAMIN D, 25 OH (09/15/2020 9:30 AM CDT) [facility] VITAMIN D 25 HYDROXY S/P/B 49 30 - 100 NG/ML 09/15/2020 1:53 PM CDT [facility] Comment: ? INTERPRETATION ? DEFICIENT ??<20 ? INSUFFICIENT 20-29 ?SUFFICIENT 30-100 09/15/2020 9:30 AM CDT Rhonda De La Paz MD LABORATORY Final Result Performing Organization Address City/[facility]/ZIP Co de Phone Number [facility] [address] [place] [address], * HEPATITIS C ANTIBODY (09/15/2020 9:30 AM CDT) [facility] HEPATITIS C AB NON-REACTI VE NON-REACTI VE 09/15/2020 9:02 PM CDT [facility] 09/15/2020 9:30 AM CDT [facility] Final Result [facility] [address] [place] [address], [place] [phone] documented in this encounter Visit Diagnoses Diagnosis Need for hepatitis C screening test Special screening examination for other specified viral diseases Vitamin D deficiency Unspecified vitamin D deficiency Essential hypertension Unspecified essential hypertension Lipid screening Screening for lipoid disorders documented in this encounter Care Teams Asl Interpreter Relationship Specialty Start Date End Date Rhonda De La Paz MD PCP - General INTERNAL MEDICINE 09/08/20 07/05/21 Rhonda De La Paz MD Physician INTERNAL MEDICINE 09/08/20 documented as of this encounter
--- OUTSIDE RECORDS SUMMARY | 2024-04-03 16:07 | XMS_ITS | Encounter Summary ---
Author Organization [facility] Address [address] [place] [address]. [place], [place] [address] [place] [address] Care Team Providers Care Ui Designer Name Role Phone Rhonda De La Paz MD Unavailable [phone] Rhonda De La Paz MD Primary Care Provider [phone] Reason for Visit * Reason Comments Lab (SCAN) Encounter Details Date Type Department Care Team (Latest Contact Info) Description 11/21/2019 Scan HEALTH INFO SRVCS Scanned, Documents Lab [...] Priority Date/Time Associated Diagnosis Comments OUTSIDE LAB COVID-19 (SCAN ORDER) Routine 11/21/2019 documented in this encounter Results * OUTSIDE LAB COVID-19 (SCAN) (11/21/2019) CORONAVIRUS SARS COV 2 PCR (RESP) NOT DETECTED NOT DETECTED [facility] 11/21/2019 us Documents Scanned SCANNING Final Result [facility] documented in this encounter Visit Diagnoses Not on filedocumented in this encounter Care Teams Ui Designer Relationship Specialty Start Date End Date Rhonda De La Paz MD PCP - General INTERNAL MEDICINE 09/08/20 07/05/21 Rhonda De La Paz MD Physician INTERNAL MEDICINE 09/08/20 documented as of this encounter
--- OUTSIDE RECORDS SUMMARY | 2024-04-03 16:07 | XMS_ITS | Encounter Summary ---
Author Organization [facility] - [facility] Address [address] [place] [address]. [place], [place] [id number] [place] [id number] Care Team Providers Care Pulmonary Disease Specialist Name Role Phone Rhonda De La Paz MD Unavailable [phone] Rhonda De La Paz MD Primary Care Provider [phone] Encounter Details Date Type Department Care Team (Latest Contact Info) Description 01/29/2018 Scan HEALTH INFO [facility] Scanned, Documents Social [...] on filedocumented in this encounter Care Teams Pulmonary Disease Specialist Relationship Specialty Start Date End Date Rhonda De La Paz MD PCP - General INTERNAL MEDICINE 09/08/20 07/05/21 Rhonda De La Paz MD Physician INTERNAL MEDICINE 09/08/20 documented as of this encounter
--- OUTSIDE RECORDS SUMMARY | 2024-04-03 16:07 | XMS_ITS | Encounter Summary ---
Author Organization [facility] Address [address] [place] [address]. [place], [place] [address] [place] [address] Care Team Providers Care Master Automotive Technician Name Role Phone Rhonda De La Paz MD Unavailable [phone] Rhonda De La Paz MD Primary Care Provider [phone] Reason for Visit * Reason Comments Lab (SCAN) Encounter Details Date Type Department Care Team (Latest Contact Info) Description 07/15/2019 Scan HEALTH INFO SRVCS Scanned, Documents Lab [...] Associated Diagnosis Comments OUTSIDE LAB (SCAN ORDER) 07/15/2019 documented in this encounter Results * OUTSIDE LAB (SCAN) (07/15/2019) 07/15/2019 Narrative 07/15/2019 Ordered by an unspecified provider. us Documents Scanned SCANNING Final Result documented in this encounter Visit Diagnoses Not on filedocumented in this encounter Care Teams Master Automotive Technician Relationship Specialty Start Date End Date Rhonda De La Paz MD PCP - General INTERNAL MEDICINE 09/08/20 07/05/21 Rhonda De La Paz MD Physician INTERNAL MEDICINE 09/08/20 documented as of this encounter
--- OUTSIDE RECORDS SUMMARY | 2024-04-03 16:07 | XMS_ITS | Encounter Summary ---
Author Organization [facility] Address [address] [place] [address]. [place], [place] [address] [place] [address] Care Team Providers Care Ui Engineer Name Role Phone Rhonda De La Paz MD Unavailable [phone] Rhonda De La Paz MD Primary Care Provider + [phone] Encounter Details Date Type Department Care Team (Latest Contact Info) Description 05/20/2019 Scan HEALTH INFO SRVCS Scanned, Documents Social [...] filedocumented in this encounter Care Teams Ui Engineer Relationship Specialty Start Date End Date Rhonda De La Paz MD PCP - General INTERNAL MEDICINE 09/08/20 07/05/21 Rhonda De La Paz MD Physician INTERNAL MEDICINE 09/08/20 documented as of this encounter
--- OUTSIDE RECORDS SUMMARY | 2024-04-03 16:07 | XMS_ITS | Encounter Summary ---
Author Organization [facility] Address [address] [place] [address]. [place], [place] [address] [place] [address] Care Team Providers Care Swatch Maker Name Role Phone Rhonda De La Paz MD Unavailable [phone] Rhonda De La Paz MD Primary Care Provider Reason for Visit * Reason Onset Date Comments Follow Up Call 09/09/2020 Encounter Details Date Type Department Care Team (Late st Contact Info) Description 09/09/2020 Telephone [facility] [address] [place] [address] [place] [address] [place] [address] Follow Up Call Social History Tobacco [...] Notes * Deborah Hernández MA - 09/09/2020 11:29 AM CDT Medication added to patients med list * Michelle Miller LPN - 09/09/2020 9:15 AM CDT Pt called update medication Vit B12 500 mg daily Vit d 3 10 mg Daily Cyclobenzaprine 5 mg for back PRN Please add to medication list [phone] documented in this encounter Plan of Treatment Not on file documented as of this encounter Visit Diagnoses Not on filedocumented in this encounter Care Teams Swatch Maker Relationship Specialty Start Date End Date Rhonda De La Paz MD PCP - General INTERNAL MEDICINE 09/08/20 07/05/21 Rhonda De La Paz MD Physician INTERNAL MEDICINE 09/08/20 documented as of this encounter
--- OUTSIDE RECORDS SUMMARY | 2024-04-03 16:07 | XMS_ITS | Encounter Summary ---
Author Organization [facility] Address [address] [place] [address]. [place], [place] [address] [place] [address] Care Team Providers Care Planisher Name Role Phone Rhonda De La Paz MD Unavailable [phone] Rhonda De La Paz MD Primary Care Provider [phone] Reason for Visit * Reason Comments Lab (SCAN) Encounter Details Date Type Department Care Team (Latest Contact Info) Description 10/07/2019 Scan HEALTH INFO SRVCS Scanned, Documents Lab [...] Diagnosis Comments OUTSIDE LAB (SCAN ORDER) Routine 10/07/2019 documented in this encounter Results * OUTSIDE LAB (SCAN) (10/07/2019) HGB A1C 5.5 % [facility] ONBASE CREATININE (U) 100 [facility] MICROALBUMIN (U) 0.6 [facility] ONBASE 10/07/2019 us Documents Scanned SCANNING Final Result [facility] ONBASE documented in this encounter Visit Diagnoses Not on filedocumented in this encounter Care Teams Planisher Relationship Specialty Start Date End Date Rhonda De La Paz MD PCP - General INTERNAL MEDICINE 09/08/20 07/05/21 Rhonda De La Paz MD Physician INTERNAL MEDICINE 09/08/20 documented as of this encounter
--- OUTSIDE RECORDS SUMMARY | 2024-04-03 16:07 | XMS_ITS | Encounter Summary ---
Author Organization [facility] Address [address] [place] [address]. [place], [place] [address] [place] [address] Care Team Providers Care Campaign Marketing Specialist Name Role Phone Rhonda De La Paz MD Unavailable [phone] Rhonda De La Paz MD Primary Care Provider [phone] Reason for Visit * Reason Comments ECG (SCAN) Encounter Details Date Type Department Care Team (Latest Contact Info) Description 06/13/2019 Scan HEALTH INFO SRVCS Scanned, Documents ECG (SCAN) Social History Tobacco Use Types Packs/Day [...] Procedure Name Priority Date/Time Associated Diagnosis Comments ECG GENERIC (SCAN ORDER) 06/13/2019 documented in this encounter Results * ECG GENERIC (06/13/2019) 06/13/2019 Narrative 06/13/2019 Ordered by an unspecified provider. us Documents Scanned SCANNING Final Result documented in this encounter Visit Diagnoses Not on filedocumented in this encounter Care Teams Campaign Marketing Specialist Relationship Specialty Start Date End Date Rhonda De La Paz MD PCP - General INTERNAL MEDICINE 09/08/20 07/05/21 Rhonda De La Paz MD Physician INTERNAL MEDICINE 09/08/20 documented as of this encounter
--- OUTSIDE RECORDS SUMMARY | 2024-04-03 16:07 | XMS_ITS | Encounter Summary ---
Author Organization [facility] Address [address] [place] [address]. [place], [place] [address] [place] [address] Care Team Providers Care Histology Aide Name Role Phone Rhonda De La Paz MD Unavailable [phone] Rhonda De La Paz MD Primary Care Provider [phone] Reason for Visit * Reason Comments MRI (SCAN) Encounter Details Date Type Department Care Team (Latest Contact Info) Description 05/24/2019 Scan HEALTH INFO SRVCS Scanned, Documents MRI (SCAN) Social History Tobacco Use Types Packs/Day [...] Procedure Name Priority Date/Time Associated Diagnosis Comments MRI GENERIC 05/24/2019 documented in this encounter Results * MRI GENERIC (05/24/2019) Anatomical Region Laterality Modality Other 05/24/2019 Narrative 05/24/2019 Ordered by an unspecified provider. us Documents Scanned SCANNING Final Result documented in this encounter Visit Diagnoses Not on filedocumented in this encounter Care Teams Histology Aide Relationship Specialty Start Date End Date Rhonda De La Paz MD PCP - General INTERNAL MEDICINE 09/08/20 07/05/21 Rhonda De La Paz MD Physician INTERNAL MEDICINE 09/08/20 documented as of this encounter
--- OUTSIDE RECORDS SUMMARY | 2024-04-03 16:07 | XMS_ITS | Encounter Summary ---
Author Organization [facility] Address [address] [place] [address]. [address] [place] [address] Care Team Providers Care Rewind Operator Name Role Phone Rhonda De La Paz MD Unavailable [phone] Rhonda De La Paz MD Primary Care Provider [phone] Reason for Visit * Reason Comments ECG (SCAN) Encounter Details Date Type Department Care Team (Latest Contact Info) Description 10/22/2017 Scan HEALTH INFO SRVCS Scanned, Documents ECG [...] Associated Diagnosis Comments ECG GENERIC (SCAN ORDER) 10/22/2017 documented in this encounter Results * ECG GENERIC (10/22/2017) 10/22/2017 Narrative 10/22/2017 Ordered by an unspecified provider. us Documents Scanned SCANNING Final Result documented in this encounter Visit Diagnoses Not on filedocumented in this encounter Care Teams Rewind Operator Relationship Specialty Start Date End Date Rhonda De La Paz MD PCP - General INTERNAL MEDICINE 09/08/20 07/05/21 Rhonda De La Paz MD Physician INTERNAL MEDICINE 09/08/20 documented as of this encounter
--- OUTSIDE RECORDS SUMMARY | 2024-04-03 16:07 | XMS_ITS | Encounter Summary ---
Author Organization [facility] Address [address] [place] [address]. [place], [place] [address] [place] [address] Care Team Providers Care Clinical Cytogeneticist Scientist Name Role Phone Rhonda De La Paz MD Unavailable Rhonda De La Paz MD Primary Care Provider [phone] Reason for Referral * Imaging (Routine) - Closed Specialty Diagnoses / Procedures Referred By Contac t Referred To Contact RADIOLOGY Diagnoses Post-menopause Procedures BONE DENSITY/[place] [address] [place] [address] Phone: tel: fax: Referral ID Status Reason Start Date Expiration Date Visits Re quested Visits Authorized [id number] Closed 09/15/2020 10/15/2021 1 1 Reason for Visit * Imaging (Routine) - Closed Specialty Diagnoses / Procedures Referred By Contbianca t Referred To Contact RADIOLOGY Diagnoses Breast cancer screening by mammogram Cervical cancer screening Procedures MG SCREENING [place] [address] [place] [address] Phone: tel: fax: Referral ID Status Reason Start Date Expiration Date Visits Re quested Visits Authorized [id number] Closed 09/27/2020 10/27/2021 1 1 Encounter Details Date Type Department Care Team (Latest Contact Info) Description 09/28/2020 9:19 AM CDT - 09/28/2020 11:59 PM CDT Hospital Encounter [facility] [address] [place] [address] [place] [address] [place] [address] Discharge Disposition: Home or Self Care (Routine [...] D) 50 MCG (1999 UT) Tab biotin [address]32 MCG tablet Take 5,000 mcg by mouth [...] Associated Diagnosis Comments MG SCREENING W TERRI AWAD DIGI Routine 09/28/2020 9:50 AM CDT Breast cancer screening by mammogram Cervical cancer screening BONE DENSITY/DEXA Routine 09/28/2020 9:5 0 AM CDT Post-menopause documented in this encounter Results * BONE DENSITY/DEXA (09/28/2020 9:50 AM CDT) Anatomical Region Laterality Modality Bone Bone Density 09/28/2020 12:0 4 PM CDT Impressions 09/28/2020 12:08 PM CDT FINDINGS AND IMPRESSION: Examination performed on a memloom Discovery SL .: LUMBAR SPINE L2-L4: 1. [...] By: Blu Soto, 09/28/2020 12:04 PM Darian Burks [place] DEXA Final Result documented in this encounter Visit Diagnoses Diagnosis Post-menopause Asymptomatic postmenopausal status (age-related) (natural) documented in this encounter Care Teams Clinical Cytogeneticist Scientist Relationship Specialty Start Date End Date Rhonda De La Paz MD PCP - General INTERNAL MEDICINE 09/08/20 07/05/21 Rhonda De La Paz MD Physician INTERNAL MEDICINE 09/08/20 documented as of this encounter
--- OUTSIDE RECORDS SUMMARY | 2024-04-03 16:07 | XMS_ITS | Encounter Summary ---
Author Organization [facility] Address [address] [place] [address]. [place] [address] [place] [address] Care Team Providers Care Industrial Therapist Name Role Phone Rhonda De La Paz MD Unavailable [phone] Rhonda De La Paz MD Primary Care Provider [phone] Reason for Visit * Reason Onset Date Comments Results 09/16/2020 Encounter Details Date Type Department Care Team (Late st Contact Info) Description 09/16/2020 Telephone [facility] [address] [place] [address] [place] [address] [place] [address] Results Social History Tobacco Use Types Packs/Day Years [...] as of this encounter Progress Notes * Tasneem Dougherty RN - 09/16/2020 11:14 AM CDT FYI * Kari Guillaume - 09/16/2020 11:08 AM CDT Pt CB# [phone] Pt wanting you to know that her past MD will be faxing her last colonoscopy to you documented in this encounter Plan of Treatment Not on file documented as of this encounter Visit Diagnoses Not on filedocumented in this encounter Care Teams Industrial Therapist Relationship Specialty Start Date End Date Rhonda De La Paz MD PCP - General INTERNAL MEDICINE 09/08/20 07/05/21 Rhonda De La Paz MD Physician INTERNAL MEDICINE 09/08/20 documented as of this encounter
--- OUTSIDE RECORDS SUMMARY | 2024-04-03 16:07 | XMS_ITS | Encounter Summary ---
Author Organization [facility] Address [address] [place] [address]. [place], [place] [address] [place] [address] Care Team Providers Care Jury Consultant Name Role Phone Rhonda De La Paz MD Unavailable [phone] Rhonda De La Paz MD Primary Care Provider [phone] Encounter Details Date Type Department Care Team (Latest Contact Info) Description 09/21/2020 Scan HEALTH INFO SRVCS Scanned, Documents Social [...] on filedocumented in this encounter Care Teams Jury Consultant Relationship Specialty Start Date End Date Rhonda De La Paz MD PCP - General INTERNAL MEDICINE 09/08/20 07/05/21 Rhonda De La Paz MD Physician INTERNAL MEDICINE 09/08/20 documented as of this encounter
--- OUTSIDE RECORDS SUMMARY | 2024-04-03 16:07 | XMS_ITS | Encounter Summary ---
Author Organization [facility] Address [address] [place] [address]. [place], [place] [address] [place] [address] Care Team Providers Care Budget Counselor Name Role Phone Rhonda De La Paz MD Unavailable [phone] Rhonda De La Paz MD Primary Care Provider [phone] Encounter Details Date Type Department Care Team (Latest Contact Info) Description 01/16/2020 Scan HEALTH INFO SRVCS Scanned, Documents Social [...] on filedocumented in this encounter Care Teams Budget Counselor Relationship Specialty Start Date End Date Rhonda De La Paz MD PCP - General INTERNAL MEDICINE 09/08/20 07/05/21 Rhonda De La Paz MD Physician INTERNAL MEDICINE 09/08/20 documented as of this encounter
--- OUTSIDE RECORDS SUMMARY | 2024-04-03 16:07 | XMS_ITS | Encounter Summary ---
Author Organization [facility] Address [address] [place] [address]. [place], [place] [address] [place] [address] Care Team Providers Care Defensive Fire Control Systems Operator Name Role Phone Rhonda De La Paz MD Unavailable [phone] Rhonda De La Paz MD Primary Care Provider + [phone] Encounter Details Date Type Department Care Team (Latest Contact Info) Description 06/04/2018 Scan HEALTH INFO SRVCS Scanned, Documents Social [...] on filedocumented in this encounter Care Teams Defensive Fire Control Systems Operator Relationship Specialty Start Date End Date Rhonda De La Paz MD PCP - General INTERNAL MEDICINE 09/08/20 07/05/21 Rhonda De La Paz MD Physician INTERNAL MEDICINE 09/08/20 documented as of this encounter
--- OUTSIDE RECORDS SUMMARY | 2024-04-03 16:07 | XMS_ITS | Encounter Summary ---
Author Organization [facility] Address [address] [place] [address]. [place], [place] [address] [place] [address] Care Team Providers Care Card Assembler Name Role Phone Rhonda De La Paz MD Unavailable [phone] Rhonda De La Paz MD Primary Care Provider [phone] Encounter Details Date Type Department Care Team (Latest Contact Info) Description 11/25/2019 Scan HEALTH INFO SRVCS Scanned, Documents Social [...] on filedocumented in this encounter Care Teams Card Assembler Relationship Specialty Start Date End Date Rhonda De La Paz MD PCP - General INTERNAL MEDICINE 09/08/20 07/05/21 Rhonda De La Paz MD Physician INTERNAL MEDICINE 09/08/20 documented as of this encounter
--- OUTSIDE RECORDS SUMMARY | 2024-04-03 16:07 | XMS_ITS | Encounter Summary ---
Author Organization [facility] Address [address] [place] [address]. [place], [place] [address] [place] [address] Care Team Providers Care Net Developer Software Engineer C Name Role Phone Rhonda De La Paz MD Unavailable [phone] Rhonda De La Paz MD Primary Care Provider [phone] Encounter Details Date Type Department Care Team (Latest Contact Info) Description 09/08/2020 Travel Social History Tobacco Use Types Packs/Day [...] on filedocumented in this encounter Care Teams Net Developer Software Engineer C Relationship Specialty Start Date End Date Rhonda De La Paz MD PCP - General INTERNAL MEDICINE 09/08/20 07/05/21 Rhonda De La Paz MD Physician INTERNAL MEDICINE 09/08/20 documented as of this encounter
--- OUTSIDE RECORDS SUMMARY | 2024-04-03 16:07 | XMS_ITS | Encounter Summary ---
Author Organization [facility] Address [address] [place] [address]. [place], [place] [address] [place] [address] Care Team Providers Care Mechanical Apprentice Name Role Phone Rhonda De La Paz MD Unavailable [phone] Rhonda De La Paz MD Primary Care Provider + [phone] Encounter Details Date Type Department Care Team (Latest Contact Info) Description 05/30/2017 Scan HEALTH INFO SRVCS Scanned, Documents Social [...] on filedocumented in this encounter Care Teams Mechanical Apprentice Relationship Specialty Start Date End Date Rhonda De La Paz MD PCP - General INTERNAL MEDICINE 09/08/20 07/05/21 Rhonda De La Paz MD Physician INTERNAL MEDICINE 09/08/20 documented as of this encounter
--- OUTSIDE RECORDS SUMMARY | 2024-04-03 16:15 | XMS_ITS ---
Author Organization [facility] Address [address] [place], [place] [address] Care Team Providers Care Bag Machine Adjuster Name Role Phone Zakia Luong Unavailable Unavailable BENY DURÁN Unavailable [phone] REASON FOR VISIT No reason given Encounters Encounter Location Date Provider Diagnosis [facility] [place] [address] [address] [place], [place] [id number] 07/02/2023 BENY DURÁN Plan Of Treatment No Information Progress Notes * FRANCESCA BRITOOB:1960 (63 yo F)Acc No.[id number]:07/02/2023 Patient:JEANETH VALE Provider:?Beny Durán DPM :1960???Age:62 Y???Sex:Female D ate:07/02/2023 Address:[address] [facility] Subjective: * Chief Complaints: * ???1. No reason given. * Medical History:? Objective: * Vitals:? Assessment: Plan: * Treatment: * Billing Information: * Visit Code:? * Procedure Codes:? * Electronic signature of BENY DURÁN DPM on 04/03/2024 at 04:15 PM BELT PRESS OPERATOR Sign off status: Pending * Provider:?Beny Durán DPM Date:?07/02/19 24 Generated for Michaeli terry/Luke/eTransmitting on:?04/03/2024 04:15 PM BELT PRESS OPERATOR
--- OUTSIDE RECORDS SUMMARY | 2024-04-03 16:15 | XMS_ITS ---
Author Organization [facility] Address [address] [place], [place] [id number] Care Team Providers Care Radio Division Captain Name Role Phone Zakia Luong Unavailable Unavailable BENY DURÁN [phone] REASON FOR VISIT While the pain is not 100% gone, it is much better after the cortisone injection. Also, she is doing better about wearing shoes that fit the orthotic Vital Signs Weight 130 lbs 06/11/2023 Weight-kg 58.97 kg 06/11/2023 Height 61 in 06/11/2023 Height-cm 154.94 cm 06/11/2023 BMI 24.56 kg/m2 06/11/2023 Encounters Encounter Location Date Provider Diagnosis [facility] [place] [address] [place], [place] [id number] 06/11/2023 BENY DURÁN Other enthesopathy o f left foot and ankle M77.52 ; Metatarsalgia, left foot M77.42 and Left foot pain M79.672 Assessments Encounter Date Diagnosis (ICD Code) Assessment Notes Treatment Notes Treatment Clinical Notes Section Notes 06/11/2023 Other enthesopathy of left foot and ankle (ICD-10 - M77.52) Capsulitis / Bursitis: I discussed anti-inflammatory treatment options and various means of immobilization with the patient. I educated the patient on icing and stretching, supportive shoegear, and the use of orthotic devices and bracing. Kenalog Injection: Following skin prep, a total of 3 ccs of a 1-1-1 mix of 0.5% marcaine plain, 1% lidocaine plain, and Kenalog was injected to the left 5th metatarsalphalangeal joint 06/11/2023 Metatarsalgia, left foot (ICD-10 - M77.42) Metatarsalgia: I discussed anti-inflammatory treatment options and various means of immobilization with the patient. I educated the patient on icing and stretching, supportive shoegear, and the use of orthotic devices and bracing. Shoe Gear Recommendation: Patient will obtain shoes that have removable liners so she can use her PowerStep inserts 06/11/2023 Left foot pain (ICD-10 - M79.672) Plan Of Treatment Treatment Notes Assessment Notes Other enthesopathy of left f oot and ankle Capsulitis / Bursitis: I discussed anti-inflammatory treatment options and various means of immobilization with the patient. I educated the patient on icing and stretching, supportive shoegear, and the use of orthotic devices and bracing. Kenalog Injection: Following skin prep, a total of 3 ccs of a 1-1-1 mix of 0.5% marcaine plain, 1% lidocaine plain, and Kenalog was injected to the left 5th metatarsalphalangeal joint Metatarsalgia, left foot Metatarsalgia: I discussed anti-inflammatory treatment options and various means of immobilization with the patient. I educated the patient on icing and stretching, supportive shoegear, and the use of orthotic devices and bracing. Shoe Gear Recommendation: Patient will obtain shoes that have removable liners so she can use her PowerStep inserts Next Appt Details Follow Up: 3 Weeks, Reason: See how 2nd injection helped Progress Notes * FRANCESCA LAOB:1960 (62 yo F)Acc No.[id number]:06/11/2023 Patient:?JEANETH LA Provider:?Beny Durán DPM :1960???Age:62 Y???Sex:Female D ate:06/11/2023 Address:[address], [place] [id number] Subjective: * Chief Complaints: * ???1. While the pain is not 100% gone, it is much better after the cortisone injection. Also, she is doing better about wearing shoes that fit the orthotic. * HPI: ???HPI:?Follow Up Visit?Patient presents for follow up visit for an injection , . left. ?Patient states their problem is,improving., Pt states the pain is better not gone. ?MA: As.? * ROS:?General / Constitutional:?Patient denies?chills, fever, weakness, night sweats.?Musculoskeletal:?Patient denies?childhood foot problems, weakness.?Patient complains of?joint pain.?Peripheral Vascular:?Patient denies?ulceration of feet, cold extremities.?Skin:?Patient denies?ulcerations, discoloration.?Neurologic:?Patient denies?balance difficulty, confusion, difficulty speaking, dizziness.? * Medical History:? Objective: * Vitals:?Wt:130lbs, Wt-k .97 kg, Ht: 61 in, Ht-cm: 154.94 cm, BMI:24.56Index, Body Surface Area: 1.59. * Examination: ???Constitutional: ?Constitutional?The patient is awake, alert, well developed, well groomed and well nourished..?Dermatologic: ?Skin findings:?Skin is warm, dry, supple with no breaks in the skin..?Vascular: ?Dorsalis pedis pulse:?2/4, bilateral.?Posterior tibial pulse:?2/4, bilaterally.?Capillary refill:?less than 3 seconds.?Edema:?No edema, bilateral.?Neurologic: ?Gross sensation?Gross sensation is intact to light touch..?Musculoskeletal: ?Muscle Strength?Muscle strength is 5/5 in regards to dorsiflexion, plantarflexion, inversion, and eversion in bilateral lower extremities..?Pain on palpation?5th metatarsalphalangela joint, 5th metatarsal head and neck; all of the left foot.? Assessment: * Assessment: 1.?Other enthesopathy of lef t foot and ankle - M77.52 (Primary)?2.?Metatarsalgia, left foot - M77.42?3.?Left foot pain - M79.672? Plan: * Treatment: 2.?Metatarsalgia, left foot? Notes: Metatarsalgia: I discussed anti-inflammatory treatment options and various means of immobilization with the patient. I educated the patient on icing and stretching, supportive shoegear, and the use of orthotic devices and bracing. Shoe Gear Recommendation: Patient will obtain shoes that have removable liners so she can use her PowerStep inserts ?? * Procedure Codes:? DRAIN /INJECT, JOINT/BURSA, Modifiers: LT * Follow Up:?3 Weeks (Reason: See how 2nd injection helped) * Billing Information: * Visit Code:? 37854 Office Visit, Est Pt., Level 3. Modifiers: 25 * Procedure Codes:? DRAIN/INJECT, JOINT/BURSA. Modifiers: LT * M PRESS OPERATOR Sign off status: Completed true * Provider:Esperanza Durán DPM Date:?06/11/19 24 Generated for Becki stewart/Luke/Jazlynitting on:?04/03/2024 04:15 PM STEAM PRESS OPERATOR History and Physical Notes * HPI (History of Present Illness) Category Sub-Category Detail Notes Category Not es HPI Follow Up Visit Patient presents for follow up visit for an injection , . left. Patient states their problem is,improving., Pt states the pain is better not gone. MA: As Examination Category Sub-Category Detail Notes Category Not es Dermatologic Skin findings: Skin is warm, dr y, supple with no breaks in the skin. Neurologic Gross sensation Gross sensation is intact to light touch. Vascular Dorsalis pedis pulse: 2/4, bilateral Edema: No edema, bilateral Capillary refill: less than 3 seconds Posterior tibial pulse: 2/4, bilaterally Musculoskeletal Muscle Strength Muscle strength is 5/5 in regards to dorsiflexion, plantarflexion, inversion, and eversion in bilateral lower extremities. Pain on palpation 5th metatarsalphalan radha joint, 5th metatarsal head and neck; all of the left foot Constitutional Constitutional The patient is a wake, alert, well developed, well groomed and well nourished.
--- OUTSIDE RECORDS SUMMARY | 2024-04-03 16:16 | XMS_ITS | Continuity of Care Document ---
Author Organization [facility] Address [address] [place] [address] Phone Care Team Providers Care Manager Career Name Role Phone Unavailable Unavailable Unavailable Allergies, Adverse Reactions, Alerts Substance Reaction Status Criticality Sulfa (Sulfonamide Antibiotics) Hives, Rash Active No Information aspirin Other Active No Information WARNIN allergy(ies) could not be collected because the type is not supported. Please contact the source practice for further details. Medications Medication Instructions Dosage Effective Dates (start - stop) Status Comments prednisone 10 mg tablet TAPER: Days 1-9 take 6 tabs, day 10 take 5 tabs, day 11 take 4 tabs, day 12 take 3 tabs, days 13 take 2 tabs, day 14 take 1 tab - Active NARATRIPTAN HCL (unknown strength) Not Available - Active PEPSIN 3,000 DIGESTION (unknown strength) Not Available - Active PROZAC (unknown strength) Not Available - Active Problems Condition Type Effective Dates (start - stop) Clini nicki Status Comments No Known Problems Procedures Procedure Date OV, Estab Pt, Level II Tympanometry Comp Audiometry Threshold Eval 17 Labyrinthotomy; Transcanal No Charge Office Visit No Charge Office Visit Labyrinthotomy; Transcanal Labyrinthotomy; Transcanal No Charge Office Visit OV, New Pt, Level III Tympanometry Comp Audiometry Threshold Eval 17 HAC 1 Year Advance Directives Directive Yes / No Effective Date File Name No Information Encounters Encounter Description Practice Location Reason(s) For Visit Diagnoses Date Provider Providers Copied on Encounter [facility], [address], [place], [place], [id number] , tel: [phone] [facility] No Information 7 No Information OV, Estab Pt, Level II [facility], [address], [place], [place], [address] , tel: [phone] [facility] Follow Up of ear fullness (chief complaint) Sudden idiopathic hearing loss, left earSnsrnrl hear loss, uni, left ear, w unrestr hear cntra side 7 No Information [facility], [address], [place], [place], [id number] , [place] tel: [phone] [facility] Follow Up of ear fullness (chief complaint) Sudden idiopathic hearing loss, left ear 7 No Information [facility], [address], [place], [place], [address] , [place] tel: [phone] [facility] Follow Up of ear fullness (chief complaint) Sudden idiopathic hearing loss, left ear 7 No Information [facility], [address], [place], [place], [address] , [place] tel: [phone] [facility] Follow Up of ear fullness (chief complaint) Asymmetrical hearing loss of left earSudden idiopathic hearing loss, left ear 7 No Information OV, New Pt, Level III [facility], [address], [place], [place], [address] , [place] tel:[phone] [facility] ear fullness (chief complaint) Asymmetrical hearing loss of left earSensorineural hearing loss, bilateralTinnitus , bilateral 7 No Information Referring Provider: Heraclio Kearney , [address] [place], [address]. tel:[phone] Family History Family Member Type Diagnosis Age At Onset Mother Problem (finding) malignant neop lasm of breast in first degree relative Payers Payer name Insurance type Covered alliance party ID Authoriza tigrayson(s) [employer] CI [id number] Social History Type Description Quantity Date Captured Comments Alcohol Use Details No Caffeine Use Details Tobacco Use Status No Information Smoking Status Never smoker Sex Female Chief Complaint And Reason For Visit No Information Reason For Referral Reason For Referral No Information Plan Of Treatment Date Type Action Status Future Order: Lab Order BUN & Cr johann ([facility] 1), Ordered on: Ordered History Of Present Illness Encounter Date Complaint History Of Prese nt Illness Follow Up of ear fullness Onset: gradual. Severity level is moderate. The problem is with no change. Follow Up of ear fullness Onset: gradual. Severity level is moderate. The problem is with no change. Follow Up of ear fullness Onset: gradual. Severity level is moderate-severe. The patient states it is in both ears and left is worse. It occurs constantly. The problem is with no change. Associated symptoms include hearing deficit and ringing in ears. Pertinent negatives include bleeding from ear(s), congestion (nasal), cough, decreased appetite, dizziness, drainage (clear), drainage (purulent), ear popping, ear pressure, fever, fullness in ears, irritability, loss of balance, malaise, mastoid bone tenderness, nausea, redness/swelling outer ear, tooth pain and vomiting. Additional information: ON FOR . Follow Up of ear fullness Onset: gradual. Severity level is moderate-severe. The patient states it is in both ears and left is worse. It occurs constantly. The problem is with no change. Associated symptoms include hearing deficit and ringing in ears. Pertinent negatives include bleeding from ear(s), congestion (nasal), cough, decreased appetite, dizziness, drainage (clear), drainage (purulent), ear popping, ear pressure, fever, fullness in ears, irritability, loss of balance, malaise, mastoid bone tenderness, nausea, redness/swelling outer ear, tooth pain and vomiting. Additional information: ON FOR . ear fullness Onset: gradual. Severity level is moderate-severe. The patient states it is in both ears and left is worse. It occurs constantly. The problem is with no change. Associated symptoms include hearing deficit and ringing in ears. Pertinent negatives include bleeding from ear(s), congestion (nasal), cough, decreased appetite, dizziness, drainage (clear), drainage (purulent), ear popping, ear pressure, fever, fullness in ears, irritability, loss of balance, malaise, mastoid bone tenderness, nausea, redness/swelling outer ear, tooth pain and vomiting. Additional information: ON FOR . Functional Status Date Functional Assessmen t No Information Instructions Date Instruction Additional Infor vincent MARKED AUDIO IMPROVE MENT WITH ITS X 3DISCUSSED 3 MO FU WITH AUDIO Related to Sudden idiopathic hearing loss, left ear ITS 3FOLLOW UP NEXT WEEK WITH AU ARTUOR Related to Sudden idiopathic hearing loss, left ear ITS #2PLAN FOR ITS # 3 NEXT WEEKMRI PENDING Related to Sudden idiopathic hearing loss, left ear INTRATYMPANIC STEROI D INJECTION 1 TODAY The risks, benefit, and alternatives to myringotomy, INTRATYMPANIC INJECTION, with our without tubes, including infection, bleeding, scarring, numbness, hearing loss, persisting perforation, tinnitus, as well as the need for second procedure were thoroughly reviewed. The patient voiced understanding of these risks and wishes to proceed. Related to Asymmetrical hearing loss of left ear intratympanic steroi d injectionsinjection #1 Sunday Related to Asymmetrical hearing loss of left ear Assessments Type Assessment Date No Information Patient Care Teams Name Effective Dates (start - stop) Status Members No Information
--- OUTSIDE RECORDS SUMMARY | 2024-04-03 16:16 | XMS_ITS | Continuity of Care Document ---
Author Organization [facility] Address [address] [place] [address] Phone Care Team Providers Care Computer Network Engineer Name Role Phone Jez Lees MD Unavailable Unavailabl e Medications Medication Instructions Dosage Effective Dates (start - stop) Status Comments omega-3 fatty acids-vitamin E 1,000 mg Cap Unknown - Prescribed Elsewhere - Active Clarinex 5 mg Tab Take one tablet by mouth daily - Active Clarinex 5 mg Tab Unknown - Prescribed Elsewhere - Active Maxalt-SPLICER APPRENTICE 10 mg Tab, Rapid Dissolve Unknown - Prescribed Elsewhere - Active Prozac 10 mg Cap Unknown - Prescribed Elsewhere - Active Procedures Procedure Date No Surgery Deposit Due Sinus Endos,W/Bx W/Epistxs Control OV, Estab Pt, Level IV Nasal Endoscopy W/ Epistaxis Control August OV, Estab Pt, Level IV Diagnostic Nasal Endoscopy OV, Estab Pt, Level IV Nasal Endoscopy W/ Epistaxis Control August No Charge Office Visit Control Nasal Hem ,Anterior Simple Consult, Level III / Office Nasal Endoscopy W/ Epistaxis Control Jul Advance Directives Directive Yes / No Effective Date File Name No Information Encounters Encounter Description Practice Location Reason(s) For Visit Diagnoses Date Provider Providers Copied on Encounter [facility], [address], [place], [place], [id number] , tel:[phone] [facility] No Information Hay-0 8-200 9 Yoana Story. [address], [place] [address], [place], [place], [id number], [place]. tel: [phone] [facility], [address], [place], [place], [address] , [place] tel: [phone] [facility] No Information August-1 1-200 9 Yoana Story. [address], [address], [id number], [place]. tel: [phone] OV, Estab Pt, Level IV [facility], [address], [place], [place], [address] , [place] tel: [phone] [facility] Epistaxis (chief complaint) No Information August-0 7-200 9 No Information OV, Estab Pt, Level IV [facility], [address], [place], [place], [address] , [place] tel: [phone] [facility] Epistaxis (chief complaint) EpistaxisChronic Rhinitis August-0 7-200 9 Yoana Story. [address], [address], [id number], [place]. tel: [phone] OV, Estab Pt, Level IV [facility], [address], [place], [place], [address] , [place] tel: [phone] [facility] Epistaxis (chief complaint) EpistaxisDeviate d Nasal Septum May-0 4-200 9 Yoana Story. [address], [address], [id number], [place]. tel: [phone] [facility], [address], [place], [place], [address] , [place] tel: [phone] [facility] Epistaxis (chief complaint) Epistaxis May-0 2-200 9 No Information Consult, Level III / Office [facility], [address], [place], [place], [address] , [place] tel: [phone] [facility] Epistaxis (chief complaint) EpistaxisHypertr ph Nasal TurbinatDeviated Nasal Septum Apr-2 9 Yoana Story. [address], [place], [place], [address], [place]. tel:[phone] Family History Family Member Type Diagnosis Age At Onset Problem (finding) Family history of ADD Problem (finding) Family history of malignant neoplasm of male breast Problem (finding) Payers Payer name Insurance type Covered alliance party [facility] [id number] Social History Type Description Quantity Date Captured Comments Sex Female Smoking Status No Information Chief Complaint And Reason For Visit No Information Reason For Referral Reason For Referral No Information History Of Present Illness Encounter Date Complaint History Of Prese nt Illness No Information Functional Status Date Functional Assessmen t No Information Instructions Date Instruction Additional Infor mation No Information Assessments Type Assessment Date No Information Patient Care Teams Name Effective Dates (start - stop) Status Members No Information
--- OUTSIDE RECORDS SUMMARY | 2024-04-03 16:16 | XMS_ITS | Patient Health Record ---
Author Organization [facility] Address [address] [place], [place] [address] Care Team Providers Care Design Assistant Name Role Phone Zakia Luong Unavailable Unavailable SNF[facility]AD[facility] Unavailable [phone] Allergies Allergen (clinical drug ingredient) Drug/Non Drug Allergy documented on EMR Reaction Allergy Type Onset Date Status codeine Codeine Unknown Drug Allergy Active Substance with sulfonamide structure and antibacterial mechanism of action (substance) Sulfa Antibiotics Unknown Drug Allergy Active Reason For Referral No Information Vital Signs Height-cm 154.94 cm 06/11/2023 Weight-kg 58.97 kg 06/11/2023 Height 61 in 06/11/2023 Weight 130 lbs 06/11/2023 BMI 24.56 kg/m2 06/11/2023 Encounters Encounter Location Date Provider Diagnosis [facility] [address] [facility] [address] [place], [place] [id number] 04/17/2023 BENY SNOOK Other enthesopathy o f left foot and ankle M77.52 ; Metatarsalgia, left foot M77.42 and Left foot pain M79.672 [facility] [address] [place], [place] [id number] 05/21/2023 BENY SNOOK Other enthesopathy o f left foot and ankle M77.52 ; Metatarsalgia, left foot M77.42 and Left foot pain M79.672 [facility] [address] [place], [place] [id number] 06/11/2023 BENY SNOOK Other enthesopathy o f left foot and ankle M77.52 ; Metatarsalgia, left foot M77.42 and Left foot pain M79.672 [facility] [address] [place], [place] [id number] 05/19/2023 Assessments Encounter Date Diagnosis (ICD Code) Assessment Notes Treatment Notes Treatment Clinical Notes Section Notes 04/17/2023 Metatarsalgia, left foot (ICD-10 - M77.42) Metatarsalgia: I discussed anti-inflammatory treatment options and various means of immobilization with the patient. I educated the patient on icing and stretching, supportive shoegear, and the use of orthotic devices and bracing. 04/17/2023 Other enthesopathy of left foot and ankle (ICD-10 - M77.52) Capsulitis / Bursitis: I discussed anti-inflammatory treatment options and various means of immobilization with the patient. I educated the patient on icing and stretching, supportive shoegear, and the use of orthotic devices and bracing. Shoe Gear Recommendation: Advised patient on appropriate shoe gear for protection, healing and good foot health Orthotic Recommendation: I recommended functional orthotics for the patient. 05/21/2023 Metatarsalgia, left foot (ICD-10 - M77.42) Metatarsalgia: I discussed anti-inflammatory treatment options and various means of immobilization with the patient. I educated the patient on icing and stretching, supportive shoegear, and the use of orthotic devices and bracing. Shoe Gear Recommendation: Patient will obtain shoes that have removable liners so she can use her PowerStep inserts 05/21/2023 Other enthesopathy of left foot and ankle [...] she can use her PowerStep inserts 06/11/2023 Other enthesopathy of left foot and [...] to the left 5th metatarsalphalangeal joint 06/11/2023 Left foot pain (ICD-10 - M79.672) 05/21/2023 Left foot pain (ICD-10 - M79.672) 04/17/2023 Left foot pain (ICD-10 - M79.672) Plan Of Treatment No Information Insurance Providers Payer Name Payer Address Payer Phone Subscriber Number Group Number Insured Name Patient Relationship to Insured Coverage Start Date Coverage End Date [employer] [address] [place], [place] [id number] JEANETH BRITO Self - patient is the insured Medical (General) History Medical History History ICD Code Blood clots
--- OUTSIDE RECORDS SUMMARY | 2024-04-03 16:16 | XMS_ITS ---
Author Organization [facility] Address [address] [place], [place] [address] Care Team Providers Care Aircraft Accessories Mechanic Name Role Phone Zakia Luong Unavailable Unavailable BENY DURÁN Unavailable [phone] Allergies Allergen (clinical drug ingredient) Drug/Non Drug Allergy documented on EMR Reaction Allergy Type Onset Date Status codeine Codeine Unknown Drug Allergy Active Substance with sulfonamide structure and antibacterial mechanism of action (substance) Sulfa Antibiotics Unknown Drug Allergy Active REASON FOR VISIT The relafen was tolerated well, and it may have helped a little bit; but she still has pain. The problem with the PowerStep inserts is that they only fit in one pair of shoes, and it is not a shoe she wears often Vital Signs Weight 130 lbs 05/21/2023 Weight-kg 58.97 kg 05/21/2023 Height 61 in 05/21/2023 Height-cm 154.94 cm 05/21/2023 BMI 24.56 kg/m2 05/21/2023 Encounters Encounter Location Date Provider Diagnosis [facility] [place] [address] [place], [place] [id number] 05/21/2023 BENY DURÁN Other enthesopathy o f left foot and ankle M77.52 ; Metatarsalgia, left foot M77.42 and Left foot pain M79.672 Assessments Encounter Date Diagnosis (ICD Code) Assessment Notes Treatment Notes Treatment Clinical Notes Section Notes 05/21/2023 Other enthesopathy of left foot and [...] injected to the left 5th metatarsalphalangeal joint 05/21/2023 Metatarsalgia, left foot (ICD-10 - M77.42) Metatarsalgia: I discussed anti-inflammatory treatment options and various means of immobilization with the patient. I educated the patient on icing and stretching, supportive shoegear, and the use of orthotic devices and bracing. Shoe Gear Recommendation: Patient will obtain shoes that have removable liners so she can use her PowerStep inserts 05/21/2023 Left foot pain (ICD-10 - M79.672) Plan [...] PowerStep inserts Next Appt Details Follow Up: 2 Weeks, Reason: See how 1st injection helped left 5th MPJ Progress Notes * FRANCESCA LAOB:1960 (62 yo F)Acc No.[id number]:05/21/2023 Patient:?JEANETH LA Provider:?Beny Durán DPM :1960???Age:62 Y???Sex:Female D ate:05/21/2023 Address:[address], [place], [id number] Subjective: * Chief Complaints: * ???1. The yeseniafen was tolera octavio well, and it may have helped a little bit; but she still has pain. The problem with the PowerStep inserts is that they only fit in one pair of shoes, and it is not a shoe she wears often. * HPI: ???HPI:?Follow Up Visit?Patient presents for follow-up visit for Powerstep follow up, Left., Patient states their problem is, worse., Patient has only been wearing Powerstep when she wears her sketchers. Pt feels power steps have been causing more discomfort. MA: EW.? * ROS:?General / Constitutional:?Patient denies?chills, fever, weakness, night sweats.?Musculoskeletal:?Patient denies?childhood foot problems, weakness.?Patient complains of?joint pain.?Peripheral Vascular:?Patient denies?ulceration of feet, cold extremities.?Skin:?Patient denies?ulcerations, discoloration.?Neurologic:?Patient denies?balance difficulty, confusion, difficulty speaking, dizziness.? * Medical History:? * Allergies:?Codeine, Sulfa An tibiotics. Objective: * Vitals:?Shoe Size: 7, Wt:130 lbs, Wt-k.97 kg, Ht: 61 in, Ht-cm: 154.94 cm, [...] DRAIN /INJECT, JOINT/BURSA, Modifiers: LT * Follow Up:?2 Weeks (Reason: See how 1st injection helped left 5th MPJ) * Billing Information: * Visit Code:? 04326 Office Visit, Est Pt., Level 3. Modifiers: 25 * Procedure Codes:? DRAIN/INJECT, JOINT/BURSA. Modifiers: LT * WORK FINISHER Sign off status: Completed true * Provider:Esperanza Durán DPM Date:?05/21/19 24 Generated for Becki stewart/Luke/Jazlynitting on:?04/03/2024 04:15 PM FLATWORK FINISHER History and Physical Notes * HPI (History of Present Illness) Category Sub-Category Detail Notes Category Not es HPI Follow Up Visit Patient presents for follow-up visit for Powerstep follow up, Left., Patient states their problem is, worse., Patient has only been wearing Powerstep when she wears her sketchers. Pt feels power steps have been causing more discomfort. MA: EW Examination Category Sub-Category Detail Notes Category Not [...]
--- OUTSIDE RECORDS SUMMARY | 2024-04-03 16:16 | XMS_ITS ---
Author Organization [facility] Address [address] [place] [address] Care Team Providers Care Nailhead Setter Name Role Phone PCP, Does Not Have a Primary Care Provider Unava Randi Burgos Unavailable [phone] ALLERGIES No Known Allergies RESULTS Component Value Reference Range Notes X ray : CHEST PA LATERAL 2 v iew Reviewed date:04/26/2023 02:30:21 PM Interpretation: Performing Lab: Notes/Report: Procedure was performed at the [facility] EXAM: CHEST PA LATERAL PROCEDURE DATE: 04/26/2023 INTERPRETATION: EXAM: XR CHEST PA AND LATERAL INDICATION: Persistent cough URG COMPARISON: None IMPRESSION: No focal infiltrate or congestion. Heart is within normal limits in its transthoracic diameter. Regional osseous structures appropriate for age --- End of Report --- PATTI BARKER MD; Attending Radiologist This document has been electronically signed. Apr 26 2023 12:01PM [id number] Procedure was perfor med at the [facility] EXAM: CHEST PA LATERAL PROCEDURE DATE: 04/26/2023 INTERPRETATION: EXAM : XR CHEST PA AND LATERAL INDICATION: Persiste nt cough URG COMPARISON: None IMPRESSION: No focal infiltrate or congestion. Heart is within normal limits in its transt horacic diameter. Regional osseous structures appropriate for age --- End of Report --- PATTI BARKER MD; At [facility] Radiologist This document has be en electronically signed. Apr 26 2023 12:01PM [id number] REASON FOR VISIT COVID-19 RELATED (NOT VACCINE) MEDICATIONS Medication SIG (Take, Route, Frequency, Duration) Notes Start Date End Date Status Benzonatate 200 MG 1 capsule Orally Three times a day for 7 days Active hydroCHLOROthiazide Active Mometasone Furoate 220 MCG/ACT 1 puff in the evening Inhalation Twice a day for 14 days 04/26/2023 Active Fluoxetine Active Lisinopril Active Pulmicort Flexhaler 180 MCG/ACT 1 puff Inhalation Twice a day for 14 days 04/26/2023 05/10/2023 Active VITAL SIGNS Temperature 98.8 degrees Fahrenheit 04/26/19 24 Heart Rate 76 /min 04/26/2023 Blood pressure systolic 147 mm Hg 04/26/19 24 Blood pressure diastolic 80 mm Hg 024 Respiratory Rate 16 /min 04/26/2023 Oximetry 97 % 04/26/2023 Height 61 in 04/26/2023 Weight 130 lbs 04/26/2023 BMI 24.56 kg/m2 04/26/2023 Encounters Encounter Location Date Provider Diagnosis [address] [place] [address] 04/26/2023 Randi Chi Persistent cough R05.3 and Post-COVID syndrome U09.9 ASSESSMENTS Encounter Date Diagnosis Assessment Notes Treatment Notes Treatment Clinical Notes 04/26/2023 Persistent cough (ICD-10 - R05.3) 04/26/2023 Post-COVID syndrome (ICD-10 - U09.9) Quarantine starts on the first day of symptom onset or on date of positive test if you are asymptomatic. Quarantine only ends if symptoms are improved, and you have had NO fever. A known COVID exposure is being within 6 feet of someone known to have COVID for at least 15 minutes. People with COVID may be contagious 48 hours before they get sick. Positive Results: The virus was found in the nasal passage, and you are infected with COVID. You should: 1. Stay home except to get medical care. 2. Isolate yourself from other people for at least 5 days (check with your local ABI for specific guidelines). 3. Mask for an additional 5 days when around others. If you have not had improving symptoms or are still experiencing a fever, quarantine for 7-10 days is recommended. 4. Monitor your symptoms and if you have any or these emergency warning signs for COVID get medical attention immediately: Trouble breathing Persistent pain or pressure in the chest New confusion or inability to arouse Bluish lips or face 5. The most effective treatment for COVID is still an Oral AntiViral (OAV) medication called Paxlovid. Anyone over the age of 12 with any of these common risk factors (heart disease, lung disease, chronic kidney disease, obesity, diabetes, immunocompromised, cancer, , age > 65) is eligible for treatment within the first 5 days of illness. If you have any questions or would like to see if you qualify for treatment, you can discuss this with us today or your PCP. Negative Results: The virus was not found in your nose. A negative result means you probably were not infected at the time your sample was collected. However, that does not mean you will not get sick. It is possible that you were very early in your infection when your sample was collected and that you could test positive later. Or you could be exposed later and then develop the illness. This means you could still spread the virus. Please continue to wear a mask, hand wash, and continue social distancing. Please contact your provider if you have new or worsening symptoms. Even with a NEGATIVE COVID test, if you were exposed it is recommended to mask for 10 days around others and get tested if symptoms develop. If you tested NEGATIVE with a home ANTIGEN test or a COVID ANTIGEN test in our center, current [facility] guidelines recommend serial testing as follows: If a symptomatic individual has a negative COVID-19 antigen test result, a second COVID-19 antigen test needs to be performed. The second test should be performed over three (3) days with at least forty-eight (48) hours between the first and second test. If the first COVID-19 antigen test is positive, a second test is not required. It is also recommended to isolate yourself, socially distance, and wear a mask until you complete the serial testing process. You may take an hxna-yid-ydlcyzn pain reliever/fever senior program planner for any fever/pain. You can also take an ykrm-zry-exdbodf cough suppressant as needed for cough if one has not been prescribed. Your provider can recommend specific medications based on your medical history if needed. Return to the clinic or schedule a virtual visit if you require additional medical attention. 04/26/2023 Other PLAN OF TREATMENT Medication Medication Name Sig Start Date Stop Date Notes Benzonatate 200 MG 1 capsule Orally Thr ee times a day for 7 days Mometasone Furoate 220 MCG/ACT 1 puff in the evening Inhalation Twice a day for 14 days 04/26/2023 Pulmicort Flexhaler 180 MCG/ACT 1 puff Inhalation Twice a day for 14 days 04/26/2023 05/10/2023 Treatment Notes Assessment Notes Post-COVID syndrome Quarantine starts on the first day of symptom onset or on date of positive test if you are asymptomatic. Quarantine only ends if symptoms are improved, and you have had NO fever. A known COVID exposure is being within 6 feet of someone known to have COVID for at least 15 minutes. People with COVID may be contagious 48 hours before they get sick. Positive Results: The virus was found in the nasal passage, and you are infected with COVID. You should: 1. Stay home except to get medical care. 2. Isolate yourself from other people for at least 5 days (check with your local ABI for specific guidelines). 3. Mask for an additional 5 days when around others. If you have not had improving symptoms or are still experiencing a fever, quarantine for 7-10 days is recommended. 4. Monitor your symptoms and if you have any or these emergency warning signs for COVID get medical attention immediately: Trouble breathing Persistent pain or pressure in the chest New confusion or inability to arouse Bluish lips or face 5. The most effective treatment for COVID is still an Oral AntiViral (OAV) medication called Paxlovid. Anyone over the age of 12 with any of these common risk factors (heart disease, lung disease, chronic kidney disease, obesity, diabetes, immunocompromised, cancer, , age > 65) is eligible for treatment within the first 5 days of illness. If you have any questions or would like to see if you qualify for treatment, you can discuss this with us today or your PCP. Negative Results: The virus was not found in your nose. A negative result means you probably were not infected at the time your sample was collected. However, that does not mean you will not get sick. It is possible that you were very early in your infection when your sample was collected and that you could test positive later. Or you could be exposed later and then develop the illness. This means you could still spread the virus. Please continue to wear a mask, hand wash, and continue social distancing. Please contact your provider if you have new or worsening symptoms. Even with a NEGATIVE COVID test, if you were exposed it is recommended to mask for 10 days around others and get tested if symptoms develop. If you tested NEGATIVE with a home ANTIGEN test or a COVID ANTIGEN test in our center, current [facility] guidelines recommend serial testing as follows: If a symptomatic individual has a negative COVID-19 antigen test result, a second COVID-19 antigen test needs to be performed. The second test should be performed over three (3) days with at least forty-eight (48) hours between the first and second test. If the first COVID-19 antigen test is positive, a second test is not required. It is also recommended to isolate yourself, socially distance, and wear a mask until you complete the serial testing process. You may take an mixi-rxf-uriivdl pain reliever/fever senior program planner for any fever/pain. You can also take an cluf-sba-vvzqiaa cough suppressant as needed for cough if one has not been prescribed. Your provider can recommend specific medications based on your medical history if needed. Return to the clinic or schedule a virtual visit if you require additional medical attention. Next Appt Details Follow Up: prn, Reason: Procedure Notes * Category Sub-Category Detail Notes GH - COVID POSITIVE Treatment Options Answer questions for ALL patients being tested for COVID. Has Patient tested POSITIVE for COVID at this time?: N/A (Patient was NOT tested or did NOT test positive at time of visit/does not meet treatment guidelines) no test performed Progress Notes * Examination Category Sub-Category Detail Notes General PE GENERAL: no acute distres s, well nourished, well developed HEAD: normocephalic, atrau matic EYES: no conjunctival inje ction MOUTH/THROAT moist mucous membran es,, no erythema, no tonsillar edema noted, no exudates, no ulcers or other lesions, no drooling HEART: regular rate and rhy thm LUNGS: No respiratory distr ess, no accessory muscle use, No rales, + rhonchi and + wheezing in RML PSYCHIATRIC: affect full , Intera ctive, conversant, A&O x3 SKIN warm, dry, no rash o n exposed skin EARS/NOSE: tympanic membranes c lear bilaterally, No redness, normal landmarks and light reflexes, canal clear without cerumen impaction LYMPHATIC no cervical lymphade nopathy History and Physical Notes * HPI (History of Present Illness) Category Sub-Category Detail Notes URI nasal congestion admits cough admits, Cough is:, m oderate, productive cough fever none vomiting none diarrhea none ear pain none sore throat none Duration 2 weeks- tested posi tive for COVID last Sunday at outside urgent care and was not prescribed Paxlovid, but now with persistent cough myalgias denies chills denies Modifying Factors patient has tried OT C medications with mild relief Independent historian used No Coronavirus Screening Exposure Screening Known positiv e COVID Exposure: Yes Did you have a positive home COVID test? : Yes Have you been vaccinated against COVID-1 9?: No Do you have any high-risk me dical conditions?: Yes Do you live or care for some one who is high risk?: No Is the patient a candidate f or antiviral treatment?: No patient outside of treatment window
--- OUTSIDE RECORDS SUMMARY | 2024-04-03 16:39 | XMS_ITS | Encounter Summary ---
Author Organization [facility] Address [address] [place] [address]. [place], [place] [address] [place] [address] Care Team Providers Care Sericulturist Name Role Phone Rhonda De La Paz MD Unavailable [phone] Yoselin Murdock NP Primary Care Provider [phone] Encounter Details Date Type Department Care Team (Late st Contact Info) Description 10/05/2022 Orders Only [facility] Family & Internal Medicine [address] [address] Paulie Braxton I, RN Social [...] documented as of this encounter Care Teams Sericulturist Relationship Specialty Start [place] [address] [facility] [address] [place] [address] PCP - General Nurse Practitioner Family 10/05/22 Rhonda De La Paz MD Physician INTERNAL MEDICINE 09/08/20 documented as of this encounter
--- OUTSIDE RECORDS SUMMARY | 2024-04-03 16:39 | XMS_ITS | Encounter Summary ---
Author Organization [facility] Address [address] [place] [address]. [place], [place] [address] [place] [address] Care Team Providers Care Planning Technician Name Role Phone Rhonda De La Paz MD Unavailable [phone] Peggy Best Primary Care Provider [phone] Encounter Details Date Type Department Care Team (Late st Contact Info) Description 06/02/2022 Orders Only [facility] Family & Internal Medicine [address] [address] Paulie Braxton I, IVAN Social [...] Coronavirus/COVID-19? No / Unsure 05/30/2022 2:30 PM HYDRAULIC JACK OPERATOR documented as of this encounter Plan of Treatment Not on file documented as of this encounter Visit Diagnoses Diagnosis Essential hypertension Unspecified essential hypertension documented in this encounter Additional Health Concerns Assessment Noted Time PHQ-9 Depression Total Score: 0 03/18/20 21 4:05 PM HYDRAULIC JACK OPERATOR documented as of this encounter Care Teams Planning Technician Relationship Specialty Start Date End Date Peggy Best APNP [phone] [address] PCP - General Nurse Practitioner Family 12/27/21 6/05/08 Rhonda De La Paz MD Physician INTERNAL MEDICINE 09/08/20 documented as of this encounter
--- OUTSIDE RECORDS SUMMARY | 2024-04-03 16:39 | XMS_ITS | Encounter Summary ---
Author Organization [facility] Address [address] [place] [address]. [place], [place] [address] [place] [address] Care Team Providers Care Legal Summer Intern Name Role Phone Rhonda De La Paz MD Unavailable [phone] Pgegy Best Primary Care Provider [phone] Encounter Details Date Type Department Care Team [...] Coronavirus/COVID-19? No / Unsure 05/30/2022 2:30 PM OUTBOUND SALES AGENT documented as of this encounter Plan of Treatment Not on file documented as of this encounter Visit Diagnoses Not on filedocumented in this encounter Additional Health Concerns Assessment Noted Time PHQ-9 Depression Total Score: 0 03/18/20 21 4:05 PM OUTBOUND SALES AGENT documented as of this encounter Care Teams Legal Summer Intern Relationship Specialty Start Date End Date Peggy Best APNP [phone] [address] PCP - General Nurse Practitioner Family 12/27/2109/15 Rhonda De La Paz MD Physician INTERNAL MEDICINE 09/08/20 documented as of this encounter
--- OUTSIDE RECORDS SUMMARY | 2024-04-03 16:39 | XMS_ITS | Encounter Summary ---
Author Organization [facility] Address [address] [place] [address]. [place], [place] [address] [place] [address] Care Team Providers Care Rabbet Operator Name Role Phone Rhonda De La Paz MD Unavailable [phone] Yoselin Murdock NP Primary Care Provider [phone] Reason for Visit * Reason Comments Follow Up Transfer follow up ( Peggy wetzel)3 month follow up Hypertension Anxiety Encounter Details Date Type Department Care Team (Late st Contact Info) Description 10/16/2022 2:20 PM CDT Office Visit [facility] Family & Internal Medicine [address] [address] Yoselin Murdock NP [address] [place] [address]. [place] [address] Follow Up (Transfer follow up (Peggy pt)/3 [...] this encounter Progress Notes * Yoselin Murdock, COORDINATE MEASURING MACHINE PROGRAMMER - 10/16/2022 2:20 PM CDT Reason for [...] migraine pain is typically to the right muslim. Blood pressure had measured elevated in the [...] COLONOSCOPY performed by Charli Yi MD at [facility] OR NASAL AIRWAY TONSILLECTOMY Social History Tobacco [...] documented as of this encounter Care Teams Rabbet Operator Relationship Specialty [place] [phone] [address] PCP - General Nurse Practitioner Family 10/05/22 Rhonda De La Paz MD Physician INTERNAL MEDICINE 09/08/20 documented as of this encounter
--- OUTSIDE RECORDS SUMMARY | 2024-04-03 16:39 | XMS_ITS | Encounter Summary ---
Author Organization [facility] Address [address] [place] [address]. [place], [place] [address] [place] [address] Care Team Providers Care Intervention Manager Name Role Phone Rhonda De La Paz MD Unavailable [phone] Peggy Best APNP Primary Care Provider [phone] Yoselin Murdock ROLL OVER PRESS OPERATOR Primary Care Provider [phone] Reason for Visit * Reason Comments Lab [...] Total Score: 0 03/18/20 21 4:05 PM SCADA TECHNICIAN documented as of this encounter Care Teams Intervention Manager Relationship Specialty Start Date End Date Peggy Best APNP [address] [facility] [address] [place] [address] PCP - General Nurse Practitioner Family 12/27/2109/15 [place] [address] [facility] [address] [place] [address] PCP - General Nurse Practitioner Family 10/05/22 Rhonda De La Paz MD Physician INTERNAL MEDICINE 09/08/20 documented as of this encounter
--- OUTSIDE RECORDS SUMMARY | 2024-04-03 16:39 | XMS_ITS | Clinical Summary ---
Author Organization [facility] Address [address] [place] [address]. [place], [place] [address] [place] [address] Care Team Providers Care Punching Machine Operator Name Role Phone Rhonda De La Paz MD Unavailable [phone] Yoselin Murdock NP Primary Care Provider [phone] Allergies Active Allergy Reactions Criticality Noted Date [...] (03/23/2021): Added automatically from request for surgery [id number] History of colon polyps 03/23/2021 Overview (03/23/2021): Added automatically from request for surgery [id number] Essential hypertension Anxiety Immunizations Name Administration Dates [...] (QUEST ONLY) (02/07/2022 10:23 AM CDT) Comment: [facility] Comment: This order for age-based cervical cancer and STI screening follows ACOG guidelines(PB 168, 140, ZEF266). See individual assays for performing site location. CLINICAL INFORMATION: None given [facility] Clinical Information: NONE GIVEN [facility] Date of Last Pap NONE GIVEN [facility] Previous Biopsy? NONE GIVEN [facility] SOURCE (QST) Endocervix [facility] STATEMENT OF ADEQUACY: SATISFACTORY FOR EVALUATION Partially obscuring inflammation [facility] PAP INTERPRETATION/RESU LTS [facility] Comment: Negative for intraepithelial lesion or malignancy. Atrophic pattern; predominantly parabasal cells COMMENT: This Pap test has been evaluated with computer assisted technology. [facility] MANAGEMENT SCIENTIST [facility] Comment: AMW, CT(ASCP) CT screening location: [place] [address] [place] [address] COMMENT: [facility] Comment: EXPLANATORY NOTE: The Pap is a [...] HPV MRNA E6/E7 Not Detected Not Detected [facility] Comment: Methodology: Hand Leather Trimmer-Mediated Amplification This assay detects E6/E7 viral messenger RNA (mRNA) from 14 high-risk HPV types (16,18,31,33,35,39,45,51,52,56,58,59,66,68). Cervical sources are required for HPV testing. If a vaginal source from a patient who has had a total hysterectomy with removal of cervix was submitted, please contact the testing laboratory for alternative testing options. For additional information, please refer to http://education.[employer]/faq/DTF266k8 (This link if provided for information/ educational purposes only.) 02/07/2022 10:2 3 AM CDT 02/08/2022 12:29 AM CDT us Mis [facility] PATH[facility]/CYTOLOGY ORDERABLE S Final Result [facility] [address] [place] [address] [facility] [address] [address] [facility] [place] [address] * MG SCREENING W TERRI DELMI DIGI [...] VE NON-REACTI VE 09/15/2020 9:02 PM CDT [facility] 09/15/2020 9:30 AM CDT Mis [facility] Final Result [facility] [address] [place] [address], from Last 3 Months or Most Recently Relevant to Health Maintenance Insurance [facility] [employer] Care Teams Punching Machine Operator Relationship Specialty [place] [address] [address] PCP - General Nurse Practitioner Family 10/05/22 Rhonda De La Paz MD Physician INTERNAL MEDICINE 09/08/20
--- OUTSIDE RECORDS SUMMARY | 2024-04-03 16:39 | XMS_ITS | Encounter Summary ---
Author Organization [facility] Address [address] [place] [address]. [place], [place] [address] [place] [address] Care Team Providers Care Business Liaison Officer Name Role Phone Rhonda De La Paz MD Unavailable [phone] Peggy Best Primary Care Provider [phone] Encounter Details Date Type Department Care Team (Late st Contact Info) Description 09/28/2022 Orders Only [facility] Medical [facility] Family & Internal Medicine [address] [address] Paulie Braxton RN Social History [...] documented as of this encounter Care Teams Business Liaison Officer Relationship Specialty Start Date End Date Peggy Best APNP [address] [address] PCP - General Nurse Practitioner Family 12/27/2109/15 Rhonda De La Paz MD Physician INTERNAL MEDICINE 09/08/20 documented as of this encounter
--- OUTSIDE RECORDS SUMMARY | 2024-04-03 16:39 | XMS_ITS | Encounter Summary ---
Author Organization [facility] Address [address] [place] [address]. [place], [place] [address] [place] [address] Care Team Providers Care Featherer Name Role Phone Rhonda De La Paz MD Unavailable [phone] Yoselin Murdock NP Primary Care Provider Encounter Details Date Type Department Care Team (Late st Contact Info) Description 11/06/2022 Hadapt Message Enc [facility] Medical Group Family & Internal Medicine [address] [address] Yoselin Murdock NP [address] [place] [address]. [place] [address] Cyclobenzapril Social History Tobacco Use Types Packs/Day [...] documented as of this encounter Care Teams Featherer Relationship Specialty [place] [address] [address] PCP - General Nurse Practitioner Family 10/05/22 Rhonda De La Paz MD Physician INTERNAL MEDICINE 09/08/20 documented as of this encounter
--- OUTSIDE RECORDS SUMMARY | 2024-04-03 16:39 | XMS_ITS | Encounter Summary ---
Author Organization [facility] Address [address] [place] [address]. [place], [place] [address] [place] [address] Care Team Providers Care Vigoureux Printer Name Role Phone Rhonda De La Paz MD Unavailable [phone] Peggy Best Primary Care Provider [phone] Encounter Details Date Type Department Care Team (Late st Contact Info) Description 09/22/2022 Orders Only [facility] Medical Group Family & Internal Medicine [address] [address] Paulie Braxton I, IVAN Social [...] documented as of this encounter Care Teams Vigoureux Printer Relationship Specialty Start Date End Date Peggy Best APNP [address] [address] PCP - General Nurse Practitioner Family 12/27/2109/15 Rhonda De La Paz MD Physician INTERNAL MEDICINE 09/08/20 documented as of this encounter
--- OUTSIDE RECORDS SUMMARY | 2024-04-03 16:39 | XMS_ITS | Patient Health Record ---
Author Organization [facility] Address [address] [place] [address] Care Team Providers Care Sap Bw Developer Name Role Phone PCP, Does Not Have a Primary Care Provider Makenna Norman Unavailable Randi Chi Unavailable [phone] ALLERGIES Allergen (clinical drug ingredient) Drug/Non Drug Allergy documented on EMR Reaction Allergy Type Onset Date Status Sulfur Unknown Drug Allergy Active codeine Codeine Unknown Drug Allergy Active RESULTS Component Value Reference Range Notes X ray : CHEST PA LATERAL 2 v iew Reviewed date:04/26/2023 02:30:21 PM Interpretation: Performing Lab: Notes/Report: Procedure was performed at the [facility] EXAM: CHEST PA LATERAL PROCEDURE DATE: 04/26/2023 INTERPRETATION: EXAM: XR CHEST PA AND LATERAL INDICATION: Persistent cough URG COMPARISON: None IMPRESSION: No focal infiltrate or congestion. Heart is within normal limits in its transthoracic diameter. Regional osseous structures appropriate for age --- End of Report --- PATTI BARKER MD; Attending Radiologist This document has been electronically signed. Apr 26 2023 12:01PM [id number] Procedure was perfor med at the [facility] EXAM: CHEST PA LATERAL PROCEDURE DATE: 04/26/2023 INTERPRETATION: EXAM : XR CHEST PA AND LATERAL INDICATION: Persiste nt cough URG COMPARISON: None IMPRESSION: No focal infiltrate or congestion. Heart is within normal limits in its transt horacic diameter. Regional osseous structures appropriate for age --- End of Report --- PATTI BARKER MD; At [facility] Radiologist This document has be en electronically signed. Apr 26 2023 12:01PM [id number] Rapid Flu Reviewed date:04/30/2023 09:39:01 AM Interpretation:Negative Performing Lab: Notes/Report: Negative Influenza NEGATIVE NEG - POS Rapid Flu Nose Identifier Rapid Flu Nose Presence Rapid Flu Nose - Upper Respiratory Specimen REASON FOR REFERRAL No Information MEDICATIONS Medication SIG (Take, Route, Frequency, Duration) Notes Start Date End Date Status hydroCHLOROthiazide Active Lisinopril Active Fluoxetine Active Benzonatate 200 MG 1 capsule Orally Three times a day for 7 days Active Mometasone Furoate 220 MCG/ACT 1 puff in the evening Inhalation Twice a day for 14 days 04/26/2023 Active SOCIAL HISTORY Sex Assigned At : Social History Observation Description Sex Assigned At Unknown VITAL SIGNS Heart Rate 92 /min 04/30/2023 Temperature 100.1 degrees Fahrenheit 04/30/2023 Respiratory Rate 17 /min 04/30/2023 Oximetry 97 % 04/30/2023 Blood pressure diastolic 78 mm Hg 04/30/2023 Height 61 in 04/30/2023 Blood pressure systolic 136 mm Hg 04/30/2023 Weight 130 lbs 04/30/2023 BMI 24.56 kg/m2 04/30/2023 Encounters Encounter Location Date Provider Diagnosis [address] [address] 04/26/2023 Randi Chi Persistent cough R05.3 and Post-COVID syndrome U09.[address] [address] 04/30/2023 Makenna Sahni Acute URI J06.9 ; Acute non-recurrent maxillary sinusitis J01.00 and COVID-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 You may take an uokz-img-miejpsv pain reliever/fever cross roller for any fever/pain. You can also take an fbxk-sig-ipwpwys cough suppressant as needed for cough if one has not been prescribed. Your provider can recommend specific medications based on your medical history if needed. Return to the clinic or schedule a virtual visit if you require additional medical attention. 04/30/2023 Acute URI (ICD-10 - J06.9) You may take an pmgr-wcv-aefxgfx pain reliever/fever cross roller for any fever/pain. You can also take an luxr-ytn-voeigre cough suppressant as needed for cough if one has not been prescribed. Your provider can recommend specific medications based on your medical history if needed. Return to the clinic or schedule a virtual visit if you require additional medical attention. 04/30/2023 Acute non-recurrent maxillary sinusitis (ICD-10 - J01.00) Take medications as prescribed. You should additionally use saline nasal spray as needed for congestion. Standing in a hot/steamy shower may furthermore help ease symptoms of congestion. Take all qqpv-acz-yjvfhtt medications as directed. Return to clinic or follow-up with your Primary Care Doctor if symptoms persist or worsen. Report to Emergency Room immediately if experiencing high fever, severe headache, altered mental status, eye swelling or redness, pain with eye movements or visual changes. While taking Antibiotics your control may be less effective, please use second form of protection while taking antibiotics. 04/30/2023 COVID-19 tabitha randall (ICD-10 - U09.9) 04/26/2023 Other 04/30/2023 Other Quarantine starts on the first day of [...] COVID ANTIGEN test in our center, current [facility] guidelines recommend serial testing as follows: If [...] until you complete the serial testing process. PLAN OF TREATMENT No Information Insurance Providers Payer Name Payer Address Payer Phone Subscriber Number Group Number Insured Name Patient Relationship to Insured Coverage Start Date Coverage End Date [employer] [address] [place] [phone] [id number] JEANETH LA Self - patient is the insured MEDICAL (GENERAL) HISTORY Medical History History ICD Code HTN
--- OUTSIDE RECORDS SUMMARY | 2024-04-03 16:39 | XMS_ITS | Encounter Summary ---
Author Organization [facility] Address [address] [place] [address]. [place], [place] [address] [place] [address] Care Team Providers Care Rolling Mill Plugger Name Role Phone Rhonda De La Paz MD Unavailable [phone] Peggy Best Primary Care Provider [phone] Reason for Visit * Reason Comments Medication Follow up blood pres sure medis Encounter Details Date Type Department Care Team (Late st Contact Info) Description 06/30/2022 7:00 AM CDT Office Visit [facility] Medical Group Family & Internal Medicine [facility] [address] [place] [address] Peggy Best APNP [address] [address] Medication (Follow up blood pressure [...] COLONOSCOPY performed by Charli Yi MD at [facility] OR ??? NASAL AIRWAY ??? TONSILLECTOMY [...] appointment, orders and follow up asdocumented in [facility], reviewed diet, exercise and weight control, [...] documented as of this encounter Care Teams Rolling Mill Plugger Relationship Specialty Start Date End Date Peggy Bets APNP [address] [address] PCP - General Nurse Practitioner Family 12/27/21 6/05/08 Rhonda De La Paz MD Physician INTERNAL MEDICINE 09/08/20 documented as of this encounter
--- OUTSIDE RECORDS SUMMARY | 2024-04-03 16:39 | XMS_ITS | Encounter Summary ---
Author Organization [facility] Address [address] [place] [address]. [place], [place] [address] [place] [address] Care Team Providers Care Environmental Health Manager Name Role Phone Rhonda De La Paz MD Unavailable [phone] Peggy Best APNP Primary Care Provider [phone] Yoselin Murdock HEALTHCARE CUSTOMER SERVICE Primary Care Provider [phone] Reason for Visit * Reason Onset Date Comments Billing Issue 06/02/2022 Coding issue Encounter Details Date Type Department Care Team (Late st Contact Info) Description 06/02/2022 Burtt Message Enc [facility] Medical Group Family & Internal Medicine [facility] [address] [place] [address] [place], [place] [address] [place] [address] My Pap test Social History Tobacco [...] Coronavirus/COVID-19? No / Unsure 05/30/2022 2:30 PM FARMWORKER FRUIT documented as of this encounter Progress Notes * Rachel Allen MA - 06/07/2022 8:20 AM CST Spoke with patient and Peggy has written a letter for her. I then left her a v/m that her letter and paperwork will be at the help desk administrator for her to tow picker and she should be able to view her letter on My Chart. WORKER FRUIT * Angela Benavides - 06/05/2022 8:49 AM CST Danielle calling this morning asking to set up an appointment via phone or face to face with Rachel special technical operations officer o discuss the billing issue she is having. CB # [phone] danielle WORKER FRUIT * Kirsten Diallo - 06/02/2022 3:19 PM CST Patient stopped by the office dropping off forms regarding coding or billing issue for last pap culture. Was told by her insurance the culture sent to [facility] will not be covered do to being not safe and effective for patients condition. Patient contacted [facility] and was told this is not a billing issue that it's a coding issue. Placed in Rachel Allen folder for review. WORKER FRUIT documented in this encounter Plan of Treatment Not on file documented as of this encounter Visit Diagnoses Not on filedocumented in this encounter Additional Health Concerns Assessment Noted Time PHQ-9 Depression Total Score: 0 03/18/20 21 4:05 PM FARMWORKER FRUIT documented as of this encounter Care Teams Environmental Health Manager Relationship Specialty Start Date End Date Peggy Best APNP [address] [place] [address] PCP - General Nurse Practitioner Family 12/27/21 6/05/08 [place] [address] [address] PCP - General Nurse Practitioner Family 10/05/22 Rhonda De La Paz MD Physician INTERNAL MEDICINE 09/08/20 documented as of this encounter
--- OUTSIDE RECORDS SUMMARY | 2024-04-03 16:39 | XMS_ITS | Encounter Summary ---
Author Organization [facility] Address [address] [place] [address]. [place], [place] [address] [place] [address] Care Team Providers Care Vp Corporate Development Name Role Phone Rhonda De La Paz MD Unavailable [phone] Peggy Best Primary Care Provider [phone] Reason for Visit * Reason Onset Date Comments Billing Issue 08/14/2022 Encounter Details Date Type Department Care Team (Late st Contact Info) Description 08/14/2022 Telephone [facility] Medical Group Family & Internal Medicine [facility] [address] [place] [address] Peggy Best APNP [address] [facility] [address] [place] [address] Billing Issue Social History Tobacco Use [...] to contact through the office or through Trumaker. * Angela Benavides - 08/14/2022 10:30 AM CDT Rosa calling asking to speak to the manager heavy equipment (Rachel) States she has been working with [...] documented as of this encounter Care Teams Vp Corporate Development Relationship Specialty Start Date End Date Peggy Best APNP [address] [address] PCP - General Nurse Practitioner Family 12/27/2109/15 Rhonda De La Paz MD Physician INTERNAL MEDICINE 09/08/20 documented as of this encounter
--- OUTSIDE RECORDS SUMMARY | 2024-04-03 16:39 | XMS_ITS | Encounter Summary ---
Author Organization [facility] Address [address] [place] [address]. [place], [place] [address] [place] [address] Care Team Providers Care Grinder Name Role Phone Rhonda De La Paz MD Unavailable [phone] Peggy Best Primary Care Provider [phone] Encounter Details Date Type Department Care Team (Late st Contact Info) Description 05/04/2022 Orders Only [facility] Medical Group Family & Internal Medicine [address] [address] Paulie Braxton I, IVAN Social [...] Total Score: 0 03/18/20 21 4:05 PM MOBILE MARKETING MANAGER documented as of this encounter Care Teams Grinder Relationship Specialty Start Date End Date Peggy Best APNP [address] [address] PCP - General Nurse Practitioner Family 12/27/2109/15 Rhonda De La Paz MD Physician INTERNAL MEDICINE 09/08/20 documented as of this encounter
--- OUTSIDE RECORDS SUMMARY | 2024-04-03 16:39 | XMS_ITS | Encounter Summary ---
Author Organization [facility] Address [address] [place] [address]. [place], [place] [address] [place] [address] Care Team Providers Care Computer Operations Specialist Name Role Phone Rhonda De La Paz MD Unavailable [phone] Peggy Best Primary Care Provider [phone] Reason for Visit * Reason Onset Date Comments Medication Request 08/11/2022 Encounter Details Date Type Department Care Team (Late st Contact Info) Description 08/11/2022 Telephone [facility] Medical Group Family & Internal Medicine [facility] [address] [place] [address] Peggy Best APNP [address] [address] Medication Request Social History Tobacco [...] 10:51 AM CDT Pt called back with [facility] fax [phone] * Michelle Miller LPN - 08/11/2022 10:09 AM CDT Pt called she is in [place] , in family, and did not bring enough meds needs 3 days of Lisinopril 40 mg HTCZ 12.5 mg Fluoxetine 40 mg Send to [address] [place] [address] Fax not known pt was looking for # but call lost or she hung up PT CB # [phone] documented in this encounter Plan of Treatment Not on file documented as of this encounter Visit Diagnoses Diagnosis Essential hypertension Unspecified essential hypertension Anxiety Anxiety state, unspecified documented in this encounter Additional Health Concerns Assessment Noted Time PHQ-9 Depression Total Score: 0 07/01/19 23 7:09 AM CDT documented as of this encounter Care Teams Computer Operations Specialist Relationship Specialty Start Date End Date Peggy Best APNP [address] [place] [address] PCP - General Nurse Practitioner Family 9/13/22 6/05/08 Rhonda De La Paz MD Physician INTERNAL MEDICINE 09/08/20 documented as of this encounter
--- OUTSIDE RECORDS SUMMARY | 2024-04-03 16:39 | XMS_ITS | Encounter Summary ---
Author Organization [facility] Address [address] [place] [address]. [place], [place] [address] [place] [address] Care Team Providers Care Senior Software Quality Engineer Name Role Phone Rhodna De La Paz MD Unavailable [phone] Peggy Best Primary Care Provider [phone] Reason for Visit * Reason Onset Date Comments Follow Up Call 06/06/2022 Encounter Details Date Type Department Care Team (Late st Contact Info) Description 06/06/2022 Telephone [facility] Medical Group Family & Internal Medicine [facility] [address] [place] [address] Peggy Best APNP [address] [facility] [address] [place] [address] Follow Up Call Social History Tobacco [...] Coronavirus/COVID-19? No / Unsure 05/30/2022 2:30 PM SIGNAL MAINTAINER documented as of this encounter Progress Notes * CATALINA Lomas - 06/06/2022 10:35 AM CST Note for pt. AL MAINTAINER documented in this encounter Plan of Treatment Not on file documented as of this encounter Visit Diagnoses Not on filedocumented in this encounter Additional Health Concerns Assessment Noted Time PHQ-9 Depression Total Score: 0 03/18/20 21 4:05 PM SIGNAL MAINTAINER documented as of this encounter Care Teams Senior Software Quality Engineer Relationship Specialty Start Date End Date Peggy Best APNP [address] [address] PCP - General Nurse Practitioner Family 12/27/2109/15 Rhonda De La Paz MD Physician INTERNAL MEDICINE 09/08/20 documented as of this encounter
--- OUTSIDE RECORDS SUMMARY | 2024-04-03 16:39 | XMS_ITS | Encounter Summary ---
Author Organization [facility] Address [address] [place] [address]. [place], [place] [address] [place] [address] Care Team Providers Care Meal Temperer Name Role Phone Rhonda De La Paz MD Unavailable [phone] Peggy Best Primary Care Provider [phone] Reason for Visit * Reason Onset Date Comments Refill Request 03/28/2022 Encounter Details Date Type Department Care Team (Late st Contact Info) Description 03/28/2022 Telephone [facility] Medical Group Family & Internal Medicine [facility] [address] [place] [address] Peggy Best APNP [address] [facility] [address] [place] [address] Refill Request Social History Tobacco Use [...] or Omeprazole. Disregard. No further action needed. L CANS SUPERVISOR * JONATHAN Zee - 03/29/2022 5:37 PM [...] disease management appointment she was well controlled. L CANS SUPERVISOR * Paulie Braxton RN - 03/28/2022 1:35 PM CST Received a refill request for famotidine 40mg daily. Medication is not on med list. Ok to send in? L CANS SUPERVISOR documented in this encounter Plan of Treatment Not on file documented as of this encounter Visit Diagnoses Not on filedocumented in this encounter Additional Health Concerns Assessment Noted Time PHQ-9 Depression Total Score: 0 03/18/20 21 4:05 PM METAL CANS SUPERVISOR documented as of this encounter Care Teams Meal Temperer Relationship Specialty Start Date End Date Peggy Best APNP [address] [address] PCP - General Nurse Practitioner Family 12/27/2109/15 Rhonda De La Paz MD Physician INTERNAL MEDICINE 09/08/20 documented as of this encounter
--- OUTSIDE RECORDS SUMMARY | 2024-04-03 16:39 | XMS_ITS | Encounter Summary ---
Author Organization [facility] Address [facility]. [place], [place] [address] [place] [address] Care Team Providers Care Family Program Specialist Name Role Phone Rhonda De La Paz MD Unavailable [phone] Yoselin Murdock NP Primary Care Provider [phone] Encounter Details Date Type Department Care Team [...] documented as of this encounter Care Teams Family Program Specialist Relationship Specialty [place] [address] [facility] [address] [address] PCP - General Nurse Practitioner Family 10/05/22 Rhonda De La Paz MD Physician INTERNAL MEDICINE 09/08/20 documented as of this encounter
--- OUTSIDE RECORDS SUMMARY | 2024-04-03 16:39 | XMS_ITS | Encounter Summary ---
Author Organization [facility] Address [address] [place] [address]. [place], [place] [address] [place] [address] Care Team Providers Care Pole Lift Operator Name Role Phone Rhonda De La Paz MD Unavailable [phone] Peggy Best Primary Care Provider [phone] Encounter Details Date Type Department Care Team [...] Coronavirus/COVID-19? No / Unsure 02/24/2022 2:47 PM TRAVELING REPAIR ACCOUNTANT documented as of this encounter Plan of Treatment Not on file documented as of this encounter Visit Diagnoses Not on filedocumented in this encounter Additional Health Concerns Assessment Noted Time PHQ-9 Depression Total Score: 0 03/18/20 21 4:05 PM TRAVELING REPAIR ACCOUNTANT documented as of this encounter Care Teams Pole Lift Operator Relationship Specialty Start Date End Date Peggy Best APNP [address] [address] PCP - General Nurse Practitioner Family 12/27/2109/15 Rhonda De La Paz MD Physician INTERNAL MEDICINE 09/08/20 documented as of this encounter
--- OUTSIDE RECORDS SUMMARY | 2024-04-03 16:39 | XMS_ITS | Encounter Summary ---
Author Organization [facility] Address [address] [place] [address]. [place], [place] [address] [place] [address] Care Team Providers Care Metallurgical Engineering Technician Name Role Phone Rhonda De La Paz MD Unavailable [phone] Peggy Best Primary Care Provider [phone] Encounter Details Date Type Department Care Team [...] documented as of this encounter Care Teams Metallurgical Engineering Technician Relationship Specialty Start Date End Date Peggy Best APNP [address] [place] [address], [place] [address] PCP - General Nurse Practitioner Family 12/27/2109/15 Rhonda De La Paz MD Physician INTERNAL MEDICINE 09/08/20 documented as of this encounter
--- OUTSIDE RECORDS SUMMARY | 2024-04-03 16:39 | XMS_ITS | Encounter Summary ---
Author Organization [facility] Address [address] [place] [address]. [place], [place] [address] [place] [address] Care Team Providers Care Care Worker Name Role Phone Rhonda De La Paz MD Unavailable [phone] Peggy Best Primary Care Provider [phone] Encounter Details Date Type Department Care Team (Late st Contact Info) Description 04/18/2022 Seafile Message Enc [facility] Family & Internal Medicine [facility] [address] [place] [address] [place], [place] [address] [place] [address] My Pap smear 2021 Social History Tobacco Use Types Packs/Day Years [...] of this encounter Progress Notes * Yoselin Newton RN - 04/20/2022 3:18 PM CST She will need to contact PFS MIC MAKER DEMONSTRATOR * Paulie Braxton RN - 04/19/2022 9:52 AM CST See patient and provider message. MIC MAKER DEMONSTRATOR * CATALINA Lomas - 04/19/2022 8:43 AM CST It was coded as vaginal discharge which was her concern so it will need to be addressed further by billing if there are concerns for this. MIC MAKER DEMONSTRATOR * CATALINA Lomas - 04/19/2022 8:42 AM CST Please forward this on to management or billing. Thank you. MIC MAKER DEMONSTRATOR documented in this encounter Plan of Treatment Not on file documented as of this encounter Visit Diagnoses Not on filedocumented in this encounter Additional Health Concerns Assessment Noted Time PHQ-9 Depression Total Score: 0 03/18/20 21 4:05 PM CERAMIC MAKER DEMONSTRATOR documented as of this encounter Care Teams Care Worker Relationship Specialty Start Date End Date Peggy Best APNP [address] [place] [address] PCP - General Nurse Practitioner Family 12/27/21 6/05/08 Rhonda De La Paz MD Physician INTERNAL MEDICINE 09/08/20 documented as of this encounter
--- OUTSIDE RECORDS SUMMARY | 2024-04-03 16:39 | XMS_ITS | Encounter Summary ---
Author Organization [facility] Address [address] [place] [address]. [place], [place] [address] [place] [address] Care Team Providers Care Shredder Tender Peat Name Role Phone Rhonda De La Paz MD Unavailable [phone] Peggy Best APNP Primary Care Provider [phone] Yoselin Murdock NP Primary Care Provider [phone] Encounter Details Date Type Department Care Team (Late st Contact Info) Description 05/31/2022 ShieldEffect Message Enc [facility] Medical [facility] Family & Internal Medicine [address] [address] [place], [facility] Provider medication refill Social History [...] Coronavirus/COVID-19? No / Unsure 05/30/2022 2:30 PM ORACLE EBS CONSULTANT documented as of this encounter Plan of Treatment Not on file documented as of this encounter Visit Diagnoses Not on filedocumented in this encounter Additional Health Concerns Assessment Noted Time PHQ-9 Depression Total Score: 0 03/18/20 21 4:05 PM ORACLE EBS CONSULTANT documented as of this encounter Care Teams Shredder Tender Peat Relationship Specialty Start Date End Date Peggy Best APNP [address] [address] PCP - General Nurse Practitioner Family 12/27/2109/15 [place] [address] [facility] Suite [facility] [place] [address] PCP - General Nurse Practitioner Family 10/05/22 Rhonda De La Paz MD Physician INTERNAL MEDICINE 09/08/20 documented as of this encounter
--- OUTSIDE RECORDS SUMMARY | 2024-04-03 16:39 | XMS_ITS | Encounter Summary ---
Author Organization [facility] Address [address] [place] [address]. [place], [place] [address] [place] [address] Care Team Providers Care Production Tool Engineer Name Role Phone Rhonda De La Paz MD Unavailable [phone] Peggy Best Primary Care Provider [phone] Encounter Details Date Type Department Care Team [...] Total Score: 0 03/18/20 21 4:05 PM KEY ACCOUNT REPRESENTATIVE documented as of this encounter Care Teams Production Tool Engineer Relationship Specialty Start Date End Date Peggy Best APNP [address] [address] PCP - General Nurse Practitioner Family 12/27/2109/15 Rhonda De La Paz MD Physician INTERNAL MEDICINE 09/08/20 documented as of this encounter
--- OUTSIDE RECORDS SUMMARY | 2024-04-03 16:41 | XMS_ITS | Encounter Summary ---
Author Organization [facility] Address [address] [place] [address]. [place], [place] [address] [place] [address] Care Team Providers Care Police District Switchboard Operator Name Role Phone Rhonda De La Paz MD Unavailable [phone] Ashly Cabrales BEER BREWER Primary Care Provider Unavailabl e Encounter Details [...] Total Score: 0 03/18/20 21 4:05 PM HAND DRAWER IN HELPER documented as of this encounter Care Teams Police District Switchboard Operator Relationship Specialty Start Date End Date Ashly Cabrales, BEER BREWER PCP - General NURSE PRACTITIONER 07/22/21 12/26/21 Rhonda De La Paz MD Physician INTERNAL MEDICINE 09/08/20 documented as of this encounter
--- OUTSIDE RECORDS SUMMARY | 2024-04-03 16:41 | XMS_ITS | Encounter Summary ---
Author Organization [facility] Address [address] [place] [address]. [place], [place] [address] [place] [address] Care Team Providers Care Metal Loader Name Role Phone Rhonda De La Paz MD Unavailable [phone] Job Martínez Primary Care Provider [phone] Encounter Details Date Type Department Care Team (Latest Contact Info) Description 12/27/2021 3:16 PM CDT - 12/27/2021 11:59 PM CDT Hospital Encounter [facility] Diagnostic Imaging [id number] [place] [address] Job Martínez APNP [address] [place] [address] Discharge Disposition: Home or Self Care (Routine [...] (VITAMIN D) 50 MCG (1999) Tab biotin 69672 MCG tablet Take 5,000 mcg by mouth [...] Total Score: 0 03/18/20 21 4:05 PM PARCEL WRAPPER documented as of this encounter Care Teams Metal Loader Relationship Specialty Start Date End Date Job Martínez APNP [address] [address] PCP - General Nurse Practitioner Family 12/27/21 6/05/08 Rhonda De La Paz MD Physician INTERNAL MEDICINE 09/08/20 documented as of this encounter
--- OUTSIDE RECORDS SUMMARY | 2024-04-03 16:41 | XMS_ITS | Encounter Summary ---
Author Organization [facility] Address [address] [place] [address]. [place], [place] [address] [place] [address] Care Team Providers Care Fry Cook Name Role Phone Rhonda De La Paz MD Unavailable [phone] Peggy Best Primary Care Provider [phone] Encounter Details Date Type Department Care Team [...] Total Score: 0 03/18/20 21 4:05 PM STONE CARRIAGE OPERATOR documented as of this encounter Care Teams Fry Cook Relationship Specialty Start Date End Date Peggy Best APNP [address] [address] PCP - General Nurse Practitioner Family 12/27/21 605/08 Rhonda De La Paz MD Physician INTERNAL MEDICINE 09/08/20 documented as of this encounter
--- OUTSIDE RECORDS SUMMARY | 2024-04-03 16:41 | XMS_ITS | Encounter Summary ---
Author Organization [facility] Address [address] [place] [address]. [place], [place] [address] [place] [address] Care Team Providers Care Clerical Administrative Assistant Name Role Phone Rhonda De La Paz MD Unavailable [phone] Peggy Best Primary Care Provider [phone] Encounter Details Date Type Department Care Team [...] Total Score: 0 03/18/20 21 4:05 PM ART CONSULTANT documented as of this encounter Care Teams Clerical Administrative Assistant Relationship Specialty Start Date End Date Peggy Best APNP [address] [address] PCP - General Nurse Practitioner Family 12/27/21 605/08 Rhonda De La Paz MD Physician INTERNAL MEDICINE 09/08/20 documented as of this encounter
--- OUTSIDE RECORDS SUMMARY | 2024-04-03 16:41 | XMS_ITS | Encounter Summary ---
Author Organization [facility] Address [address] [place] [address]. [place], [place] [address] [place] [address] Care Team Providers Care Resource Efficiency Manager Name Role Phone Rhonda De La Paz MD Unavailable [phone] Ashly Cabrales VBA PROGRAMMER Primary Care Provider Unavailabl e Reason for Visit * Reason Onset Date Comments Referral 10/31/2021 Encounter Details Date Type Department Care Team (Late st Contact Info) Description 10/31/2021 Telephone [facility] Medical Group Family & Internal Medicine [facility] [address] [place] [address] Ashly Cabrales, VBA PROGRAMMER Referral Social History Tobacco Use Types Packs/Day [...] Total Score: 0 03/18/20 21 4:05 PM WRAPPING CLERK documented as of this encounter Care Teams Resource Efficiency Manager Relationship Specialty Start Date End Date Ashly Cabrales NP PCP - General NURSE PRACTITIONER 07/22/21 12/26/21 Rhonda De La Paz MD Physician INTERNAL MEDICINE 09/08/20 documented as of this encounter
--- OUTSIDE RECORDS SUMMARY | 2024-04-03 16:41 | XMS_ITS | Encounter Summary ---
Author Organization [facility] Address [facility]. [place], [place] [address] [place] [address] Care Team Providers Care Blow Molder Name Role Phone Rhonda De La Paz MD Unavailable [phone] Peggy Best Primary Care Provider [phone] Reason for Visit * Reason Comments Follow Up Pt here for follow u p on left knee pain. Pt states she is still having pain in the knee. 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 Hurts with movement and walking. Daily icing. [...] mouth daily., Disp: , Rfl: ??? biotin 57397 MCG tablet, Take 5,000 mcg by mouth [...] performed by Charli Yi MD at [facility] OR ??? NASAL AIRWAY ??? TONSILLECTOMY [...] Total Score: 0 03/18/20 21 4:05 PM ATMOSPHERIC SCIENCES PROFESSOR documented as of this encounter Care Teams Blow Molder Relationship Specialty Start Date End Date Peggy Best APNP [address] [address] PCP - General Nurse Practitioner Family 12/27/21 605/08 Rhonda De La Paz MD Physician INTERNAL MEDICINE 09/08/20 documented as of this encounter
--- OUTSIDE RECORDS SUMMARY | 2024-04-03 16:41 | XMS_ITS | Encounter Summary ---
Author Organization [facility] Address [address] [place] [address]. [place], [place] [address] [place] [address] Care Team Providers Care Electrical Controls Assembler Name Role Phone Rhonda De La Paz MD Unavailable [phone] Rhonda De La Paz MD Primary Care Provider [phone] Reason for Visit * Auth/Cert Specialty Diagnoses / Procedures Referred By Master sweet Referred To Contact Diagnoses Screen for colon cancer History of colon polyps Screening colonoscopy Procedures COLONOSCOPY,DIAGNOSTIC COLONOSCOPY Referral ID Status Reason Start Date Expiration Date Visits Re quested Visits Authorized [id number] 1 1 Encounter Details Date Type Department Care Team (Late st Contact Info) Description 04/22/2021 10:04 AM LUMBER TALLIER - 04/22/2021 10:32 AM LUMBER TALLIER Surgery [facility] Surgery [address] [place] [address] Glenn Yi MD [address] [place] [address] [id number] COLONOSCOPY Surgery Details Date/Time Status Location OR Service Patient Class Case Class Case Type Trauma Case? 04/22/2021 10:04 AM Posted [facility] OR Endo Gastroenterology Short Stay/Outpa tient Surgery No Panel 1 Procedure LRB Anes Op Region Wound Class Comments COLONOSCOPY N/A Monitor Anesthesia Care Colon Lulu n Contaminated Surgeon Surgeon Role Service Panel Glenn Yi MD Primary Gastroenterology 1 Special Needs 3394 documented in this encounter Social History Tobacco [...] COVID-19? No / Unsure 04/22/2021 8:58 AM LUMBER TALLIER documented as of this encounter Last Filed Vital Signs Vital Sign Reading Time Taken Comments Blood Pressure 115/66 04/22/2021 9:21 AM LUMBER TALLIER Pulse 67 04/22/2021 9:21 AM LUMBER TALLIER Temperature 36.6 ??C (97.9 ??F) 04/22/2021 9:21 AM CS T Respiratory Rate 16 04/22/2021 9:21 AM LUMBER TALLIER Oxygen Saturation 98% 04/22/2021 9:21 AM LUMBER TALLIER Inhaled Oxygen Concentration - - Weight 61.2 kg (135 lb) 04/12/2021 3:39 PM LUMBER TALLIER Height 154.9 cm (5' 1 ) 04/12/2021 3:39 PM LUMBER TALLIER Body Mass Index 25.51 04/12/2021 3:39 PM LUMBER TALLIER documented in this encounter Discharge Instructions * Discharge Instructions* Nayla Wayne RN - 04/22/2021 12:56 PM LUMBER TALLIER Images from the original note were not [...] belly pain. Where can I learn more? [employer] https://www.cancer.org/cancer/sobgv-bzecdc-alqeyp/qlzbnnvjg-ymhorobif-acoaxys/sc uuluand-xflau-rxgd.html [employer] Society of Clinical Oncology https://www.cancer.net/nhfsmhpujm-hpwpoj-yjxq/diagnosing-cancer/ezubu-ima-ktkkre ures/colonoscopy Last Reviewed Date 2020-06-23 Consumer Information [...] or approved for treating a specific patient. [employer] and its affiliates disclaim any warranty or liability relating to this information or the use thereof. The use of this information is governed by the Terms of Use, available at https://www.[employer].Neozone/en/solutions/lexicomp/about/veena Copyright Copyright ?? 2020 [employer] and its affiliates and/or licensors. All rights reserved. ER TALLIER * Attachments The following attachments cannot be sent through Care Everywhere. * Monitored Anesthesia Care (Liberian) documented in this encounter Medications at Time of Discharge Cholecalciferol (VITAMIN D) 50 MCG (1999) Tab biotin 98001 MCG tablet Take 5,000 mcg by mouth [...] GLENN YI MD Voice recognition software utilized ER TALLIER documented in this encounter OR Notes * Op Note - Glenn Yi MD - 04/22/2021 12:39 PM CST [facility] OpNote COLONOSCOPY Procedure Note Danielle Brito 04/22/2021 1004 Procedure(s) (LRB): COLONOSCOPY (N/A) Surgeon(s): Glenn iY MD Staff: Scrub Person 1: Alton De La Rosa RN Anesthesia: Monitor Anesthesia Care METAL POLISHER AND BUFFER APPRENTICE: Brandi Corrales CRNA Pre-Op Diagnosis: Screening colonoscopy [...] Time: 12:39 PM Voice recognition software utilized. ER TALLIER documented in this encounter Plan of Treatment Not on file documented as of this encounter Procedures Procedure Name Priority Date/Time Associated Diagnosis Comments COLONOSCOPY FLX DX W/COLLJ SPEC WHEN PFRMD 04/22/2021 12:18 PM LUMBER TALLIER Screen for colon cancer History of colon [...] TKO rate, Pre-Op Restarted 04/22/2021 12:19 PM LUMBER TALLIER New Bag 04/22/2021 9:39 AM LUMBER TALLIER 10 mL/hr documented in this encounter Active and Recently Administered Medications Times are shown in LUMBER TALLIER. Continuous Medication Order 04/20/2021 04/21/2021 04/22/2021 lactated [...] Total Score: 0 03/18/20 21 4:05 PM LUMBER TALLIER documented as of this encounter Care Teams Electrical Controls Assembler Relationship Specialty Start Date End Date Rhonda De La Paz MD PCP - General INTERNAL MEDICINE 09/08/20 07/05/21 Rhonda De La Paz MD Physician INTERNAL MEDICINE 09/08/20 documented as of this encounter
--- OUTSIDE RECORDS SUMMARY | 2024-04-03 16:41 | XMS_ITS | Encounter Summary ---
Author Organization [facility] Address [address] [place] [address]. [place], [place] [address] [place] [address] Care Team Providers Care Asparagus Buncher Name Role Phone Rhonda De La Paz MD Unavailable [phone] Rhonda De La Paz MD Primary Care Provider Reason for Visit * Auth/Cert Specialty Diagnoses / Procedures Referred By Master sweet Referred To Contact Diagnoses Screen for colon cancer History of colon polyps Screening colonoscopy Procedures COLONOSCOPY,DIAGNOSTIC COLONOSCOPY Referral ID Status Reason Start Date Expiration Date Visits Re quested Visits Authorized [id number] 1 1 Encounter Details Date Type Department Care Team (Late st Contact Info) Description 04/22/2021 12:19 PM CARD CHECKER Anesthesia Event [facility] Surgery [address] [place] [address] Brandi Corrales CRNA [address] [place] [address] Cecy Marcos CRNA 2022 [place] [address] Anesthesia Record Procedure Summary Procedure Name Responsible Anesthesiologist Anesthesia Start Time Anesthesia Stop Time COLONOSCOPY (Colon) Brandi Corrales CRNA 04/22/21 121 9 04/22/21 1238 Events Date Time Event Comment 04/22/2021 0928 0928 AN FINANCIAL SERVICE REP Prepped 1219 An Start Patient ID and [...] COVID-19? No / Unsure 04/22/2021 8:58 AM CARD CHECKER documented as of this encounter OR Notes [...] were no known complications for this encounter. CHECKER * Anesthesia Preprocedure Evaluation - Brandi Corrales [...] Charli Yi MD at 04/29/2021 10:43 AM CARD CHECKER CHECKER CHECKER CHECKER documented in this encounter Plan of Treatment [...] TKO rate, Pre-Op Restarted 04/22/2021 12:19 PM CARD CHECKER New Bag 04/22/2021 9:39 AM CARD CHECKER 10 mL/hr lidocaine (PF) (XYLOCAINE) 1 % injection Intravenous, PRN, Starting on Sun04/22/21 at 1222, Until Sun04/22/21 at 1238, Anesthesia Intra-Op Given 04/22/2021 12:22 PM CARD CHECKER 50 mg propofol (DIPRIVAN) IV bolus Intravenous, PRN, Starting on Sun04/22/21 at 1222, Until Sun04/22/21 at 1238, Anesthesia Intra-Op Given 04/22/2021 12:35 PM CARD CHECKER 50 mg Given 04/22/2021 12:33 PM CARD CHECKER 50 mg Given 04/22/2021 12:29 PM CARD CHECKER 50 mg documented in this encounter Additional Health Concerns Assessment Noted Time PHQ-9 Depression Total Score: 0 03/18/20 21 4:05 PM CARD CHECKER documented as of this encounter Care Teams Asparagus Buncher Relationship Specialty Start Date End Date Rhonda De La Paz MD PCP - General INTERNAL MEDICINE 09/08/20 07/05/21 Rhonda De La Paz MD Physician INTERNAL MEDICINE 09/08/20 documented as of this encounter
--- OUTSIDE RECORDS SUMMARY | 2024-04-03 16:41 | XMS_ITS | Encounter Summary ---
Author Organization [facility] Address [address] [place] [address]. [place], [place] [address] [place] [address] Care Team Providers Care Corn Grinder Name Role Phone Rhonda De La Paz MD Unavailable [phone] Ashly Cabrales CAREER SPECIALIST Primary Care Provider Unavailabl e Reason for Visit * Reason Comments Follow Up hemorroids * Consultation (Routine) - Closed Specialty Diagnoses / Procedures Referred By Master sweet Referred To Contact GASTROENTEROLOGY Diagnoses Hemorrhoids, unspecified hemorrhoid type Ashly Cabrales, [place]li Pereira [place] [id number] [place] [address] Phone: tel: fax: Referral ID Status Reason Start Date Expiration Date Visits Re quested Visits Authorized [id number] Closed 10/31/2021 12/02/2022 100 100 Encounter Details Date Type Department Care Team (Latest Contact Info) Description 12/02/2021 3:00 PM CDT Office Visit [facility] Group Gastroenterology Specialty Clinic [address] [address] Charli Yi MD 3 [facility] [address] [place] [address] Ashlee Rivera NP 3 [facility] [address] [place] [id number] Follow Up (hemorroids) Social History Tobacco Use [...] be sent through Care Everywhere. * Hemorrhoids (Andorran) documented in this encounter Progress Notes * [...] performed by Charli Yi MD at [facility] OR ??? NASAL AIRWAY ??? TONSILLECTOMY Family [...] NP Medication Sig Dispense Refill ??? biotin 76594 MCG tablet Take 5,000 mcg by mouth [...] Exam Vitals reviewed. Exam conducted with a machine pie maker present. Constitutional: Appearance: Normal appearance. Cardiovascular: Rate [...] Total Score: 0 03/18/20 21 4:05 PM COOK VACUUM KETTLE documented as of this encounter Care Teams Corn Grinder Relationship Specialty Start Date End Date Ashly Cabrales NP PCP - General NURSE PRACTITIONER 07/22/21 12/26/21 Rhonda De La Paz MD Physician INTERNAL MEDICINE 09/08/20 documented as of this encounter
--- OUTSIDE RECORDS SUMMARY | 2024-04-03 16:41 | XMS_ITS | Encounter Summary ---
Author Organization [facility] Address [address] [place] [address]. [place], [place] [address] [place] [address] Care Team Providers Care Head Of Acquisitions Name Role Phone Rhonda De La Paz MD Unavailable [phone] Ashly Cabrales SHAFT SINKER Primary Care Provider Unavailabl e Encounter Details [...] Total Score: 0 03/18/20 21 4:05 PM GENETICS NURSE documented as of this encounter Care Teams Head Of Acquisitions Relationship Specialty Start Date End Date Ashly Cabrales, SHAFT SINKER PCP - General NURSE PRACTITIONER 07/22/21 12/26/21 Rhonda De La Paz MD Physician INTERNAL MEDICINE 09/08/20 documented as of this encounter
--- OUTSIDE RECORDS SUMMARY | 2024-04-03 16:41 | XMS_ITS | Encounter Summary ---
Author Organization [facility] Address [address] [place] [address]. [place], [place] [address] [place] [address] Care Team Providers Care Cognos Bi Administrator Name Role Phone Rhonda De La Paz MD Unavailable [phone] Peggy Best Primary Care Provider [phone] Encounter Details Date Type Department Care Team [...] Total Score: 0 03/18/20 21 4:05 PM CONSULTING TECHNICAL MANAGER documented as of this encounter Care Teams Cognos Bi Administrator Relationship Specialty Start Date End Date Peggy Best APNP [address] [address] PCP - General Nurse Practitioner Family 12/27/21 605/08 Rhonda De La Paz MD Physician INTERNAL MEDICINE 09/08/20 documented as of this encounter
--- OUTSIDE RECORDS SUMMARY | 2024-04-03 16:41 | XMS_ITS | Encounter Summary ---
Author Organization [facility] Address [address] [place] [address]. [place], [place] [address] [place] [address] Care Team Providers Care Computer Forensics Analyst Name Role Phone Rhonda De La Paz MD Unavailable [phone] Yoselin Murdock NP Primary Care Provider [phone] Ashly Cabrales QUALITATIVE FIELD COORDINATOR Primary Care Provider Peggy Sheffield APNP Primary Care Provider Yoselin Murdock QUALITATIVE FIELD COORDINATOR Primary Care Provider [phone] Encounter Details Date Type Department Care Team (Late st Contact Info) Description 07/06/2021 Linksyt Message Enc [facility] Family & Internal Medicine [address] [address] [place]os[place] [address] [place] [address] [address] [place] [address] Appointment on 07/08/21 Social History Tobacco Use [...] Total Score: 0 03/18/20 21 4:05 PM CLINICAL DOCUMENTATION IMPROVEMENT SPECIALIST documented as of this encounter Care Teams Computer Forensics Analyst Relationship Specialty Start Date End Date Yoselin Murdock QUALITATIVE FIELD COORDINATOR [address] [facility] [address] [place] [address] PCP - General Nurse Practitioner Family 07/06/2107/21 [place] [address] [facility] [address] [place] [address] PCP - General NURSE PRACTITIONER 07/22/21 12/26/21 Peggy Best APNP [address] [place] [address] PCP - General Nurse Practitioner Family 12/27/2109/15 [place] [address] [facility] [address] [place] [address] PCP - General Nurse Practitioner Family 10/05/22 Rhonda De La Paz MD Physician INTERNAL MEDICINE 09/08/20 documented as of this encounter
--- OUTSIDE RECORDS SUMMARY | 2024-04-03 16:41 | XMS_ITS | Encounter Summary ---
Author Organization [facility] Address [address] [place] [address]. [place], [place] [address] [place] [address] Care Team Providers Care Rn Licensed Practical Name Role Phone Rhonda De La Paz MD Unavailable [phone] Ashly Cabrales PASTING MACHINE OPERATOR Primary Care Provider Unavailabl e Encounter Details Date Type Department Care Team (Latest Contact Info) Description 07/22/2021 5:07 PM CDT - 07/22/2021 11:59 PM CDT Hospital Encounter [facility] [address] [place] [address] Ashly Cabrales, PASTING MACHINE OPERATOR Discharge Disposition: Home or Self Care [...] D) 50 MCG (1999 UT) Tab biotin 99978 MCG tablet Take 5,000 mcg by mouth [...] - 11.0 x10'3/uL 07/22/2021 5:26 PM CDT [facility] RBC 4.16(L) 4.50 - 5.10 x10'6/uL 07/22/2021 5:26 PM CDT [facility] HGB 12.8 12.3 - 15.3 G/DL 07/22/2021 5:26 PM CDT [facility] HCT 39.3 35.9 - 44.6 % 07/22/2021 5:26 PM CDT [facility] MCV 94.5 80.0 - 96.0 FL 07/22/2021 5:26 PM CDT [facility] MCH 30.8 25.3 - 30.9 PG 07/22/2021 5:26 PM CDT [facility] MCHC 32.6 31.0 - 34.1 G/DL 07/22/2021 5:26 PM CDT [facility] RDW 12.5 12.4 - 15.1 % 07/22/2021 5:26 PM CDT [facility] PLT 269 151 - 353 x10'3/uL 07/22/2021 5:26 PM CDT [facility] MPV 11.5 9.6 - 12.0 FL 07/22/2021 5:26 PM CDT [facility] RBC MORPHOLOGY NORMAL 07/22/2021 5:26 PM CDT [facility] PLT MORPH. NORMAL 07/22/2021 5:26 PM CDT [facility] WBC MORPHOLOGY NORMAL 07/22/2021 5:26 PM CDT [facility] LYMPHOCYTES % 21.6 15.8 - 45.0 % 07/22/2021 5:26 PM CDT [facility] NEUTROPHILS % 62.4 42.1 - 71.9 % 07/22/2021 5:26 PM CDT [facility] MONOCYTES % 9.1 5.7 - 12.5 % 07/22/2021 5:26 PM CDT [facility] EOSINOPHILS 5.2 0.0 - 5.6 % 07/22/2021 5:26 PM CDT [facility] BASOPHILS 1.7(H) 0.0 - 1.3 % 07/22/2021 5:26 PM CDT [facility] ABS. NEUTROPHILS 3.23 1.40 - 6.00 x10'3/uL 07/22/2021 5:26 PM CDT [facility] IMMATURE GRANS % 0.0 0.0 - 0.5 % 07/22/2021 5:26 PM CDT [facility] ABS. LYMPHOCYTES 1.12 0.80 - 4.70 x10'3/uL 07/22/2021 5:26 PM CDT [facility] 07/22/2021 1:52 PM CDT us Ashly Cabrales NP LABORATORY Final Result [facility] [address] [place] [address], * COMPREHENSIVE METABOLIC PANEL (07/22/2021 1:52 PM CDT) [facility] GLUCOSE 83 70 - 99 MG/DL 07/22/2021 5:41 PM CDT [facility] BUN 15 7 - 18 MG/DL 07/22/2021 5:41 PM CDT [facility] CREATININE S/P/B 0.72 0.55 - 1.02 MG/DL 07/22/2021 5:41 PM [facility] SODIUM S/P/B 143 136 - 145 MMOL/L 07/22/2021 5:41 PM T [facility] POTASSIUM S/P/B 4.1 3.5 - 5.1 MMOL/L 07/22/2021 5:41 PM [facility] CHLORIDE S/P/B 106 100 - 108 MMOL/L 07/22/2021 5:41 PM T [facility] CO2 29.6 21 - 32 MMOL/L 07/22/2021 5:41 PM [facility] CALCIUM S/P/B 9.7 8.5 - 10.1 MG/DL 07/22/2021 5:41 PM [facility] BILIRUBIN TOTAL S/P/B 0.6 0.2 - 1.2 MG/DL 07/22/2021 5:41 PM [facility] TOTAL PROTEIN S/P/B 6.7 6.4 - 8.2 G/DL 07/22/2021 5:41 PM [facility] ALBUMIN S/P/B 3.7 3.4 - 5.0 G/DL 07/22/2021 5:41 PM [facility] AST 18 15 - 37 U/L 07/22/2021 5:41 PM [facility] ALT 22 14 - 55 U/L 07/22/2021 5:41 PM [facility] ALKALINE PHOSPHATASE S/P/B 83 50 - 136 U/L 07/22/2021 5:41 PM [facility] ANION GAP 7.4 5 - 15 MMOL/L 07/22/2021 5:41 PM CDT [facility] BUN CREATININE RATIO 20.8 6 - 26 07/22/2021 5:41 PM CDT [facility] A/G RATIO 1.2 1.0 - 2.0 RATIO 07/22/2021 5:41 PM CDT [facility] EGFR NON-AFR. AMER. >90 >90 ML/MIN/1.7 3 M2 07/22/2021 5:41 PM CDT [facility] EGFR AFR. AMER. >90 >90 ML/MIN/1.7 3 M2 07/22/2021 5:41 PM CDT [facility] Comment: NOTE: eGFR is not calculated for patients <18 years of age. This is an estimated GFR (CKD EPI) and should not be used for calculating drug doses. 07/22/2021 1:52 PM CDT Ashly Cabrales NP LABORATORY Final Result [facility] [address] [place] [id number], * (ABNORMAL) LIPID PANEL (07/22/2021 1:52 PM CDT) CHOLESTEROL 200(H) <200.0 MG/DL 07/22/2021 5:41 PM CDT [facility] TRIGLYCERIDES 51 <150 MG/DL 07/22/2021 5:41 PM CDT [facility] HDL 64 >40.0 MG/DL 07/22/2021 5:41 PM CDT [facility] LDL (CALCULATED) 126(H) <100 MG/DL 07/22/2021 5:41 PM CDT [facility] NON HDL CHOLESTEROL 136(H) <130 MG/DL 07/22/2021 5:41 PM CDT [facility] CHOL/HDL RATIO 3.1 0.0 - 4.5 07/22/2021 5:41 PM CDT [facility] VLDL CALCULATION 10 5 - 55 MG/DL 07/22/2021 5:41 PM T [facility] LIPID INTERPRETATION 07/22/2021 5:41 PM CDT [facility] Comment: NIH CONCENSUS REPORT RECOMMENDATIONS: [...] ?>=130 07/22/2021 1:52 PM CDT Ashly Cabrales PASTING MACHINE OPERATOR LABORATORY Final Result Performing Organization Address [facility] de Phone Number [facility] [address] [place] [address], [place] [phone] * THYROID STIM HORMONE, TSH (07/22/2021 1:52 PM CDT) Pathologist [facility] TSH 1.615 0.358 - 3.74 uIU/ML 07/22/2021 5:41 PM CDT [facility] Comment: HIGH DOSES OF BIOTIN MAY INTERFERE WITH THIS TEST RESULT. CORRELATION TO CLINICAL HISTORY AND PRESENTATION RECOMMENDED. 07/22/2021 1:52 PM CDT Ashly Cabrales PASTING MACHINE OPERATOR LABORATORY Final Result Performing Organization Address [facility] de Phone Number [facility] [address] [place] [address], [place] [phone] * VITAMIN D, 25 OH (07/22/2021 1:52 PM CDT) Pathologist [facility] VITAMIN D 25 HYDROXY S/P/B 54 30 - 100 NG/ML 07/22/2021 6:00 PM CDT [facility] Comment: ? INTERPRETATION ? DEFICIENT ??<20 ? INSUFFICIENT 20-29 ?SUFFICIENT 30-100 07/22/2021 1:52 PM CDT Ashly Cabrales PASTING MACHINE OPERATOR LABORATORY Final Result Performing Organization Address [facility]/ZIP Co de Phone Number [facility] [address] [place] [address], [place] [phone] * (ABNORMAL) ALBUMIN URINE RANDOM (07/22/2021 1:52 PM CDT) CREATININE (U) 27.3(L) 28 - 217 MG/DL 07/22/2021 5:36 PM CDT [facility] MICROALBUMIN (U) 0.2 <2.0 mg/dL 07/23/19 5:36 PM CDT [facility] ALBUMIN/CREAT RATIO 7.3 <30.0 MG/G 07/22/2021 5:36 PM CDT [facility] URINE SPECIMEN / Unknown 07/22/2021 1:52 PM CDT us Ashly Cabrales PASTING MACHINE OPERATOR URINE ORDERABLES Final Result Performing Organization Address [facility] Co de Phone Number [facility] [address] [place] [address], [place] [phone] documented in this encounter Visit Diagnoses Diagnosis Essential hypertension Unspecified essential hypertension Vitamin D deficiency Unspecified vitamin D deficiency Anxiety Anxiety state, unspecified documented in this encounter Additional Health Concerns Assessment Noted Time PHQ-9 Depression Total Score: 0 03/18/20 21 4:05 PM INVESTMENT ADVISOR documented as of this encounter Care Teams Rn Licensed Practical Relationship Specialty Start Date End Date Ashly Cabrales NP PCP - General NURSE PRACTITIONER 07/22/21 12/26/21 Rhonda De La Paz MD Physician INTERNAL MEDICINE 09/08/20 documented as of this encounter
--- OUTSIDE RECORDS SUMMARY | 2024-04-03 16:41 | XMS_ITS | Encounter Summary ---
Author Organization [facility] Address [address] [place] [address]. [place], [place] [address] [place] [address] Care Team Providers Care Sanitary Plumber Name Role Phone Rhonda De La Paz MD Unavailable [phone] Grace Landin NP Primary Care Provider Unavailabl e Reason for Visit * Imaging (Routine) - Closed Specialty Diagnoses / Procedures Referred By Master sweet Referred To Contact RADIOLOGY Diagnoses Encounter for screening mammogram for malignant neoplasm of breast Procedures MG SCREENING W TERRI DELMI DIGI Grace Landin NP Referral ID Status Reason Start Date Expiration Date Visits Re quested Visits Authorized [id number] Closed 07/22/2021 08/21/2022 1 1 Encounter Details Date Type Department Care Team (Latest Contact Info) Description 11/14/2021 9:51 AM CDT - 11/14/2021 11:59 PM CDT Hospital Encounter [facility] Mammography [address] [place] [address] Grace Landin, DIOMEDES Discharge Disposition: Home or [...] D) 50 MCG (2000 UT) Tab biotin [address]303 MCG tablet Take 5,000 mcg by mouth [...] regions are within normal limits. Grace Landin SECTION WEAVER MAMMO Final Result documented in this encounter Visit Diagnoses Not on filedocumented in this encounter Additional Health Concerns Assessment Noted Time PHQ-9 Depression Total Score: 0 03/18/20 21 4:05 PM CALCULATION CLERK documented as of this encounter Care Teams Sanitary Plumber Relationship Specialty Start Date End Date Grace Landin NP PCP - General NURSE PRACTITIONER 07/22/21 12/26/21 Rhonda De La Paz MD Physician INTERNAL MEDICINE 09/08/20 documented as of this encounter
--- OUTSIDE RECORDS SUMMARY | 2024-04-03 16:41 | XMS_ITS | Encounter Summary ---
Author Organization [facility] Address [address] [place] [address]. [place], [place] [address] [place] [address] Care Team Providers Care Helpdesk Manager Name Role Phone Rhonda De La Paz MD Unavailable [phone] Ashly Landin NP Primary Care Provider Unavailabl e Reason for Referral * Imaging (Routine) - Closed Specialty Diagnoses / Procedures Referred By Master sweet Referred To Contact RADIOLOGY Diagnoses Encounter for screening mammogram for malignant neoplasm of breast Procedures MG SCREENING W TERRI DELMI DIGI Ashly Landin NP Referral ID Status Reason Start Date Expiration Date Visits Re quested Visits Authorized [id number] Closed 07/22/2021 08/21/2022 1 1 Reason for Visit * Reason Comments Follow Up f/u medication refil ls Encounter Details Date Type Department Care Team (Late st Contact Info) Description 07/22/2021 1:20 PM CDT Office Visit [facility] Family & Internal Medicine [address] [address] Ashly Landin NP Follow Up [...] Written by the doctors and editors at [facility] What is high blood pressure???--??High blood pressure [...] process is complete. This topic retrieved from [employer] on: Mar 22, 2021. Topic 90837 Version 15.0 Release: 29.5.2 - C29.340 ?2020??[employer]. and/or its affiliates.??All rights reserved. table 1: Definition of normal and high blood pressure Level Top number Bottom number High 130 or above 80 or above Elevated 120 to 129 79 or below Normal 119 or below 79 or below ?? These definitions are from the [place] [employer]/[place] [employer]. Other expert groups might use slightly different definitions. ?? Elevated blood pressure is a term doctor or nurses use as a warning. It means you do not yet have high blood pressure, but your blood pressure is not as low as it should be for good health. Graphic 44089 Version 6.0 Consumer Information Use and Disclaimer [...] of this information is governed by the [employer] End User License Agreement, available at https://www.[employer]/en/solutions/Aphria/about/veena.The use of [employer] content is governed by the [employer] Terms of Use. ??2020 [employer]. All rights reserved. Copyright ?2020??Workbooks and/or its affiliates.??All rights reserved. Blood work [...] controlled Medications: Current Outpatient Medications: ??? biotin 25581 MCG tablet, Take 5,000 mcg by mouth [...] COLONOSCOPY performed by Charli Yi MD at [facility] OR ??? [place] ??? TONSILLECTOMY [...] regions are within normal limits. Ashly Landin ROD POINTER MAMMO Final Result * (ABNORMAL) ALBUMIN URINE RANDOM (07/22/2021 1:52 PM CDT) CREATININE (U) 27.3(L) 28 - 217 MG/DL 07/22/2021 5:36 PM CDT [facility] MICROALBUMIN (U) 0.2 <2.0 mg/dL 07/23/19 5:36 PM CDT [facility] ALBUMIN/CREAT RATIO 7.3 <30.0 MG/G 07/22/2021 5:36 PM CDT [facility] URINE SPECIMEN / Unknown 07/22/2021 1:52 PM CDT us Ashly Landin ROD POINTER URINE ORDERABLES Final Result Performing Organization Address [facility] de Phone Number [facility] [address] [place] [address], * VITAMIN D, 25 OH (07/22/2021 1:52 PM CDT) VITAMIN D 25 HYDROXY S/P/B 54 30 - 100 NG/ML 07/22/2021 6:00 PM CDT [facility] Comment: ? INTERPRETATION ? DEFICIENT ??<20 ? INSUFFICIENT 20-29 ?SUFFICIENT 30-100 07/22/2021 1:52 PM CDT us Ashly Landin NP LABORATORY Final Result Performing Organization Address [facility] de Phone Number [facility] [address] [place] [address], [place] [phone] * THYROID STIM HORMONE, TSH (07/22/2021 1:52 PM CDT) Pathologist [facility] TSH 1.615 0.358 - 3.74 uIU/ML 07/22/2021 5:41 PM CDT [facility] Comment: HIGH DOSES OF BIOTIN MAY INTERFERE WITH THIS TEST RESULT. CORRELATION TO CLINICAL HISTORY AND PRESENTATION RECOMMENDED. 07/22/2021 1:52 PM CDT us Ashly Landin NP LABORATORY Final Result Performing Organization Address [facility] de Phone Number [facility] [address] [place] [address], * (ABNORMAL) LIPID PANEL (07/22/2021 1:52 PM CDT) [facility] CHOLESTEROL 200(H) <200.0 MG/DL 07/22/2021 5:41 PM T [facility] TRIGLYCERIDES 51 <150 MG/DL 07/22/2021 5:41 PM T [facility] HDL 64 >40.0 MG/DL 07/22/2021 5:41 PM T [facility] LDL (CALCULATED) 126(H) <100 MG/DL 07/22/2021 5:41 PM T [facility] NON HDL CHOLESTEROL 136(H) <130 MG/DL 07/22/2021 5:41 PM T [facility] CHOL/HDL RATIO 3.1 0.0 - 4.5 07/22/2021 5:41 PM T [facility] VLDL CALCULATION 10 5 - 55 MG/DL 07/22/2021 5:41 PM [facility] LIPID INTERPRETATION 07/22/2021 5:41 PM [facility] Comment: NIH CONCENSUS REPORT RECOMMENDATIONS: [...] NP LABORATORY Final Result Performing Organization Address [facility] Co de Phone Number [facility] [address] [place] [address], * COMPREHENSIVE METABOLIC PANEL (07/22/2021 1:52 PM CDT) GLUCOSE 83 70 - 99 MG/DL 07/22/2021 5:41 PM CDT [facility] BUN 15 7 - 18 MG/DL 07/22/2021 5:41 PM CDT [facility] CREATININE S/P/B 0.72 0.55 - 1.02 MG/DL 07/22/2021 5:41 PM CDT [facility] SODIUM S/P/B 143 136 - 145 MMOL/L 07/22/2021 5:41 PM CDT [facility] POTASSIUM S/P/B 4.1 3.5 - 5.1 MMOL/L 07/22/2021 5:41 PM [facility] CHLORIDE S/P/B 106 100 - 108 MMOL/L 07/22/2021 5:41 PM [facility] CO2 29.6 21 - 32 MMOL/L 07/22/2021 5:41 PM [facility] CALCIUM S/P/B 9.7 8.5 - 10.1 MG/DL 07/22/2021 5:41 PM [facility] BILIRUBIN TOTAL S/P/B 0.6 0.2 - 1.2 MG/DL 07/22/2021 5:41 PM [facility] TOTAL PROTEIN S/P/B 6.7 6.4 - 8.2 G/DL 07/22/2021 5:41 PM [facility] ALBUMIN S/P/B 3.7 3.4 - 5.0 G/DL 07/22/2021 5:41 PM [facility] AST 18 15 - 37 U/L 07/22/2021 5:41 PM [facility] ALT 22 14 - 55 U/L 07/22/2021 5:41 PM [facility] ALKALINE PHOSPHATASE S/P/B 83 50 - 136 U/L 07/22/2021 5:41 PM [facility] ANION GAP 7.4 5 - 15 MMOL/L 07/22/2021 5:41 PM [facility] BUN CREATININE RATIO 20.8 6 - 26 07/22/2021 5:41 PM [facility] A/G RATIO 1.2 1.0 - 2.0 RATIO 07/22/2021 5:41 PM CDT [facility] EGFR NON-AFR. AMER. >90 >90 ML/MIN/1.7 3 M2 07/22/2021 5:41 PM CDT [facility] EGFR AFR. AMER. >90 >90 ML/MIN/1.7 3 M2 07/22/2021 5:41 PM CDT [facility] Comment: NOTE: eGFR is not calculated for patients <18 years of age. This is an estimated GFR (CKD EPI) and should not be used for calculating drug doses. 07/22/2021 1:52 PM CDT Ashly Landin NP LABORATORY Final Result [facility] [address] [place] [address], * (ABNORMAL) CBC W/DIFF AUTOMATED (07/22/2021 1:52 PM CDT) WBC 5.2 4.4 - 11.0 x10'3/uL 07/22/2021 5:26 PM CDT [facility] RBC 4.16(L) 4.50 - 5.10 x10'6/uL 07/22/2021 5:26 PM CDT [facility] HGB 12.8 12.3 - 15.3 G/DL 07/22/2021 5:26 PM CDT [facility] HCT 39.3 35.9 - 44.6 % 07/22/2021 5:26 PM CDT [facility] MCV 94.5 80.0 - 96.0 FL 07/22/2021 5:26 PM CDT [facility] MCH 30.8 25.3 - 30.9 PG 07/22/2021 5:26 PM CDT [facility] MCHC 32.6 31.0 - 34.1 G/DL 07/22/2021 5:26 PM CDT [facility] RDW 12.5 12.4 - 15.1 % 07/22/2021 5:26 PM CDT [facility] PLT 269 151 - 353 x10'3/uL 07/22/2021 5:26 PM CDT [facility] MPV 11.5 9.6 - 12.0 FL 07/22/2021 5:26 PM CDT [facility] RBC MORPHOLOGY NORMAL 07/22/2021 5:26 PM T [facility] PLT MORPH. NORMAL 07/22/2021 5:26 PM T [facility] WBC MORPHOLOGY NORMAL 07/22/2021 5:26 PM T [facility] LYMPHOCYTES % 21.6 15.8 - 45.0 % 07/22/2021 5:26 PM T [facility] NEUTROPHILS % 62.4 42.1 - 71.9 % 07/22/2021 5:26 PM CDT [facility] MONOCYTES % 9.1 5.7 - 12.5 % 07/22/2021 5:26 PM CDT [facility] EOSINOPHILS 5.2 0.0 - 5.6 % 07/22/2021 5:26 PM T [facility] BASOPHILS 1.7(H) 0.0 - 1.3 % 07/22/2021 5:26 PM CDT [facility] ABS. NEUTROPHILS 3.23 1.40 - 6.00 x10'3/uL 07/22/2021 5:26 PM T [facility] IMMATURE GRANS % 0.0 0.0 - 0.5 % 07/22/2021 5:26 PM CDT [facility] ABS. LYMPHOCYTES 1.12 0.80 - 4.70 x10'3/uL 07/22/2021 5:26 PM CDT [facility] 07/22/2021 1:52 PM CDT Ashly Landin [employer] Final Result Performing Organization Address City/State/[facility] Co de Phone Number [facility] [id number] [place] [address], documented in this encounter Visit Diagnoses Diagnosis [...] Depression Total Score: 0 03/18/20 4:05 PM LICENSED LOAN OFFICER documented as of this encounter Care Teams Helpdesk Manager Relationship Specialty Start Date End Date Ashly Landin NP PCP - General NURSE PRACTITIONER 07/22/21 12/26/21 Rhonda De La Paz MD Physician INTERNAL MEDICINE 09/08/20 documented as of this encounter
--- OUTSIDE RECORDS SUMMARY | 2024-04-03 16:41 | XMS_ITS | Encounter Summary ---
Author Organization [facility] Address [address] [place] [address]. [place], [place] [address] [place] [address] Care Team Providers Care Director Housekeeping Name Role Phone Rhonda De La Paz MD Unavailable [phone] Ashly Cabrales LIBRARY HISTORIAN Primary Care Provider Peggy Sheffield Primary Care Provider [phone] Reason for Visit * Reason Comments BP Check Pt here for BP check . Encounter Details Date Type Department Care Team (Latest Contact Info) Description 12/05/2021 8:00 AM CDT Allied Health/Nurse Visit [facility] Family & Internal Medicine [address] [address] Ashly Cabrales, DIOMEDES BP Check (Pt here for BP check. ) Social History Tobacco Use Types Packs/Day [...] Coronavirus/COVID-19? No / Unsure 02/24/2022 2:47 PM SUIT ATTENDANT documented as of this encounter Last Filed Vital Signs Vital Sign Reading Time Taken Comments Blood Pressure 168/84 12/05/2021 8:03 AM CDT Pulse - - Temperature - - Respiratory Rate - - Oxygen Saturation - - Inhaled Oxygen Concentration - - Weight - - Height - - Body Mass Index - - documented in this encounter Plan of Treatment Not on file documented as of this encounter Visit Diagnoses Diagnosis Primary hypertension- Primary Unspecified essential hypertension documented in this encounter Additional Health Concerns Assessment Noted Time PHQ-9 Depression Total Score: 0 03/18/20 21 4:05 PM SUIT ATTENDANT documented as of this encounter Care Teams Director Housekeeping Relationship Specialty Start Date End Date Ashly Cabrales NP PCP - General NURSE PRACTITIONER 07/22/21 12/26/21 Peggy Best APNP [address] [address] PCP - General Nurse Practitioner Family 12/27/2109/15 Rhonda De La Paz MD Physician INTERNAL MEDICINE 09/08/20 documented as of this encounter
--- OUTSIDE RECORDS SUMMARY | 2024-04-03 16:41 | XMS_ITS | Encounter Summary ---
Author Organization [facility] Address [address] [place] [address]. [place], [place] [address] [place] [address] Care Team Providers Care Betting Clerk Name Role Phone Rhonda De La Paz MD Unavailable [phone] Rhonda De La Paz MD Primary Care Provider [phone] Encounter Details Date Type Department Care Team [...] COVID-19? No / Unsure 04/22/2021 8:58 AM BATTERY PLATE REMOVER documented as of this encounter Plan of Treatment Not on file documented as of this encounter Visit Diagnoses Not on filedocumented in this encounter Additional Health Concerns Assessment Noted Time PHQ-9 Depression Total Score: 0 03/18/20 21 4:05 PM BATTERY PLATE REMOVER documented as of this encounter Care Teams Betting Clerk Relationship Specialty Start Date End Date Rhonda De La aPz MD PCP - General INTERNAL MEDICINE 09/08/20 07/05/21 Rhonda De La Paz MD Physician INTERNAL MEDICINE 09/08/20 documented as of this encounter
--- OUTSIDE RECORDS SUMMARY | 2024-04-03 16:41 | XMS_ITS | Encounter Summary ---
Author Organization [facility] Address [address] [place] [address]. [place], [place] [address] [place] [address] Care Team Providers Care Internal Recruiter Name Role Phone Rhonda De La Paz MD Unavailable [phone] Peggy Best Primary Care Provider [phone] Encounter Details Date Type Department Care Team (Late st Contact Info) Description 02/22/2022 Orders Only [facility] Family & Internal Medicine [address] [address] Paulie Braxton I, IVAN Social [...] Total Score: 0 03/18/20 21 4:05 PM PARKING LOT SUPERVISOR documented as of this encounter Care Teams Internal Recruiter Relationship Specialty Start Date End Date Peggy Best APNP [address] [address] PCP - General Nurse Practitioner Family 12/27/21 6/05/08 Rhonda De La Paz MD Physician INTERNAL MEDICINE 09/08/20 documented as of this encounter
--- OUTSIDE RECORDS SUMMARY | 2024-04-03 16:41 | XMS_ITS | Encounter Summary ---
Author Organization [facility] Address [address] [place] [address]. [place], [place] [address] [place] [address] Care Team Providers Care Supervisor Print Line Name Role Phone Rhonda De La Paz MD Unavailable [phone] Peggy Best Primary Care Provider [phone] Encounter Details Date Type Department Care Team (Late st Contact Info) Description 01/31/2022 Orders Only [facility] Family & Internal Medicine [address] [address] Paulie Braxton I, IVAN Social [...] Total Score: 0 03/18/20 21 4:05 PM INDUSTRIAL ECONOMICS TEACHER documented as of this encounter Care Teams Supervisor Print Line Relationship Specialty Start Date End Date Peggy Best APNP [address] [place] [id number] PCP - General Nurse Practitioner Family 12/27/2109/15 Rhonda De La Paz MD Physician INTERNAL MEDICINE 09/08/20 documented as of this encounter
--- OUTSIDE RECORDS SUMMARY | 2024-04-03 16:41 | XMS_ITS | Encounter Summary ---
Author Organization [facility] Address [address] [place] [address]. [place], [place] [address] [place] [address] Care Team Providers Care Senior Occupational Therapist Name Role Phone Rhonda De La Paz MD Unavailable [phone] Peggy Best Primary Care Provider [phone] Encounter Details Date Type Department Care Team (Late st Contact Info) Description 01/25/2022 Orders Only [facility] Medical Group Family & Internal Medicine [address] [address] Paulie Braxton I, IVAN Social [...] Total Score: 0 03/18/20 21 4:05 PM LODGING MANAGER documented as of this encounter Care Teams Senior Occupational Therapist Relationship Specialty Start Date End Date Peggy Best APNP [address] [address] PCP - General Nurse Practitioner Family 12/27/21 6/05/08 Rhonda De La Paz MD Physician INTERNAL MEDICINE 09/08/20 documented as of this encounter
--- OUTSIDE RECORDS SUMMARY | 2024-04-03 16:41 | XMS_ITS | Encounter Summary ---
Author Organization [facility] Address [address] [place] [address]. [place], [place] [address] [place] [address] Care Team Providers Care Honing Machine Set Up Operator Tool Name Role Phone Rhonda De La Paz MD Unavailable [phone] Peggy Best Primary Care Provider [phone] Encounter Details Date Type Department Care Team [...] Total Score: 0 03/18/20 21 4:05 PM ECONOMIC ADVISER documented as of this encounter Care Teams Honing Machine Set Up Operator Tool Relationship Specialty Start Date End Date Peggy Best APNP [address] [address] PCP - General Nurse Practitioner Family 12/27/21 605/08 Rhonda De La Paz MD Physician INTERNAL MEDICINE 09/08/20 documented as of this encounter
--- OUTSIDE RECORDS SUMMARY | 2024-04-03 16:41 | XMS_ITS | Encounter Summary ---
Author Organization [facility] Address [address] [place] [address]. 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 [...] COLONOSCOPY performed by Charli Yi MD at [facility] OR ??? NASAL AIRWAY ??? [...] Portions of this note were dictated using Zanbato speech recognition software. Occasional wrong wordor sound-alike [...] ([facility] ONLY) (02/07/2022 10:23 AM CDT) Comment: [facility] Comment: This order for age-based cervical cancer and STI screening follows ACOG guidelines(PB 168, 140, DOD322). See individual assays for performing site location. CLINICAL INFORMATION: None given [facility] Clinical Information: NONE GIVEN [facility] Date of Last Pap NONE GIVEN Consumer Agent Portal (CAP) [facility] Previous Biopsy? NONE GIVEN Consumer Agent Portal (CAP) [facility] SOURCE (QST) Endocervix [facility] STATEMENT OF ADEQUACY: SATISFACTORY FOR EVALUATION Partially obscuring inflammation [facility] PAP INTERPRETATION/RESU LTS [facility] Comment: Negative for intraepithelial lesion or malignancy. Atrophic pattern; predominantly parabasal cells COMMENT: This Pap test has been evaluated with computer assisted technology. [facility] OPERATING MANAGER Grant [facility] Comment: AMW, CT(ASCP) CT screening location: [place] [address] [place] [address] COMMENT: [facility] Comment: EXPLANATORY NOTE: The Pap is a [...] HPV MRNA E6/E7 Not Detected Not Detected [facility] Comment: Methodology: Business Support-Mediated Amplification This assay detects E6/E7 viral messenger RNA (mRNA) from 14 high-risk HPV types (16,18,31,33,35,39,45,51,52,56,58,59,66,68). Cervical sources are required for HPV testing. If a vaginal source from a patient who has had a total hysterectomy with removal of cervix was submitted, please contact the testing laboratory for alternative testing options. For additional information, please refer to http://education.Healthy Humans/faq/NIH152f6 (This link if provided for information/ educational purposes only.) 02/07/2022 10:2 3 AM CDT 02/08/2022 12:29 AM CDT us Mis [facility] PATHOLOGY/CYTOLOGY ORDERABLE S Final Result [facility] [address] [place] [address] [facility] [address] [place] [address] documented in this encounter Visit Diagnoses Diagnosis Encounter for screening for cervical cancer- Primary Well woman exam Routine general medical examination at a health care facility Essential hypertension Unspecified essential hypertension documented in this encounter Additional Health Concerns Assessment Noted Time PHQ-9 Depression Total Score: 0 03/18/20 21 4:05 PM ASSISTANT CONTROLLER documented as of this encounter Care Teams Boiler Setter Relationship Specialty Start Date End Date Peggy Best APNP [address] [place] [address] PCP - General Nurse Practitioner Family 12/27/21 6/05/08 Rhonda De La Paz MD Physician INTERNAL MEDICINE 09/08/20 documented as of this encounter
--- OUTSIDE RECORDS SUMMARY | 2024-04-03 16:41 | XMS_ITS | Encounter Summary ---
Author Organization [facility] Address [facility]. [place], [place] [address] [place] [address] Care Team Providers Care Malt Specifications Control Assistant Name Role Phone Rhonda De La Paz MD Unavailable [phone] Peggy Best Primary Care Provider [phone] Reason for Visit * Reason Comments Hypertension 3 month follow up on high bp. Pt forgot to take bp med today. Refill Request Ran out of omeprazol e and needs refill Encounter Details Date Type Department Care Team (Late st Contact Info) Description 01/30/2022 9:00 AM CDT Office Visit [facility] Family & Internal Medicine [address] [address] Yoselin Murdock, FORMING ACID DUMPER [id number] [place] [address] [address] [facility] [place] [address] Hypertension (3 month follow up on high [...] Coronavirus/COVID-19? No / Unsure 02/24/2022 2:47 PM FURNACE PROCESS PLANT OPERATOR documented as of this encounter Last Filed [...] performed by Charli Yi MD at [facility] OR ??? NASAL AIRWAY ??? TONSILLECTOMY Social [...] time. Yoselin Murdock NP 02/09/2022 4:56 PM ACE PROCESS PLANT OPERATOR documented in this encounter Plan of Treatment Not on file documented as of this encounter Visit Diagnoses Diagnosis Essential hypertension- Primary Unspecified essential hypertension Gastroesophageal reflux disease without esophagitis Esophageal reflux documented in this encounter Additional Health Concerns Assessment Noted Time PHQ-9 Depression Total Score: 0 03/18/20 21 4:05 PM FURNACE PROCESS PLANT OPERATOR documented as of this encounter Care Teams Malt Specifications Control Assistant Relationship Specialty Start Date End Date Peggy Best APNP [address] [address] PCP - General Nurse Practitioner Family 12/27/2109/15 Rhonda De La Paz MD Physician INTERNAL MEDICINE 09/08/20 documented as of this encounter
--- OUTSIDE RECORDS SUMMARY | 2024-04-03 16:41 | XMS_ITS | Encounter Summary ---
Author Organization [facility] Address [address] [place] [address]. [place], [place] [address] [place] [address] Care Team Providers Care Multifocal Lens Assembler Name Role Phone Rhonda De La Paz MD Unavailable [phone] Ashly Cabrales NP Primary Care Provider Unavailabl e Reason for Visit * Reason Comments Urinary Frequency Encounter Details Date Type Department Care Team (Late st Contact Info) Description 09/28/2021 3:06 PM CDT - 09/28/2021 4:21 PM CDT Emergency [facility] Emergency Room [address] [place] [address] Chyna Goodman PA-C [address] [place] [address] Urinary Frequency Discharge Disposition: Home or Self [...] Everywhere. * Urinary Tract Infection, Adult ED (Norwegian) documented in this encounter Medications at Time of Discharge Cholecalciferol (VITAMIN D) 50 MCG (1999 UT) Tab biotin 83125 MCG tablet Take 5,000 mcg by mouth [...] daily as neededfor Pain. 09/28/21 10/01/21 Yes hCyna Goodman PA-C biotin 10914 MCG tablet Take 5,000 mcg by mouth [...] ??? COLONOSCOPY N/A 04/22/2021 COLONOSCOPY performed by Chrali Yi MD at [facility] OR ??? NASAL AIRWAY ??? TONSILLECTOMY FAMILY [...] Range COLOR (U) YELLOW TRANSPARENCY HAZY Specific [place] (U) 1.010 1.000 - 1.030 U PH [...] 14 capsule, Refills: 0 Class: Eprescribe Pharmacy: [facility]/pharmacy #[id number] [facility] [address] (Ph #: [phone]) phenazopyridine 200 MG tablet Take 1 tablet (200 mg total) by mouth 3 (three) times daily as neededfor Pain. Qty: 9 tablet, Refills: 0 Class: Eprescribe [facility]: [id number] [place], [place] - [address] (Ph #: [phone]) Follow-Up: Ashly Cabrales, IT DESKTOP SUPPORT TECHNICIAN [address] [address] [facility] [address] As needed Disposition: Discharge Chyna [...] COLOR (U) YELLOW 09/28/2021 4:06 PM CDT [facility] TRANSPARENCY HAZY 09/28/2021 4:06 PM [facility] SPECIFIC GRAVITY (U) 1.010 1.000 - 1.030 09/28/2021 4:06 PM [facility] U PH 7.0 5.0 - 9.0 09/28/2021 4:06 PM [facility] LEUKOCYTES (U) 3+(A) NEGATIVE 09/28/2021 4:06 PM [facility] NITRITES NEGATIVE NEGATIVE 09/28/2021 4:06 PM [facility] PROTEIN (U) NEGATIVE NEGATIVE 09/28/2021 4:06 PM [facility] URINE GLUCOSE NEGATIVE NEGATIVE 09/28/2021 4:06 PM [facility] KETONES MG/DL (U) NEGATIVE NEGATIVE 09/28/2021 4:06 PM [facility] BILIRUBIN (U) NEGATIVE NEGATIVE 09/28/2021 4:06 PM [facility] BLOOD (U) 2+(A) NEGATIVE 09/28/2021 4:06 PM [facility] WBC/HPF 25-50 0 - 5 /HPF 09/28/2021 4:06 PM [facility] RBC/HPF 5-10 0 - 5 /HPF 09/28/2021 4:06 PM [facility] EPI/HPF FEW /HPF 09/28/2021 4:06 PM [facility] CULTURE & SENSITIVITY INDICATED? SPECIMEN SETUP FOR CULTURE 09/28/2021 4:06 PM [facility] BACTERIA (U) FEW /HPF 09/28/2021 4:06 PM [facility] URINE SPECIMEN OBTAINED BY CLEAN CATCH PROCEDURE / Unknown 09/28/2021 3:53 PM CDT Chyna Goodman PA-C URINE ORDERABLES Final R esult [facility] [address] [place] [address], [place] [phone] * (ABNORMAL) CULTURE URINE (09/28/2021 3:24 PM CDT) SPEC DESCRIPTION URINE CLEAN CATCH 09/28/2021 4:06 PM CDT [facility] SPECIAL REQUESTS NO SPECIAL REQUEST 09/28/2021 4:06 PM CDT [facility] CULTURE RESULT >100,000 COL/ML ENTEROBACTE R CLOACAE COMPLEX (A) 09/30/2021 6:41 AM CDT [facility] URINE SPECIMEN OBTAINED BY CLEAN CATCH [...] MICROBIOLOGY - GENERAL O RDERABLES Final Result [facility] [address] [place] [address], [place] [phone] [facility] [address] [place] [address], documented in this encounter Visit Diagnoses Diagnosis UTI (urinary tract infection)- Primary Urinary tract infection, site not specified documented in this encounter Additional Health Concerns Assessment Noted Time PHQ-9 Depression Total Score: 0 03/18/20 21 4:05 PM INSURANCE BILLING CLERK documented as of this encounter Care Teams Multifocal Lens Assembler Relationship Specialty Start Date End Date Ashly Cabrales NP PCP - General NURSE PRACTITIONER 07/22/21 12/26/21 Rhonda De La Paz MD Physician INTERNAL MEDICINE 09/08/20 documented as of this encounter
--- OUTSIDE RECORDS SUMMARY | 2024-04-03 16:41 | XMS_ITS | Encounter Summary ---
Author Organization [facility] Address [address] [place] [address]. [place], [place] [address] [place] [address] Care Team Providers Care Lvn Name Role Phone Rhonda De La Paz MD Unavailable [phone] Ashly Cabrales CITY CLERK Primary Care Provider Unavailabl e Encounter Details [...] Total Score: 0 03/18/20 21 4:05 PM GALVANIZING POT RUNNER documented as of this encounter Care Teams Lvn Relationship Specialty Start Date End Date Ashly Cabrales, CITY CLERK PCP - General NURSE PRACTITIONER 07/22/21 12/26/21 Rhonda De La Paz MD Physician INTERNAL MEDICINE 09/08/20 documented as of this encounter
--- OUTSIDE RECORDS SUMMARY | 2024-04-03 16:41 | XMS_ITS | Encounter Summary ---
Author Organization [facility] Address [address] [place] [address]. [place], [place] [address] [place], [place] [address] Care Team Providers Care Crust Sorter Name Role Phone Rhonda De La Paz MD Unavailable [phone] Ashly Cabrales NP Primary Care Provider Unavailabl e Reason for Referral * Imaging (Emergency) - Closed Specialty Diagnoses / Procedures Referred By Contac t Referred To Contact RADIOLOGY Procedures CT CERV SPINE WO CON Nayla Kevin NP [address] [address] Phone: tel: fax: Referral ID Status Reason Start Date Expiration Date Visits Re quested Visits Authorized [id number] Closed 12/13/2021 12/13/2022 1 1 * Imaging (Emergency) - Closed Specialty Diagnoses / Procedures Referred By Contac t Referred To Contact RADIOLOGY Procedures CT HEAD WO CON Nayla Kevin NP [address] [address] Phone: tel: fax: Referral ID Status Reason Start Date Expiration Date Visits Re quested Visits Authorized [id number] Closed 12/13/2021 12/13/2022 1 1 Reason for Visit * Reason Comments Head Injury Encounter Details Date Type Department Care Team (Late st Contact Info) Description 12/13/2021 2:50 PM CDT - 12/13/2021 4:32 PM CDT Emergency [facility] Emergency Room [address] [place] [address] Nayla Kevin NP [address] [address] Head Injury Discharge Disposition: Home or Self [...] need to follow-up with Workmen's Comp. from [facility]. Your manufacturing shift supervisor can help direct you to human resources or their occupational healthprogram. * Attachments The following attachments cannot be sent through Care Everywhere. 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 She reaches above her head at is [...] 12/13/21 12/23/21 Yes Nayla Kevin [place] biotin 50525 MCG tablet Take 5,000 mcg by mouth [...] mg total) by mouth daily. 10/31/21 10/31/22 Ashly Cabrales NP multiple vitamins-minerals (OCUVITE-LUTEIN) Cap Take [...] COLONOSCOPY performed by Charli Yi MD at [facility] OR ??? NASAL AIRWAY ??? [...] HEAD WO CON Final Result by User, [email or web address] (12/13 1682) IMAGING STUDIES: CT HEAD WO CON DATE: [...] SPINE WO CON Final Result by User, [email or web address] (12/13 7726) IMAGING STUDIES: CT CERV SPINE WO CON [...] Sun12/23/2021 at 2359, Eprescribe Class: Eprescribe Pharmacy: [facility]/pharmacy #[id number] [facility] [address] (Ph #: [phone]) !! - Potential duplicate medications found. Please [...] Eprescribe Class: Eprescribe [id number] [place] - [address] (Ph #: [phone]) !! - Potential duplicate medications found. Please discuss with provider. Disposition: Discharge Follow[place]: [place] [address] [facility] [address] [facility] [address] As needed NAYLA KEVIN NP 12/14/2021 Note: This H+P / note was created with the aid of dictation software, thus there may be some word substitutions or errors. Nayla Kevin NP 12/14/21 7708 Cosigned by Valentin Han MD at 12/15/2021 [...] Leandro Waters, 12/13/2021 3:43 PM Nayla Kevin FERMENTATION OPERATOR CT Final Result * CT HEAD WO [...] intracranialvascular calcifications.. Slightly low-lying cerebellar tonsils. 4. Martinez/white differentiation is within normal limits. No significantatrophy. 5. No cranial fracture. Visualized mastoid air cells and paranasal aircells are well aerated. Ordered By: NAYLA KEVIN Interpreted By: Leandro Waters, 12/13/2021 3:40 PM us Nayla Kevin FERMENTATION OPERATOR CT Final Result documented in this encounter [...] Total Score: 0 03/18/20 21 4:05 PM BELLMAN DRIVER documented as of this encounter Care Teams Crust Sorter Relationship Specialty Start Date End Date Ashly Cabrales NP PCP - General NURSE PRACTITIONER 07/22/21 12/26/21 Rhonda De La Paz MD Physician INTERNAL MEDICINE 09/08/20 documented as of this encounter
--- OUTSIDE RECORDS SUMMARY | 2024-04-03 16:41 | XMS_ITS | Encounter Summary ---
Author Organization [facility] Address [address] [place] [address]. [place], [place] [address] [place] [address] Care Team Providers Care Lead Massage Therapist Name Role Phone Rhonda De La Paz MD Unavailable [phone] Ashly Landin SOLUTIONS ARCHITECT Primary Care Provider Unavailabl e Reason for Referral * Consultation (Routine) - Closed Specialty Diagnoses / Procedures Referred By Master sweet Referred To Contact GASTROENTEROLOGY Diagnoses Hemorrhoids, unspecified hemorrhoid type Ashly [place]in, [place] [address] [place] [address] Phone: tel: fax: Referral ID Status Reason Start Date Expiration Date Visits Re quested Visits Authorized [id number] Closed 10/31/2021 12/02/2022 100 100 Scheduling Instructions [...] Description 10/31/2021 9:00 AM CDT Office Visit [facility] Medical Group Family & Internal Medicine [facility] [address] [place] [address] Ashly Landin, DIOMEDES Follow Up (3 [...] Everywhere. * High Blood Pressure in Adults (Malagasy) documented in this encounter Progress Notes * [...] (Denies). Medications: Current Outpatient Medications: ??? biotin 32448 MCG tablet, Take 5,000 mcg by mouth [...] COLONOSCOPY performed by Charli Yi MD at [facility] OR ??? NASAL AIRWAY ??? [...] K64.9 455.6 HEMORRHOIDS Ambulatory referral to Gastroenterology ([facility]) 7. Screening for depression Z13.31 [...] with GI - Ambulatory referral to Gastroenterology ([facility]) ASHLY LANDIN NP 10/31/2021 12:54 PM documented in this encounter Plan of Treatment Scheduled Referrals Name Type Priority Associated Diagnoses Orde r Schedule Ambulatory referral to Gastroenterology ([facility]) Referral Routine Hemorrhoids, unspecified hemorrhoid [...] Total Score: 0 03/18/20 21 4:05 PM PHYSICAL THERAPIST CENTER MANAGER documented as of this encounter Care Teams Lead Massage Therapist Relationship Specialty Start Date End Date Ashly Landin NP PCP - General NURSE PRACTITIONER 07/22/21 12/26/21 Rhonda De La Paz MD Physician INTERNAL MEDICINE 09/08/20 documented as of this encounter
--- OUTSIDE RECORDS SUMMARY | 2024-04-03 16:41 | XMS_ITS | Encounter Summary ---
Author Organization [facility] Address [address] [place] [address]. [place], [place] [address] [place] [address] Care Team Providers Care Roofing Applicator Name Role Phone Rhonda De La Paz MD Unavailable Ashly Cabrales IMPLEMENTATION ENGINEER Primary Care Provider Unavailabl e Encounter Details [...] Total Score: 0 03/18/20 21 4:05 PM TIME CHECKER documented as of this encounter Care Teams Roofing Applicator Relationship Specialty Start Date End Date Ashly Cabrales, IMPLEMENTATION ENGINEER PCP - General NURSE PRACTITIONER 07/22/21 12/26/21 Rhonda De La Paz MD Physician INTERNAL MEDICINE 09/08/20 documented as of this encounter
--- OUTSIDE RECORDS SUMMARY | 2024-04-03 16:41 | XMS_ITS | Encounter Summary ---
Author Organization [facility] Address [address] [place] [address]. [place], [place] [address] [place] [address] Care Team Providers Care Slumber Room Attendant Name Role Phone Rhonda De La Paz MD Unavailable [phone] Ashly Cabrales ORTHOPEDICS PEDIATRIC PHYSICIAN Primary Care Provider Unavailabl e Encounter Details [...] Total Score: 0 03/18/20 21 4:05 PM SINGER SONGWRITER documented as of this encounter Care Teams Slumber Room Attendant Relationship Specialty Start Date End Date Ashly Cabrales, ORTHOPEDICS PEDIATRIC PHYSICIAN PCP - General NURSE PRACTITIONER 07/22/21 12/26/21 Rhonda De La Paz MD Physician INTERNAL MEDICINE 09/08/20 documented as of this encounter
--- OUTSIDE RECORDS SUMMARY | 2024-04-03 16:41 | XMS_ITS | Encounter Summary ---
Author Organization [facility] Address [address] [place] [address]. [place], [place] [address] [place] [address] Care Team Providers Care Retail Clerk Name Role Phone Rhonda De La Paz MD Unavailable [phone] Ashly Cabrales CERTIFIED REGISTERED DENTAL ASSISTANT Primary Care Provider Unavailabl e Encounter [...] Total Score: 0 03/18/20 21 4:05 PM FACILITY SECURITY OFFICER documented as of this encounter Care Teams Retail Clerk Relationship Specialty Start Date End Date Ashly Cabrales, CERTIFIED REGISTERED DENTAL ASSISTANT PCP - General NURSE PRACTITIONER 07/22/21 12/26/21 Rhonda De La Paz MD Physician INTERNAL MEDICINE 09/08/20 documented as of this encounter
--- OUTSIDE RECORDS SUMMARY | 2024-04-03 16:41 | XMS_ITS | Encounter Summary ---
Author Organization [facility] Address [facility]. [place], [place] [address] [place] [address] Care Team Providers Care Lunchroom Supervisor Name Role Phone Rhonda De La Paz MD Unavailable [phone] Job Martínez Primary Care Provider [phone] Reason for Visit * Reason Comments Knee Pain Left knee pain. Was jumping in the pool Sunday/Sunday with some swelling. Used ice for relief Encounter Details Date Type Department Care Team (Late st Contact Info) Description 12/27/2021 2:40 PM CDT Office Visit [facility] Medical Group Family & Internal Medicine [address] [address] Job Martínez APNP [address] [place] [address] [place] [address] Knee Pain (Left knee pain. /Was [...] nervous/anxious. Medications: Current Outpatient Medications: ??? biotin 65564 MCG tablet, Take 5,000 mcg by mouth [...] COLONOSCOPY performed by Charli Yi MD at [facility] OR ??? NASAL AIRWAY ??? TONSILLECTOMY [...] 4V ??? naproxen (NAPROSYN) 500 MG tablet CATALINA Lomas Referring Provider: No ref. provider [...] Total Score: 0 03/18/20 21 4:05 PM PARACHUTE PACKER documented as of this encounter Care Teams Lunchroom Supervisor Relationship Specialty Start Date End Date Job Martínez APNP [address] [address] PCP - General Nurse Practitioner Family 12/27/21 6/05/08 Rhonda De La Paz MD Physician INTERNAL MEDICINE 09/08/20 documented as of this encounter
--- OUTSIDE RECORDS SUMMARY | 2024-04-03 16:41 | XMS_ITS | Encounter Summary ---
Author Organization [facility] Address [address] [place] [address]. [place], [place] [address] [place] [address] Care Team Providers Care Yarn Mercerizer Operator Name Role Phone Rhonda De La Paz MD Unavailable [phone] Peggy Best Primary Care Provider [phone] Reason for Visit * Reason Onset Date Comments Information 01/30/2022 Billing Instruct ions for patient Ins. Encounter Details Date Type Department Care Team (Late st Contact Info) Description 01/30/2022 Telephone [facility] Medical Group Family & Internal Medicine - [place] [address] [place] [address] Peggy Best APNP [address] [facility] [address] [place] [address] Information (Billing Instructions for patient Ins.) [...] - 01/30/2022 11:31 AM CDT I called [place], and was sent over to [facility] and I spoke with Mitra Montes De Oca, and she stated that all claims for PCP care are to go to [facility] [address] [facility] [address] All hospital claims are to be sent to [facility] [address] [place] [address] Call Ref# Mitra Montes De Oca / [id number] I then called [facility] [employer] [facility] where I spoke with Rain. She stated to leave the [facility] and the [facility] as they are in the chart. She will also be putting in a note with they information that we discussed. documented in this encounter Plan of Treatment Not on file documented as of this encounter Visit Diagnoses Not on filedocumented in this encounter Additional Health Concerns Assessment Noted Time PHQ-9 Depression Total Score: 0 03/18/20 21 4:05 PM HOSPITAL CARRIER documented as of this encounter Care Teams Yarn Mercerizer Operator Relationship Specialty Start Date End Date Peggy Best APNP [address] [address] PCP - General Nurse Practitioner Family 12/27/2109/15 Rhonda De La Paz MD Physician INTERNAL MEDICINE 09/08/20 documented as of this encounter
--- OUTSIDE RECORDS SUMMARY | 2024-04-03 16:41 | XMS_ITS | Encounter Summary ---
Author Organization [facility] Address [address] [place] [address]. [place], [place] [address] [place] [address] Care Team Providers Care Sample Taker Operator Name Role Phone Rhonda De La Paz MD Unavailable [phone] Ashly Cabrales EVP AND CHIEF OPERATING OFFICER Primary Care Provider Unavailabl e Encounter Details [...] Total Score: 0 03/18/20 21 4:05 PM TIRE FABRIC INSPECTOR documented as of this encounter Care Teams Sample Taker Operator Relationship Specialty Start Date End Date Ashly Cabrales, EVP AND CHIEF OPERATING OFFICER PCP - General NURSE PRACTITIONER 07/22/21 12/26/21 Rhonda De La Paz MD Physician INTERNAL MEDICINE 09/08/20 documented as of this encounter
--- OUTSIDE RECORDS SUMMARY | 2024-04-03 16:42 | XMS_ITS | Encounter Summary ---
Author Organization [facility] Address [address] [place] [address]. [place], [place] [address] [place] [address] Care Team Providers Care Egg Separator Name Role Phone Rhonda De La Paz MD Unavailable [phone] Rhonda De La Paz MD Primary Care Provider [phone] Reason for Visit * Auth/Cert Specialty Diagnoses / Procedures Referred By Master sweet Referred To Contact Diagnoses Screen for colon cancer History of colon polyps Screening colonoscopy Procedures COLONOSCOPY,DIAGNOSTIC COLONOSCOPY Referral ID Status Reason Start Date Expiration Date Visits Re quested Visits Authorized [id number] 1 1 Encounter Details Date Type Department Care Team (Latest Contact Info) Description 04/22/2021 8:57 AM TIP STRETCHER - 04/22/2021 1:[address] [facility] Hospital Encounter [facility] Surgery [address] [place] [address] Glenn Yi MD [address] [id number] Discharge Disposition: Home or Self Care (Routine [...] COVID-19? No / Unsure 04/22/2021 8:58 AM TIP STRETCHER documented as of this encounter Last Filed Vital Signs Vital Sign Reading Time Taken Comments Blood Pressure 95/55 04/22/2021 1:09 PM TIP STRETCHER Pulse 70 04/22/2021 1:09 PM TIP STRETCHER Temperature 36.6 ??C (97.9 ??F) 04/22/2021 9:21 AM CS T Respiratory Rate 20 04/22/2021 1:09 PM TIP STRETCHER Oxygen Saturation 100% 04/22/2021 1:09 PM TIP STRETCHER Inhaled Oxygen Concentration - - Weight 61.2 kg (135 lb) 04/12/2021 3:39 PM TIP STRETCHER Height 154.9 cm (5' 1 ) 04/12/2021 3:39 PM TIP STRETCHER Body Mass Index 25.51 04/12/2021 3:39 PM TIP STRETCHER documented in this encounter Discharge Instructions * Discharge Instructions* Nayla [place] RN - 04/22/2021 12:56 PM TIP STRETCHER Images from the original note were not [...] belly pain. Where can I learn more? [employer] https://www.cancer.org/cancer/lymla-ssnjbv-ehjxrh/cmblmznxj-gakrytfwf-gdmorck/sc arqehey-zmpzd-lilm.html [employer] Society of Clinical Oncology https://www.cancer.net/eijgppljrj-xqnrwa-ycok/diagnosing-cancer/pgnel-noo-mndakk ures/colonoscopy Last Reviewed Date 2020-06-23 Consumer Information [...] or approved for treating a specific patient. [employer] and its affiliates disclaim any warranty or liability relating to this information or the use thereof. The use of this information is governed by the Terms of Use, available at https://www.500px.com/en/solutions/lexicomp/about/veena Copyright Copyright ?? 2020 [employer] and its affiliates and/or licensors. All rights reserved. STRETCHER * Attachments The following attachments cannot be sent through Care Everywhere. * Monitored Anesthesia Care (Bruneian) documented in this encounter Medications at Time of Discharge Cholecalciferol (VITAMIN D) 50 MCG (2000 UT) Tab biotin 13751 MCG tablet Take 5,000 mcg by mouth [...] GLENN YI MD Voice recognition software utilized STRETCHER documented in this encounter OR Notes * Op Note - Glenn Yi MD - 04/22/2021 12:39 PM CST [facility] OpNote COLONOSCOPY Procedure Note Danielle Brito 04/22/2021 1004 Procedure(s) (LRB): COLONOSCOPY (N/A) Surgeon(s): Glenn Yi MD Staff: Scrub Person 1: Alton De La Rosa RN Anesthesia: Monitor Anesthesia Care SURGICAL TECHNOLOGY INSTRUCTOR: Brandi Corrales CRNA Pre-Op Diagnosis: Screening colonoscopy [...] Time: 12:39 PM Voice recognition software utilized. STRETCHER documented in this encounter Plan of Treatment Not on file documented as of this encounter Procedures Procedure Name Priority Date/Time Associated Diagnosis Comments COLONOSCOPY FLX DX W/COLLJ SPEC WHEN PFRMD 04/22/2021 12:18 PM TIP STRETCHER Screen for colon cancer History of colon [...] TKO rate, Pre-Op Restarted 04/22/2021 12:19 PM TIP STRETCHER New Bag 04/22/2021 9:39 AM TIP STRETCHER 10 mL/hr documented in this encounter Active and Recently Administered Medications Times are shown in TIP STRETCHER. Continuous Medication Order 04/20/2021 04/21/2021 04/22/2021 lactated [...] Total Score: 0 03/18/20 21 4:05 PM TIP STRETCHER documented as of this encounter Care Teams Egg Separator Relationship Specialty Start Date End Date Rhonda De La Paz MD PCP - General INTERNAL MEDICINE 09/08/20 07/05/21 Rhonda De La Paz MD Physician INTERNAL MEDICINE 09/08/20 documented as of this encounter
--- OUTSIDE RECORDS SUMMARY | 2024-04-03 16:42 | XMS_ITS | Encounter Summary ---
Author Organization [facility] Address [address] [place] [address]. [place], [place] [address] [place] [address] Care Team Providers Care Burglar Alarm Assembler Name Role Phone Rhonda De La Paz MD Unavailable [phone] Rhonda De La Paz MD Primary Care Provider [phone] Reason for Visit * Reason Onset Date Comments Surgery Follow Up 04/18/2021 Encounter Details Date Type Department Care Team (Late st Contact Info) Description 04/18/2021 Telephone [facility] Medical Group Multispecialty Care - [facility] 3 [facility] [address] [place] [address] Charli Yi MD 3 [facility] [address] [place] [address] Surgery Follow Up Social History [...] on: 04/18/2021 01:18 PM Modules accepted: Orders CORE WELDER * Antonina Maravilla - 04/18/2021 1:15 PM CSTAddended by: ANTONINA MARAVILLA on: 04/18/2021 01:15 PM Modules accepted: Orders CORE WELDER * Angela Gupta - 04/18/2021 12:59 PM CST Pt called to request that prep for surgery Sunday be sent out to [facility] today so theycan pick this up. CORE WELDER documented in this encounter Plan of Treatment Not on file documented as of this encounter Visit Diagnoses Diagnosis Screen for colon cancer- Primary Special screening for malignant neoplasms, colon History of colon polyps Personal history of colonic polyps documented in this encounter Additional Health Concerns Assessment Noted Time PHQ-9 Depression Total Score: 0 03/18/20 21 4:05 PM FLUX CORE WELDER documented as of this encounter Care Teams Burglar Alarm Assembler Relationship Specialty Start Date End Date Rhonda De La Paz MD PCP - General INTERNAL MEDICINE 09/08/20 07/05/21 Rhonda De La Paz MD Physician INTERNAL MEDICINE 09/08/20 documented as of this encounter
--- OUTSIDE RECORDS SUMMARY | 2024-04-03 16:42 | XMS_ITS | Encounter Summary ---
Author Organization [facility] Address [address] [place] [address]. [place], [place] [address] [place] [address] Care Team Providers Care Herpetologist Name Role Phone Rhonda De La Paz MD Unavailable [phone] Rhonda De La Paz MD Primary Care Provider Reason for Visit * Reason Comments Follow Up NEEDS REFILL CYCLOBE NZAPRINE 5 MG / AND OTHER ISSUES Encounter Details Date Type Department Care Team (Latest Contact Info) Description 12/28/2020 3:40 PM CDT Office Visit [facility] Group Family & Internal Medicine [facility] [address] [place] [address] [place] [address] [place] [address] Follow Up (NEEDS REFILL CYCLOBENZAPRINE 5 [...] Psychiatric/Behavioral: Negative. Current Outpatient Medications: ??? biotin 08454 MCG tablet, Take 5,000 mcg by mouth [...] Gatherings with Friends and Family: ??? Attends Mormonism Services: ??? Active Member of Clubs or [...] muscle documented in this encounter Care Teams Herpetologist Relationship Specialty Start Date End Date Rhonda De La Paz MD PCP - General INTERNAL MEDICINE 09/08/20 07/05/21 Rhonda De La Paz MD Physician INTERNAL MEDICINE 09/08/20 documented as of this encounter
--- OUTSIDE RECORDS SUMMARY | 2024-04-03 16:42 | XMS_ITS | Encounter Summary ---
Author Organization [facility] Address [address] [place] [address]. [place], [place] [address] [place] [address] Care Team Providers Care Recovery Operator Name Role Phone Rhonda De La Paz MD Unavailable [phone] Rhonda De La Paz MD Primary Care Provider [phone] Encounter Details Date Type Department Care Team [...] on filedocumented in this encounter Care Teams Recovery Operator Relationship Specialty Start Date End Date Rhonda De La Paz MD PCP - General INTERNAL MEDICINE 5/26/21 3/22/22 Rhonda De La Paz MD Physician INTERNAL MEDICINE 09/08/20 documented as of this encounter
--- OUTSIDE RECORDS SUMMARY | 2024-04-03 16:42 | XMS_ITS | Encounter Summary ---
Author Organization [facility] Address [address] [place] [address]. [place], [place] [address] [place] [address] Care Team Providers Care Automotive Shop Foreman Name Role Phone Rhonda De La Paz MD Unavailable [phone] Rhonda De La Paz MD Primary Care Provider [phone] Encounter Details Date Type Department Care Team [...] COVID-19? No / Unsure 03/18/2021 1:59 PM LIP OF SHANK CUTTER documented as of this encounter Plan of Treatment Not on file documented as of this encounter Visit Diagnoses Not on filedocumented in this encounter Additional Health Concerns Assessment Noted Time PHQ-9 Depression Total Score: 0 03/18/20 21 4:05 PM LIP OF SHANK CUTTER documented as of this encounter Care Teams Automotive Shop Foreman Relationship Specialty Start Date End Date Rhonda De La Paz MD PCP - General INTERNAL MEDICINE 09/08/20 07/05/21 Rhonda De La Paz MD Physician INTERNAL MEDICINE 09/08/20 documented as of this encounter
--- OUTSIDE RECORDS SUMMARY | 2024-04-03 16:42 | XMS_ITS | Encounter Summary ---
Author Organization [facility] Address [facility]. [place], [place] [address] [place] [address] Care Team Providers Care Machine Assembler For Puller Over Name Role Phone Rhonda De La Paz MD Unavailable [phone] Rhonda De La Paz MD Primary Care Provider [phone] Reason for Referral * Surgical (Routine) - Closed Specialty Diagnoses / Procedures Referred By Master sweet Referred To Contact Diagnoses Screen for colon cancer History of colon polyps Procedures Case request operating room: COLONOSCOPY DIAGNOSTIC WITH/WITHOUT SPECIMEN BRUSH/WASH Charli Yi MD [address] [place] [address] Phone: tel: fax: Referral ID Status Reason Start Date Expiration Date Visits Re quested Visits Authorized [id number] Closed 03/23/2021 04/23/2022 1 1 R RECEIVER Encounter Details Date Type Department Care Team (Late st Contact Info) Description 03/23/2021 Orders Only [facility] Medical Group Multispecialty Care - [facility] 3 [facility] [address] [place] [address] Charli Yi MD [address] [place] [address] [address] [place], [place] [id number] Social History Tobacco Use Types Packs/Day Years [...] COVID-19? No / Unsure 03/18/2021 1:59 PM COLOR RECEIVER documented as of this encounter Plan of [...] Total Score: 0 03/18/20 21 4:05 PM COLOR RECEIVER documented as of this encounter Care Teams Machine Assembler For Puller Over Relationship Specialty Start Date End Date Rhonda De La Paz MD PCP - General INTERNAL MEDICINE 09/08/20 07/05/21 Rhonda De La Paz MD Physician INTERNAL MEDICINE 09/08/20 documented as of this encounter
--- OUTSIDE RECORDS SUMMARY | 2024-04-03 16:42 | XMS_ITS | Encounter Summary ---
Author Organization [facility] Address [address] [place] [address]. [place], [place] [address] [place] [address] Care Team Providers Care Vine Fruit Farming Supervisor Name Role Phone Rhonda De La Paz MD Unavailable [phone] Rhonda De La Paz MD Primary Care Provider [phone] Reason for Visit * Reason Onset Date Comments Prior Authorization 03/24/2021 Encounter Details Date Type Department Care Team (Late st Contact Info) Description 03/24/[address] [facility] Medical Group Multispecialty Care - [facility] 3 [facility], [address] [place] [address] Charli Yi MD 3 [facility] [address] [place] [address] Prior Authorization Social History Tobacco [...] COVID-19? No / Unsure 03/18/2021 1:59 PM TIRE ASSEMBLER documented as of this encounter Progress Notes * Lea Joseph MA - 03/24/2021 10:53 AM CSTSummary: prior auth Auth is not required for colonoscopy per Magdalene zafar @ [facility] REF# [id number] ASSEMBLER documented in this encounter Plan of Treatment Not on file documented as of this encounter Visit Diagnoses Not on filedocumented in this encounter Additional Health Concerns Assessment Noted Time PHQ-9 Depression Total Score: 0 03/18/20 21 4:05 PM TIRE ASSEMBLER documented as of this encounter Care Teams Vine Fruit Farming Supervisor Relationship Specialty Start Date End Date Rhonda De La Paz MD PCP - General INTERNAL MEDICINE 09/08/20 07/05/21 Rhonda De La Paz MD Physician INTERNAL MEDICINE 09/08/20 documented as of this encounter
--- OUTSIDE RECORDS SUMMARY | 2024-04-03 16:42 | XMS_ITS | Encounter Summary ---
Author Organization [facility] Address [address] [place] [address]. [place], [place] [address] [place] [address] Care Team Providers Care Outsole Caser Name Role Phone Rhonda De La Paz MD Unavailable [phone] Rhonda De La Paz MD Primary Care Provider [phone] Reason for Visit * Reason Onset Date Comments Follow Up Call 03/18/2021 Encounter Details Date Type Department Care Team (Late st Contact Info) Description 03/18/2021 Telephone [facility] Medical Group Multispecialty Care - [facility] 3 [facility] system, [address] [place] [address] Charli Yi MD 3 [facility] [address] [place] [address] Follow Up Call Social History [...] Spoke with patient appt confirmed for today. SH REPAIRER * Jason Partida - 03/18/2021 9:53 AM CST Pt called and asked to speak with 's office. Clicked back over to transfer call to Antonina king was silent and no response. Please give Pt a call back to discuss [phone] SH REPAIRER documented in this encounter Plan of Treatment Not on file documented as of this encounter Visit Diagnoses Not on filedocumented in this encounter Additional Health Concerns Assessment Noted Time PHQ-9 Depression Total Score: 0 03/18/20 21 4:05 PM FINISH REPAIRER documented as of this encounter Care Teams Outsole Caser Relationship Specialty Start Date End Date Rhonda De La Paz MD PCP - General INTERNAL MEDICINE 09/08/20 07/05/21 Rhonda De La Paz MD Physician INTERNAL MEDICINE 09/08/20 documented as of this encounter
--- OUTSIDE RECORDS SUMMARY | 2024-04-03 16:42 | XMS_ITS | Encounter Summary ---
Author Organization [facility] Address [address] [place] [address]. [place], [place] [address] [place] [address] Care Team Providers Care Community Theater Actor Name Role Phone Rhonda De La Paz MD Unavailable [phone] Rhonda De La Paz MD Primary Care Provider [phone] Reason for Visit * Reason Comments Consult For Colonoscopy * Consultation (Routine) - Closed Specialty Diagnoses / Procedures Referred By Master sweet Referred To Contact GASTROENTEROLOGY Diagnoses Colon cancer screening Polyp of colon, unspecified part [place], [place] [address] [place] [address] Phone: tel: fax: [facility] [place] [address] [place] [address] Phone: tel: fax: Referral ID Status Reason Start Date Expiration Date Visits Re quested Visits Authorized [id number] Closed 09/15/2020 10/17/2021 99 99 Encounter Details Date Type Department Care Team (Latest Contact Info) Description 03/18/2021 2:40 PM DISHWASHER PREPARER Office Visit [facility] Medical [facility] [place] [address] [place] [phone] Glenn Yi MD [address] [place] [address] Consult For Colonoscopy Social History Tobacco Use [...] COVID-19? No / Unsure 03/18/2021 1:59 PM DISHWASHER PREPARER documented as of this encounter Last Filed Vital Signs Vital Sign Reading Time Taken Comments Blood Pressure 128/74 03/18/2021 4:04 PM DISHWASHER PREPARER Pulse 74 03/18/2021 4:04 PM DISHWASHER PREPARER Temperature 36.5 ??C (97.7 ??F) 03/18/2021 4:04 PM CS T Respiratory Rate - - Oxygen Saturation 98% 03/18/2021 4:04 PM DISHWASHER PREPARER Inhaled Oxygen Concentration - - Weight 63 kg (139 lb) 03/18/2021 4:04 PM DISHWASHER PREPARER Height 154.9 cm (5' 1 ) 03/18/2021 4:04 PM DISHWASHER PREPARER Body Mass Index 26.26 03/18/2021 4:04 PM DISHWASHER PREPARER documented in this encounter Progress Notes * [...] lesions Medications: Current Outpatient Medications: ??? biotin 26341 MCG tablet, Take 5,000 mcg by mouth [...] YI MD 03/18/2021 Voice recognition software utilized WASHER PREPARER documented in this encounter Plan of Treatment Not on file documented as of this encounter Visit Diagnoses Diagnosis Screen for colon cancer- Primary Special screening for malignant neoplasms, colon History of colon polyps Personal history of colonic polyps documented in this encounter Additional Health Concerns Assessment Noted Time PHQ-9 Depression Total Score: 0 03/18/20 21 4:05 PM DISHWASHER PREPARER documented as of this encounter Care Teams Community Theater Actor Relationship Specialty Start Date End Date Rhonda De La Paz MD PCP - General INTERNAL MEDICINE 09/08/20 07/05/21 Rhonda De La Paz MD Physician INTERNAL MEDICINE 09/08/20 documented as of this encounter
--- OUTSIDE RECORDS SUMMARY | 2024-04-03 16:42 | XMS_ITS | Encounter Summary ---
Author Organization [facility] Address [address] [place] [address]. [place], [place] [address] [place] [address] Care Team Providers Care Admissions Consultant Name Role Phone Rhonda De La Paz MD Unavailable [phone] Rhonda De La Paz MD Primary Care Provider [phone] Encounter Details Date Type Department Care Team [...] COVID-19? No / Unsure 03/18/2021 1:59 PM SUPERVISOR SAFETY DEPOSIT documented as of this encounter Plan of Treatment Not on file documented as of this encounter Visit Diagnoses Not on filedocumented in this encounter Additional Health Concerns Assessment Noted Time PHQ-9 Depression Total Score: 0 03/18/20 21 4:05 PM SUPERVISOR SAFETY DEPOSIT documented as of this encounter Care Teams Admissions Consultant Relationship Specialty Start Date End Date Rhonda De La Paz MD PCP - General INTERNAL MEDICINE 09/08/20 07/05/21 Rhonda De La Paz MD Physician INTERNAL MEDICINE 09/08/20 documented as of this encounter
--- OUTSIDE RECORDS SUMMARY | 2024-04-03 16:42 | XMS_ITS | Encounter Summary ---
Author Organization [facility] Address [address] [place] [address]. [place], [place] [address] [place] [address] Care Team Providers Care Human Services Supervisor Name Role Phone Rhonda De La Paz MD Unavailable [phone] Rhonda De La Paz MD Primary Care Provider [phone] Encounter Details Date Type Department Care Team [...] on filedocumented in this encounter Care Teams Human Services Supervisor Relationship Specialty Start Date End Date Rhonda De La Paz MD PCP - General INTERNAL MEDICINE 5/26/21 3/22/22 Rhonda De La Paz MD Physician INTERNAL MEDICINE 09/08/20 documented as of this encounter
--- OUTSIDE RECORDS SUMMARY | 2024-04-03 16:42 | XMS_ITS | Encounter Summary ---
Author Organization [facility] Address [address] [place] [address]. [place], [place] [address] [place] [address] Care Team Providers Care Family Nurse Practitioner Name Role Phone Rhonda De La Paz MD Unavailable [phone] Rhonad De La Paz MD Primary Care Provider [phone] Encounter Details Date Type Department Care Team [...] Total Score: 0 03/18/20 21 4:05 PM CONFIGURATION ENGINEER documented as of this encounter Care Teams Family Nurse Practitioner Relationship Specialty Start Date End Date Rhonda De La Paz MD PCP - General INTERNAL MEDICINE 09/08/20 07/05/21 Rhonda De La Paz MD Physician INTERNAL MEDICINE 09/08/20 documented as of this encounter
--- OUTSIDE RECORDS SUMMARY | 2024-04-03 16:43 | XMS_ITS | Encounter Summary ---
Author Organization [facility] Address [address] [place] [address]. [place], [place] [address] [place] [address] Care Team Providers Care Scientific Laboratory Supervisor Name Role Phone Rhonda De La Paz MD Unavailable [phone] Rhonda De La Paz MD Primary Care Provider [phone] Encounter Details Date Type Department Care Team (Latest Contact Info) Description 09/15/2020 12:46 PM CDT - 09/15/2020 11:59 PM CDT Hospital Encounter [facility] [address] [place], [place] [id number] [place] [address] [place] [address] Discharge Disposition: Home or Self Care (Routine [...] D) 50 MCG (1999 UT) Tab biotin 84423 MCG tablet Take 5,000 mcg by mouth [...] - 11.0 x10'3/uL 09/15/2020 1:16 PM CDT [facility] RBC 4.10(L) 4.50 - 5.10 x10'6/uL 09/15/2020 1:16 PM CDT [facility] HGB 12.6 12.3 - 15.3 G/DL 09/15/2020 1:16 PM CDT [facility] HCT 38.8 35.9 - 44.6 % 09/15/2020 1:16 PM CDT [facility] MCV 94.6 80.0 - 96.0 FL 09/15/2020 1:16 PM CDT [facility] MCH 30.7 25.3 - 30.9 PG 09/15/2020 1:16 PM CDT [facility] MCHC 32.5 31.0 - 34.1 G/DL 09/15/2020 1:16 PM CDT [facility] RDW 12.7 12.4 - 15.1 % 09/15/2020 1:16 PM CDT [facility] PLT 311 151 - 353 x10'3/uL 09/15/2020 1:16 PM CDT [facility] MPV 11.3 9.6 - 12.0 FL 09/15/2020 1:16 PM CDT [facility] RBC MORPHOLOGY NORMAL 09/15/2020 1:16 PM CDT [facility] PLT MORPH. NORMAL 09/15/2020 1:16 PM CDT [facility] WBC MORPHOLOGY NORMAL 09/15/2020 1:16 PM CDT [facility] LYMPHOCYTES % 25.5 15.8 - 45.0 % 09/15/2020 1:16 PM CDT [facility] NEUTROPHILS % 57.3 42.1 - 71.9 % 09/15/2020 1:16 PM CDT [facility] MONOCYTES % 9.0 5.7 - 12.5 % 09/15/2020 1:16 PM CDT [facility] EOSINOPHILS 6.2(H) 0.0 - 5.6 % 09/15/2020 1:16 PM CDT [facility] BASOPHILS 1.8(H) 0.0 - 1.3 % 09/15/2020 1:16 PM CDT [facility] ABS. NEUTROPHILS TOTAL 3.26 1.40 - 6.00 x10'3/uL 09/15/2020 1:16 PM CDT [facility] IMMATURE GRANS % 0.2 0.0 - 0.5 % 09/15/2020 1:16 PM CDT [facility] ABS. LYMPHOCYTES 1.45 0.80 - 4.70 x10'3/uL 09/15/2020 1:16 PM CDT [facility] 09/15/2020 9:30 AM CDT Rhonda De La Paz MD LABORATORY Final Result [facility] [address] [place] [address], * (ABNORMAL) COMPREHENSIVE METABOLIC PANEL (09/15/2020 9:30 AM CDT) GLUCOSE 75 70 - 99 MG/DL 09/15/2020 4:27 PM CDT [facility] BUN 16 7 - 18 MG/DL 09/15/2020 4:27 PM CDT [facility] CREATININE S/P/B 0.79 0.55 - 1.02 MG/DL 09/15/2020 4:27 PM [facility] SODIUM S/P/B 143 136 - 145 MMOL/L 09/15/2020 4:27 PM [facility] POTASSIUM S/P/B 4.7 3.5 - 5.1 MMOL/L 09/15/2020 4:27 PM [facility] CHLORIDE S/P/B 104 100 - 108 MMOL/L 09/15/2020 4:27 PM [facility] CO2 31.3 21 - 32 MMOL/L 09/15/2020 4:27 PM [facility] CALCIUM S/P/B 9.3 8.5 - 10.1 MG/DL 09/15/2020 4:27 PM [facility] BILIRUBIN TOTAL S/P/B 0.4 0.2 - 1.2 MG/DL 09/15/2020 4:27 PM [facility] TOTAL PROTEIN S/P/B 7.2 6.4 - 8.2 G/DL 09/15/2020 4:27 PM [facility] ALBUMIN S/P/B 3.7 3.4 - 5.0 G/DL 09/15/2020 4:27 PM [facility] AST 19 15 - 37 U/L 09/15/2020 4:27 PM [facility] ALT 28 14 - 55 U/L 09/15/2020 4:27 PM [facility] ALKALINE PHOSPHATASE S/P/B 75 50 - 136 U/L 09/15/2020 4:27 PM [facility] ANION GAP 7.7 5 - 15 MMOL/L 09/15/2020 4:27 PM CDT [facility] BUN CREATININE RATIO 20.3 6 - 26 09/15/2020 4:27 PM CDT [facility] A/G RATIO 1.1 1.0 - 2.0 RATIO 09/15/2020 4:27 PM CDT [facility] EGFR NON-AFR. AMER. 81(L) >90 ML/MIN/1.7 3 M2 09/15/2020 4:27 PM CDT [facility] EGFR AFR. AMER. >90 >90 ML/MIN/1.7 3 M2 09/15/2020 4:27 PM CDT [facility] Comment: NOTE: eGFR is not calculated for patients <18 years of age. This is an estimated GFR (CKD EPI) and should not be used for calculating drug doses. 09/15/2020 9:30 AM CDT Rhonda De La Paz MD LABORATORY Final Result [facility] [address] [place] [address], * (ABNORMAL) LIPID PANEL (09/15/2020 9:30 AM CDT) CHOLESTEROL 208(H) <200.0 MG/DL 09/15/2020 4:27 PM CDT [facility] TRIGLYCERIDES 44 <150 MG/DL 09/15/2020 4:27 PM CDT [facility] HDL 61 >40.0 MG/DL 09/15/2020 4:27 PM CDT [facility] LDL (CALCULATED) 138(H) <100 MG/DL 09/15/2020 4:27 PM CDT [facility] NON HDL CHOLESTEROL 147(H) <130 MG/DL 09/15/2020 4:27 PM CDT [facility] CHOL/HDL RATIO 3.4 0.0 - 4.5 09/15/2020 4:27 PM CDT [facility] VLDL CALCULATION 9 5 - 55 MG/DL 09/15/2020 4:27 PM T [facility] LIPID INTERPRETATION 09/15/2020 4:27 PM CDT [facility] Comment: NIH CONCENSUS REPORT [...] MD LABORATORY Final Result Performing Organization Address [facility] Co de Phone Number [facility] [address] [place] [address], [place] [phone] * TSH W/REFLEX (09/15/2020 9:30 AM CDT) TSH 3.024 0.358 - 3.74 uIU/ML 09/15/2020 4:27 PM CDT [facility] Comment: HIGH DOSES OF BIOTIN MAY INTERFERE WITH THIS TEST RESULT. CORRELATION TO CLINICAL HISTORY AND PRESENTATION RECOMMENDED. FREE T4 NOT INDICATED 09/15/2020 9:30 AM CDT Rhonda De La Paz MD LABORATORY Final Result Performing Organization Address [facility] de Phone Number [facility] [address] [place] [address], [place] [phone] * (ABNORMAL) VITAMIN B12 / FOLATE (09/15/2020 9:30 AM CDT) VITAMIN B12 S/P/B 530 193 - 986 PG/ML 09/15/2020 4:24 PM CDT [facility] FOLATE 7.0(L) 8.6 - 58.9 NG/ML 09/15/2020 4:24 PM CDT [facility] 09/15/2020 9:30 AM CDT Rhonda De La Paz MD LABORATORY Final Result Performing Organization Address [facility] Co de Phone Number [facility] [address] [place] [address], [place] [phone] * VITAMIN D, 25 [place] (09/15/2020 9:30 AM CDT) [facility] [address] VITAMIN D 25 HYDROXY S/P/B 49 30 - 100 NG/ML 09/15/2020 1:53 PM CDT [facility] Comment: ? INTERPRETATION ? DEFICIENT ??<20 ? INSUFFICIENT 20-29 ?SUFFICIENT 30-100 09/15/2020 9:30 AM CDT Rhonda De La Paz MD LABORATORY Final Result Performing Organization Address City/[facility]/ZIP Co de Phone Number [facility] [address] [place] [address], * HEPATITIS C ANTIBODY (09/15/2020 9:30 AM CDT) [facility] [address] HEPATITIS C AB NON-REACTI VE NON-REACTI VE 09/15/2020 9:02 PM CDT [facility] 09/15/2020 9:30 AM CDT Mis CONROY LABORATORY Final Result [facility] [address] [place] [address], [place] [phone] documented in this encounter Visit Diagnoses Diagnosis Need for hepatitis C screening test Special screening examination for other specified viral diseases Vitamin D deficiency Unspecified vitamin D deficiency Essential hypertension Unspecified essential hypertension Lipid screening Screening for lipoid disorders documented in this encounter Care Teams Scientific Laboratory Supervisor Relationship Specialty Start Date End Date Rhonda De La Paz MD PCP - General INTERNAL MEDICINE 09/08/20 07/05/21 Rhonda De La Paz MD Physician INTERNAL MEDICINE 09/08/20 documented as of this encounter
--- OUTSIDE RECORDS SUMMARY | 2024-04-03 16:43 | XMS_ITS | Encounter Summary ---
Author Organization [facility] Address [address] [place] [address]. [place], [place] [address] [place] [address] Care Team Providers Care Chummer Name Role Phone Rhonda De La Paz MD Unavailable [phone] Rhonda De La Paz MD Primary Care Provider [phone] Encounter Details Date Type Department Care Team (Latest Contact Info) Description 09/15/2020 7:00 AM CDT - 09/15/2020 12:45 PM CDT Hospital Encounter [facility] [address] [place] [address] Darian Burks, RAFIQ [address] [place] [address] Discharge Disposition: Home or Self Care (Routine [...] D) 50 MCG (1999 UT) Tab biotin 19495 MCG tablet Take 5,000 mcg by mouth [...] 7:01 AM CDT) THIN PREP PAP ? [facility] ?[address] ?[place] [address] ? Department of Pathology ? Pathology Report ? CERVICAL/VAGINAL PAP SMEAR REPORT Name: DANIELLE BRITO ? Age: 5 1960 (Age: 60) ?Location: [facility] Sex: F ?Collected Date: 09/15/2020 Hospital #: [id number] ?Date Received: 09/17/2020 Date Reported: 09/21/2020 Provider: DARIAN OCNROY INTERPRETATION CERVICAL/ENDOCERVI PRUDENCE: ? SATISFACTORY FOR EVALUATION. [...] is not effective in detecting cervical adenocarcinoma. [facility] 09/15/2020 7:01 AM CDT 09/17/2020 7:01 AM CDT Comment:CERVICAL/ENDOCERVICA L Darian CONROY PATHOLOGY/CYTOLOGY ORDERABLE S Final Result [facility] [address] [place] [address], documented in this encounter Visit Diagnoses Not on filedocumented in this encounter Care Teams Chummer Relationship Specialty Start Date End Date Rhonda De La Paz MD PCP - General INTERNAL MEDICINE 09/08/20 07/05/21 Rhonda De La Paz MD Physician INTERNAL MEDICINE 09/08/20 documented as of this encounter
--- OUTSIDE RECORDS SUMMARY | 2024-04-03 16:43 | XMS_ITS | Encounter Summary ---
Author Organization [facility] Address [address] [place] [address]. [place], [place] [address] [place] [address] Care Team Providers Care Air Traffic Control Supervisor Name Role Phone Rhonda De La Paz MD Unavailable [phone] Rhonda De La Paz MD Primary Care Provider [phone] Reason for Visit * Reason Comments MRI [...] on filedocumented in this encounter Care Teams Air Traffic Control Supervisor Relationship Specialty Start Date End Date Rhonda De La Paz MD PCP - General INTERNAL MEDICINE 09/08/20 07/05/21 Rhonda De La Paz MD Physician INTERNAL MEDICINE 09/08/20 documented as of this encounter
--- OUTSIDE RECORDS SUMMARY | 2024-04-03 16:43 | XMS_ITS | Encounter Summary ---
Author Organization [facility] Address [address] [place] [address]. [place], [place] [address] [place] [address] Care Team Providers Care Home Aide Name Role Phone Rhonda De La Paz MD Unavailable [phone] Rhonda De La Paz MD Primary Care Provider [phone] Encounter Details Date Type Department Care Team [...] on filedocumented in this encounter Care Teams Home Aide Relationship Specialty Start Date End Date Rhonda De La Paz MD PCP - General INTERNAL MEDICINE 09/08/20 07/05/21 Rhonda De La Paz MD Physician INTERNAL MEDICINE 09/08/20 documented as of this encounter
--- OUTSIDE RECORDS SUMMARY | 2024-04-03 16:43 | XMS_ITS | Encounter Summary ---
Author Organization [facility] Address [address] [place] [address]. [place], [place] [address] [place] [address] Care Team Providers Care Kennel Helper Name Role Phone Rhonda De La Paz MD Unavailable [phone] Rhonda De La Paz MD Primary Care Provider [phone] Encounter Details Date Type Department Care Team [...] on filedocumented in this encounter Care Teams Kennel Helper Relationship Specialty Start Date End Date Rhonda De La Paz MD PCP - General INTERNAL MEDICINE 09/08/20 07/05/21 Rhonda De La Paz MD Physician INTERNAL MEDICINE 09/08/20 documented as of this encounter
--- OUTSIDE RECORDS SUMMARY | 2024-04-03 16:43 | XMS_ITS | Encounter Summary ---
Author Organization [facility] Address [address] [place] [address]. [place], [place] [address] [place] [address] Care Team Providers Care Cotton Weigher Operator Name Role Phone Rhonda De La Paz MD Unavailable [phone] Rhonda De La Paz MD Primary Care Provider [phone] Encounter Details Date Type Department Care Team [...] on filedocumented in this encounter Care Teams Cotton Weigher Operator Relationship Specialty Start Date End Date Rhonda De La Paz MD PCP - General INTERNAL MEDICINE 09/08/20 07/05/21 Rhonda De La Paz MD Physician INTERNAL MEDICINE 09/08/20 documented as of this encounter
--- OUTSIDE RECORDS SUMMARY | 2024-04-03 16:43 | XMS_ITS | Encounter Summary ---
Author Organization [facility] Address [address] [place] [address]. [place], [place] [address] [place] [address] Care Team Providers Care Staff Certified Nurse Midwife Name Role Phone Rhonda De La Paz MD Unavailable [phone] Rhonda De La Paz MD Primary Care Provider [phone] Reason for Visit * Reason Comments Lab [...] on filedocumented in this encounter Care Teams Staff Certified Nurse Midwife Relationship Specialty Start Date End Date Rhonda De La Paz MD PCP - General INTERNAL MEDICINE 09/08/20 07/05/21 Rhonda De La Paz MD Physician INTERNAL MEDICINE 09/08/20 documented as of this encounter
--- OUTSIDE RECORDS SUMMARY | 2024-04-03 16:43 | XMS_ITS | Encounter Summary ---
Author Organization [facility] Address [address] [place] [address]. [place], [place] [address] [place] [address] Care Team Providers Care Flume Maker Name Role Phone Rhonda De La Paz MD Unavailable [phone] Rhonda De La Paz MD Primary Care Provider Reason for Visit * Reason Onset Date Comments Follow Up Call 09/09/2020 Encounter Details Date Type Department Care Team (Late st Contact Info) Description 09/09/2020 Telephone [facility] [address] [place] [address] [place] [address] [place] [address] Follow Up Call Social History [...] back PRN Please add to medication list [phone] documented in this encounter Plan of Treatment Not on file documented as of this encounter Visit Diagnoses Not on filedocumented in this encounter Care Teams Flume Maker Relationship Specialty Start Date End Date Rhonda De La Paz MD PCP - General INTERNAL MEDICINE 09/08/20 07/05/21 Rhonda De La Paz MD Physician INTERNAL MEDICINE 09/08/20 documented as of this encounter
--- OUTSIDE RECORDS SUMMARY | 2024-04-03 16:43 | XMS_ITS | Encounter Summary ---
Author Organization [facility] Address [address] [place] [address]. [place], [place] [address] [place] [address] Care Team Providers Care Conservation Officer Name Role Phone Rhonda De La Paz MD Unavailable [phone] Rhonda De La Paz MD Primary Care Provider [phone] Encounter Details Date Type Department Care Team [...] on filedocumented in this encounter Care Teams Conservation Officer Relationship Specialty Start Date End Date Rhonda De La Paz MD PCP - General INTERNAL MEDICINE 09/08/20 07/05/21 Rhonda De La Paz MD Physician INTERNAL MEDICINE 09/08/20 documented as of this encounter
--- OUTSIDE RECORDS SUMMARY | 2024-04-03 16:43 | XMS_ITS | Encounter Summary ---
Author Organization [facility] Address [address] [place] [address]. [place], [place] [address] [place] [address] Care Team Providers Care Vocational Psychologist Name Role Phone Rhonda De La Paz MD Unavailable [phone] Rhonda De aL Paz MD Primary Care Provider [phone] Encounter Details Date Type Department Care Team [...] on filedocumented in this encounter Care Teams Vocational Psychologist Relationship Specialty Start Date End Date Rhonda De La Paz MD PCP - General INTERNAL MEDICINE 09/08/20 07/05/21 Rhonda De La Paz MD Physician INTERNAL MEDICINE 09/08/20 documented as of this encounter
--- OUTSIDE RECORDS SUMMARY | 2024-04-03 16:43 | XMS_ITS | Encounter Summary ---
Author Organization [facility] Address [address] [place] [address]. [place], [place] [address] [place] [address] Care Team Providers Care Sheep And Wheat Farmer Name Role Phone Rhonda De La Paz MD Unavailable [phone] Rhonda De La Paz MD Primary Care Provider [phone] Encounter Details Date Type Department Care Team [...] on filedocumented in this encounter Care Teams Sheep And Wheat Farmer Relationship Specialty Start Date End Date Rhonda De La Paz MD PCP - General INTERNAL MEDICINE 09/08/20 07/05/21 Rhonda De La Paz MD Physician INTERNAL MEDICINE 09/08/20 documented as of this encounter
--- OUTSIDE RECORDS SUMMARY | 2024-04-03 16:43 | XMS_ITS | Encounter Summary ---
Author Organization [facility] Address [address] [place] [address]. [place], [place] [address] [place] [address] Care Team Providers Care Rotary Bar Operator Name Role Phone Rhonda De La Paz MD Unavailable [phone] Rhonda De La Paz MD Primary Care Provider [phone] Encounter Details Date Type Department Care Team [...] on filedocumented in this encounter Care Teams Rotary Bar Operator Relationship Specialty Start Date End Date Rhonda De La Paz MD PCP - General INTERNAL MEDICINE 09/08/20 07/05/21 Rhonda De La Paz MD Physician INTERNAL MEDICINE 09/08/20 documented as of this encounter
--- OUTSIDE RECORDS SUMMARY | 2024-04-03 16:43 | XMS_ITS | Encounter Summary ---
Author Organization [facility] Address [address] [place] [address]. [place], [place] [address] [place] [address] Care Team Providers Care Acid Pumper Name Role Phone Rhonda De La Paz MD Unavailable [phone] Rhonda De La Paz MD Primary Care Provider [phone] Reason for Referral * Imaging (Routine) - Closed Specialty Diagnoses / Procedures Referred By Contac t Referred To Contact RADIOLOGY Diagnoses Breast cancer screening by mammogram Cervical cancer screening Procedures MG SCREENING [place] [address] [place] [address] Phone: tel: fax: Referral ID Status Reason Start Date Expiration Date Visits Re quested Visits Authorized [id number] Closed 09/27/2020 10/27/2021 1 1 * Consultation (Routine) - Closed Specialty Diagnoses / Procedures Referred By Contbianca t Referred To Contact GASTROENTEROLOGY Diagnoses Colon cancer screening Polyp of colon, unspecified part of colon, [place] [address] [place] [address] Phone: tel: fax: [facility] [address] [address] Phone: tel: fax: Referral ID Status Reason Start Date Expiration Date Visits Re quested Visits Authorized [id number] Closed 09/15/2020 10/17/2021 99 99 * Imaging (Routine) - Closed Specialty Diagnoses / Procedures Referred By Contac t Referred To Contact RADIOLOGY Diagnoses Post-menopause Procedures BONE DENSITY/[place] [address] [place] [address] Phone: tel: fax: Referral ID Status Reason Start Date Expiration Date Visits Re quested Visits Authorized [id number] Closed 09/15/2020 10/15/2021 1 1 Reason for Visit * 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 [address] [place] [address] [place] [address] [place], [place] [id number] Airport Ramp Supervisor Exam Social History Tobacco Use Types Packs/Day [...] note were not included. 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 biotin 07090 MCG tablet Take 5,000 mcg by mouth [...] SCREENING DELMI DIGI CYTOPATH CERV/VAG THIN LAYER [94767] CANCELED: CYTOPATH CERV/VAG THIN LAYER [47834] 3. Well woman exam 4. Post-menopause BONE DENSITY/DEXA 5. Colon cancer screening Ambulatory referral to Gastroenterology ([facility]) 6. Polyp of colon, unspecified part of colon, unspecified type Ambulatory referral to Gastroenterology ([facility]) 7. Need for hepatitis C screening test HEPATITIS C ANTIBODY VENIPUNC ARM DRAW 8. Essential hypertension VENIPUNC ARM DRAW 9. Lipid screening VENIPUNC ARM DRAW 10. Vitamin D deficiency VENIPUNC ARM DRAW Orders Placed This Encounter ??? VENIPUNC ARM DRAW ??? HEPATITIS C ANTIBODY ??? Ambulatory referral to Gastroenterology ([facility]) ??? MG SCREENING DELMI DIGI ??? CYTOPATH CERV/VAG THIN LAYER [63047] ??? BONE DENSITY/DEXA Recommendations and Plan: Take [...] Orde r Schedule Ambulatory referral to Gastroenterology ([facility]) Referral Routine Colon cancer screening Polyp [...] FINDINGS AND IMPRESSION: Examination performed on a Signifyd Discovery SL .: LUMBAR SPINE L2-L4: 1. [...] VE NON-REACTI VE 09/15/2020 9:02 PM CDT [facility] 09/15/2020 9:30 AM CDT [facility] Final Result [facility] [address] [place] [address], [place] [phone] documented in this encounter Visit Diagnoses Diagnosis [...] (natural) documented in this encounter Care Teams Acid Pumper Relationship Specialty Start Date End Date Rhonda De La Paz MD PCP - General INTERNAL MEDICINE 09/08/20 07/05/21 Rhonda De La Paz MD Physician INTERNAL MEDICINE 09/08/20 documented as of this encounter
--- OUTSIDE RECORDS SUMMARY | 2024-04-03 16:43 | XMS_ITS | Encounter Summary ---
Author Organization [facility] Address [address] [place] [address]. [place], [place] [address] [place] [address] Care Team Providers Care Aerospace Project Manager Name Role Phone Rhonda De La Paz MD Unavailable [phone] Rhonda De La Paz MD Primary Care Provider [phone] Reason for Visit * Reason Comments ECG [...] on filedocumented in this encounter Care Teams Aerospace Project Manager Relationship Specialty Start Date End Date Rhonda De La Paz MD PCP - General INTERNAL MEDICINE 09/08/20 07/05/21 Rhonda De La Paz MD Physician INTERNAL MEDICINE 09/08/20 documented as of this encounter
--- OUTSIDE RECORDS SUMMARY | 2024-04-03 16:43 | XMS_ITS | Encounter Summary ---
Author Organization [facility] Address [address] [place] [address]. [place], [place] [address] [place] [address] Care Team Providers Care Bin Worker Name Role Phone Rhonda De La Paz MD Unavailable [phone] Rhonda De La Paz MD Primary Care Provider [phone] Reason for Visit * Reason Comments Lab [...] on filedocumented in this encounter Care Teams Bin Worker Relationship Specialty Start Date End Date Rhonda De La Paz MD PCP - General INTERNAL MEDICINE 09/08/20 07/05/21 Rhonda De La Paz MD Physician INTERNAL MEDICINE 09/08/20 documented as of this encounter
--- OUTSIDE RECORDS SUMMARY | 2024-04-03 16:43 | XMS_ITS | Encounter Summary ---
Author Organization [facility] Address [address] [place] [address]. [place], [place] [address] [place] [address] Care Team Providers Care Electrical Assistant Name Role Phone Rhonda De La Paz MD Unavailable [phone] Rhonda De La Paz MD Primary Care Provider [phone] Encounter Details Date Type Department Care Team [...] on filedocumented in this encounter Care Teams Electrical Assistant Relationship Specialty Start Date End Date Rhonda De La Paz MD PCP - General INTERNAL MEDICINE 09/08/20 07/05/21 Rhonda De La Paz MD Physician INTERNAL MEDICINE 09/08/20 documented as of this encounter
--- OUTSIDE RECORDS SUMMARY | 2024-04-03 16:43 | XMS_ITS | Encounter Summary ---
Author Organization [facility] Address [address] [place] [address]. [place] [address] [place] [address] Care Team Providers Care Cougar Hunter Name Role Phone Rhonda De La Paz MD Unavailable [phone] Rhonda De La Paz MD Primary Care Provider [phone] Reason for Visit * Reason Onset Date Comments Results 09/16/2020 Encounter Details Date Type Department Care Team (Late st Contact Info) Description 09/16/2020 Telephone [facility] Family & Internal Medicine [facility] [address] [place] [address] [place]z [place] [address] [place] [address] Results Social History Tobacco Use Types [...] - 09/16/2020 11:08 AM CDT Pt CB# [phone] Pt wanting you to know that her past MD will be faxing her last colonoscopy to you documented in this encounter Plan of Treatment Not on file documented as of this encounter Visit Diagnoses Not on filedocumented in this encounter Care Teams Cougar Hunter Relationship Specialty Start Date End Date Rhonda De La Paz MD PCP - General INTERNAL MEDICINE 09/08/20 07/05/21 Rhonda De La Paz MD Physician INTERNAL MEDICINE 09/08/20 documented as of this encounter
--- OUTSIDE RECORDS SUMMARY | 2024-04-03 16:43 | XMS_ITS | Encounter Summary ---
Author Organization [facility] Address [address] [place] [address]. [place], [place] [address] [place] [address] Care Team Providers Care Program Director Group Work Name Role Phone Rhonda De La Paz MD Unavailable [phone] Rhonda De La Paz MD Primary Care Provider [phone] Encounter Details Date Type Department Care Team [...] on filedocumented in this encounter Care Teams Program Director Group Work Relationship Specialty Start Date End Date Rhonda De La Paz MD PCP - General INTERNAL MEDICINE 09/08/20 07/05/21 Rhonda De La Paz MD Physician INTERNAL MEDICINE 09/08/20 documented as of this encounter
--- OUTSIDE RECORDS SUMMARY | 2024-04-03 16:43 | XMS_ITS | Encounter Summary ---
Author Organization [facility] Address [address] [place] [address]. [place], [place] [address] [place] [address] Care Team Providers Care Underwater Photographer Name Role Phone Rhonda De La Paz MD Unavailable [phone] Rhonda De La Paz MD Primary Care Provider [phone] Reason for Referral * Imaging (Routine) - Closed Specialty Diagnoses / Procedures Referred By Contac t Referred To Contact RADIOLOGY Diagnoses Post-menopause Procedures BONE DENSITY/[place] [address] [place] [address] Phone: tel: fax: Referral ID Status Reason Start Date Expiration Date Visits Re quested Visits Authorized [id number] Closed 09/15/2020 10/15/2021 1 1 Reason for Visit * Imaging (Routine) - Closed Specialty Diagnoses / Procedures Referred By Contbianca t Referred To Contact RADIOLOGY Diagnoses Breast cancer screening by mammogram Cervical cancer screening Procedures MG SCREENING [place] [address] [place] [address] Phone: tel: fax: Referral ID Status Reason Start Date Expiration Date Visits Re quested Visits Authorized [id number] Closed 09/27/2020 10/27/2021 1 1 Encounter Details Date Type Department Care Team (Latest Contact Info) Description 09/28/2020 9:19 AM CDT - 09/28/2020 11:59 PM CDT Hospital Encounter [facility] [address] [place] [address] [place] [address] [place] [address] Discharge Disposition: Home or Self Care (Routine [...] D) 50 MCG (1999 [place]) Tab biotin 37454 MCG tablet Take 5,000 mcg by mouth [...] FINDINGS AND IMPRESSION: Examination performed on a CytoLogic Discovery SL .: LUMBAR SPINE L2-L4: 1. [...] Blu Soto, 09/28/2020 12:04 PM Darian Burks [place] DEXA Final Result documented in this encounter Visit Diagnoses Diagnosis Post-menopause Asymptomatic postmenopausal status (age-related) (natural) documented in this encounter Care Teams Underwater Photographer Relationship Specialty Start Date End Date Rhonda De La Paz MD PCP - General INTERNAL MEDICINE 09/08/20 07/05/21 Rhonda De La Paz MD Physician INTERNAL MEDICINE 09/08/20 documented as of this encounter
--- OUTSIDE RECORDS SUMMARY | 2024-04-03 16:43 | XMS_ITS | Encounter Summary ---
Author Organization [facility] Address [address] [place] [address]. [place], [place] [address] [place] [address] Care Team Providers Care Receiving Supervisor Name Role Phone Rhonda De La Paz MD Unavailable [phone] Rhonda De La Paz MD Primary Care Provider [phone] Encounter Details Date Type Department Care Team [...] on filedocumented in this encounter Care Teams Receiving Supervisor Relationship Specialty Start Date End Date Rhonda De La Paz MD PCP - General INTERNAL MEDICINE 09/08/20 07/05/21 Rhonda De La Paz MD Physician INTERNAL MEDICINE 09/08/20 documented as of this encounter
--- OUTSIDE RECORDS SUMMARY | 2024-04-03 16:43 | XMS_ITS | Encounter Summary ---
Author Organization [facility] Address [address] [place] [address]. [place], [place] [address] [place] [address] Care Team Providers Care Frame Stylist Name Role Phone Rhonda De La Paz MD Unavailable [phone] Rhonda De La Paz MD Primary Care Provider [phone] Encounter Details Date Type Department Care Team [...] on filedocumented in this encounter Care Teams Frame Stylist Relationship Specialty Start Date End Date Rhonda De La Paz MD PCP - General INTERNAL MEDICINE 09/08/20 07/05/21 Rhonda De La Paz MD Physician INTERNAL MEDICINE 09/08/20 documented as of this encounter
--- OUTSIDE RECORDS SUMMARY | 2024-04-03 16:43 | XMS_ITS | Encounter Summary ---
Author Organization [facility] Address [address] [place] [address]. [place], [place] [address] [place] [address] Care Team Providers Care Graphite Pan Drier Tender Name Role Phone Rhonda De La Paz MD Unavailable [phone] Rhonda De La Paz MD Primary Care Provider [phone] Encounter Details Date Type Department Care Team [...] on filedocumented in this encounter Care Teams Graphite Pan Drier Tender Relationship Specialty Start Date End Date Rhonda De La Paz MD PCP - General INTERNAL MEDICINE 09/08/20 07/05/21 Rhonda De La Paz MD Physician INTERNAL MEDICINE 09/08/20 documented as of this encounter
--- OUTSIDE RECORDS SUMMARY | 2024-04-03 16:43 | XMS_ITS | Encounter Summary ---
Author Organization [facility] Address [address] [place] [address]. [place], [place] [address] [place] [address] Care Team Providers Care Repair Armature Winder Helper Name Role Phone Rhonda De La Paz MD Unavailable [phone] Rhonda De La Paz MD Primary Care Provider [phone] Encounter Details Date Type Department Care Team [...] on filedocumented in this encounter Care Teams Repair Armature Winder Helper Relationship Specialty Start Date End Date Rhonda De La Paz MD PCP - General INTERNAL MEDICINE 09/08/20 07/05/21 Rhonda De La Paz MD Physician INTERNAL MEDICINE 09/08/20 documented as of this encounter
--- OUTSIDE RECORDS SUMMARY | 2024-04-03 16:43 | XMS_ITS | Encounter Summary ---
Author Organization [facility] Address [address] [place] [address]. [place], [place] [address] [place] [address] Care Team Providers Care Pharmacist In Charge Owner Name Role Phone Rhonda De La Paz MD Unavailable [phone] Rhonda De La Paz MD Primary Care Provider [phone] Encounter Details Date Type Department Care Team [...] on filedocumented in this encounter Care Teams Pharmacist In Charge Owner Relationship Specialty Start Date End Date Rhonda De La Paz MD PCP - General INTERNAL MEDICINE 09/08/20 07/05/21 Rhonda De La Paz MD Physician INTERNAL MEDICINE 09/08/20 documented as of this encounter
--- OUTSIDE RECORDS SUMMARY | 2024-04-03 16:43 | XMS_ITS | Encounter Summary ---
Author Organization [facility] Address [address] [place] [address]. [place], [place] [address] [place] [address] Care Team Providers Care Batch Attendant Name Role Phone Rhonda De La Paz MD Unavailable [phone] Rhonda De La Paz MD Primary Care Provider [phone] Reason for Visit * Reason Comments Lab [...] on filedocumented in this encounter Care Teams Batch Attendant Relationship Specialty Start Date End Date Rhonda De La Paz MD PCP - General INTERNAL MEDICINE 09/08/20 07/05/21 Rhonda De La Paz MD Physician INTERNAL MEDICINE 09/08/20 documented as of this encounter
--- OUTSIDE RECORDS SUMMARY | 2024-04-03 16:43 | XMS_ITS | Encounter Summary ---
Author Organization [facility] Address [address] [place] [address]. [place], [place] [address] [place] [address] Care Team Providers Care Presiding Steward Name Role Phone Rhonda De La Paz MD Unavailable [phone] Rhonda De La Paz MD Primary Care Provider [phone] Encounter Details Date Type Department Care Team [...] on filedocumented in this encounter Care Teams Presiding Steward Relationship Specialty Start Date End Date Rhonda De La Paz MD PCP - General INTERNAL MEDICINE 09/08/20 07/05/21 Rhonda De La Paz MD Physician INTERNAL MEDICINE 09/08/20 documented as of this encounter
--- OUTSIDE RECORDS SUMMARY | 2024-04-03 16:43 | XMS_ITS | Encounter Summary ---
Author Organization [facility] Address [address] [place] [address]. [place], [place] [address] [place] [address] Care Team Providers Care Content Checker Name Role Phone Rhonda De La Paz MD Unavailable [phone] Rhonda De La Paz MD Primary Care Provider [phone] Reason for Visit * Reason Comments Establish Care no refills needed. Encounter Details Date Type Department Care Team (Late st Contact Info) Description 09/08/2020 2:40 PM CDT Office Visit [facility] Family & Internal Medicine [facility] [address] [place] [address] Rhonda De La Paz MD [address] [place] [address] Establish Care (no refills needed.) Social [...] for depression. Current Outpatient Medications: ??? biotin 27023 MCG tablet, Take 5,000 mcg by mouth [...] Gatherings with Friends and Family: ??? Attends Bahai Services: ??? Active Member of Clubs or [...] - 100 NG/ML 09/15/2020 1:53 PM CDT [facility] Comment: ? INTERPRETATION ? DEFICIENT ??<20 ? INSUFFICIENT 20-29 ?SUFFICIENT 30-100 09/15/2020 9:30 AM CDT Rhonda De La Paz MD LABORATORY Final Result Performing Organization Address [facility] de Phone Number [facility] [address] [place] [address], [place] [phone] * (ABNORMAL) VITAMIN B12 / FOLATE (09/15/2020 9:30 AM CDT) VITAMIN B12 S/P/B 530 193 - 986 PG/ML 09/15/2020 4:24 PM CDT [facility] FOLATE 7.0(L) 8.6 - 58.9 NG/ML 09/15/2020 4:24 PM CDT [facility] 09/15/2020 9:30 AM CDT Rhonda De La Paz MD LABORATORY Final Result Performing Organization Address [facility] Co de Phone Number [facility] [address] [place] [address], [place] [phone] * TSH W/REFLEX (09/15/2020 9:30 AM CDT) TSH 3.024 0.358 - 3.74 uIU/ML 09/15/2020 4:27 PM CDT [facility] Comment: HIGH DOSES OF BIOTIN MAY INTERFERE WITH THIS TEST RESULT. CORRELATION TO CLINICAL HISTORY AND PRESENTATION RECOMMENDED. FREE T4 NOT INDICATED 09/15/2020 9:30 AM CDT Rhonda De La Paz MD LABORATORY Final Result [facility] [address] [place] [address], * (ABNORMAL) LIPID PANEL (09/15/2020 9:30 AM CDT) CHOLESTEROL 208(H) <200.0 MG/DL 09/15/2020 4:27 PM CDT [facility] TRIGLYCERIDES 44 <150 MG/DL 09/15/2020 4:27 PM T [facility] HDL 61 >40.0 MG/DL 09/15/2020 4:27 PM T [facility] LDL (CALCULATED) 138(H) <100 MG/DL 09/15/2020 4:27 PM T [facility] NON HDL CHOLESTEROL 147(H) <130 MG/DL 09/15/2020 4:27 PM T [facility] CHOL/HDL RATIO 3.4 0.0 - 4.5 09/15/2020 4:27 PM T [facility] VLDL CALCULATION 9 5 - 55 MG/DL 09/15/2020 4:27 PM T [facility] LIPID INTERPRETATION 09/15/2020 4:27 PM T [facility] Comment: NIH CONCENSUS REPORT RECOMMENDATIONS: [...] De La Paz MD LABORATORY Final Result [facility] () [facility] [address] [place] [address], * (ABNORMAL) COMPREHENSIVE METABOLIC PANEL (09/15/2020 9:30 AM CDT) [facility] GLUCOSE 75 70 - 99 MG/DL 09/15/2020 4:27 PM [facility] BUN 16 7 - 18 MG/DL 09/15/2020 4:27 PM T [facility] CREATININE S/P/B 0.79 0.55 - 1.02 MG/DL 09/15/2020 4:27 PM T [facility] SODIUM S/P/B 143 136 - 145 MMOL/L 09/15/2020 4:27 PM T [facility] POTASSIUM S/P/B 4.7 3.5 - 5.1 MMOL/L 09/15/2020 4:27 PM T [facility] CHLORIDE S/P/B 104 100 - 108 MMOL/L 09/15/2020 4:27 PM T [facility] CO2 31.3 21 - 32 MMOL/L 09/15/2020 4:27 PM T [facility] CALCIUM S/P/B 9.3 8.5 - 10.1 MG/DL 09/15/2020 4:27 PM [facility] BILIRUBIN TOTAL S/P/B 0.4 0.2 - 1.2 MG/DL 09/15/2020 4:27 PM [facility] TOTAL PROTEIN S/P/B 7.2 6.4 - 8.2 G/DL 09/15/2020 4:27 PM [facility] ALBUMIN S/P/B 3.7 3.4 - 5.0 G/DL 09/15/2020 4:27 PM [facility] AST 19 15 - 37 U/L 09/15/2020 4:27 PM T [facility] ALT 28 14 - 55 U/L 09/15/2020 4:27 PM CDT [facility] ALKALINE PHOSPHATASE S/P/B 75 50 - 136 U/L 09/15/2020 4:27 PM CDT [facility] ANION GAP 7.7 5 - 15 MMOL/L 09/15/2020 4:27 PM T [facility] BUN CREATININE RATIO 20.3 6 - 26 09/15/2020 4:27 PM T [facility] A/G RATIO 1.1 1.0 - 2.0 RATIO 09/15/2020 4:27 PM T [facility] EGFR NON-AFR. AMER. 81(L) >90 ML/MIN/1.7 3 M2 09/15/2020 4:27 PM T [facility] EGFR AFR. AMER. >90 >90 ML/MIN/1.7 3 M2 09/15/2020 4:27 PM T [facility] Comment: NOTE: eGFR is not calculated for patients <18 years of age. This is an estimated GFR (CKD EPI) and should not be used for calculating drug doses. 09/15/2020 9:30 AM CDT us Rhonda De La Paz MD LABORATORY Final Result [facility] [address] [place] [address], [place] [phone] * (ABNORMAL) CBC W/DIFF AUTOMATED (09/15/2020 9:30 AM CDT) WBC 5.7 4.4 - 11.0 x10'3/uL 09/15/2020 1:16 PM CDT [facility] RBC 4.10(L) 4.50 - 5.10 x10'6/uL 09/15/2020 1:16 PM CDT [facility] HGB 12.6 12.3 - 15.3 G/DL 09/15/2020 1:16 PM CDT [facility] HCT 38.8 35.9 - 44.6 % 09/15/2020 1:16 PM CDT [facility] MCV 94.6 80.0 - 96.0 FL 09/15/2020 1:16 PM CDT [facility] MCH 30.7 25.3 - 30.9 PG 09/15/2020 1:16 PM CDT [facility] MCHC 32.5 31.0 - 34.1 G/DL 09/15/2020 1:16 PM T [facility] RDW 12.7 12.4 - 15.1 % 09/15/2020 1:16 PM T [facility] PLT 311 151 - 353 x10'3/uL 09/15/2020 1:16 PM T [facility] MPV 11.3 9.6 - 12.0 FL 09/15/2020 1:16 PM T [facility] RBC MORPHOLOGY NORMAL 09/15/2020 1:16 PM T [facility] PLT MORPH. NORMAL 09/15/2020 1:16 PM T [facility] WBC MORPHOLOGY NORMAL 09/15/2020 1:16 PM T [facility] LYMPHOCYTES % 25.5 15.8 - 45.0 % 09/15/2020 1:16 PM CDT [facility] NEUTROPHILS % 57.3 42.1 - 71.9 % 09/15/2020 1:16 PM T [facility] MONOCYTES % 9.0 5.7 - 12.5 % 09/15/2020 1:16 PM CDT [facility] EOSINOPHILS 6.2(H) 0.0 - 5.6 % 09/15/2020 1:16 PM CDT [facility] BASOPHILS 1.8(H) 0.0 - 1.3 % 09/15/2020 1:16 PM CDT [facility] ABS. NEUTROPHILS TOTAL 3.26 1.40 - 6.00 x10'3/uL 09/15/2020 1:16 PM CDT [facility] IMMATURE GRANS % 0.2 0.0 - 0.5 % 09/15/2020 1:16 PM CDT [facility] ABS. LYMPHOCYTES 1.45 0.80 - 4.70 x10'3/uL 09/15/2020 1:16 PM CDT [facility] 09/15/2020 9:30 AM CDT Rhonda De La Paz MD LABORATORY Final Result Performing Organization Address City/State/[facility] Co de Phone Number [facility] [address] [place] [address], documented in this encounter Visit Diagnoses Diagnosis [...] deficiency documented in this encounter Care Teams Content Checker Relationship Specialty Start Date End Date Rhonda De La Paz MD PCP - General INTERNAL MEDICINE 09/08/20 07/05/21 Rhonda De La Paz MD Physician INTERNAL MEDICINE 09/08/20 documented as of this encounter
--- OUTSIDE RECORDS SUMMARY | 2024-04-03 16:43 | XMS_ITS | Encounter Summary ---
Author Organization [facility] - [facility] Address [address] [place] [address]. [place], [place] [address] [place] [address] Care Team Providers Care Circular Sawyer Helper Name Role Phone Rhonda De La Paz MD Unavailable [phone] Rhonda De La Paz MD Primary Care Provider + [phone] Encounter Details Date Type Department Care Team [...] on filedocumented in this encounter Care Teams Circular Sawyer Helper Relationship Specialty Start Date End Date Rhonda De La Paz MD PCP - General INTERNAL MEDICINE 09/08/20 07/05/21 Rhonda De La Paz MD Physician INTERNAL MEDICINE 09/08/20 documented as of this encounter
--- OUTSIDE RECORDS SUMMARY | 2024-04-03 16:43 | XMS_ITS | Encounter Summary ---
Author Organization [facility] Address [address] [place] [address]. [place], [place] [address] [place] [address] Care Team Providers Care Ultimate Hoops Trainer Name Role Phone Rhonda De La Paz MD Unavailable [phone] Rhonda De La Paz MD Primary Care Provider [phone] Reason for Visit * Reason Comments ECG [...] on filedocumented in this encounter Care Teams Ultimate Hoops Trainer Relationship Specialty Start Date End Date Rhonda De La Paz MD PCP - General INTERNAL MEDICINE 09/08/20 07/05/21 Rhonda De La Paz MD Physician INTERNAL MEDICINE 09/08/20 documented as of this encounter
--- OUTSIDE RECORDS SUMMARY | 2024-04-03 16:43 | XMS_ITS | Encounter Summary ---
Author Organization [facility] Address [address] [place] [address]. [place], [place] [address] [place] [address] Care Team Providers Care Contact Lens Assistant Name Role Phone Rhonda De La Paz MD Unavailable [phone] Rhonda De La Paz MD Primary Care Provider [phone] Reason for Visit * Reason Comments Lab [...] on filedocumented in this encounter Care Teams Contact Lens Assistant Relationship Specialty Start Date End Date Rhonda De La Paz MD PCP - General INTERNAL MEDICINE 09/08/20 07/05/21 Rhonda De La Paz MD Physician INTERNAL MEDICINE 09/08/20 documented as of this encounter
--- OUTSIDE RECORDS SUMMARY | 2024-04-03 16:43 | XMS_ITS | Encounter Summary ---
Author Organization [facility] - [facility] Address [address] [place] [address]. [place], [place] [address] [place] [address] Care Team Providers Care Template Storage Clerk Name Role Phone Rhonda De La Paz MD Unavailable [phone] Rhonda De La Paz MD Primary Care Provider + [phone] Encounter Details Date Type Department Care Team [...] on filedocumented in this encounter Care Teams Template Storage Clerk Relationship Specialty Start Date End Date Rhonda De La Paz MD PCP - General INTERNAL MEDICINE 09/08/20 07/05/21 Rhonda De La Paz MD Physician INTERNAL MEDICINE 09/08/20 documented as of this encounter
--- OUTSIDE RECORDS SUMMARY | 2024-04-03 16:43 | XMS_ITS | Encounter Summary ---
Author Organization [facility] - [facility] Address [address] [place] [address]. [place], [place] [address] [place] [address] Care Team Providers Care Artificial Foliage Arranger Name Role Phone Rhonda De La Paz MD Unavailable [phone] Rhonda De La Paz MD Primary Care Provider + [phone] Encounter Details Date Type Department Care Team [...] on filedocumented in this encounter Care Teams Artificial Foliage Arranger Relationship Specialty Start Date End Date Rhonda De La Paz MD PCP - General INTERNAL MEDICINE 09/08/20 07/05/21 Rhonda De La Paz MD Physician INTERNAL MEDICINE 09/08/20 documented as of this encounter
--- OUTSIDE RECORDS SUMMARY | 2024-04-03 16:43 | XMS_ITS | Encounter Summary ---
Author Organization [facility] Address [address] [place] [address]. [place], [place] [address] [place] [address] Care Team Providers Care Chicken Handler Name Role Phone Rhonda De La Paz MD Unavailable [phone] Rhonda De La Paz MD Primary Care Provider [phone] Reason for Visit * Reason Comments Lab [...] on filedocumented in this encounter Care Teams Chicken Handler Relationship Specialty Start Date End Date Rhonda De La Paz MD PCP - General INTERNAL MEDICINE 09/08/20 07/05/21 Rhonda De La Paz MD Physician INTERNAL MEDICINE 09/08/20 documented as of this encounter
--- OUTSIDE RECORDS SUMMARY | 2024-04-03 16:43 | XMS_ITS | Encounter Summary ---
Author Organization [facility] Address [address] [place] [address]. [place], [place] [address] [place] [address] Care Team Providers Care Fermentation Manager Name Role Phone Rhonda De La Paz MD Unavailable [phone] Rhonda De La Paz MD Primary Care Provider [phone] Yoselin Murdock ENVIRONMENTAL PROJECT MANAGER Primary Care Provider [phone] Ashly Cabrales ENVIRONMENTAL PROJECT MANAGER Primary Care Provider Peggy Sheffield APNP Primary Care Provider [phone] Yoselin Murdock ENVIRONMENTAL PROJECT MANAGER Primary Care Provider + [phone] Encounter Details Date Type Department Care Team (Late st Contact Info) Description 09/08/2020 [employer]t Message Enc [facility] Family [facility] Internal Medicine [facility] [address] [place] [address] [place] [id number] [place] [address] RE: Other Social History Tobacco Use [...] on filedocumented in this encounter Care Teams Fermentation Manager Relationship Specialty Start Date End Date Rhonda De La Paz MD PCP - General INTERNAL MEDICINE 09/08/20 07/05/21 [place] [address] [facility] [address] [place] [address] PCP - General Nurse Practitioner Family 07/06/2107/21 [place] [address] [facility] [address] [place] [address] PCP - General NURSE PRACTITIONER 07/22/21 12/26/21 Peggy Best APNP [address] [facility] [address] [place] [address] PCP - General Nurse Practitioner Family 12/27/2109/15 [place] [address] [facility] [address] [place] [address] PCP - General Nurse Practitioner Family 10/05/22 Rhonda De La Paz MD Physician INTERNAL MEDICINE 09/08/20 documented as of this encounter
--- OUTSIDE RECORDS SUMMARY | 2024-04-03 16:43 | XMS_ITS | Encounter Summary ---
Author Organization [facility] Address [address] [place] [address]. [place], [place] [address] [place] [address] Care Team Providers Care Twister Hand Name Role Phone Rhonda De La Paz MD Unavailable [phone] Rhonda De La Paz MD Primary Care Provider [phone] Reason for Visit * Reason Comments Lab [...] on filedocumented in this encounter Care Teams Twister Hand Relationship Specialty Start Date End Date Rhonda De La Paz MD PCP - General INTERNAL MEDICINE 09/08/20 07/05/21 Rhonda De La Paz MD Physician INTERNAL MEDICINE 09/08/20 documented as of this encounter
--- OUTSIDE RECORDS SUMMARY | 2024-04-03 16:43 | XMS_ITS | Encounter Summary ---
Author Organization [facility] Address [address] [place] [address]. [place], [place] [address] [place] [address] Care Team Providers Care Licensed Practical Vocational Nurse Name Role Phone Rhonda De La Paz MD Unavailable [phone] Rhonda De La Paz MD Primary Care Provider + [phone] Encounter Details Date Type Department Care Team [...] on filedocumented in this encounter Care Teams Licensed Practical Vocational Nurse Relationship Specialty Start Date End Date Rhonda De La Paz MD PCP - General INTERNAL MEDICINE 09/08/20 07/05/21 Rhonda De La Paz MD Physician INTERNAL MEDICINE 09/08/20 documented as of this encounter
--- OUTSIDE RECORDS SUMMARY | 2024-04-03 16:48 | XMS_ITS | Continuity of Care Document ---
Author Organization [facility] Address [address] [place] [address] Phone Care Team Providers Care Dry End Tester Name Role Phone Jez Lees MD Unavailable Unavailabl e Medications Medication Instructions Dosage Effective Dates (start - stop) Status Comments omega-3 fatty acids-vitamin E 1,000 mg Cap Unknown - Prescribed Elsewhere - Active Clarinex 5 mg Tab Take one tablet by mouth daily - Active Clarinex 5 mg Tab Unknown - Prescribed Elsewhere - Active Maxalt-TRACTOR TRAILER OPERATOR 10 mg Tab, Rapid Dissolve Unknown - [...] [facility], [address], [place], [place], [id number] , tel:[phone] [facility] No Information Hay-0 8-200 9 Yoana Story. [address], [place] [address], [place], [place], [id number], [place]. tel: [phone] [facility], [address], [place], [place], [id number] , [place] tel: [phone] [facility] No Information August-1 1-200 9 Yoana Story. [address], [address], [id number], [place]. tel: [phone] OV, Estab Pt, Level IV [facility], [address], [place], [place], [id number] , [place] tel: [phone] [facility] Epistaxis (chief complaint) No Information August-0 7-200 9 No Information OV, Estab Pt, Level IV [facility], [address], [place], [place], [id number] , [place] tel: [phone] [facility] Epistaxis (chief complaint) EpistaxisChronic Rhinitis August-0 7-200 9 Yoana Story. [address], [address], [id number], [place]. tel: [phone] OV, Estab Pt, Level IV [facility], [address], [place], [place], [id number] , [place] tel: [phone] [facility] Epistaxis (chief complaint) EpistaxisDeviate d Nasal Septum May-0 4-200 9 Yoana Story. [address], [address], [id number], [place]. tel: [phone] [facility], [address], [place], [place], [id number] , [place] tel: [phone] [facility] Epistaxis (chief complaint) Epistaxis May-0 2-200 9 No Information Consult, Level III / Office [facility], [address], [place], [place], [id number] , [place] tel: [phone] [facility] Epistaxis (chief complaint) EpistaxisHypertr ph Nasal TurbinatDeviated Nasal Septum Apr-2 9 Yoana Story. [address], [place], [place], [id number], [place]. tel:[phone] Family History Family Member Type Diagnosis Age At Onset Problem (finding) Family history of ADD Problem (finding) Family history of malignant neoplasm of male breast Problem (finding) Payers Payer name Insurance type Covered green party ID Authoriza tion(s) [facility] [id number] Social History Type Description Quantity Date Captured [...]
--- OUTSIDE RECORDS SUMMARY | 2024-04-03 16:48 | XMS_ITS | Continuity of Care Document ---
Author Organization [facility] Address [address] [place] [address] Phone Care Team Providers Care Cementer Oil Well Name Role Phone Unavailable Unavailable Unavailable Allergies, [...] [facility], [address], [place], [place], [id number] , tel: [phone] [facility] No Information 7 No Information OV, Estab Pt, Level II [facility], [address], [place], [place], [id number] , tel: [phone] [facility] Follow Up of ear fullness (chief complaint) Sudden idiopathic hearing loss, left earSnsrnrl hear loss, uni, left ear, w unrestr hear cntra side 7 No Information [facility], [address], [place], [place], [id number] , [place] tel: [phone] [facility] Follow Up of ear fullness (chief complaint) Sudden idiopathic hearing loss, left ear 7 No Information [facility], [address], [place], [place], [id number] , [place] tel: [phone] [facility] Follow Up of ear fullness (chief complaint) Sudden idiopathic hearing loss, left ear 7 No Information [facility], [address], [place], [place], [id number] , [place] tel: [phone] [facility] Follow Up of ear fullness (chief complaint) Asymmetrical hearing loss of left earSudden idiopathic hearing loss, left ear 7 No Information OV, New Pt, Level III [facility], [address], [place], [place], [id number] , [place] tel:[phone] [facility] ear fullness (chief complaint) Asymmetrical hearing loss of left earSensorineural hearing loss, bilateralTinnitus , bilateral 7 No Information Referring Provider: Heraclio Kearney , [address] [facility] [place], [address]. tel:[phone] Family History Family Member Type Diagnosis Age At Onset Mother Problem (finding) malignant neop lasm of breast in first degree relative Payers Payer name Insurance type Covered constitution party ID Authoriza tigrayson(s) [employer] [place] [employer] [place] [employer] CI [id number] Social History Type Description Quantity Date Captured [...] ITS 3FOLLOW UP NEXT WEEK WITH [facility] Related to Sudden idiopathic hearing loss, left [...]
== END 2024-03-30 10:18 | disposition home or self-care (01) ==
PROVIDERS: Emergency Provider Emergency Medicine; PCP Family Medicine
DX: N39.0 Urinary tract infection, site not specified (principal); Z20.822 Contact with and (suspected) exposure to COVID-19; I10 Essential (primary) hypertension; M51.369 Other intervertebral disc degeneration, lumbar region without mention of lumbar back pain or lower extremity pain; F41.9 Anxiety disorder, unspecified; Z79.899 Other long term (current) drug therapy
CPT/HCPCS: 36415; 71046; 74176; 80053; 81001; 83605; 84145; 85025; 87086; 87637; 87651; 96361; 96374; 96375; 99284; J1885; J2405; J7030

== ENCOUNTER 2024-04-01 11:03 | Outpatient (CLI) | payer OTHER, BC, SELFPAY ==
[2024-04-01 12:34] LABS: Alanine Aminotransferase 357 U/L (6-35); Albumin Level 3.6 g/dL (3.5-5.1); Alkaline Phosphatase 141 U/L (38-126); Amylase 48 U/L (30-110); Anion Gap 4 mmol/L (4-12); Aspartate Amino Transferase 377 U/L (14-36); Bilirubin,Total 0.6 mg/dL (0.2-1.3); Blood Urea Nitrogen 9 mg/dL (7-17); Calcium 8.7 mg/dL (8.4-10.2); Carbon Dioxide 30 mmol/L (22-30); Chloride 98 mmol/L (98-107); Estimated Glomerular Filt Rate > 60; Glucose 121 mg/dL (65-110); Lipase 65 U/L (23-300); Sodium 132 mmol/L (137-145)
[2024-04-01 13:09] LABS: Hepatitis B Surface Antigen Negative (Negative)
[2024-04-01 13:15] LABS: HAV RESULT Negative (Negative); Hepatitis B Core IgM Result Negative (Negative)
[2024-04-01 13:27] LABS: Hepatitis C Virus Antibody Negative (Negative)
[2024-04-02 10:28] LABS: GGT 64 U/L (3-65)
== END 2024-04-01 11:04 | disposition home or self-care (01) ==
LOC: ANHLAB 11:05
PROVIDERS: PCP Family Medicine; Visit Provider Nurse Practitioner Family
DX: R74.8 Abnormal levels of other serum enzymes (principal)
CPT/HCPCS: 36415; 80053; 80074; 82150; 82248; 82977; 83690

== ENCOUNTER 2024-04-03 14:30 | Observation (INO) | payer BC, SELFPAY ==
--- NOTE | ~2024-04-03 | CT_ITS ---
EXAMINATION: CTA abdomen pelvis DATE: 04/03/2024 17:57 INDICATION: Abnormal liver function tests. Portal vein thrombosis. TECHNIQUE: Computed tomographic angiography (CTA) of the abdomen and pelvis was performed with 100 mL Omnipaque-350 intravenous contrast. Automated exposure control and iterative reconstruction techniqu e were employed. The dose-length product was 369.92 mGy-cm. Maximum intensity projection 3D-reconstru ctions of the aorta and other arteries were constructed by the technologist on a separate workstation . COMPARISON: CT abdomen and pelvis 03/30/2024, 09/17/2022 FINDINGS: The visualized portions of the lung bases demonstrate mild atelectasis. No pleural effusion . The heart size is normal. No pericardial effusion. The liver, gallbladder, spleen, pancreas, adrena l glands, and right kidney are normal. There is a 6 mm cyst in left kidney. There are no dilated loop s of bowel. The appendix is not visualized. There are no pathologically enlarged lymph nodes. There i s no free intraperitoneal fluid. There is mild aortic atherosclerosis. There is mild stenosis of sanjiv ac axis secondary to median arcuate ligament compression. There is no significant stenosis of superio r mesenteric artery or the renal arteries. There is undulation of the wall of right renal artery, con sistent with fibromuscular dysplasia. There is no significant stenosis of inferior mesenteric artery. There is severe lower lumbar spondylosis. IMPRESSION: 1. No etiology for abnormal liver function tests. 2. Poor opacification of the portal veins due to the early phase of contrast administration. If there is clinical concern for portal vein thrombosis, consider abdomen MRI without and with contrast or ro utine CT abdomen with contrast. Reviewed, dictated and finalized at location A. NICAL SPECIALIST CYTOGENETICS IMPRESSION: 1. No etiology for abnormal liver function tests. 2. Poor opacification of the portal veins due to the early phase of contrast ad ministration. If there is clinical concern for portal vein thrombosis, consider abdomen MRI without and with contrast or routine CT abdomen with contrast.
--- NOTE | ~2024-04-03 | MR_ITS ---
EXAMINATION: MR abdomen wo/w con DATE: 04/04/2024 13:28 INDICATION: Transaminitis. TECHNIQUE: Magnetic resonance imaging (MRI) of the abdomen was performed without and with 11 mL Multi Miya intravenous contrast. COMPARISON: None. FINDINGS: The liver, gallbladder, spleen, pancreas, adrenal glands, and right kidney are normal. There is a 5 m m cyst in left kidney. The portal veins are normal. There are no dilated loops of bowel. There are no pathologically enlarged lymph nodes. There is no free intraperitoneal fluid. IMPRESSION: 1. No etiology for abnormal liver function tests. Reviewed, dictated and finalized at location A. ALS INTELLIGENCE SUPERINTENDENT
[2024-04-03 14:35] VITALS: BP 131/66; PULSE 88; RESP 16; TEMP 36.5; O2SAT 99
--- NOTE | 2024-04-03 14:54 | ED_ITS ---
HPI - Recheck/Abnormal Lab/Rx General Chief Complaint: Recheck/Abnormal Lab/Rx <SOLITARIO Trent Last Filed: 04/03/24 15:09> Stated Complaint: ABN LABS <Sophie Wagoner PA-C - Last Filed: 04/03/24 15:09> Time Seen by Provider: 04/03/24 14:54 <SOLITARIO Trent Last Filed: 04/03/24 15:09> Focused HPI: Patient is a 63-year-old female who presents the ED with report of abnormal labs. Patient reports she has been dealing with several days of fever, up to 102? F. She was seen in the ED here on Sunday, had a relatively negative workup, diagnosed with a UTI. Rx'd Keflex. Has been taking this as Rx'd, but states she has still been having fevers. Also report persistent pain in her L mid back and LLQ, nausea, feeling of constipation. Last BM was yesterday. Her liver enzymes were noted to be elevated during ED visit. Patient had a f/u appointment with her PCP 2 days ago and had repeat labs, liver enzymes were persistently elevated and she was referred back to the ED. Denies vomiting, diarrhea, dysuria, hematuria, cough, congestion. Denies excess Tylenol use. Denies ETOH use. GENERAL: Well-appearing, well-nourished, and in no acute distress. HEAD: Normocephalic, atraumatic. CHEST: Clear to auscultation. ?No respiratory distress. HEART: Regular rate and rhythm.? ABD: Mild TTP in LLQ, no rebound, normoactive BS. +CVA tenderness in L. NEURO: ?Alert and oriented x3. Patient screened in triage and initial orders placed.? ?Additional care and disposition to be based upon?diagnostic testing and treatment. <SOLITARIO Trent Last Filed: 04/03/24 15:09> Source: patient and old records reviewed <SOLITARIO Trent Last Filed: 04/03/24 15:09> Mode of arrival: ambulatory <SOLITARIO Trent Last Filed: 04/03/24 15:09> Limitations: no limitations <SOLITARIO Trent Last Filed: 04/03/24 15:09> Related Data Home Medications: Home Medications ?Medication ?Instructions ?Recorded ?Confirmed ?Last Taken ?Type cholecalciferol (vitamin D3) 10 10 mcg PO DAILY 12/04/22 04/01/24 Unknown History mcg (400 unit) capsule naratriptan 2.5 mg tablet See Rx Instructions PO .COMPLEX 12/04/22 04/01/24 Unknown History <Sophie Wagoner PA-C - Last Filed: 04/03/24 15:09> Allergies/Adverse Reactions: Allergies Allergy/AdvReac Type Severity Reaction Status Date / Time codeine Allergy Itching Verified 04/01/24 10:22 Sulfa (Sulfonamide Allergy Itching Verified 04/01/24 10:22 Antibiotics) <Sophie Wagoner PA-C - Last Filed: 04/03/24 15:09> Review of Systems 2 Review of Systems: CONSTITUTIONAL: Reports fever GASTROINTESTINAL: Reports abdominal pain. Denies nausea, vomiting, or diarrhea. GENITOURINARY: Denies dysuria <Daisy Hodgson PA-C - Last Filed: 04/03/24 21:36> All systems reviewed & are unremarkable except as noted in HPI and below < SOLITARIO Avina Last Filed: 04/03/24 21:36> [facility] Past Medical History Medical History: Medical History Anterolisthesis of lumbar spine Degenerative disc disease, lumbar Degenerative disc disease at L5-S1 level Screening for breast cancer Migraine Hypertension Anxiety <SOLITARIO Trent Last Filed: 04/03/24 15:09> Surgical History Surgical History: Surgical History History of rotator cuff surgery History of delivery History of laparoscopic appendectomy <SOLITARIO Trent Last Filed: 04/03/24 15:09> Family History Family History: Family History Other Anxiety Breast cancer Cerebrovascular accident Diabetes mellitus Hypertension <SOLITARIO Trent Last Filed: 04/03/24 15:09> Social History Social History: Social History Smoking status: Never smoker Alcohol intake: never Substance use: never Substance use type: does not use Do You Feel Safe in your Home?: Yes Lack of Transportation: No Lack of Food: Never True Current Housing: I Have Housing Concerned About Future Housing: No Difficulty Paying Gas/Electric Bills: No Difficulty Paying for Meds: No Education: Associate Degree Difficulty w/ Childcare or Family Care: No Living arrangements: with family <Sophie Wagoner PA-C - Last Filed: 04/03/24 15:09> Exam 2 Narrative: GENERAL: Well-appearing, well-nourished, and in no acute distress. HEAD: Normocephalic, atraumatic. EYES: EOMI. CHEST: Clear to auscultation. No respiratory distress. No wheezes rales or rhonchi HEART: Regular rate and rhythm. No murmur heard. Normal peripheral pulses. ABDOMEN: Soft, nontender, nondistended, normal active bowel sounds. EXTREMITIES: Normal range of motion. No edema. SKIN: Warm, dry, no rash. NEURO: No focal deficits. Alert and oriented x3. PSYCH: Normal mood and affect <Daisy Hodgson PA-C - Last Filed: 04/03/24 21:36> Course Course Emergency Course: patient and family updated on workup and recommendation for admission < Daisy Hodgson PA-C - Last Filed: 04/03/24 21:36> Consultations Consultation #1: spoke with hospitalist about patient and workup who accepts admission. Will add on blood cultures and D dimer <Daisy Hodgson PA-C - Last Filed: 04/03/24 21:36> Date: 04/03/24 <SOLITARIO Avina Last Filed: 04/03/24 21:36> Vital Signs Vital signs: Vital Signs Temperature 97.7 F 04/03/24 14:35 Pulse Rate 88 04/03/24 14:35 Respiratory Rate 16 04/03/24 14:35 Blood Pressure 131/66 04/03/24 14:35 Pulse Oximetry 99 04/03/24 14:35 Oxygen Delivery Room Air 04/03/24 14:35 Temperature 97.8 F 04/03/24 20:53 Pulse Rate 93 04/03/24 20:53 Respiratory Rate 19 04/03/24 20:53 Blood Pressure 126/72 04/03/24 20:53 Pulse Oximetry 97 04/03/24 20:53 Oxygen Delivery Room Air 04/03/24 14:35 <Sophie Wagoner PA-C - Last Filed: 04/03/24 15:09> Vital Signs Temperature 97.7 F 04/03/24 14:35 Pulse Rate 88 04/03/24 14:35 Respiratory Rate 16 04/03/24 14:35 Blood Pressure 131/66 04/03/24 14:35 Pulse Oximetry 99 04/03/24 14:35 Oxygen Delivery Room Air 04/03/24 14:35 Temperature 97.8 F 04/03/24 20:53 Pulse Rate 93 04/03/24 20:53 Respiratory Rate 19 04/03/24 20:53 Blood Pressure 126/72 04/03/24 20:53 Pulse Oximetry 97 04/03/24 20:53 Oxygen Delivery Room Air 04/03/24 14:35 <Daisy Hodgson PA-C - Last Filed: 04/03/24 21:36> MDM - Recheck/Abnormal Lab/Rx MDM Narrative Medical decision making narrative: MSE by CHRISTIANO in triage. <Sophie Wagoner PA-C - Last Filed: 04/03/24 15:09> MSE by CHRISTIANO in triage. Patient presents to the ER for abnormal liver enzymes. Reporting fevers, left- sided abdominal pain. She is afebrile in the ER and nontoxic appearing. Her vitals are stable. Cbc without leukocytosis. Metabolic panel with transaminitis, which is downtrending. Total bilirubin is normal. Lipase is normal. Urine with 2+ leuk esterase, 6-10 white blood cells. Patient does not have any urinary symptoms. This will be sent for culture. CTA abdomen and pelvis is without acute findings. Poor opacification of the portal veins due to early phase of contrast administration. Would recommend further evaluation with MRI or routine CT abdomen pelvis with concern for portal venous thrombosis. patient and family updated on workup and recommendation for admission. spoke with hospitalist about patient and workup who accepts admission. Will add on blood cultures and D dimer <Daisy Hodgson PA-C - Last Filed: 04/03/24 21:36> Differential Diagnosis Differential diagnosis: Likely other (viral syndrome, hepatitis, portal vein thrombosis, mono) < Daisy Hodgson PA-C - Last Filed: 04/03/24 21:36> Lab Data Attestation: I reviewed the patient's lab results. <Daisy Hodgson PA-C - Last Filed: 04/03/24 21:36> Result diagrams: 04/03/24 15:21 04/03/24 15:21 <Sophie Wagoner PA-C - Last Filed: 04/03/24 15:09> Labs: Lab Results 04/03/24 04/03/24 04/03/24 Range/Units 15:21 17:42 19:49 WBC 7.4 (4.5-10.0) K/mm3 RBC 4.13 L (4.2-5.4) M/mm3 Hgb 12.5 (12.0-15.0) g/dL Hct 37.0 (37.0-47.0) % MCV 89.6 (80-100) fl MCH 30.3 (26-34) pg MCHC 33.8 (32-36) g/dl RDW 13.0 (11.5-14.5) % Plt Count 294 D (150-375) k/mm3 MPV 10.5 H (7.4-10.4) fl Immature Gran % (Auto) 0.4 (0-0.5) % Neut % (Auto) 44.0 L (45.5-73.1) % Lymph % (Auto) 38.8 (18.3-44.2) % Brantley % (Auto) 9.1 H (2.6-8.5) % Eos % (Auto) 6.3 H (0-4.4) % Baso % (Auto) 1.4 H (0.2-1.2) % Lymph # (Auto) 2.85 (0.9-3.2) K/mm3 Brantley # (Auto) 0.7 H (0.1-0.6) K/mm3 Eos # (Auto) 0.5 H (0-0.3) K/mm3 Baso # (Auto) 0.1 (0.0-0.1) K/mm3 Abs Immat Gran (auto) 0.03 (0.00-0.031) K/mm3 Absolute Neuts (auto) 3.2 (1.3-6.7) K/mm3 Absolute Nucleated RBC 0.000 (0.0-0.012) K/mm3 Nucleated RBC % 0.0 (0.0-0.2) % Platelet Estimate Adequate (Adequate) Hypochromasia 1+ Schistocytes None seen PT 14.1 (11.1-14.7) Seconds INR 1.0 APTT 34.9 (22.3-36.8) Seconds Sodium 131 L (137-145) mmol/L Potassium 3.3 L (3.4-5.0) mmol/L Chloride 96 L (98-107) mmol/L Carbon Dioxide 33 H (22-30) mmol/L Anion Gap 2 L (4-12) mmol/L BUN 8 (7-17) mg/dL Creatinine 0.60 L (0.7-1.0) mg/dL Estim Creat Clear Calc 61 ml/min Estimated GFR > 60 (59 - ) Glucose 101 (65-110) mg/dL Lactic Acid 0.9 (0.7-2.0) mmol/L Calcium 8.5 (8.4-10.2) mg/dL Magnesium 2.0 (1.6-2.3) mg/dL Total Bilirubin 0.6 (0.2-1.3) mg/dL Direct Bilirubin 0.0 (0-0.3) mg/dL AST 232 H (14-36) U/L ALT 295 H (6-35) U/L Alkaline Phosphatase 147 H (38-126) U/L Total Protein 8.0 (6.3-8.2) g/dL Albumin 3.5 (3.5-5.1) g/dL Lipase 73 (23-300) U/L Procalcitonin 0.3 ng/mL Urine Color Yellow (Yellow) Urine Appearance Clear (Clear) Urine pH 6.0 (5.0-9.0) Ur Specific [place] 1.004 (1.001-1.035) Urine Protein Negative (Negative) mg/dL Urine Glucose (UA) Negative (Negative) mg/dL Urine Ketones Negative (Negative) mg/dL Ur Blood (Man) Trace (Negative) Urine Nitrate Negative (Negative) Urine Bilirubin Negative (Negative) Urine Urobilinogen 1.0 (<2.0) mg/dL Add Ur Microanalysis Reviewed Leukocyte Esterase Rfl 2+ H (Negative) DIMA/UL Urine RBC 0-2 (0-2) /hpf Urine WBC 6-10 H (0-3) /hpf Ur Squamous Epith Cells None seen (Few) /hpf Urine Bacteria None seen /hpf Urine Casts 0-2 Hepatitis A IgM Ab Negative (Negative) Hep Bs Antigen Negative (Negative) Hep B Core IgM Ab Negative (Negative) Hepatitis C Ab Screen Negative (Negative) Monoscreen Negative (Negative) <Sophie Wagoner PA-C - Last Filed: 04/03/24 15:09> Lab Results 04/03/24 04/03/24 04/03/24 Range/Units 15:21 17:42 19:49 WBC 7.4 (4.5-10.0) K/mm3 RBC 4.13 L (4.2-5.4) M/mm3 Hgb 12.5 (12.0-15.0) g/dL Hct 37.0 (37.0-47.0) % MCV 89.6 (80-100) fl MCH 30.3 (26-34) pg MCHC 33.8 (32-36) g/dl RDW 13.0 (11.5-14.5) % Plt Count 294 D (150-375) k/mm3 MPV 10.5 H (7.4-10.4) fl Immature Gran % (Auto) 0.4 (0-0.5) % Neut % (Auto) 44.0 L (45.5-73.1) % Lymph % (Auto) 38.8 (18.3-44.2) % Brantley % (Auto) 9.1 H (2.6-8.5) % Eos % (Auto) 6.3 H (0-4.4) % Baso % (Auto) 1.4 H (0.2-1.2) % Lymph # (Auto) 2.85 (0.9-3.2) K/mm3 Brantley # (Auto) 0.7 H (0.1-0.6) K/mm3 Eos # (Auto) 0.5 H (0-0.3) K/mm3 Baso # (Auto) 0.1 (0.0-0.1) K/mm3 Abs Immat Gran (auto) 0.03 (0.00-0.031) K/mm3 Absolute Neuts (auto) 3.2 (1.3-6.7) K/mm3 Absolute Nucleated RBC 0.000 (0.0-0.012) K/mm3 Nucleated RBC % 0.0 (0.0-0.2) % Platelet Estimate Adequate (Adequate) Hypochromasia 1+ Schistocytes None seen PT 14.1 (11.1-14.7) Seconds INR 1.0 APTT 34.9 (22.3-36.8) Seconds Sodium 131 L (137-145) mmol/L Potassium 3.3 L (3.4-5.0) mmol/L Chloride 96 L (98-107) mmol/L Carbon Dioxide 33 H (22-30) mmol/L Anion Gap 2 L (4-12) mmol/L BUN 8 (7-17) mg/dL Creatinine 0.60 L (0.7-1.0) mg/dL Estim Creat Clear Calc 61 ml/min Estimated GFR > 60 (59 - ) Glucose 101 (65-110) mg/dL Lactic Acid 0.9 (0.7-2.0) mmol/L Calcium 8.5 (8.4-10.2) mg/dL Magnesium 2.0 (1.6-2.3) mg/dL Total Bilirubin 0.6 (0.2-1.3) mg/dL Direct Bilirubin 0.0 (0-0.3) mg/dL AST 232 H (14-36) U/L ALT 295 H (6-35) U/L Alkaline Phosphatase 147 H (38-126) U/L Total Protein 8.0 (6.3-8.2) g/dL Albumin 3.5 (3.5-5.1) g/dL Lipase 73 (23-300) U/L Procalcitonin 0.3 ng/mL Urine Color Yellow (Yellow) Urine Appearance Clear (Clear) Urine pH 6.0 (5.0-9.0) Ur Specific [place] 1.004 (1.001-1.035) Urine Protein Negative (Negative) mg/dL Urine Glucose (UA) Negative (Negative) mg/dL Urine Ketones Negative (Negative) mg/dL Ur Blood (Man) Trace (Negative) Urine Nitrate Negative (Negative) Urine Bilirubin Negative (Negative) Urine Urobilinogen 1.0 (<2.0) mg/dL Add Ur Microanalysis Reviewed Leukocyte Esterase Rfl 2+ H (Negative) DIMA/UL Urine RBC 0-2 (0-2) /hpf Urine WBC 6-10 H (0-3) /hpf Ur Squamous Epith Cells None seen (Few) /hpf Urine Bacteria None seen /hpf Urine Casts 0-2 Hepatitis A IgM Ab Negative (Negative) Hep Bs Antigen Negative (Negative) Hep B Core IgM Ab Negative (Negative) Hepatitis C Ab Screen Negative (Negative) Monoscreen Negative (Negative) <SOLITARIO Avina Last Filed: 04/03/24 21:36> Imaging Data Radiologist's impression: ITS Impressions Abdomen/Pelvis CTA 04/03/24 18:09 IMPRESSION: 1. No etiology for abnormal liver function tests. 2. Poor opacification of the portal veins due to the early phase of contrast administration. If there is clinical concern for portal vein thrombosis, consider abdomen MRI without and with contrast or routine CT abdomen with contrast. <SOLITARIO Avina Last Filed: 04/03/24 21:36> Critical Care Time Critical Care Time Critical Care Time: No <SOLITARIO Avina Last Filed: 04/03/24 21:36> Discharge Plan Discharge Clinical Impression: Transaminitis, Hypokalemia <SOLITARIO Trent Last Filed: 04/03/24 15:09> Patient Disposition: Still a Patient <SOLITARIO Trent Last Filed: 04/03/24 15:09> Condition: Stable <SOLITARIO Trent Last Filed: 04/03/24 15:09> Patient Language: Kyrgyz <SOLITARIO Trent Last Filed: 04/03/24 15:09> Prescriptions: No Action naratriptan 2.5 mg tablet See Rx Instructions PO .COMPLEX Rx Instructions: take 1 tab at onset of headache; if no relief may repeat 1 tab after at least 4 hrs; max = 2 tabs/24 hrs PO cholecalciferol (vitamin D3) 10 mcg (400 unit) capsule 10 mcg PO DAILY cephalexin 500 mg capsule 500 mg PO Q12H 7 Days Qty: 14 0RF lisinopril 40 mg tablet See Rx Instructions .ROUTE .COMPLEX Qty: 90 0RF Dose Instruction: TAKE 1 TABLET BY MOUTH EVERY DAY Rx Instructions: TAKE 1 TABLET BY MOUTH EVERY DAY meloxicam 7.5 mg tablet 15 mg PO DAILY Qty: 60 6RF hydrochlorothiazide 12.5 mg tablet 12.5 mg PO DAILY Qty: 90 3RF cyclobenzaprine 5 mg tablet 5 mg PO TID PRN (Reason: muscle spasm) Qty: 30 0RF fluoxetine 40 mg capsule See Rx Instructions .ROUTE .COMPLEX Qty: 90 0RF Dose Instruction: TAKE 1 CAPSULE BY MOUTH EVERY DAY Rx Instructions: TAKE 1 CAPSULE BY MOUTH EVERY DAY <Sophie Wagoner PA-C - Last Filed: 04/03/24 15:09> Follow-up/Referrals: Simone Mckeon MD [Primary Care Provider] - <Sophie Wagoner PA-C - Last Filed: 04/03/24 15:09>
[2024-04-03 15:31] LABS: Basophils Absolute Auto 0.1 K/mm3 (0.0-0.1); Basophils Percent Auto 1.4 % (0.2-1.2); Eosinophils Absolute Auto 0.5 K/mm3 (0-0.3); Eosinophils Percent Auto 6.3 % (0-4.4); Hemoglobin 12.5 g/dL (12.0-15.0); Immature Granulocyte Absolute 0.03 K/mm3 (0.00-0.031); Immature Granulocyte Percent A 0.4 % (0-0.5); Lymphocytes Absolute Auto 2.85 K/mm3 (0.9-3.2); Lymphocytes Percent Auto 38.8 % (18.3-44.2); Mean Corpuscular HGB Conc 33.8 g/dl (32-36); Mean Corpuscular Hemoglobin 30.3 pg (26-34); Mean Corpuscular Volume 89.6 fl (80-100); Mean Platelet Volume 10.5 fl (7.4-10.4); Monocytes Absolute Auto 0.7 K/mm3 (0.1-0.6); Monocytes Percent Auto 9.1 % (2.6-8.5); Neutrophils Absolute Auto 3.2 K/mm3 (1.3-6.7); Platelet Count Result 294 k/mm3 (150-375); Red Blood Count 4.13 M/mm3 (4.2-5.4); White Blood Count 7.4 K/mm3 (4.5-10.0)
[2024-04-03 15:41] LABS: Lactic Acid Reflex 0.9 mmol/L (0.7-2.0)
[2024-04-03 15:42] LABS: Alanine Aminotransferase 295 U/L (6-35); Albumin Level 3.5 g/dL (3.5-5.1); Alkaline Phosphatase 147 U/L (38-126); Anion Gap 2 mmol/L (4-12); Aspartate Amino Transferase 232 U/L (14-36); Bilirubin,Total 0.6 mg/dL (0.2-1.3); Blood Urea Nitrogen 8 mg/dL (7-17); Calcium 8.5 mg/dL (8.4-10.2); Carbon Dioxide 33 mmol/L (22-30); Chloride 96 mmol/L (98-107); Estimated CRCL calculation 61 ml/min; Estimated Glomerular Filt Rate > 60; Glucose 101 mg/dL (65-110); Lipase 73 U/L (23-300); Potassium 3.3 mmol/L (3.4-5.0); Sodium 131 mmol/L (137-145)
[2024-04-03 15:49] LABS: Add Urine Microscopic? YES; Appearance Urine Clear (Clear); Bacteria Urine None Seen /hpf; Bilirubin Urine Negative (Negative); Blood Urine Trace (Negative); Color Urine Yellow (Yellow); Glucose Urine UA Negative (Negative); Ketones Urine Negative (Negative); Leukocyte Esterase Ur 2+ LEU/UL (Negative); Need Manual Microscopic Reviewed; Nitrate Urine Negative (Negative); Non Pathogenic Casts 0-2; Protein Urine Negative (Negative); RBC Urine 0-2 /hpf (0-2); Specific Grav Ur 1.004 (1.001-1.035); Squamous Epithelial Cell Urine None Seen /hpf (Few)
[2024-04-03 16:00] LABS: Prothrombin Time 14.1 Seconds (11.1-14.7)
[2024-04-03 16:01] LABS: Partial Thromboplastin Time 34.9 Seconds (22.3-36.8)
[2024-04-03 16:16] LABS: Platelet Estimate Adequate (Adequate)
[2024-04-03 16:17] LABS: Hypochromasia 1+; Schistocytes None Seen
[2024-04-03 16:46] LABS: Negative Monotest Control Negative (Negative); Positive Monotest Control Positive (Positive)
[2024-04-03 16:50] LABS: Monoscreen Negative (Negative)
[2024-04-03 17:13] LABS: Hepatitis B Surface Antigen Negative (Negative)
[2024-04-03 17:19] LABS: HAV RESULT Negative (Negative); Hepatitis B Core IgM Result Negative (Negative)
[2024-04-03 17:30] LABS: Hepatitis C Virus Antibody Negative (Negative)
[2024-04-03 17:36] VITALS: BP 109/87; PULSE 86; RESP 18; O2SAT 99
[2024-04-03] MEDS: POTASSIUM CHLORIDE 20 MEQ ER TABLET 40 MEQ PO (18:37)
[2024-04-03 19:08] VITALS: BP 143/90; PULSE 82; RESP 20; TEMP 36.8; O2SAT 95
[2024-04-03 20:32] LABS: Procalcitonin 0.3 ng/mL
[2024-04-03 20:53] VITALS: BP 126/72; PULSE 93; RESP 19; TEMP 36.6; O2SAT 97
[2024-04-03 22:13] VITALS: BP 123/69; PULSE 89; RESP 22; TEMP 36.7; O2SAT 95
[2024-04-03 22:20] LABS: D Dimer 3.37 ug/mL (<0.48)
--- NOTE | 2024-04-03 23:06 | ADMGEN ---
This patient, Danielle Brito, was admitted to Medical Room 348-01. Patient/family oriented to hospital policies and general routines including ID bracelet, bed and alarms, visiting hours, pain management, procedures, bathroom and other care routines, personal items, smoking policy, room service/diet, and visiting hours. Information on how to activate the Rapid Response Team has been discussed. Patient/Family are encouraged to report perceived risks to care and to ask questions if they do not understand what they are told or what they should do.
[2024-04-03 23:14] VITALS: BMI 24.6
[2024-04-03 23:16] VITALS: BP 154/83; PULSE 87; RESP 20; TEMP 36.7; O2SAT 99
[2024-04-04] MEDS: ENOXAPARIN 60 MG/0.6 ML SYRINGE SUB-Q (00:43)
[2024-04-04] MEDS: IBUPROFEN 600 MG TABLET PO ×2 (01:30→15:50)
--- NOTE | 2024-04-04 04:20 | PM.IMHP ---
H&P: HPI History of Present Illness Date/Time: 04/04/24 00:04 Chief Complaint: Elevated liver enzymes, fever Narrative: 63-year-old female past medical history of chronic back pain, vitamin-D deficiency, anxiety and essential hypertension who presented to the ER after repeat her labs demonstrated elevated liver enzymes. The patient reported that proximally around the 11th of the month she began having fevers. Her T-max was a 102? and some aching in her bilateral flank region but left greater than right. She was also having significant night sweats, chills and decreased appetite. She did have some nausea but no vomiting. She denies any diarrhea. She came to the ER for evaluation on the at which time she had a urine that had 1+ esterase but no bacteria. She was told she had a UTI was discharged on on Keflex. Her urine culture returned as negative for infection. Unfortunately, blood cultures were not obtained as patient did not meet sepsis criteria at the time of ER evaluation. Her transaminases were elevated but no other significant abnormalities her CT of the abdomen pelvis at that time was negative for acute process. She followed up with her primary care physician on the with her lab results coming back on the with increased transaminases from prior evaluation. She was contacted prior primary care physician who directed her to come to the ER for evaluation. At the time my evaluation the patient reports he has been having continued fevers with her temperature on the morning of the being 100?. She has had some generalized body aches. She does report some tenderness to both right and left upper quadrant on palpation. She reports that she had recent travel to [place] just before for 3 weeks. She then traveled to [place] the 1st week in March and drove back home the 2nd week. She initially thought some of her back discomfort could be due to laying on a blowup mattress at a family member's house. But given the development of fever and persistent symptoms she was concerned. Today in the ER patient's transaminases had improved compared to the but were still slightly worse than the initial enzymes on the . She had a normal white count with slightly low neutrophil percentage and borderline lymphocyte percentage. There was some concern the patient may have portal venous thrombus. Patient underwent CTA of the abdomen and pelvis with poorly timed contrast bolus with examination being limited but no obvious portal venous thrombus. Subsequently a D-dimer was obtained to assess for potential for portal thrombus and was found to be elevated at 3.37. She also had mild electrolyte abnormalities with borderline low potassium and sodium. Her acute hepatitis panel and Monospot was negative. She was subsequently admitted to the hospital for further evaluation of acute transaminitis and persistent fever. When I arrived to evaluate the patient she was covered under several blankets. Nursing staff reported the patient had been having chills in the provided blankets. When I went to evaluate patient's she was saturated in sweat requiring entire bed change prior to my evaluation. She reports that she has been sweating like this at least nightly since onset of symptoms. She thinks she may have had some mild sore throat and rhinorrhea the 1st few days prior to her developing or fever. She denies any recent ill contacts, foreign travel, known ingestion of contaminated of water source, drinking well water, or diarrheal illness. She has not have a family history of autoimmune process. She has used a few doses of Tylenol but denies any excessive Tylenol consumption. Review of Systems Review of Systems: 12 systems were reviewed with pertinent positives and negatives per HPI. Except as documented in the HPI, all other systems were reviewed and are negative. [facility] Past Medical History Medical History (Updated 04/04/24 @ 00:11 by Brionna Andres DO) Glaucoma associated with chamber angle anomalies GERD (gastroesophageal reflux disease) Hyperlipidemia Vitamin D deficiency Anterolisthesis of lumbar spine Degenerative disc disease, lumbar Degenerative disc disease at L5-S1 level Migraine Hypertension Anxiety Surgical History Surgical History History of rotator cuff surgery History of delivery History of laparoscopic appendectomy Family History Family History Mother Breast cancer Hypertension Anxiety Sibling Cerebrovascular accident Sibling Diabetes mellitus Father Acute myocardial infarction Social History Social History (Updated 04/04/24 @ 06:25 by Brionna Andres DO) Social History: Patient lives with her they have been since 2016. 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 She has 1 biologic son and 1 stepson. She is a lifelong nonsmoker and does not drink alcohol or use illicit substances. Code status: Full code (she does not have advanced directives in place yet) Surrogate decision maker: Smoking status: Never smoker Alcohol intake: never Substance use: never Substance use type: does not use Do You Feel Safe in your Home?: Yes Lack of Transportation: No Lack of Food: Never True Current Housing: I Have Housing Concerned About Future Housing: No Difficulty Paying Gas/Electric Bills: No Difficulty Paying for Meds: No Currently Unemployed: No Education: Associate Degree Difficulty w/ Childcare or Family Care: No Living arrangements: with family Spiritual care concerns: No Meds Home Medications and Allergies Home Medications ?Medication ?Instructions ?Recorded ?Confirmed ?Type cholecalciferol (vitamin D3) 10 10 mcg PO DAILY 12/04/22 04/03/24 History mcg (400 unit) capsule naratriptan 2.5 mg tablet See Rx Instructions PO .COMPLEX 12/04/22 04/03/24 History hydrochlorothiazide 12.5 mg tablet 12.5 mg PO DAILY #90 tabs 02/10/24 04/03/24 Rx cyclobenzaprine 5 mg tablet 5 mg PO TID PRN muscle spasm #30 02/25/24 04/03/24 Rx tabs cephalexin 500 mg capsule 500 mg PO Q12H 7 days #14 caps 03/30/24 04/03/24 Rx melatonin 5 mg capsule 5 mg PO HS 04/03/24 04/03/24 History meloxicam 7.5 mg tablet 15 mg PO DAILY PRN pain (scale 04/03/24 04/03/24 History score 1-3) fluoxetine 40 mg capsule 40 mg PO DAILY 04/04/24 04/04/24 History lisinopril 40 mg tablet 40 mg PO DAILY 04/04/24 04/04/24 History Allergies Allergy/AdvReac Type Severity Reaction Status Date / Time codeine Allergy Itching Verified 04/03/24 22:41 Sulfa (Sulfonamide Allergy Itching Verified 04/03/24 22:41 Antibiotics) Vital Signs Vital Signs - 24 hr 04/03/24 14:35 04/03/24 17:36 04/03/24 19:08 Temperature 97.7 F 98.3 F Pulse Rate 88 86 82 Respiratory Rate 16 18 20 Blood Pressure 131/66 109/87 143/90 H Pulse Oximetry 99 99 95 Oxygen Delivery Room Air 04/03/24 20:53 04/03/24 22:13 04/03/24 23:16 Temperature 97.8 F 98.1 F 98.1 F Pulse Rate 93 89 87 Respiratory Rate 19 22 H 20 Blood Pressure 126/72 123/69 154/83 H Pulse Oximetry 97 95 99 Oxygen Delivery Exam Narrative: Weight 59.1 kg BMI 24.6 Const: Other: No acute distress, well-developed well-nourished, appears stated age HENMT: Other: Mucous membranes are moist, no oral pharyngeal erythema, no petechiae Eyes: Other: No scleral icterus, no conjunctival pallor Neck: Other: No lymphadenopathy, supple Resp: Other: Clear to auscultation bilaterally, no increased work of breathing Cardio: Other: Regular rate, regular rhythm, 2+ bilateral radial pedal pulses GI: Other: Soft, nondistended, normoactive bowel sounds, mild hepatic splenomegaly with tenderness to palpation in the right upper quadrant greater than left upper quadrant Back/Spine/Pelvis: Other: CVA discomfort bilaterally with associated muscle tension on palpation Skin: Other: Hot to touch, non jaundice, no pallor, no rashes Neuro: Other: Alert oriented, speech is clear, no facial asymmetry, no localizing neurologic deficits noted during the course of conversation, normal gait Extrem: Other: No clubbing, cyanosis or edema Psych: Other: Appropriate mood, slightly anxious affect, pleasant and cooperative, fair judgment and insight H&P: Results Labs Labs: Laboratory Tests 04/03/24 15:21 04/03/24 15:21 04/03/24 04/03/24 04/03/24 15:21 17:42 19:49 WBC 7.4 RBC 4.13 L Hgb 12.5 Hct 37.0 MCV 89.6 MCH 30.3 MCHC 33.8 RDW 13.0 Plt Count 294 D MPV 10.5 H Immature Gran % (Auto) 0.4 Neut % (Auto) 44.0 L Lymph % (Auto) 38.8 [place] % (Auto) 9.1 H Eos % (Auto) 6.3 H Baso % (Auto) 1.4 H Lymph # (Auto) 2.85 [place] # (Auto) 0.7 H Eos # (Auto) 0.5 H Baso # (Auto) 0.1 Abs Immat Gran (auto) 0.03 Absolute Neuts (auto) 3.2 Absolute Nucleated RBC 0.000 Nucleated RBC % 0.0 Platelet Estimate Adequate Hypochromasia 1+ Schistocytes None seen PT 14.1 INR 1.0 APTT 34.9 D-Dimer Sodium 131 L Potassium 3.3 L Chloride 96 L Carbon Dioxide 33 H Anion Gap 2 L BUN 8 Creatinine 0.60 L Estim Creat Clear Calc 61 Estimated GFR > 60 Glucose 101 Lactic Acid 0.9 Calcium 8.5 Magnesium 2.0 Total Bilirubin 0.6 Direct Bilirubin 0.0 AST 232 H ALT 295 H Alkaline Phosphatase 147 H Total Protein 8.0 Albumin 3.5 Lipase 73 Procalcitonin 0.3 Urine Color Yellow Urine Appearance Clear Urine pH 6.0 Ur Specific [place] 1.004 Urine Protein Negative Urine Glucose (UA) Negative Urine Ketones Negative Ur Blood (Man) Trace Urine Nitrate Negative Urine Bilirubin Negative Urine Urobilinogen 1.0 Add Ur Microanalysis Reviewed Leukocyte Esterase Rfl 2+ H Urine RBC 0-2 Urine WBC 6-10 H Ur Squamous Epith Cells None seen Urine Bacteria None seen Urine Casts 0-2 Hepatitis A IgM Ab Negative Hep Bs Antigen Negative Hep B Core IgM Ab Negative Hepatitis C Ab Screen Negative Monoscreen Negative 04/03/24 22:01 WBC RBC Hgb Hct MCV MCH MCHC RDW Plt Count MPV Immature Gran % (Auto) Neut % (Auto) Lymph % (Auto) [place] % (Auto) Eos % (Auto) Baso % (Auto) Lymph # (Auto) [place] # (Auto) Eos # (Auto) Baso # (Auto) Abs Immat Gran (auto) Absolute Neuts (auto) Absolute Nucleated RBC Nucleated RBC % Platelet Estimate Hypochromasia Schistocytes PT INR APTT D-Dimer 3.37 H Sodium Potassium Chloride Carbon Dioxide Anion Gap BUN Creatinine Estim Creat Clear Calc Estimated GFR Glucose Lactic Acid Calcium Magnesium Total Bilirubin Direct Bilirubin AST ALT Alkaline Phosphatase Total Protein Albumin Lipase Procalcitonin Urine Color Urine Appearance Urine pH Ur Specific [place] Urine Protein Urine Glucose (UA) Urine Ketones Ur Blood (Man) Urine Nitrate Urine Bilirubin Urine Urobilinogen Add Ur Microanalysis Leukocyte Esterase Rfl Urine RBC Urine WBC Ur Squamous Epith Cells Urine Bacteria Urine Casts Hepatitis A IgM Ab Hep Bs Antigen Hep B Core IgM Ab Hepatitis C Ab Screen Monoscreen Impressions Abdomen/Pelvis CTA 04/03/24 18:09 IMPRESSION: 1. No etiology for abnormal liver function tests. 2. Poor opacification of the portal veins due to the early phase of contrast administration. If there is clinical concern for portal vein thrombosis, consider abdomen MRI without and with contrast or routine CT abdomen with contrast. All imaging and EKGs personally reviewed and interpreted. And unless stated otherwise agree with radiologic and cardiology interpretation. Assessment and Plan Assessment and plan (1) Transaminitis: Code(s): R74.01 - Elevation of levels of liver transaminase levels Status: Acute (2) Fever: Qualifiers: Fever type: unspecified Qualified Code(s): R50.9 - Fever, unspecified Code(s): R50.9 - Fever, unspecified Status: Acute (3) Hypokalemia: Code(s): E87.6 - Hypokalemia Status: Acute (4) Essential hypertension: Code(s): I10 - Essential (primary) hypertension Status: Acute (5) Elevated d-dimer: Code(s): R79.89 - Other specified abnormal findings of blood chemistry Status: Acute Plan Patient has transaminitis associated with fever concerning for hepatitis. Hepatitis could be due to acute viral hepatitis verses secondary to other viral infections such as EBV, CMV. However patient's Monospot was negative. Will check CMV EBV and varicella titers. Patient very well may have an acute hepatitis infection that still does not testing positive at this time. Given the elevated D-dimer heavy nice to rule out portal venous thrombus although I would not expect a port abuse thrombus to give the patient a fever as high as 102? with persistent recurrent fevers. However will rule this out. There was poor contrast timing during the patient's last CT of the abdomen pelvis. Will check MRI of the abdomen pelvis with and without contrast. It Is theoretically possible patient could also have underlying lymphoma (? ? ) Causing transaminitis and symptoms?? Will repeat CBC and CMP in a.m.. Will check coag panel. Patient mild hypokalemia in the ER and received 40 mEq potassium chloride supplement. Will repeat electrolyte panel in a.m. and check magnesium. The patient does have an abnormal UA but recent negative urine culture. Will stop Keflex. Patient has been informed that she never did have a UTI. Patient has been admitted as observation status. Quality VTE Prophylaxis VTE prophylaxis: pharmacologic ordered (Lovenox 60 mg subQ x1) Hospitalist MIPS Advance Care Plan I have confirmed that the patient's Advanced Care Plan is present, code status is documented, or surrogate decision maker is listed in patient medical record.: Yes Medication Reconciliation I have utilized all available resources to obtain, update and review the patients current medications (includes all prescriptions, OTC, herbals, cannabis, and nutritional supplements).: Yes
[2024-04-04 06:00] VITALS: BP 151/80; PULSE 69; RESP 16; TEMP 36.1; O2SAT 94
[2024-04-04 07:18] LABS: Basophils Absolute Auto 0.2 K/mm3 (0.0-0.1); Basophils Percent Auto 2.2 % (0.2-1.2); Eosinophils Absolute Auto 0.6 K/mm3 (0-0.3); Hematocrit 37.6 % (37.0-47.0); Hemoglobin 12.2 g/dL (12.0-15.0); Immature Granulocyte Absolute 0.03 K/mm3 (0.00-0.031); Immature Granulocyte Percent A 0.4 % (0-0.5); Lymphocytes Absolute Auto 2.91 K/mm3 (0.9-3.2); Lymphocytes Percent Auto 38.3 % (18.3-44.2); Mean Corpuscular HGB Conc 32.4 g/dl (32-36); Mean Corpuscular Hemoglobin 29.8 pg (26-34); Mean Corpuscular Volume 91.7 fl (80-100); Mean Platelet Volume 11.3 fl (7.4-10.4); Monocytes Absolute Auto 0.6 K/mm3 (0.1-0.6); Monocytes Percent Auto 8.3 % (2.6-8.5); Neutrophils Absolute Auto 3.3 K/mm3 (1.3-6.7); Neutrophils Percent Auto 42.8 % (45.5-73.1); Platelet Count Result 264 k/mm3 (150-375); Red Cell Distribution Width 13.1 % (11.5-14.5); White Blood Count 7.6 K/mm3 (4.5-10.0)
[2024-04-04 07:34] LABS: Alanine Aminotransferase 278 U/L (6-35); Albumin Level 3.4 g/dL (3.5-5.1); Alkaline Phosphatase 144 U/L (38-126); Anion Gap 3 mmol/L (4-12); Aspartate Amino Transferase 219 U/L (14-36); Bilirubin,Total 0.5 mg/dL (0.2-1.3); Blood Urea Nitrogen 10 mg/dL (7-17); Calcium 8.7 mg/dL (8.4-10.2); Carbon Dioxide 29 mmol/L (22-30); Chloride 104 mmol/L (98-107); Estimated CRCL calculation 53 ml/min; Estimated Glomerular Filt Rate > 60; Glucose 93 mg/dL (65-110); Potassium 4.2 mmol/L (3.4-5.0); Sodium 136 mmol/L (137-145)
[2024-04-04 07:36] LABS: Iron 42 ug/dL (37-170)
[2024-04-04 07:38] LABS: CRP 6.4 mg/dL (<1.0)
[2024-04-04 07:45] LABS: Percent Iron Saturation 15 % (20-50)
[2024-04-04 08:13] LABS: Platelet Estimate Adequate (Adequate); Schistocytes None Seen
[2024-04-04 08:14] LABS: Atypical Lymphocytes Present
[2024-04-04] MEDS: FLUoxetine HCL 20 MG CAPSULE 40 MG PO (08:30)
[2024-04-04] MEDS: lisinopriL 20 MG TABLET 40 MG PO (08:31)
[2024-04-04] MEDS: CHOLECALCIFEROL 400 UNITS TABLET (VIT D) PO (08:31)
[2024-04-04 09:13] LABS: Vitamin B12 > 1000.0 pg/mL (239-931)
[2024-04-04 09:15] LABS: Erythrocyte Sedimentation Rate 96 mm/hr (0-20)
[2024-04-04 15:02] VITALS: BP 144/78; PULSE 92; RESP 16; TEMP 36.7; O2SAT 99
--- NOTE | 2024-04-04 15:12 | P.DS_ITS ---
DS: Admitting Diagnosis Discharge Date 04/04 Admitting Diagnosis fever, elevated liver numbers DS: Discharge Diagnosis Discharge Diagnosis (1) Transaminitis: Code(s): R74.01 - Elevation of levels of liver transaminase levels Status: Acute (2) Fever: Qualifiers: Fever type: unspecified Qualified Code(s): R50.9 - Fever, unspecified Code(s): R50.9 - Fever, unspecified Status: Acute (3) Hypokalemia: Code(s): E87.6 - Hypokalemia Status: Acute (4) Essential hypertension: Code(s): I10 - Essential (primary) hypertension Status: Acute (5) Elevated d-dimer: Code(s): R79.89 - Other specified abnormal findings of blood chemistry Status: Acute DS: Summary Hospital Course Hospital Course: Narrative: 63-year-old female past medical history of chronic back pain, vitamin-D deficiency, anxiety and essential hypertension who presented to the ER after repeat her labs demonstrated elevated liver enzymes. The patient reported that proximally around the of the month she began having fevers. Her T-max was a 102? and some aching in her bilateral flank region but left greater than right. She was also having significant night sweats, chills and decreased appetite. She did have some nausea but no vomiting. She denies any diarrhea. She came to the ER for evaluation on the at which time she had a urine that had 1+ esterase but no bacteria. She was told she had a UTI was discharged on on Keflex. Her urine culture returned as negative for infection. Unfortunately, blood cultures were not obtained as patient did not meet sepsis criteria at the time of ER evaluation. Her transaminases were elevated but no other significant abnormalities her CT of the abdomen pelvis at that time was negative for acute process. She followed up with her primary care physician on the with her lab results coming back on the with increased transaminases from prior evaluation. Here in ER patient's transaminases had improved compared to the but were still slightly worse than the initial enzymes on the . She had a normal white count with slightly low neutrophil percentage and borderline lymphocyte percentage. There was some concern the patient may have portal venous thrombus. Patient underwent CTA of the abdomen and pelvis with poorly timed contrast bolus with examination being limited but no obvious portal venous thrombus. Subsequently a D-dimer was obtained to assess for potential for portal thrombus and was found to be elevated at 3.37. She also had mild electrolyte abnormalities with borderline low potassium and sodium. Her acute hepatitis panel and Monospot was negative. MRI: INDINGS: The liver, gallbladder, spleen, pancreas, adrenal glands, and right kidney are normal. There is a 5 mm cyst in left kidney. The portal veins are normal. There are no dilated loops of bowel. There are no pathologically enlarged lymph nodes. There is no free intraperitoneal fluid. IMPRESSION: 1. No etiology for abnormal liver function tests. At the time of the exam, she reported no acute issues- no fever, no chills. She wanted to go home. We discussed the need to follow up with GI- we will provide office number for gi clinic here but she is welcomed to go anywhere she wants and her insurance approves. Status at Discharge Functional status at discharge: independent ambulation Overall status at discharge: patient is back to baseline Time Spent with Patient Time attestation: Total time spent providing and/or coordinating discharge services: Time spent: Greater than 30 minutes Exam Narrative: Weight 59.1 kg BMI 24.6 Const: General: comfortable Other: No acute distress, well-developed well-nourished, appears stated age Eyes: Other: No scleral icterus, no conjunctival pallor Neck: Other: No lymphadenopathy, supple Resp: Other: Clear to auscultation bilaterally, no increased work of breathing Cardio: Other: Regular rate, regular rhythm, 2+ bilateral radial pedal pulses GI: Other: Soft, nondistended, normoactive bowel sounds Neuro: Other: Alert oriented, speech is clear, no facial asymmetry, no localizing neurologic deficits noted during the course of conversation, normal gait Extrem: Other: No clubbing, cyanosis or edema Psych: Other: Appropriate mood, slightly anxious affect, pleasant and cooperative, fair judgment and insight DS: Data Data Completed and Pending Labs on day of discharge: Labs from last 24 hours 04/04/24 04/04/24 04/03/24 06:59 06:58 22:01 WBC 7.6 RBC 4.10 L Hgb 12.2 Hct 37.6 MCV 91.7 MCH 29.8 MCHC 32.4 RDW 13.1 Plt Count 264 MPV 11.3 H Immature Gran % (Auto) 0.4 Neut % (Auto) 42.8 L Lymph % (Auto) 38.3 [place] % (Auto) 8.3 Eos % (Auto) 8.0 H Baso % (Auto) 2.2 H Lymph # (Auto) 2.91 [place] # (Auto) 0.6 Eos # (Auto) 0.6 H Baso # (Auto) 0.2 H Abs Immat Gran (auto) 0.03 Absolute Neuts (auto) 3.3 Absolute Nucleated RBC 0.000 Nucleated RBC % 0.0 Atypical Lymphocytes Present Platelet Estimate Adequate Hypochromasia Schistocytes None seen ESR 96 H PT INR APTT D-Dimer 3.37 H Sodium 136 L Potassium 4.2 Chloride 104 Carbon Dioxide 29 Anion Gap 3 L BUN 10 Creatinine 0.70 Estim Creat Clear Calc 53 Estimated GFR > 60 Glucose 93 Lactic Acid Calcium 8.7 Magnesium Iron 42 TIBC 278 % Saturation 15 L Ferritin 919.00 H Total Bilirubin 0.5 Direct Bilirubin GGT Pending AST 219 H ALT 278 H Alkaline Phosphatase 144 H C-Reactive Protein 6.4 H Total Protein 7.0 Albumin 3.4 L Alpha-1-AT Phenotype Pending Ceruloplasmin Pending Lipase Vitamin B12 > 1000.0 H Folate 8.0 Procalcitonin Urine Color Urine Appearance Urine pH Ur Specific [place] Urine Protein Urine Glucose (UA) Urine Ketones Ur Blood (Man) Urine Nitrate Urine Bilirubin Urine Urobilinogen Add Ur Microanalysis Leukocyte Esterase Rfl Urine RBC Urine WBC Ur Squamous Epith Cells Urine Bacteria Urine Casts LINDA Screen Pending Mitochondria M2 IgG Ab Pending Actin IgG Antibody Pending CMV IgG Ab Pending CMV IgM Ab Pending EBV Capsid Ag IgG Ab Pending EBV Capsid Ag IgM Ab Pending EBV Nucl Ag IgG Sig Str Pending EBV Nuc Ag IgG Interp Pending Hepatitis A IgM Ab Hep Bs Antigen Hep B Core IgM Ab Hepatitis C Ab Screen Hepatitis Delta Ab Pending Hepatitis E IgG Ab Pending Hepatitis E IgM Ab Pending Monoscreen 04/03/24 04/03/24 04/03/24 19:49 17:42 15:21 WBC 7.4 RBC 4.13 L Hgb 12.5 Hct 37.0 MCV 89.6 MCH 30.3 MCHC 33.8 RDW 13.0 Plt Count 294 D MPV 10.5 H Immature Gran % (Auto) 0.4 Neut % (Auto) 44.0 L Lymph % (Auto) 38.8 [place] % (Auto) 9.1 H Eos % (Auto) 6.3 H Baso % (Auto) 1.4 H Lymph # (Auto) 2.85 [place] # (Auto) 0.7 H Eos # (Auto) 0.5 H Baso # (Auto) 0.1 Abs Immat Gran (auto) 0.03 Absolute Neuts (auto) 3.2 Absolute Nucleated RBC 0.000 Nucleated RBC % 0.0 Atypical Lymphocytes Platelet Estimate Adequate Hypochromasia 1+ Schistocytes None seen ESR PT 14.1 INR 1.0 APTT 34.9 D-Dimer Sodium 131 L Potassium 3.3 L Chloride 96 L Carbon Dioxide 33 H Anion Gap 2 L BUN 8 Creatinine 0.60 L Estim Creat Clear Calc 61 Estimated GFR > 60 Glucose 101 Lactic Acid 0.9 Calcium 8.5 Magnesium 2.0 Iron TIBC % Saturation Ferritin Total Bilirubin 0.6 Direct Bilirubin 0.0 GGT AST 232 H ALT 295 H Alkaline Phosphatase 147 H C-Reactive Protein Total Protein 8.0 Albumin 3.5 Alpha-1-AT Phenotype Ceruloplasmin Lipase 73 Vitamin B12 Folate Procalcitonin 0.3 Urine Color Yellow Urine Appearance Clear Urine pH 6.0 Ur Specific [place] 1.004 Urine Protein Negative Urine Glucose (UA) Negative Urine Ketones Negative Ur Blood (Man) Trace Urine Nitrate Negative Urine Bilirubin Negative Urine Urobilinogen 1.0 Add Ur Microanalysis Reviewed Leukocyte Esterase Rfl 2+ H Urine RBC 0-2 Urine WBC 6-10 H Ur Squamous Epith Cells None seen Urine Bacteria None seen Urine Casts 0-2 LINDA Screen Mitochondria M2 IgG Ab [place]in IgG Antibody CMV IgG Ab CMV IgM Ab EBV Capsid Ag IgG Ab EBV Capsid Ag IgM Ab EBV Nucl Ag IgG Sig Str EBV Nuc Ag IgG Interp Hepatitis A IgM Ab Negative Hep Bs Antigen Negative Hep B Core IgM Ab Negative Hepatitis C Ab Screen Negative Hepatitis Delta Ab Hepatitis E IgG Ab Hepatitis E IgM Ab Monoscreen Negative Discharge Plan Discharge Attending physician on discharge: Royal Nicholas Discharging Clinician: Stephanie Huynh Activity: may shower Diet: as tolerated and heart healthy Discharge Instructions: Please, follow up with GI as we discussed. A lot of labs are still pending- your PCP or GI will review those with you once they are back. Patient Language: Greek Follow-up/Referrals: Joesph Oscar MD [Physician] - 2 Simone Watson MD [Primary Care Provider] - 1 Week Discharge Medications: Continued naratriptan 2.5 mg tablet See Rx Instructions PO .COMPLEX Rx Instructions: take 1 tab at onset of headache; if no relief may repeat 1 tab after at least 4 hrs; max = 2 tabs/24 hrs PO cholecalciferol (vitamin D3) 10 mcg (400 unit) capsule 10 mcg PO DAILY melatonin 5 mg capsule 5 mg PO HS meloxicam 7.5 mg tablet 15 mg PO DAILY PRN (Reason: pain (scale score 1-3)) fluoxetine 40 mg capsule 40 mg PO DAILY lisinopril 40 mg tablet 40 mg PO DAILY hydrochlorothiazide 12.5 mg tablet 12.5 mg PO DAILY Qty: 90 3RF cyclobenzaprine 5 mg tablet 5 mg PO TID PRN (Reason: muscle spasm) Qty: 30 0RF Discontinued cephalexin 500 mg capsule 500 mg PO Q12H 7 Days Qty: 14 0RF Date of admission: 04/03/24 19:42 Primary Care Provider: Simone Mckeon Admitting Provider: Royal Nicholas Attending physician on admission: Royal Nichoals Condition: Stable Quality VTE Prophylaxis VTE prophylaxis: pharmacologic ordered (Lovenox 60 mg subQ x1) Hospitalist MIPS Heart Failure (Exclusion) Patient has history of Heart Transplant or Left Ventricular Assistive Device?: No IF YES, STOP HERE Heart Failure (Qualifier) Patient has current or prior documentation of LVEF less than or equal to 40%, or mod/servere depressed LVSF?: No IF NO, STOP HERE
[2024-04-05 01:18] LABS: GGT 62 U/L (3-65)
[2024-04-05 07:54] LABS: Ceruloplasmin 40 mg/dL (14-48)
[2024-04-08 13:24] LABS: CMV IgG Antibody <0.60 U/mL
[2024-04-08 17:03] LABS: Hepatitis E Antibodies IgG NOT DETECTED
== END 2024-04-04 16:06 | disposition home or self-care (01) ==
LOC: ANHED 21:28 → ANH3MEDSUR 22:26 → ANH3MED 22:37
PROVIDERS: Emergency Medicine; Physician Assistant; Admitting Provider Internal Medicine; Emergency Provider Physician Assistant; PCP Family Medicine; Visit Provider General Practice
DX: R74.01 Elevation of levels of liver transaminase levels (principal); R50.9 Fever, unspecified; E87.6 Hypokalemia; I10 Essential (primary) hypertension; R79.89 Other specified abnormal findings of blood chemistry; M54.9 Dorsalgia, unspecified; G89.29 Other chronic pain; E55.9 Vitamin D deficiency, unspecified; F41.9 Anxiety disorder, unspecified; Z79.899 Other long term (current) drug therapy
CPT/HCPCS: 36415; 74174; 74183; 80048; 80053; 80074; 80076; 81001; 82104; 82390; 82607; 82728; 82746; 82977; 83520; 83540; 83550; 83605; 83690; 83735; 84145; 85025; 85380; 85610; 85652; 85730; 86038; 86039; 86140; 86308; 86364; 86644; 86645; 86664; 86665; 86692; 86790; 87040; 87086; 96372; 99285; A9270; A9577; G0378; J1650; Q9967

== ENCOUNTER 2024-04-10 12:49 | Emergency (ER) | payer BC, SELFPAY ==
--- NOTE | ~2024-04-10 | CT_ITS ---
EXAMINATION: CTA chest PE protocol DATE: 04/10/2024 16:15 INDICATION: elevated d dimer, CP TECHNIQUE: Computed tomography angiography (CTA) of the chest was performed with 100 mL Omnipaque-350 intravenous contrast timed to evaluate the pulmonary arteries. Coronal maximum intensity projection 3D-reconstructions were created by the technologist. The dose-length product (DLP) was 166.27 mGy-cm. Automated exposure control and iterative reconstruction technique were employed. COMPARISON: X-ray chest, same date. FINDINGS: Lung parenchyma and airways: Mild dependent atelectasis, otherwise clear. Patent airways. Pleura: Unremarkable. Thoracic inlet, axillae and chest wall: Unremarkable. Thoracic aorta: No significant dilation. No dissection. Minimal arch calcification. Mediastinum: Normal. Heart and pericardium: Normal. Coronary artery calcifications: Absent. Upper abdomen: No significant finding. Bones: No acute osseous finding. Pulmonary arteries: Study quality: Adequate. No pulmonary emboli detected. IMPRESSION: No CT evidence of acute pulmonary embolus. No acute process detected in the chest. Reviewed, dictated and finalized at location K. GER NC
--- NOTE | ~2024-04-10 | XR_ITS ---
XR chest 2V Ordering provider: Daisy Hodgson PA-C History: 63 years Female with . CP, TIGHTNESS, NIGHT SWEATS, HEARTBURN . Comparison: March 30, 2024 FINDINGS: MEDIASTINUM: The cardiac silhouette is not enlarged. LUNGS: No infiltrates, effusions or pneumothorax. OTHER: No free air under the diaphragm. IMPRESSION: No acute cardiopulmonary pathology. Reviewed, dictated and finalized at location A. IAL EFFECTS TECHNICIAN
[2024-04-10 12:51] VITALS: BP 112/56; PULSE 85; RESP 18; TEMP 36.2; O2SAT 99
--- NOTE | 2024-04-10 12:51 | ECG_ITS ---
Test Date: 2024-04-10 12:58:10 Measurements Intervals [place] Rate: 86 P: 71 UT: 159 QRS: 50 QRSD: 86 T: 56 QT: 349 QTc: 418 Interpretive Statements SINUS RHYTHM POSSIBLE LEFT ATRIAL ENLARGEMENT [-0.1mV P WAVE IN V1/V2] DELAYED R-WAVE PROGRESSION ABNORMAL ECG No previous ECG available for comparison Electronically Signed On 04-11-2024 16:50:21 PHOTOGRAPHS CURATOR by Antonio Bennett M.D.
--- NOTE | 2024-04-10 14:17 | ED.GENADULT ---
HPI - General Adult General Chief complaint: Unspecified <Daisy Hodgson PA-C - Last Filed: 04/14/24 20:35> Stated complaint: heart burn, chest tightnes <Daisy Hodgson PA-C - Last Filed: 04/14/24 20:35> Time Seen by Provider: 04/10/24 14:17 <Daisy Hodgson PA-C - Last Filed: 04/14/24 20:35> Focused HPI: This is a 63 year old female that presents to the ER for chest tightness. Ongoing over the last 2 days. Reports fatigue. Denies shortness of breath. GENERAL: Well-appearing, well-nourished, and in no acute distress. HEAD: Normocephalic, atraumatic. CHEST: Clear to auscultation. ?No respiratory distress. HEART: Regular rate and rhythm.? NEURO: ?Alert and oriented x3. Patient screened in triage and initial orders placed.? ?Additional care and disposition to be based upon?diagnostic testing and treatment. <Daisy Hodgson PA-C - Last Filed: 04/14/24 20:35> History of Present Illness HPI narrative: Patient 63-year-old female who presents emergency department with chief complaint of chest tightness. The patient reports for the last 2 days she has been having discomfort in her chest. The patient was seen recently in the emergency department and reports that she has continued to have issues. The patient reports no prior history of cardiac disease <Taye Garcia MD - Last Filed: 04/10/24 19:48> Related Data Home medications: Home Medications ?Medication ?Instructions ?Recorded ?Confirmed ?Last Taken ?Type cholecalciferol (vitamin D3) 10 10 mcg PO DAILY 12/04/22 04/14/24 04/03/24 History mcg (400 unit) capsule naratriptan 2.5 mg tablet See Rx Instructions PO .COMPLEX 12/04/22 04/14/24 04/02/24 History meloxicam 7.5 mg tablet 15 mg PO DAILY PRN pain (scale 04/03/24 04/14/24 04/02/24 History score 1-3) fluoxetine 40 mg capsule 40 mg PO DAILY 04/04/24 04/14/24 04/02/24 History <Daisy Hodgson PA-C - Last Filed: 04/14/24 20:35> Allergies/adverse reactions: Allergies Allergy/AdvReac Type Severity Reaction Status Date / Time codeine Allergy Itching Verified 04/14/24 07:38 Sulfa (Sulfonamide Allergy Itching Verified 04/14/24 07:38 Antibiotics) Milk Containing Products AdvReac Abdominal Verified 04/14/24 07:38 (Dairy) Pain <Daisy Hodgson PA-C - Last Filed: 04/14/24 20:35> Review of Systems Review of Systems: A 10 system review of systems was completed on the patient and is negative except for what is stated in the HPI. Nursing and ancillary documentation was reviewed. <Taye Garcia MD - Last Filed: 04/10/24 19:48> [facility] Past Medical History Medical History: Medical History Glaucoma associated with chamber angle anomalies GERD (gastroesophageal reflux disease) Hyperlipidemia Vitamin D deficiency Anterolisthesis of lumbar spine Degenerative disc disease, lumbar Degenerative disc disease at L5-S1 level Migraine Hypertension Anxiety <Daisy Hodgson PA-C - Last Filed: 04/14/24 20:35> Surgical History Surgical History: Surgical History History of rotator cuff surgery History of delivery History of laparoscopic appendectomy <Daisy Hodgson PA-C - Last Filed: 04/14/24 20:35> Family History Family History: Family History Mother Breast cancer Hypertension Anxiety Sibling Cerebrovascular accident Sibling Diabetes mellitus Father Acute myocardial infarction <Daisy Hodgson PA-C - Last Filed: 04/14/24 20:35> Social History Social History: Social History Social History: Patient lives with her they have been since 2016. 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 She has 1 biologic son and 1 stepson. She is a lifelong nonsmoker and does not drink alcohol or use illicit substances. Code status: Full code (she does not have advanced directives in place yet) Surrogate decision maker: Smoking status: Never smoker Alcohol intake: never Substance use: never Substance use type: does not use Do You Feel Safe in your Home?: Yes Lack of Transportation: No Lack of Food: Never True Current Housing: I Have Housing Concerned About Future Housing: No Difficulty Paying Gas/Electric Bills: No Difficulty Paying for Meds: No Currently Unemployed: No Education: Associate Degree Difficulty w/ Childcare or Family Care: No Living arrangements: with family Spiritual care concerns: No <Daisy Hodgson PA-C - Last Filed: 04/14/24 20:35> Exam Narrative: GENERAL: Well-appearing, well-nourished, and in no acute distress. HEAD: Normocephalic, atraumatic. EYES: PERRLA and EOMI. ENT: Nares clear, no rhinorrhea or epistaxis. Mucous membranes moist. NECK: Supple. CHEST: Clear to auscultation. No respiratory distress. HEART: Regular rate and rhythm. No murmur heard. Normal peripheral pulses. ABDOMEN: Soft, nontender, nondistended, normal active bowel sounds. EXTREMITIES: Normal range of motion. No edema. SKIN: Warm, dry, no rash. NEURO: No focal deficits. Alert and oriented x3. PSYCH: Normal mood and affect. <Taye Garcia MD - Last Filed: 04/10/24 19:48> Course Vital Signs Vital signs: Vital Signs Temperature 97.2 F L 04/10/24 12:51 Pulse Rate 85 04/10/24 12:51 Respiratory Rate 18 04/10/24 12:51 Blood Pressure 112/56 L 04/10/24 12:51 Pulse Oximetry 99 04/10/24 12:51 Oxygen Delivery Room Air 04/10/24 12:51 Temperature 97.2 F L 04/10/24 12:51 Pulse Rate 81 04/10/24 20:15 Respiratory Rate 16 04/10/24 20:15 Blood Pressure 133/71 04/10/24 20:15 Pulse Oximetry 98 04/10/24 20:15 Oxygen Delivery Room Air 04/10/24 12:51 <Daisy Hodgson PA-C - Last Filed: 04/14/24 20:35> Vital Signs Temperature 97.2 F L 04/10/24 12:51 Pulse Rate 85 04/10/24 12:51 Respiratory Rate 18 04/10/24 12:51 Blood Pressure 112/56 L 04/10/24 12:51 Pulse Oximetry 99 04/10/24 12:51 Oxygen Delivery Room Air 04/10/24 12:51 Temperature 97.2 F L 04/10/24 12:51 Pulse Rate 81 04/10/24 20:15 Respiratory Rate 16 04/10/24 20:15 Blood Pressure 133/71 04/10/24 20:15 Pulse Oximetry 98 04/10/24 20:15 Oxygen Delivery Room Air 04/10/24 12:51 <Taye Garcia MD - Last Filed: 04/10/24 19:48> Medical Decision Making MDM Narrative Medical decision making narrative: Differential diagnosis includes pneumonia, pulmonary embolism, ACS EKG showed no acute ischemic changes CTA chest, no evidence of PE Initial troponin is negative repeat troponin was negative Patient will be discharged home to follow-up with her primary care provider <Daisy Hodgson PA-C - Last Filed: 04/14/24 20:35> Differential diagnosis includes pneumonia, pulmonary embolism, ACS, EKG showed no acute ischemic changes CTA chest Initial troponin is negative repeat troponin was negative Patient will be discharged home to follow-up with her primary care provider <Taye Garcia MD - Last Filed: 04/10/24 19:48> Vital Signs Vital Signs: Vital Signs Temperature 97.2 F L 04/10/24 12:51 Pulse Rate 85 04/10/24 12:51 Respiratory Rate 18 04/10/24 12:51 Blood Pressure 112/56 L 04/10/24 12:51 Pulse Oximetry 99 04/10/24 12:51 Oxygen Delivery Room Air 04/10/24 12:51 Temperature 97.2 F L 04/10/24 12:51 Pulse Rate 81 04/10/24 20:15 Respiratory Rate 16 04/10/24 20:15 Blood Pressure 133/71 04/10/24 20:15 Pulse Oximetry 98 04/10/24 20:15 Oxygen Delivery Room Air 04/10/24 12:51 <Daisy Hodgson PA-C - Last Filed: 04/14/24 20:35> Vital Signs Temperature 97.2 F L 04/10/24 12:51 Pulse Rate 85 04/10/24 12:51 Respiratory Rate 18 04/10/24 12:51 Blood Pressure 112/56 L 04/10/24 12:51 Pulse Oximetry 99 04/10/24 12:51 Oxygen Delivery Room Air 04/10/24 12:51 Temperature 97.2 F L 04/10/24 12:51 Pulse Rate 81 04/10/24 20:15 Respiratory Rate 16 04/10/24 20:15 Blood Pressure 133/71 04/10/24 20:15 Pulse Oximetry 98 04/10/24 20:15 Oxygen Delivery Room Air 04/10/24 12:51 <Taye Garcia MD - Last Filed: 04/10/24 19:48> Lab Data Result diagrams: 04/10/24 15:07 04/10/24 15:07 <Daisy Hodgson PA-C - Last Filed: 04/14/24 20:35> Labs: Lab Results 04/10/24 04/10/24 Range/Units 15:07 17:13 WBC 10.1 H (4.5-10.0) K/mm3 RBC 3.83 L (4.2-5.4) M/mm3 Hgb 11.2 L (12.0-15.0) g/dL Hct 35.1 L (37.0-47.0) % MCV 91.6 (80-100) fl MCH 29.2 (26-34) pg MCHC 31.9 L (32-36) g/dl RDW 13.2 (11.5-14.5) % Plt Count 395 H (150-375) k/mm3 MPV 9.4 (7.4-10.4) fl Immature Gran % (Auto) 0.5 (0-0.5) % Neut % (Auto) 50.7 (45.5-73.1) % Lymph % (Auto) 25.7 (18.3-44.2) % Sibley % (Auto) 9.2 H (2.6-8.5) % Eos % (Auto) 12.3 H (0-4.4) % Baso % (Auto) 1.6 H (0.2-1.2) % Lymph # (Auto) 2.59 (0.9-3.2) K/mm3 Sibley # (Auto) 0.9 H (0.1-0.6) K/mm3 Eos # (Auto) 1.2 H (0-0.3) K/mm3 Baso # (Auto) 0.2 H (0.0-0.1) K/mm3 Abs Immat Gran (auto) 0.05 H (0.00-0.031) K/mm3 Absolute Neuts (auto) 5.1 (1.3-6.7) K/mm3 Absolute Nucleated RBC 0.000 (0.0-0.012) K/mm3 Nucleated RBC % 0.0 (0.0-0.2) % PT 14.2 (11.1-14.7) Seconds INR 1.1 APTT 33.6 (22.3-36.8) Seconds Sodium 129 L (137-145) mmol/L Potassium 3.7 (3.4-5.0) mmol/L Chloride 100 (98-107) mmol/L Carbon Dioxide 30 (22-30) mmol/L Anion Gap -1 L (4-12) mmol/L BUN 14 (7-17) mg/dL Creatinine 0.90 (0.7-1.0) mg/dL Estim Creat Clear Calc 42 ml/min Estimated GFR > 60 (59 - ) Glucose 121 H (65-110) mg/dL Calcium 8.6 (8.4-10.2) mg/dL Total Bilirubin 0.4 (0.2-1.3) mg/dL AST 69 H (14-36) U/L ALT 71 H (6-35) U/L Alkaline Phosphatase 106 (38-126) U/L Troponin I < 0.012 < 0.012 (0.000-0.034) ng/mL Total Protein 8.0 (6.3-8.2) g/dL Albumin 3.5 (3.5-5.1) g/dL Lipase 65 (23-300) U/L <Daisy Hodgson PA-C - Last Filed: 04/14/24 20:35> Lab Results 04/10/24 04/10/24 Range/Units 15:07 17:13 WBC 10.1 H (4.5-10.0) K/mm3 RBC 3.83 L (4.2-5.4) M/mm3 Hgb 11.2 L (12.0-15.0) g/dL Hct 35.1 L (37.0-47.0) % MCV 91.6 (80-100) fl MCH 29.2 (26-34) pg MCHC 31.9 L (32-36) g/dl RDW 13.2 (11.5-14.5) % Plt Count 395 H (150-375) k/mm3 MPV 9.4 (7.4-10.4) fl Immature Gran % (Auto) 0.5 (0-0.5) % Neut % (Auto) 50.7 (45.5-73.1) % Lymph % (Auto) 25.7 (18.3-44.2) % Sibley % (Auto) 9.2 H (2.6-8.5) % Eos % (Auto) 12.3 H (0-4.4) % Baso % (Auto) 1.6 H (0.2-1.2) % Lymph # (Auto) 2.59 (0.9-3.2) K/mm3 Sibley # (Auto) 0.9 H (0.1-0.6) K/mm3 Eos # (Auto) 1.2 H (0-0.3) K/mm3 Baso # (Auto) 0.2 H (0.0-0.1) K/mm3 Abs Immat Gran (auto) 0.05 H (0.00-0.031) K/mm3 Absolute Neuts (auto) 5.1 (1.3-6.7) K/mm3 Absolute Nucleated RBC 0.000 (0.0-0.012) K/mm3 Nucleated RBC % 0.0 (0.0-0.2) % PT 14.2 (11.1-14.7) Seconds INR 1.1 APTT 33.6 (22.3-36.8) Seconds Sodium 129 L (137-145) mmol/L Potassium 3.7 (3.4-5.0) mmol/L Chloride 100 (98-107) mmol/L Carbon Dioxide 30 (22-30) mmol/L Anion Gap -1 L (4-12) mmol/L BUN 14 (7-17) mg/dL Creatinine 0.90 (0.7-1.0) mg/dL Estim Creat Clear Calc 42 ml/min Estimated GFR > 60 (59 - ) Glucose 121 H (65-110) mg/dL Calcium 8.6 (8.4-10.2) mg/dL Total Bilirubin 0.4 (0.2-1.3) mg/dL AST 69 H (14-36) U/L ALT 71 H (6-35) U/L Alkaline Phosphatase 106 (38-126) U/L Troponin I < 0.012 < 0.012 (0.000-0.034) ng/mL Total Protein 8.0 (6.3-8.2) g/dL Albumin 3.5 (3.5-5.1) g/dL Lipase 65 (23-300) U/L <Taye Garcia MD - Last Filed: 04/10/24 19:48> Imaging Data Radiologist's impression: ITS Impressions Chest X-Ray 04/10/24 14:55 IMPRESSION: No acute cardiopulmonary pathology. Chest CTA 04/10/24 16:19 IMPRESSION: No CT evidence of acute pulmonary embolus. No acute process detected in the chest. <Daisy Hodgson PA-C - Last Filed: 04/14/24 20:35> Critical Care Time Critical Care Time Critical Care Time: No <Daisy Hodgson PA-C - Last Filed: 04/14/24 20:35> Discharge Plan Discharge Clinical Impression: Atypical chest pain <Daisy Hodgson PA-C - Last Filed: 04/14/24 20:35> Patient Disposition: Home, Self-Care <Daisy Hodgson PA-C - Last Filed: 04/14/24 20:35> Condition: Stable <Daisy Hodgson PA-C - Last Filed: 04/14/24 20:35> Instructions: Antibiotic Form, Chest Pain (ED) <SOLITARIO Avina Last Filed: 04/14/24 20:35> Patient Language: Lithuanian <Daisy Hodgson PA-C - Last Filed: 04/14/24 20:35> Prescriptions: New pantoprazole [Protonix] 40 mg tablet,delayed release (DR/EC) 40 mg PO HS 28 Days Qty: 28 0RF No Action naratriptan 2.5 mg tablet See Rx Instructions PO .COMPLEX Rx Instructions: take 1 tab at onset of headache; if no relief may repeat 1 tab after at least 4 hrs; max = 2 tabs/24 hrs PO cholecalciferol (vitamin D3) 10 mcg (400 unit) capsule 10 mcg PO DAILY meloxicam 7.5 mg tablet 15 mg PO DAILY PRN (Reason: pain (scale score 1-3)) fluoxetine 40 mg capsule 40 mg PO DAILY hydrochlorothiazide 12.5 mg tablet 12.5 mg PO DAILY Qty: 90 3RF cyclobenzaprine 5 mg tablet 5 mg PO TID PRN (Reason: muscle spasm) Qty: 30 0RF lisinopril 40 mg tablet 40 mg PO DAILY Qty: 90 1RF <Daisy Hodgson PA-C - Last Filed: 04/14/24 20:35> Follow-up/Referrals: Simone Mckeon MD [Primary Care Provider] - <Daisy Hodgson PA-C - Last Filed: 04/14/24 20:35> Time of Disposition: 19:48 <Daisy Hodgson PA-C - Last Filed: 04/14/24 20:35> 19:48 <Taye Garcia MD - Last Filed: 04/10/24 19:48>
[2024-04-10 15:03] VITALS: BP 122/71; PULSE 83; RESP 15; O2SAT 100
[2024-04-10] MEDS: ASPIRIN 81 MG CHEWABLE TABLET 324 MG PO (15:08)
[2024-04-10 15:14] LABS: Basophils Absolute Auto 0.2 K/mm3 (0.0-0.1); Basophils Percent Auto 1.6 % (0.2-1.2); Eosinophils Absolute Auto 1.2 K/mm3 (0-0.3); Eosinophils Percent Auto 12.3 % (0-4.4); Hematocrit 35.1 % (37.0-47.0); Hemoglobin 11.2 g/dL (12.0-15.0); Immature Granulocyte Absolute 0.05 K/mm3 (0.00-0.031); Immature Granulocyte Percent A 0.5 % (0-0.5); Lymphocytes Absolute Auto 2.59 K/mm3 (0.9-3.2); Lymphocytes Percent Auto 25.7 % (18.3-44.2); Mean Corpuscular HGB Conc 31.9 g/dl (32-36); Mean Corpuscular Hemoglobin 29.2 pg (26-34); Mean Corpuscular Volume 91.6 fl (80-100); Mean Platelet Volume 9.4 fl (7.4-10.4); Monocytes Absolute Auto 0.9 K/mm3 (0.1-0.6); Monocytes Percent Auto 9.2 % (2.6-8.5); Neutrophils Absolute Auto 5.1 K/mm3 (1.3-6.7); Neutrophils Percent Auto 50.7 % (45.5-73.1); Platelet Count Result 395 k/mm3 (150-375); Red Blood Count 3.83 M/mm3 (4.2-5.4); Red Cell Distribution Width 13.2 % (11.5-14.5); White Blood Count 10.1 K/mm3 (4.5-10.0)
[2024-04-10 15:25] LABS: Alanine Aminotransferase 71 U/L (6-35); Albumin Level 3.5 g/dL (3.5-5.1); Alkaline Phosphatase 106 U/L (38-126); Anion Gap -1 mmol/L (4-12); Aspartate Amino Transferase 69 U/L (14-36); Bilirubin,Total 0.4 mg/dL (0.2-1.3); Blood Urea Nitrogen 14 mg/dL (7-17); Calcium 8.6 mg/dL (8.4-10.2); Carbon Dioxide 30 mmol/L (22-30); Chloride 100 mmol/L (98-107); Estimated CRCL calculation 42 ml/min; Estimated Glomerular Filt Rate > 60; Glucose 121 mg/dL (65-110); Lipase 65 U/L (23-300); Potassium 3.7 mmol/L (3.4-5.0); Sodium 129 mmol/L (137-145)
[2024-04-10 15:33] LABS: INR 1.1; Prothrombin Time 14.2 Seconds (11.1-14.7)
[2024-04-10 15:34] LABS: Partial Thromboplastin Time 33.6 Seconds (22.3-36.8)
[2024-04-10 15:35] LABS: Troponin I < 0.012 ng/mL (0.000-0.034)
--- NOTE | 2024-04-10 17:09 | ECG_ITS ---
Test Date: 2024-04-10 17:16:46 Measurements Intervals [place] Rate: 75 P: 64 NV: 158 QRS: 26 QRSD: 90 T: 42 QT: 377 QTc: 423 Interpretive Statements SINUS RHYTHM NORMAL ECG Electronically Signed On 04-11-2024 17:05:36 MINISTER by Antonio Bennett M.D.
[2024-04-10 17:12] VITALS: BP 131/67; PULSE 80; RESP 14; O2SAT 97
[2024-04-10 17:19] VITALS: PULSE 75
[2024-04-10 17:53] LABS: Troponin I < 0.012 ng/mL (0.000-0.034)
[2024-04-10 20:15] VITALS: BP 133/71; PULSE 81; RESP 16; O2SAT 98
== END 2024-04-10 20:15 | disposition home or self-care (01) ==
LOC: ANHED 19:48
PROVIDERS: Physician Assistant; Emergency Provider Emergency Medicine; PCP Family Medicine
DX: R07.89 Other chest pain (principal); K21.9 Gastro-esophageal reflux disease without esophagitis; E78.5 Hyperlipidemia, unspecified; M51.369 Other intervertebral disc degeneration, lumbar region without mention of lumbar back pain or lower extremity pain; I10 Essential (primary) hypertension; F41.9 Anxiety disorder, unspecified
CPT/HCPCS: 36415; 71046; 71275; 80053; 83690; 84484; 85025; 85610; 85730; 93005; 99284; A9270; Q9967

== ENCOUNTER 2024-05-01 09:46 | Outpatient (CLI) | payer BC, SELFPAY ==
[2024-05-01 10:37] LABS: Alanine Aminotransferase 22 U/L (6-35); Albumin Level 3.6 g/dL (3.5-5.1); Alkaline Phosphatase 73 U/L (38-126); Anion Gap 4 mmol/L (4-12); Aspartate Amino Transferase 38 U/L (14-36); Bilirubin,Total 0.6 mg/dL (0.2-1.3); Blood Urea Nitrogen 14 mg/dL (7-17); Carbon Dioxide 30 mmol/L (22-30); Chloride 104 mmol/L (98-107); Estimated Glomerular Filt Rate > 60; Glucose 89 mg/dL (65-110); Sodium 138 mmol/L (137-145)
== END 2024-05-01 09:47 | disposition home or self-care (01) ==
LOC: ANHLAB 09:47
PROVIDERS: PCP Family Medicine; Visit Provider Physician Assistant Medical
DX: R74.8 Abnormal levels of other serum enzymes (principal); R74.01 Elevation of levels of liver transaminase levels
CPT/HCPCS: 36415; 80053

== ENCOUNTER 2024-06-10 09:03 | Outpatient (CLI) | payer OTHER, SELFPAY ==
[2024-06-10 09:30] LABS: Basophils Absolute Auto 0.1 K/mm3 (0.0-0.1); Basophils Percent Auto 2.1 % (0.2-1.2); Eosinophils Absolute Auto 0.4 K/mm3 (0-0.3); Eosinophils Percent Auto 7.1 % (0-4.4); Hematocrit 38.2 % (37.0-47.0); Hemoglobin 12.6 g/dL (12.0-15.0); Immature Granulocyte Absolute 0.01 K/mm3 (0.00-0.031); Immature Granulocyte Percent A 0.2 % (0-0.5); Lymphocytes Percent Auto 38.5 % (18.3-44.2); Mean Corpuscular Hemoglobin 29.9 pg (26-34); Mean Corpuscular Volume 90.5 fl (80-100); Mean Platelet Volume 10.1 fl (7.4-10.4); Monocytes Absolute Auto 0.6 K/mm3 (0.1-0.6); Monocytes Percent Auto 10.8 % (2.6-8.5); Neutrophils Absolute Auto 2.2 K/mm3 (1.3-6.7); Neutrophils Percent Auto 41.3 % (45.5-73.1); Platelet Count Result 261 k/mm3 (150-375); Red Blood Count 4.22 M/mm3 (4.2-5.4); Red Cell Distribution Width 14.3 % (11.5-14.5); White Blood Count 5.2 K/mm3 (4.5-10.0)
--- OUTSIDE RECORDS SUMMARY | 2024-06-10 09:46 | XMS_ITS | Clinical Summary ---
Author Organization [facility] Address [address] [place] [address] Care Team Providers Care Inside Parts Sales Name Role Phone Rhonda De La Paz MD Unavailable [phone] Yoselin Murdock NP Primary Care Provider [phone] Allergies Active Allergy Reactions Criticality Noted Date [...] (03/23/2021): Added automatically from request for surgery [id number] History of colon polyps 03/23/2021 Overview (03/23/2021): Added automatically from request for surgery [id number] Essential hypertension Anxiety Immunizations Name Administration Dates [...] 69 10/16/2022 2:10 PM CDT Temperature 37.3 C (99.1 F) 10/16/2022 2:10 PM CDT Respiratory Rate 16 10/16/2022 2:10 PM CDT Oxygen Saturation 100% 10/16/2022 2:10 PM CDT Inhaled Oxygen Concentration - - Weight 59 kg (130 lb) 10/16/2022 2:10 PM CDT Height 154.9 cm (5' 1 ) 10/16/2022 2:10 PM CDT Body Mass Index 24.56 10/16/2022 2:10 PM CDT Plan of Treatment Health Maintenance Due Date Last Done Comments Annual Physical 02/07/2023 02/07/2022, 10/14, 09/15/2020 PHQ-2 (Physician [place]) 07/01/2023 06/30/2022 Mammogram Screening 11/15/2023 11/14/2021, COVID-19 Vaccine ( season) 2023 12/25/2021, 07/21/2021, 02/03/2021, Additional history exists Influenza Adult (#1) 2024 12/25/2021, 12/18/2020, 12/16/2020 PHQ-2 (Physician [place]) 04/16/2024 06/30/2022 Cervical Cancer Screening Pap Smear (Age 30 to 64) Every 3 Years 02/07/2025 02/07/2022, 09/15/2020 Cervical Cancer Screening Pap with HPV Testing (Age 30 to 64) Every 5 Years 02/07/2027 02/07/2022 Cervical Cancer Screening with HPV 02/07/2027 DTaP, Tdap and Td Vaccines (1 - Tdap) 09/04/2030 09/07/2020, 09/07/2020, 09/07/2020 Postponed from 09/08/2020 (Future Appointment) Colorectal Cancer Screening Colonoscopy (10 Years) 04/22/2031 04/22/2021 RSV Immunization or 60+ Years (1 - 1-dose 75+ series) 09/12/2034 Zoster Vaccines (1 of 2) 09/22/2060 Pos tponed from 09/12/2009 (Future Appointment) Hepatitis C Completed 09/15/2020 Meningococcal B Vaccine Aged Out No l onger eligible based on patient's age to complete this topic Meningococcal Vaccine Aged Out No [place] [...] ([facility] ONLY) (02/07/2022 10:23 AM CDT) Comment: [facility] Comment: This order for age-based cervical cancer and STI screening follows ACOG guidelines(PB 168, 140, YYP130). See individual assays for performing site location. CLINICAL INFORMATION: None given [facility] [place] [facility] Clinical Information: NONE GIVEN [facility] Date of Last Pap NONE GIVEN [facility] Previous Biopsy? NONE GIVEN [facility] SOURCE (QST) [facility] STATEMENT OF ADEQUACY: SATISFACTORY FOR EVALUATION Partially obscuring inflammation [facility] PAP INTERPRETATION/RESU LTS [facility] [place] [facility] Comment: Negative for intraepithelial lesion or malignancy. Atrophic pattern; predominantly parabasal cells COMMENT: This Pap test has been evaluated with computer assisted technology. [facility] CUFFER [facility] Comment: AMW, CT(ASCP) CT screening location: [place] [address] [place] [address] COMMENT: [facility] Comment: EXPLANATORY NOTE: The Pap is [...] HPV MRNA E6/E7 Not Detected Not Detected [facility] Comment: Methodology: Product Support Sales Representative-Mediated Amplification This assay detects E6/E7 viral messenger RNA (mRNA) from 14 high-risk HPV types (16,18,31,33,35,39,45,51,52,56,58,59,66,68). Cervical sources are required for HPV testing. If a vaginal source from a patient who has had a total hysterectomy with removal of cervix was submitted, please contact the testing laboratory for alternative testing options. For additional information, please refer to http://education.Streetlife/faq/OGH443m5 (This link if provided for information/ educational purposes only.) 02/07/2022 10:2 3 AM CDT 02/08/2022 12:29 AM CDT Mis [facility] ORDERABLE S Final Result Ordr[facility]in - NAVEEN ORDERS [facility] [address] [place] [address] [facility] [address] [place] [address] * MG SCREENING W TERRI DELMI DIGI [...] probably benign findings, but short interval follow-up is recommended. Category 4 - suspicious abnormality and biopsy should be considered though the lesion may well be benign. Category 5 - highly suggestive of malignancy and appropriate action should be taken. Category 6 - known biopsy-proven malignancy A) A negative report should not delay a biopsy if a dominant or clinically suspicious mass is present. B) Adenosis and dense breasts may obscure an underlying neoplasm. C) Study interpreted with computer aided detection. Ordered By: ASHLY LANDIN Interpreted By: Leandro Waters, 11/14/2021 11:38 AM Narrative 11/14/2021 12:17 PM CDT IMAGING STUDIES: Bilateral screening mammograms with computer-aided detection with 2-D and 3-D imaging. Tomosynthesis. DATE: 11/14/2021 10:11 AM HISTORY: screen brca . Mother diagnosed breast carcinoma age 71. Routine exam. COMPARISON: 02/16/2017. 09/28/2020 TISSUE TYPE: The breast tissue is heterogeneously dense, which may obscure small masses. FINDINGS: 1. Bilateral screening mammograms with computer detection with 2-D and 3-D imaging. Tomosynthesis. Moderate scattered fibroglandular tissue pattern is present. This does limit sensitivity of mammography. Benign nodularity. Benign calcifications. 2. No malignant microcalfcifications, new dominant masses, or architectural distortion. 3. No skin thickening or nipple retraction. Axillary regions are within normal limits. Ashly Landin NP MAMMO Final Result * HEPATITIS C ANTIBODY (09/15/2020 9:30 AM CDT) HEPATITIS C AB NON-REACTI VE NON-REACTI VE 09/15/2020 9:02 PM CDT [facility] 09/15/2020 9:30 AM CDT [facility] Final Result [facility] [address] [place] [address], [place] [phone] from Last 3 Months or Most Recently Relevant to Health Maintenance Insurance [facility] [employer] Care Teams Inside Parts Sales Relationship Specialty [place] [address] [facility] [address], [place] [address] PCP - General Nurse Practitioner Family 10/05/22 Rhonda De La Paz MD Physician INTERNAL MEDICINE 09/08/20
--- OUTSIDE RECORDS SUMMARY | 2024-06-10 09:46 | XMS_ITS | Encounter Summary ---
Author Organization [facility] Address [facility] [place] [address] Care Team Providers Care Privacy Specialist Name Role Phone Rhonda De La Paz MD Unavailable [phone] Peggy BestNP Primary Care Provider [phone] Yoselin Murdock NP Primary Care Provider [phone] Reason for Visit * Reason Onset Date Comments Billing Issue 06/02/2022 Coding issue Encounter Details Date Type Department Care Team (Late st Contact Info) Description 06/02/2022 PowerMag Message Enc [facility] Family & Internal Medicine [facility] [id number] [place] [id number] [place] [id number] [place] [id number] My Pap test Social History Tobacco [...] Coronavirus/COVID-19? No / Unsure 05/30/2022 2:30 PM PRINCIPAL QUALITY ENGINEER documented as of this encounter Progress Notes * Rachel Allen MA - 06/07/2022 8:20 AM CST Spoke with patient and Peggy has written a letter for her. I then left her a v/m that her letter and paperwork will be at the restaurant front manager for her to nut picker and she should be able to view her letter on My Chart. CIPAL QUALITY ENGINEER * Angela Benavides - 06/05/2022 8:49 AM CST Danielle calling this morning asking to set up an appointment via phone or face to face with Rachel commissioned defence force officer o discuss the billing issue she is having. CB # [phone] danielle CIPAL QUALITY ENGINEER * Kirsten Diallo - 06/02/2022 3:19 PM CST Patient stopped by the office dropping off forms regarding coding or billing issue for last pap culture. Was told by her insurance the culture [facility] to [facility] will not be covered do to being not safe and effective for patients condition. Patient contacted [facility] and was told this is not a billing issue that it's a coding issue. Placed in Rachel Allen folder for review. CIPAL QUALITY ENGINEER documented in this encounter Plan of Treatment Not on file documented as of this encounter Visit Diagnoses Not on filedocumented in this encounter Additional Health Concerns Assessment Noted Time PHQ-9 Depression Total Score: 0 03/18/20 21 4:05 PM PRINCIPAL QUALITY ENGINEER documented as of this encounter Care Teams Privacy Specialist Relationship Specialty Start Date End Date Peggy Best APNP [address] [place] [address] PCP - General Nurse Practitioner Family 12/27/21 6/2 05/08 [place] [address] [address] PCP - General Nurse Practitioner Family 10/05/22 Rhonda De La Paz MD Physician INTERNAL MEDICINE 09/08/20 documented as of this encounter
--- OUTSIDE RECORDS SUMMARY | 2024-06-10 09:46 | XMS_ITS | Encounter Summary ---
Author Organization [facility] Address [facility] [place] [address] Care Team Providers Care Fish Cake Maker Name Role Phone Rhonda De La Paz MD Unavailable [phone] Peggy BestNP Primary Care Provider [phone] Yoselin Murdock NP Primary Care Provider + [phone] Encounter Details Date Type Department Care Team (Late st Contact Info) Description 05/31/2022 medidametrics Message Enc [facility] Medical Group Family & Internal Medicine [address] [address] [facility] Provider medication refill Social History Tobacco Use [...] Coronavirus/COVID-19? No / Unsure 05/30/2022 2:30 PM NURSING HOME PHYSICIAN documented as of this encounter Plan of Treatment Not on file documented as of this encounter Visit Diagnoses Not on filedocumented in this encounter Additional Health Concerns Assessment Noted Time PHQ-9 Depression Total Score: 0 03/18/20 21 4:05 PM NURSING HOME PHYSICIAN documented as of this encounter Care Teams Fish Cake Maker Relationship Specialty Start Date End Date Peggy Best APNP [address] [facility] [address] [place] [address] PCP - General Nurse Practitioner Family 12/27/2109/15 [place] [address] [facility] [address] [place] [address] PCP - General Nurse Practitioner Family 10/05/22 Rhonda De La Paz MD Physician INTERNAL MEDICINE 09/08/20 documented as of this encounter
--- OUTSIDE RECORDS SUMMARY | 2024-06-10 09:46 | XMS_ITS | Encounter Summary ---
Author Organization [facility] Address [facility] [place] [address] Care Team Providers Care School Program Director Name Role Phone Rhonda De La Paz MD Unavailable [phone] Yoselin Murdock NP Primary Care Provider [phone] Ashly Cabrales BELLOWS TESTER Primary Care Provider Peggy SheffieldNP Primary Care Provider [phone] Yoselin Murdock NP Primary Care Provider [phone] Encounter Details Date Type Department Care Team (Late st Contact Info) Description 07/06/2021 Panizont Message Enc [facility] Medical Group Family & Internal Medicine [address] [address] [place]os[place] [address] [place], [place] [id number] Appointment on 07/08/21 Social History Tobacco Use [...] Score: 0 03/18/20 21 4:05 PM CLINICAL APPLICATION SPECIALIST documented as of this encounter Care Teams School Program Director Relationship Specialty Start Date End Date Yoselin Murdock, BELLOWS TESTER [address] [facility] [address] [place] [address] PCP - General Nurse Practitioner Family 07/06/2107/21 [place] [address] [facility] [address] [place] [address] PCP - General NURSE PRACTITIONER 07/22/21 12/26/21 Peggy Best APNP [address] [facility] [address] [place] [address] PCP - General Nurse Practitioner Family 12/27/21/05/08 [place] [address] [facility] [address] [place] [address] PCP - General Nurse Practitioner Family 10/05/22 Rhonda De La Paz MD Physician INTERNAL MEDICINE 09/08/20 documented as of this encounter
--- OUTSIDE RECORDS SUMMARY | 2024-06-10 09:46 | XMS_ITS | Encounter Summary ---
Author Organization [facility] Address [facility] [place] [address] Care Team Providers Care Ice Cream Scooper Name Role Phone Rhonda De La Paz MD Unavailable [phone] Rhonda De La Paz MD Primary Care Provider + [phone] Yoselin Murdock PROGRAM EVALUATION CONSULTANT Primary Care Provider + [phone] Ashly Cabrales PROGRAM EVALUATION CONSULTANT Primary Care Provider Peggy SheffieldNP Primary Care Provider [phone] Yoselin Murdock PROGRAM EVALUATION CONSULTANT Primary Care Provider + [phone] Encounter Details Date Type Department Care Team (Late st Contact Info) Description 09/08/2020 MyChart Message Enc [facility] Medical Group Family & Internal Medicine [facility] [address] [place] [address] Rhonda De La Paz MD [address] [place] [address] RE: Other Social History Tobacco Use [...] in this encounter Care Teams Ice Cream Scooper Relationship Specialty Start Date End Date Rhonda De La Paz MD PCP - General INTERNAL MEDICINE 09/08/20 07/05/21 [place] [address] [facility] [address] [place] [address] PCP - General Nurse Practitioner Family 07/06/2107/21 Ashly Cabrales, DIOMEDES [address] [facility] [address] [place] [address] PCP - General NURSE PRACTITIONER 07/22/21 12/26/21 Peggy Best APNP [address] [place] [address] PCP - General Nurse Practitioner Family 12/27/2109/15 [place] [address] [facility] [address] [place] [address] PCP - General Nurse Practitioner Family 10/05/22 Rhonda De La Paz MD [phone] (work) Physician INTERNAL MEDICINE 09/08/20 documented as of this encounter
[2024-06-10 09:52] LABS: Alanine Aminotransferase 19 U/L (6-35); Albumin Level 4.1 g/dL (3.5-5.1); Alkaline Phosphatase 72 U/L (38-126); Anion Gap 8 mmol/L (4-12); Aspartate Amino Transferase 30 U/L (14-36); Bilirubin,Total 0.6 mg/dL (0.2-1.3); Blood Urea Nitrogen 15 mg/dL (7-17); Calcium 9.4 mg/dL (8.4-10.2); Carbon Dioxide 29 mmol/L (22-30); Chloride 102 mmol/L (98-107); Estimated Glomerular Filt Rate > 60; Glucose 83 mg/dL (65-110); Potassium 4.2 mmol/L (3.4-5.0); Sodium 139 mmol/L (137-145)
== END 2024-06-10 09:04 | disposition home or self-care (01) ==
PROVIDERS: PCP Physician Assistant Medical; Visit Provider Physician Assistant Medical
DX: R74.8 Abnormal levels of other serum enzymes (principal); I10 Essential (primary) hypertension; B27.90 Infectious mononucleosis, unspecified without complication
CPT/HCPCS: 36415; 80053; 85025

== ENCOUNTER 2025-02-24 07:35 | Outpatient (CLI) | payer MEDICARE, OTHER, SELFPAY ==
--- OUTSIDE RECORDS SUMMARY | 2025-02-24 07:42 | XMS_ITS | Clinical Summary ---
Author Organization [facility] Address [address] [place] [address] Care Team Providers Care Teacher Drama Name Role Phone Rhonda De La Paz MD Unavailable [phone] Yoselin Murdock NP Primary Care Provider [phone] Allergies Active Allergy Reactions Criticality Noted Date [...] (03/23/2021): Added automatically from request for surgery [id number] History of colon polyps 03/23/2021 Overview (03/23/2021): Added automatically from request for surgery [id number] Essential hypertension Anxiety Immunizations Immunization Administration Dates Next Due Influenza (Generic) 12/16/2020 [...] 2:10 PM CDT Height 154.9 cm (5' 1) 10/16/2022 2:10 PM CDT Body Mass Index 24.56 10/16/2022 2:10 PM CDT Plan of Treatment Health Maintenance Due Date Last Done Comments Pneumococcal Vaccine: 50+ Years (1 of 1 - PCV) 09/12/2009 Mammogram Screening 11/15/2023 11/14/2021, PHQ-2 (Physician [place]) 04/16/2024 COVID-19 Vaccine (6 - season) 2024 12/25/2021, 07/21/2021, 02/03/2021, Additional history exists Influenza Adult (#1) 2025 12/25/2021, 12/18/2020, 12/16/2020 DTaP, Tdap and Td Vaccines (1 - Tdap) 09/04/2030 09/07/2020, 09/07/2020, 09/07/2020 Postponed from 09/08/2020 (Future Appointment) Colorectal Cancer Screening Colonoscopy (10 Years) 04/22/2031 04/22/2021 RSV Immunization or 60+ Years (1 - 1-dose 75+ series) 09/12/2034 Zoster Vaccines (1 of 2) 09/22/2060 Pos tponed from 09/12/2009 (Future Appointment) Hepatitis C Completed 09/15/2020 Dexa Scan (General) Completed 09/28/2020 Hepatitis A Vaccines Aged Out No long er eligible based on patient's age to complete this topic Meningococcal B Vaccine Aged Out No l [...] screening mammogram for malignant neoplasm of breast BONE DENSITY/DEXA Routine 09/28/2020 9:5 0 AM CDT Post-menopause HEPATITIS C ANTIBODY Routine 09/15/2020 9:30 AM CDT Need for hepatitis C screening test from Last 3 Months or Most Recently Relevant to Health Maintenance Results * MG SCREENING W TERRI DELMI [...] retraction. Axillary regions are within normal limits. us Ashly Landin IMMERSION METALCLEANER MAMMO Final Result * BONE DENSITY/DEXA (09/28/2020 9:50 AM CDT) Anatomical Region Laterality Modality Bone Bone Density 09/28/2020 12:0 4 PM CDT Impressions 09/28/2020 12:08 PM CDT FINDINGS AND IMPRESSION: Examination performed on a Wild Pocketsgic Discovery SL .: LUMBAR SPINE L2-L4: 1. [...] Voice recognition software utilized. Referred By: DARIAN LILLY Interpreted By: Blu Soto, 09/28/2020 12:04 PM Narrative 09/28/2020 12:08 PM CDT Examination: BONE DENSITY/DEXA Exam date/time: 09/28/2020 9:25 AM Comparison studies:No previous available. Clinical history: Postmenopausal status, screening. Procedure Note Blu Soto MD - 09/28/2020 Examination: BONE DENSITY/DEXA Exam date/time: 09/28/2020 9:25 AM Comparison studies:No previous available. Clinical history: Postmenopausal status, screening. FINDINGS AND IMPRESSION: Examination performed on a Eventyard Discovery SL .: LUMBAR SPINE L2-L4: 1. [...] Voice recognition software utilized. Referred By: DARIAN LILLY Interpreted By: Blu Soto, 09/28/2020 12:04 PM [facility] DEXA Final Result * HEPATITIS C ANTIBODY (09/15/2020 9:30 AM CDT) HEPATITIS C AB NON-REACTI VE NON-REACTI VE 09/15/2020 9:02 PM CDT [facility] 09/15/2020 9:30 AM CDT [facility] Final Result [facility] [address] [place] [address], from Last 3 Months or Most Recently Relevant to Health Maintenance Insurance [facility] MEDICAL REIMBURSEMENTS OF [facility] GENER[facility] - COMMERCIAL Care Teams Teacher Drama Relationship Specialty [place] [address] [address] PCP - General Nurse Practitioner Family 10/05/22 Rhonda De La Paz MD Physician INTERNAL MEDICINE 09/08/20
--- OUTSIDE RECORDS SUMMARY | 2025-02-24 07:42 | XMS_ITS | Encounter Summary ---
Author Organization [facility] Address [facility] [place] [address] Care Team Providers Care Center Machine Operator Name Role Phone Rhonda De La Paz MD Unavailable [phone] Yoselin Murdock NP Primary Care Provider [phone] Ashly Cabrales BULL GANG SUPERVISOR Primary Care Provider Peggy SheffieldNP Primary Care Provider [phone] Yoselin Murdock NP Primary Care Provider [phone] Encounter Details Date Type Department Care Team (Late st Contact Info) Description 07/06/2021 Helpat Message Enc [facility] Medical Group Family & Internal Medicine [address] [address] Yoselin Murdock [place] [address] [place], [place] [id number] Appointment on 07/08/21 Social History Tobacco Use [...] Total Score: 0 03/18/20 21 4:05 PM REAL TIME ANALYST documented as of this encounter Care Teams Center Machine Operator Relationship Specialty Start Date End Date Yoselin Murdock, BULL GANG SUPERVISOR [address] [facility] [address] [place] [address] PCP - General Nurse Practitioner Family 07/06/2107/21 [place] [address] [facility] [address] [place] [address] PCP - General NURSE PRACTITIONER 07/22/21 12/26/21 Peggy Best APNP [address] [facility] [address] [place] [address] PCP - General Nurse Practitioner Family 12/27/21/05/08 [place] [address] [facility] [address] [place] [address] PCP - General Nurse Practitioner Family 10/05/22 Rhonda De La Paz MD Physician INTERNAL MEDICINE 09/08/20 documented as of this encounter
--- OUTSIDE RECORDS SUMMARY | 2025-02-24 07:42 | XMS_ITS | Encounter Summary ---
Author Organization [facility] Address [facility] [place] [address] Care Team Providers Care Woodworking Shop Hand Name Role Phone Rhonda De La Paz MD Unavailable [phone] Rhonda De La Paz MD Primary Care Provider + [phone] Yoselin Murdock APPLIANCE TESTER Primary Care Provider + [phone] Ashly Cabrales APPLIANCE TESTER Primary Care Provider Peggy SheffieldNP Primary Care Provider [phone] Yoselin Murdock APPLIANCE TESTER Primary Care Provider + [phone] Encounter Details Date Type Department Care Team (Late st Contact Info) Description 09/08/2020 MyChart Message Enc [facility] Medical Group Family & Internal Medicine [facility] [address] [place] [address] Rhonda De La Paz MD [address] [place] [address] RE: Other Social History Tobacco Use [...] on filedocumented in this encounter Care Teams Woodworking Shop Hand Relationship Specialty Start Date End Date Rhonda De La Paz MD PCP - General INTERNAL MEDICINE 09/08/20 07/05/21 [place] [address] [facility] [address] [place] [address] PCP - General Nurse Practitioner Family 07/06/2107/21 Ashly Cabrales, DIOMEDES [address] [facility] [address] [place] [address] PCP - General NURSE PRACTITIONER 07/22/21 12/26/21 Peggy Best APNP [address] [place] [address] PCP - General Nurse Practitioner Family 12/27/2109/15 [place] [address] [facility] [address] [place] [address] PCP - General Nurse Practitioner Family 10/05/22 Rhonda De La Paz MD [phone] (work) Physician INTERNAL MEDICINE 09/08/20 documented as of this encounter
--- OUTSIDE RECORDS SUMMARY | 2025-02-24 07:42 | XMS_ITS | Encounter Summary ---
Author Organization [facility] Address [facility] [place] [address] Care Team Providers Care Insurance Sales Executive Name Role Phone Rhonda De La Paz MD Unavailable [phone] Peggy BestNP Primary Care Provider [phone] Yoselin Murdock NP Primary Care Provider + [phone] Reason for Visit * Reason Onset Date Comments Billing Issue 06/02/2022 Coding issue Encounter Details Date Type Department Care Team (Late st Contact Info) Description 06/02/[address] [facility] Medical Group Family & Internal Medicine [facility] [address] [place] [address] [place] [address] [place] [address] My Pap test Social History Tobacco [...] Coronavirus/COVID-19? No / Unsure 05/30/2022 2:30 PM OUTPATIENT THERAPIST documented as of this encounter Progress Notes * Rachel Allen MA - 06/07/2022 8:20 AM CST Spoke with patient and Peggy has written a letter for her. I then left her a v/m that her letter and paperwork will be at the front desk team member for her to draft roller picker and she should be able to view her letter on My Chart. ATIENT THERAPIST * Angela Benavides - 06/05/2022 8:49 AM CST Danielle calling this morning asking to set up an appointment via phone or face to face with Rachel medical laboratory technical officer o discuss the billing issue she is having. CB # [phone] danielle ATIENT THERAPIST * Kirsten Diallo - 06/02/2022 3:19 PM [...] Placed in Rachel Allen folder for review. ATIENT THERAPIST documented in this encounter Plan of Treatment Not on file documented as of this encounter Visit Diagnoses Not on filedocumented in this encounter Additional Health Concerns Assessment Noted Time PHQ-9 Depression Total Score: 0 03/18/20 21 4:05 PM OUTPATIENT THERAPIST documented as of this encounter Care Teams Insurance Sales Executive Relationship Specialty Start Date End Date Peggy Best APNP [address] [place] [address] PCP - General Nurse Practitioner Family 12/27/21 6/2 05/08 [place] [address] [address] PCP - General Nurse Practitioner Family 10/05/22 Rhonda De La Paz MD Physician INTERNAL MEDICINE 09/08/20 documented as of this encounter
--- OUTSIDE RECORDS SUMMARY | 2025-02-24 07:42 | XMS_ITS | Encounter Summary ---
Author Organization [facility] Address [facility] [place] [address] Care Team Providers Care Trade Clerk Name Role Phone Rhonda De La Paz MD Unavailable [phone] Peggy BestNP Primary Care Provider [phone] Yoselin Murdock NP Primary Care Provider + [phone] Encounter Details Date Type Department Care Team (Late st Contact Info) Description 05/31/2022 yuilop SL Message Enc [facility] Medical Group Family & Internal Medicine [address] [address] [facility] medication refill Social History Tobacco [...] Coronavirus/COVID-19? No / Unsure 05/30/2022 2:30 PM SOCIAL WORKER PSYCHIATRIC documented as of this encounter Plan of Treatment Not on file documented as of this encounter Visit Diagnoses Not on filedocumented in this encounter Additional Health Concerns Assessment Noted Time PHQ-9 Depression Total Score: 0 03/18/20 21 4:05 PM SOCIAL WORKER PSYCHIATRIC documented as of this encounter Care Teams Trade Clerk Relationship Specialty Start Date End Date Peggy Best APNP [address] [facility] [address] [place] [address] PCP - General Nurse Practitioner Family 12/27/2109/15 [place] [address] [facility] [address] [place] [address] PCP - General Nurse Practitioner Family 10/05/22 Rhonda De La Paz MD Physician INTERNAL MEDICINE 09/08/20 documented as of this encounter
--- OUTSIDE RECORDS SUMMARY | 2025-02-24 07:43 | XMS_ITS | Patient Health Record ---
Author Organization [facility] Address [address] [place] [address] Care Team Providers Care Thread Spinner Name Role Phone PCP, Does Not Have a Primary Care Provider Unava ilable ALLERGIES Allergen (clinical drug ingredient) Drug/Non Drug Allergy documented on EMR Reaction Allergy Type Onset Date Status Sulfur Unknown Drug Allergy Active codeine Codeine Unknown Drug Allergy Active REASON FOR REFERRAL No Information MEDICATIONS Medication SIG (Take, Route, Frequency, Duration) Notes Start Date End Date Status hydroCHLOROthiazide Active Lisinopril Active Fluoxetine Active Benzonatate 200 MG 1 capsule Orally Three times a day for 7 days Active Mometasone Furoate 220 MCG/ACT 1 puff in the evening Inhalation Twice a day for 14 days 04/26/2023 Active PLAN OF TREATMENT No Information Insurance Providers Payer Name Payer Address Payer Phone Subscriber Number Group Number Insured Name Patient Relationship to Insured Coverage Start Date Coverage End Date [facility] [address] [place] [address] [id number] JEANETH LA Self - patient is the insured MEDICAL (GENERAL) HISTORY Medical History History ICD Code HTN
--- OUTSIDE RECORDS SUMMARY | 2025-02-24 07:43 | XMS_ITS | Patient Health Record ---
Author Organization [facility] Address [address] [place], [place] [id number] Care Team Providers Care 3D Modeler Name Role Phone Tray Luongy Unavailable Unavailable Allergies Allergen (clinical drug ingredient) Drug/Non Drug Allergy documented on EMR Reaction Allergy Type Onset Date Status codeine Codeine Unknown Drug Allergy Active Substance with sulfonamide structure and antibacterial mechanism of action (substance) Sulfa Antibiotics Unknown Drug Allergy Active Reason For Referral No Information Plan Of Treatment No Information Insurance Providers Payer Name Payer Address Payer Phone Subscriber Number Group Number Insured Name Patient Relationship to Insured Coverage Start Date Coverage End Date [facility] [address] [place] [id number] JEANETH LA Self - patient is the insured Medical (General) History Medical History History ICD Code Blood clots
[2025-02-24 09:06] LABS: Hematocrit 39.3 % (37.0-47.0); Hemoglobin 12.8 g/dL (12.0-15.0); Mean Corpuscular HGB Conc 32.6 g/dl (32-36); Mean Corpuscular Hemoglobin 30.3 pg (26-34); Mean Corpuscular Volume 92.9 fl (80-100); Platelet Count Result 256 k/mm3 (150-375); Red Blood Count 4.23 M/mm3 (4.2-5.4); White Blood Count 6.1 K/mm3 (4.5-10.0)
[2025-02-24 09:20] LABS: Anion Gap 6 mmol/L (4-12); Blood Urea Nitrogen 14 mg/dL (7-17); Calcium 9.4 mg/dL (8.4-10.2); Carbon Dioxide 30 mmol/L (22-30); Chloride 102 mmol/L (98-107); Estimated Glomerular Filt Rate > 60; Glucose 82 mg/dL (65-110); Potassium 3.8 mmol/L (3.4-5.0); Sodium 138 mmol/L (137-145)
[2025-02-24 09:22] LABS: INR 1.0; Partial Thromboplastin Time 29.6 Seconds (22.3-36.8); Prothrombin Time 13.4 Seconds (11.1-14.7)
[2025-02-24 10:41] LABS: Add Urine Microscopic? YES; Appearance Urine Clear (Clear); Glucose Urine UA Negative (Negative); Leukocyte Esterase Ur Trace LEU/UL (Negative); Nitrate Urine Negative (Negative); Non Pathogenic Casts 0-2; Specific Grav Ur 1.009 (1.001-1.035)
== END 2025-02-24 07:36 | disposition home or self-care (01) ==
LOC: ANHSURGERY 07:40
PROVIDERS: PCP Family Medicine; Visit Provider Neurological Surgery
DX: M43.16 Spondylolisthesis, lumbar region (principal); Z01.818 Encounter for other preprocedural examination
CPT/HCPCS: 36415; 80048; 81001; 85027; 85610; 85730

== ENCOUNTER 2025-03-24 14:32 | Inpatient (IN) | payer MEDICARE, OTHER, SELFPAY ==
[2025-02-24 08:06] VITALS: BP 132/79; PULSE 71; RESP 16; TEMP 36.8; O2SAT 100; BMI 25.7
--- NOTE | 2025-02-24 08:26 | PC.NURSE ---
[facility] has started construction of its new state of the art ER which will open Spring 2026. With this, we anticipate parking may be a challenge for some our surgical patients and families. Parking spaces are limited but are available for all Surgical, obstetrics, and ER patients sharing this lot. If you arrive and find you are having a hard time finding a parking space, please note that we understand the challenges, please drive around the hospital and park near Hospital Entrance 1. When you enter this entrance, you can ask a volunteer to direct or take you back to the surgical waiting area to check in. We appreciate everyone?s understanding of these expected challenges while we build for your future. Report to the Outpatient Waiting Room, entrance under the green pavilion located off [address], at time __6:00AM___ on date ___03/24/25___. Planned Procedure Time: __7:30AM____.? Time changes happen often and if your time is changed the preop area will call you the afternoon before. - You and your visitor will be asked to self-screen and do not enter if you have any COVID symptoms. Please call surgeon if you need to reschedule. - A mask is optional within the hospital at this time. Patients may have clear liquids (water, carbonated beverages, clear teas, apple juice) until 3 hours prior to surgery (4:30AM) with a maximum of 20 ounces. - No food from midnight until time of surgery and no smoking, or chewing tobacco (or any form of nicotine). No chewing gum, candy or mints. Take only the following medications with a SIP of water on the morning of surgery: ____FLUOEXTINE DO NOT STOP ANY OF YOUR OTHER PRESCRIPTION MEDICATIONS PRIOR TO SURGERY EXCEPT THE FOLLOWING Hold all vitamins and supplements for 3 days per anesthesiologist. LAST DOSE 03/20/25 Medications to discontinue per physician ___HOLD MELOXICAM ( ALL NSAIDS) 7 DAYS PRE-OP PER DR AMBROCIO. Date to take last dose____03/16/25 Please no make-up, nail irish, hairspray, perfume, deodorant, or body powder the day of surgery.? No jewelry (including any body piercings) or valuables the day of surgery, leave them at home.? Please take a shower or bath the night before, or the morning of, surgery with an antibacterial soap.? Wear comfortable, loose fitting clothing.? - Jewelry must be removed prior to entering the operating room.? Rings and piercings that are not removed may be cut off. - The hospital will not accept responsibility for valuables.? - Please leave all valuables, including medications, at home the day of surgery. If you are going home after surgery, a licensed pile driver must drive you home.? - NO public transportation without another adult if you receive anesthesia. - We recommend that an adult stay with you for 24 hours following discharge. - We also recommend that you do not drive, make important decision, drink alcoholic beverages, or take any drugs that were not prescribed by your health care provider for at least 24 hours after your discharge time. Follow any additional instructions given to you from your surgeon. Telephone instructions given to ___PATIENT and asked if any additional questions and then verbalized understanding. Patient advised to call surgeon office or pre surgery nurse liaison [phone] if any additional questions.
[2025-03-24] VITALS (18 sets, daily range): BP systolic 79–142; BP diastolic 35–78; PULSE 74–88; RESP 12–19; TEMP 36.5–37.4; O2SAT 94–100
--- NOTE | ~2025-03-24 | XR_ITS ---
EXAM/PROCEDURE: XR fluoroscopy no charge HISTORY: L3-4, L4-5, L5-S1 POSTERIOR INTERBODY FUSION COMPARISON: None available. TECHNIQUE: Fluoroscopic spot images for fluoroscopic guided procedure. Fluoroscopy time: 5.7 seconds seconds DAP: 1.1567 Martinez per square centimeter mGy IMPRESSION: Fluoroscopic guided imaging. No radiologist present. See also surgical/operative notes for complete evaluation. Reviewed, dictated and finalized at location A. ON FACING MACHINE OPERATOR IMPRESSION: Fluoroscopic guided imaging. No radiologist present. See also surgi nicki/operative notes for complete evaluation.
--- OUTSIDE RECORDS SUMMARY | 2025-03-24 03:32 | XMS_ITS | Clinical Summary ---
Author Organization [facility] Address [address] [place] [address] Care Team Providers Care Administrative Office Clerk Name Role Phone Rhonda De La Paz MD Unavailable [phone] Yoselin Murdock NP Primary Care Provider [phone] Allergies Active Allergy Reactions Criticality Noted Date [...] (03/23/2021): Added automatically from request for surgery [id number] History of colon polyps 03/23/2021 Overview (03/23/2021): Added automatically from request for surgery [id number] Essential hypertension Anxiety Immunizations Immunization Administration Dates [...] 09/12/2009 Mammogram Screening 11/15/2023 11/14/2021, PHQ-2 (Physician [place]) 04/16/2024 COVID-19 Vaccine (6 - season) 2024 [...] are within normal limits. us Ashly Landin LAY OUT WORKER MAMMO Final Result * BONE DENSITY/DEXA (09/28/2020 9:50 AM CDT) Anatomical Region Laterality Modality Bone Bone Density 09/28/2020 12:0 4 PM CDT Impressions 09/28/2020 12:08 PM CDT FINDINGS AND IMPRESSION: Examination performed on a TwentyFeetgic Discovery SL .: LUMBAR SPINE L2-L4: 1. [...] FINDINGS AND IMPRESSION: Examination performed on a SoundOut Discovery SL .: LUMBAR SPINE L2-L4: 1. [...] VE NON-REACTI VE 09/15/2020 9:02 PM CDT [facility] 09/15/2020 9:30 AM CDT [facility] Final Result [facility] [address] [place] [address], from Last 3 Months or Most Recently Relevant to Health Maintenance Insurance [facility] MEDICAL REIMBURSEMENTS OF [facility] GENERIC - COMMERCIAL Care Teams Administrative Office Clerk Relationship Specialty Start [place] [address] [address] PCP - General Nurse Practitioner Family 10/05/22 Rhonda De La Paz MD Physician INTERNAL MEDICINE 09/08/20
--- OUTSIDE RECORDS SUMMARY | 2025-03-24 03:32 | XMS_ITS | Encounter Summary ---
Author Organization [facility] Address [facility]ly [facility] [place] [address] Care Team Providers Care Milliner Helper Name Role Phone Rhonda De La Paz MD Unavailable [phone] Peggy BestNP Primary Care Provider [phone] Yoselin Murdock NP Primary Care Provider + [phone] Reason for Visit * Reason Onset Date Comments Billing Issue 06/02/2022 Coding issue Encounter Details Date Type Department Care Team (Late st Contact Info) Description 06/02/[address] [facility] Family & Internal Medicine [facility] [id number] [place] [phone] [place] [id number] [place] [id number] My Pap test Social History Tobacco [...] Coronavirus/COVID-19? No / Unsure 05/30/2022 2:30 PM METALLURGICAL SPECIALIST documented as of this encounter Progress Notes * Rachel Allen MA - 06/07/2022 8:20 AM CST Spoke with patient and Peggy has written a letter for her. I then left her a v/m that her letter and paperwork will be at the lockstitch front maker for her to picker box operator and she should be able to view her letter on My Chart. LLURGICAL SPECIALIST * Angela Benavides - 06/05/2022 8:49 AM CST Danielle calling this morning asking to set up an appointment via phone or face to face with Rachel staff readiness officer o discuss the billing issue she is having. CB # [phone] danielle LLURGICAL SPECIALIST * Kirsten Diallo - 06/02/2022 3:19 PM [...] Placed in Rachel Allen folder for review. LLURGICAL SPECIALIST documented in this encounter Plan of Treatment Not on file documented as of this encounter Visit Diagnoses Not on filedocumented in this encounter Additional Health Concerns Assessment Noted Time PHQ-9 Depression Total Score: 0 03/18/20 21 4:05 PM METALLURGICAL SPECIALIST documented as of this encounter Care Teams Milliner Helper Relationship Specialty Start Date End Date Peggy Best APNP [address] [place] [address] PCP - General Nurse Practitioner Family 12/27/21 6/2 05/08 [place] [address] [address] PCP - General Nurse Practitioner Family 10/05/22 Rhonda De La Paz MD Physician INTERNAL MEDICINE 09/08/20 documented as of this encounter
--- OUTSIDE RECORDS SUMMARY | 2025-03-24 03:32 | XMS_ITS | Encounter Summary ---
Author Organization [facility] Address [facility] [place] [address] Care Team Providers Care Cold Mill Inspector Name Role Phone Rhonda De La Paz MD Unavailable [phone] Peggy BestNP Primary Care Provider [phone] Yoselin Murdock NP Primary Care Provider + [phone] Encounter Details Date Type Department Care Team (Late st Contact Info) Description 05/31/2022 Runtastic Message Enc [facility] Family & Internal Medicine [address] [address] [facility]ill Social History Tobacco [...] Coronavirus/COVID-19? No / Unsure 05/30/2022 2:30 PM SKATES OPERATOR documented as of this encounter Plan of Treatment Not on file documented as of this encounter Visit Diagnoses Not on filedocumented in this encounter Additional Health Concerns Assessment Noted Time PHQ-9 Depression Total Score: 0 03/18/20 21 4:05 PM SKATES OPERATOR documented as of this encounter Care Teams Cold Mill Inspector Relationship Specialty Start Date End Date Peggy Best APNP [address] [facility] [address] [place] [address] PCP - General Nurse Practitioner Family 12/27/2109/15 [place] [address] [facility] [address] [place] [address] PCP - General Nurse Practitioner Family 10/05/22 Rhonda De La Paz MD Physician INTERNAL MEDICINE 09/08/20 documented as of this encounter
--- OUTSIDE RECORDS SUMMARY | 2025-03-24 03:32 | XMS_ITS | Encounter Summary ---
Author Organization [facility] Address [facility] [place] [address] Care Team Providers Care Casting Machine Operator Name Role Phone Rhonda De La Paz MD Unavailable [phone] Yoselin Murdock NP Primary Care Provider [phone] Ashly Cabrales MOTORS AND GENERATORS INSPECTOR Primary Care Provider Peggy SheffieldNP Primary Care Provider [phone] Yoselin Murdock NP Primary Care Provider [phone] Encounter Details Date Type Department Care Team (Late st Contact Info) Description 07/06/2021 ChemoCentryxt Message Enc [facility] Family & Internal Medicine [address] [address] Yoselin Murdock [place] [id number] [place], [place] [id number] Appointment on 07/08/21 Social History Tobacco Use [...] Total Score: 0 03/18/20 21 4:05 PM INTERVENTIONAL SALE CONSULTANT documented as of this encounter Care Teams Casting Machine Operator Relationship Specialty Start Date End Date Yoselin Murdock, MOTORS AND GENERATORS INSPECTOR [address] [facility] [address] [place] [address] PCP - General Nurse Practitioner Family 07/06/2107/21 [place] [address] [facility] [address] [place] [address] PCP - General NURSE PRACTITIONER 07/22/21 12/26/21 Peggy Best APNP [address] [facility] [address] [place] [address] PCP - General Nurse Practitioner Family 12/27/21/05/08 [place] [address] [facility] [address] [place] [address] PCP - General Nurse Practitioner Family 10/05/22 Rhonda De La Paz MD Physician INTERNAL MEDICINE 09/08/20 documented as of this encounter
--- OUTSIDE RECORDS SUMMARY | 2025-03-24 03:32 | XMS_ITS | Encounter Summary ---
Author Organization [facility] Address [facility] [place] [address] Care Team Providers Care Aquatic Physiotherapist Name Role Phone Rhonda De La Paz MD Unavailable [phone] Rhonda De La Paz MD Primary Care Provider + [phone] Yoselin Murdock POURED CONCRETE WALL TECHNICIAN Primary Care Provider + [phone] Ashly Cabrales POURED CONCRETE WALL TECHNICIAN Primary Care Provider Peggy SheffieldNP Primary Care Provider [phone] Yoselin Murdock POURED CONCRETE WALL TECHNICIAN Primary Care Provider + [phone] Encounter Details Date Type Department Care Team (Late st Contact Info) Description 09/08/2020 MyChart Message Enc [facility] Family & Internal Medicine [facility] [id number] [place] [address] Rhonda De La Paz MD [address] [place] [address] RE: Other Social History Tobacco Use [...] on filedocumented in this encounter Care Teams Aquatic Physiotherapist Relationship Specialty Start Date End Date Rhonda De La Paz MD PCP - General INTERNAL MEDICINE 09/08/20 07/05/21 [place] [address] [facility] [address] [place] [address] PCP - General Nurse Practitioner Family 07/06/2107/21 Ashly Cabrales, DIOMEDES [address] [facility] [address] [place] [address] PCP - General NURSE PRACTITIONER 07/22/21 12/26/21 Peggy Best APNP [address] [place] [address] PCP - General Nurse Practitioner Family 12/27/2109/15 [place] [address] [facility] [address] [place] [address] PCP - General Nurse Practitioner Family 10/05/22 Rhonda De La Paz MD [phone] (work) Physician INTERNAL MEDICINE 09/08/20 documented as of this encounter
--- OUTSIDE RECORDS SUMMARY | 2025-03-24 03:33 | XMS_ITS | Patient Health Record ---
Author Organization [facility] Address [address] [place], [place] [id number] Care Team Providers Care Ob/Gyn Nurse Name Role Phone Tray Luongy Unavailable Unavailable [...] Insured Coverage Start Date Coverage End Date [facility] [address] [place] [id number] JEANETH LA Self - patient is the insured Medical (General) History Medical History History ICD Code Blood clots
--- OUTSIDE RECORDS SUMMARY | 2025-03-24 03:33 | XMS_ITS | Patient Health Record ---
Author Organization [facility] Address [address] [place] [address] Care Team Providers Care Production Utility Worker Name Role Phone PCP, Does Not Have [...] Insured Coverage Start Date Coverage End Date [facility] [address] [place] [address] [id number] JEANETH LA Self - patient is the insured MEDICAL (GENERAL) HISTORY Medical History History ICD Code HTN
[2025-03-24] MEDS: LACTATED RINGERS 1,000 ML 30 ML IV CONT ×2 (06:30→11:36)
--- NOTE | 2025-03-24 07:31 | WPDANESEPPF ---
Anes - Initial Pre Proc Eval Procedure: Operation Date: 03/24/25 07:30 Proposed Procedures p L3-4, L4-5, L5-S1 Posterior Lumbar Interbody Fusion - Jaun Torres MD Date/Time: 03/24/25 07:31 Surgeon: Jaun Torres MD Pre Op Diagnosis: L3-4,L4-5,L5-S1 spondyolithesis and spondylosis Patient Data Age: 64 Gender: F Height: 1.55 m Weight: 61.5 kg Last Vital Signs Temp 98.0 F 03/24/25 07:26 Pulse 74 03/24/25 07:26 Resp 16 03/24/25 07:26 BP 142/78 H 03/24/25 07:26 Pulse Ox 99 03/24/25 07:26 O2 Del Method Room Air 03/24/25 07:26 Allergies Allergy/AdvReac Type Severity Reaction Status Date / Time codeine Allergy Itching Verified 03/24/25 07:22 Sulfa (Sulfonamide Allergy Itching Verified 03/24/25 07:22 Antibiotics) Milk Containing Products AdvReac Abdominal Verified 03/24/25 07:22 (Dairy) Pain Home Medications ?Medication ?Instructions ?Recorded ?Confirmed ?Type cholecalciferol (vitamin D3) 10 10 mcg PO DAILY 12/04/22 02/24/25 History mcg (400 unit) capsule lutein 25 mg-zeaxanthin 5 mg 1 cap PO DAILY 05/13/24 02/24/25 History capsule (Ocuvite Lutein) meloxicam 7.5 mg tablet See Rx Instructions .Route 10/02/24 03/24/25 Rx .COMPLEX #60 tabs hydrochlorothiazide 12.5 mg tablet 12.5 mg PO DAILY #90 tabs 12/03/24 03/24/25 Rx fluoxetine 40 mg capsule See Rx Instructions .Route 12/18/24 03/24/25 Rx .COMPLEX #90 caps lisinopril 40 mg tablet 40 mg PO DAILY #90 tabs 02/12/25 03/24/25 Rx naratriptan 2.5 mg tablet 2.5 mg PO BID PRN migraine headache 02/24/25 02/24/25 History cyclobenzaprine 5 mg tablet 5 mg PO DAILY PRN muscle spasm #90 03/16/25 03/24/25 Rx tabs Laboratory Tests 03/24/25 06:23 Blood Type Pending Antibody Screen Pending Patient hx anesthesia problems: post op nausea/vomiting Family hx anesthesia problems: none Results Review: All pre-operative results and documents have been reviewed as part of the pre-operative evaluation. [facility] Past Medical History Medical History Glaucoma associated with chamber angle anomalies GERD (gastroesophageal reflux disease) Hyperlipidemia Vitamin D deficiency Anterolisthesis of lumbar spine Degenerative disc disease, lumbar Degenerative disc disease at L5-S1 level Migraine Hypertension Anxiety Surgical History Surgical History History of rotator cuff surgery History of delivery History of laparoscopic appendectomy Family History Family History Mother Breast cancer Hypertension Anxiety Sibling Cerebrovascular accident Sibling Diabetes mellitus Father Acute myocardial infarction Social History Social History Social History: Patient lives with her they have been since 2015. 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 She has 1 biologic son and 1 stepson. She is a lifelong nonsmoker and does not drink alcohol or use illicit substances. Code status: Full code (she does not have advanced directives in place yet) Surrogate decision maker: Smoking status: Never smoker Alcohol intake: never Substance use: never Substance use type: does not use Lack of Transportation: No Lack of Food: Never True Current Housing: I Have Housing Concerned About Future Housing: No Difficulty Paying Gas/Electric Bills: No Difficulty Paying for Meds: No Currently Unemployed: No Education: Associate Degree Difficulty w/ Childcare or Family Care: No Living arrangements: with family Spiritual care concerns: No Anes - Eval Final PreProcedure Day of Procedure 03/24/25 07:31 Patient weight: normal Heart: regular rate and rhythm Lungs: clear to auscultation Airway: Mallampati scale class II Neurological: alert and oriented Last oral intake: >/= 8 hours ASA classification: III Emergent: no Anesthetic plan: proceed Anesthesia type and monitoring: general ETT and standard monitoring Results Review: All pre-operative results and documents have been reviewed as part of the pre-operative evaluation. Informed Consent: The patient's anesthetic plan and its attendant risks and benefits were discussed with the patient/family/POA. Questions were solicited and answers provided to the satisfaction of the patient/family/POA.
--- NOTE | 2025-03-24 07:49 | WPDHPUPDATE1 ---
History and Physical Update Update Date/Time: 03/24/25 07:49 History and Physical has been reviewed, including an updated exam of the patient. There are NO changes in the patient's condition. Risks, benefits, and alternatives have been discussed and questions answered. Patient agrees to proceed with procedure.
--- NOTE | 2025-03-24 07:49 | PM.IMHP2 ---
H&P: HPI History of Present Illness Date/Time: 03/24/25 07:49 Chief Complaint: Back and leg pain Narrative: Danielle is a 63-year-old female with a 1-2 year history of progressive discomfort in her back radiating into her lower extremities down to the calves. This is down the back of her legs. Typically goes to just above the knee. This occurs with any sustained posture or activity. That is, she has discomfort when standing and walking that limits how far she can walk. Using a shopping cart seems to help her get farther, otherwise she struggles through store. Standing in 1 place is particularly uncomfortable. However, she also has this issue with sitting and must change position frequently and is distracted by discomfort making it difficult for her to perform tasks and be productive. She does not report specific muscle group weakness in either lower extremity. She does not have bowel or bladder difficulty. She has participated in physical therapy without permanent benefit. She has been taking symptomatic medications and anti-inflammatories. She is here to discuss further options for dealing with these issues. since we have seen her last, she has undergone midline epidural steroid injections at L5-S1 and L4-5 as well as L3-S1 medial branch blocks. None of these maneuvers helped her significantly. Review of Systems Review of Systems: All systems reviewed & are unremarkable except as noted in HPI and below Denies chills, Denies fever, Denies weight gain and Denies weight loss Eyes Denies change in vision and Denies diplopia ENT Denies disequilibrium Card Denies chest pain and Denies dyspnea Resp Denies cough and Denies dyspnea GI Denies abdominal pain, Denies change in bowel habits, Denies fecal incontinence and Denies vomiting Denies hematuria, Denies oliguria, Denies difficulty urinating, Denies dysuria, Denies urinary frequency, Denies urinary hesitancy, Denies urinary incontinence and Denies urinary urgency Musc Reports as per HPI Skin/ Breast Reports system reviewed and no additional complaints, except as documented Neuro Reports as per HPI Psych Reports no additional complaints, Denies depression and Denies hopelessness Endo Reports no additional complaints and Denies polyuria Gordon/ Lymph Reports no additional complaints Aller/ Immun Reports no additional complaints PMFSH Past Medical History Medical History Glaucoma associated with chamber angle anomalies GERD (gastroesophageal reflux disease) Hyperlipidemia Vitamin D deficiency Anterolisthesis of lumbar spine Degenerative disc disease, lumbar Degenerative disc disease at L5-S1 level Migraine Hypertension Anxiety Surgical History Surgical History History of rotator cuff surgery History of delivery History of laparoscopic appendectomy Family History Family History Mother Breast cancer Hypertension Anxiety Sibling Cerebrovascular accident Sibling Diabetes mellitus Father Acute myocardial infarction Social History Social History Social History: Patient lives with her they have been since 2016. 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 She has 1 biologic son and 1 stepson. She is a lifelong nonsmoker and does not drink alcohol or use illicit substances. Code status: Full code (she does not have advanced directives in place yet) Surrogate decision maker: Smoking status: Never smoker Alcohol intake: never Substance use: never Substance use type: does not use Lack of Transportation: No Lack of Food: Never True Current Housing: I Have Housing Concerned About Future Housing: No Difficulty Paying Gas/Electric Bills: No Difficulty Paying for Meds: No Currently Unemployed: No Education: Associate Degree Difficulty w/ Childcare or Family Care: No Living arrangements: with family Spiritual care concerns: No Meds Home Medications and Allergies Home Medications ?Medication ?Instructions ?Recorded ?Confirmed ?Type cholecalciferol (vitamin D3) 10 10 mcg PO DAILY 12/04/22 02/24/25 History mcg (400 unit) capsule lutein 25 mg-zeaxanthin 5 mg 1 cap PO DAILY 05/13/24 02/24/25 History capsule (Ocuvite Lutein) meloxicam 7.5 mg tablet See Rx Instructions .Route 10/02/24 03/24/25 Rx .COMPLEX #60 tabs hydrochlorothiazide 12.5 mg tablet 12.5 mg PO DAILY #90 tabs 12/03/24 03/24/25 Rx fluoxetine 40 mg capsule See Rx Instructions .Route 12/18/24 03/24/25 Rx .COMPLEX #90 caps lisinopril 40 mg tablet 40 mg PO DAILY #90 tabs 02/12/25 03/24/25 Rx naratriptan 2.5 mg tablet 2.5 mg PO BID PRN migraine headache 02/24/25 02/24/25 History cyclobenzaprine 5 mg tablet 5 mg PO DAILY PRN muscle spasm #90 03/16/25 03/24/25 Rx tabs Allergies Allergy/AdvReac Type Severity Reaction Status Date / Time codeine Allergy Itching Verified 03/24/25 07:22 Sulfa (Sulfonamide Allergy Itching Verified 03/24/25 07:22 Antibiotics) Milk Containing Products AdvReac Abdominal Verified 03/24/25 07:22 (Dairy) Pain Vital Signs Vital Signs - 24 hr 03/24/25 07:26 Temperature 98.0 F Pulse Rate 74 Respiratory Rate 16 Blood Pressure 142/78 H Pulse Oximetry 99 Oxygen Delivery Room Air Exam Narrative: General: cooperative, no acute distress, well developed, alert and awake Orientation/Consciousness: oriented to person, oriented to place and oriented to time Constitutional Limitations: no limitations Other: The patient is a normally developed, normal appearing female sitting on the examination table in no acute distress. She is awake, alert, and oriented x3 with good fund of knowledge, recall of events, and fluent speech. HENMT Head: normocephalic and atraumatic Ears: external ears normal Face/Nose/Sinus: Normal external nose present Eyes Eyelids: eyelids normal Pupils: Yes Pupils normal by confrontation EOM: EOMs intact bilaterally Neck General: Yes no meningeal signs, Yes supple and Yes no JVD Resp Effort/Inspection: normal respiratory effort and able to speak in complete sentences Cardio Rate: Yes regular rate GI Inspection: No abdominal distension Musc Other: Examination of the back reveals mild paraspinal tenderness and mild tenderness over the sacrum. Range of motion of the back is full with mild pain in forward flexion worse in extension. Straight leg raise is negative bilaterally. Efrem?s test is negative bilaterally. Skin General: normal color Neuro General: Yes oriented to person, Yes oriented to place, Yes oriented to time, Yes normal cognition and Yes no meningeal signs Cranial Nerves: Yes CN's II-XII intact bilaterally Other: Motor: Strength is normal, 5/5, throughout all muscle groups of the bilateral upper and lower extremities to direct confrontation. Sensory: Sensation is intact to light touch throughout the upper and lower extremities bilaterally. Reflexes: deep tendon reflexes are difficult to elicit at the knees or ankles bilaterally. There is no clonus.. Gait: Gait, station, and transfers are independent and steady for short periods of time and over short distances. Psych Appearance: grossly normal Mental status: Yes mental status grossly normal Mood: congruent mood Affect: Yes normal affect Speech/Movement: Normal speech and movement present Attitude: Yes cooperative Thought Content: Normal thought content present Review of studies: MRI of the lumbar spine was personally reviewed by me. This demonstrates grade 1 spondylolisthesis at L4-5 and L3-4. At L5-S1 there was significant spondylosis. The images are similar to her previous study. Assessment and Plan Assessment and plan (1) Spondylolisthesis, lumbar region: Code(s): M43.16 - Spondylolisthesis, lumbar region Status: Acute (2) Lumbar spondylosis: Code(s): M47.816 - Spondylosis without myelopathy or radiculopathy, lumbar region Status: Acute (3) Foraminal stenosis of lumbar region: Code(s): M48.061 - Spinal stenosis, lumbar region without neurogenic claudication Status: Acute Plan Danielle is 64-year-old female with back and leg pain related to the pathology at L3-S1 new we have planned for an L3-4, L4-5 and L5-S1 posterior lumbar interbody fusion. I see no reason to change that plan and again described to her that operation, its risks, potential benefits, the operative and postoperative course in detail and answered all her questions personally.
[2025-03-24] MEDS: ceFAZolin 2 GM in SODIUM CHLORIDE 0.9% IV 50 ML 100 ML IVPB (07:55)
[2025-03-24] MEDS: LIDO 1%/EPINEPHRINE 1:100,000 50 ML VIAL (08:49)
[2025-03-24] MEDS: ePHEDrine sulfate INJ 50 MG/ML AMPUL 10 MG IV PUSH (11:46)
[2025-03-24] MEDS: fentaNYL CITRATE INJ (*CRX) 100 MCG/2 ML VIAL 25 MCG IV PUSH ×3 (12:01→12:22)
[2025-03-24] MEDS: HYDROmorphone HCL INJ (*CRX) 1 MG/ML SYR 0.5 MG IV PUSH ×2 (12:29→12:44)
[2025-03-24] MEDS: HYDROcodone/acetaminophen (*CRX) 5-325 MG TABLET 1 TAB PO (13:49)
--- NOTE | 2025-03-24 14:58 | SUR.PHASEI ---
1316: Patient meets PACU discharge criteria, unit bed unavailable at this time. Patient placed in extended recovery status.
[2025-03-24] MEDS: KCL 20 MEQ/D5/0.45% SOD CHL 1,000 ML 100 ML IV CONT (15:39)
[2025-03-24] MEDS: ceFAZolin 1 GM in SODIUM CHLORIDE 0.9% IV 50 ML 100 ML IVPB ×2 (15:40→23:27)
[2025-03-24] MEDS: diphenhydrAMINE HCl CAP 25 MG CAPSULE PO ×2 (17:47→23:27)
[2025-03-24] MEDS: HYDROcodone/acetaminophen (*CRX) 10-325 MG TABLET 1 TAB PO (19:37)
[2025-03-24] MEDS: DOCUSATE SODIUM 100 MG CAPSULE PO (19:37)
--- NOTE | 2025-03-24 22:08 | P.OP_ITS ---
Procedure Note - Detailed Date of Procedure 03/24/25 Pre-op Diagnosis L3-4,L4-5,L5-S1 spondyolithesis and spondylosis Post-op Diagnosis Same Procedure Performed L3-4, L4-5 and L5-S1 laminectomy and bilateral facetectomy, L3-4 L4-5 and L5- S1 complete diskectomy and interbody arthrodesis utilizing titanium interbody devices and local autograft, L3-4, L4-5 and L5-S1 pedicle screw instrumentation Surgeon Jaun Torres MD Anesthesia General and MAC Description of Procedure the patient was brought to the operating room in the supine position, was sedated, intubated and placed under general anesthesia in routine fashion. She was then turned into the prone position on a Griffin frame. The operation her b ack was examined, marked for incision, prepped and draped in routine sterile fashion. Incision was marked from the L3 through S1 spinous processes in the midline. This area was injected with 0.5% lidocaine with 1 200,000 epinephrine. Intravenous antibiotics given prior to incision. Incisions were made with a 10 blade scalpel down to the lumbodorsal fascia. A subperiosteal dissection of the muscle and soft tissue away from the spinous process lamina at L3-S1 was performed with the subperiosteal elevator and Bovie cautery. A verifying x-rays obtained to verify level of operation. The L3 through 5 spinous processes were removed with a Wanda rongeur. Kerrison punches, curved curettes and a Leksell rongeur were used to remove lamina in the midline into the soft contents of the canal were encountered. A Midas Kevan drill was used to perform a resection of the pars bilaterally at L3, L4 and L5. The inferior articular process and facet at these levels then could be removed bilaterally. These spinous processes were stripped free of soft tissue and morselized for later use as interbody autograft. Kerrison punches curved curettes were used to define a plane with the dura and removed bone and ligament flush with the pedicle and through the foramina widely decompressing the exiting nerve roots. With the thecal sac retracted and protected the disc space was entered bilaterally using an 11 blade scalpel. Scrapers of various sizes, curettes of various configurations, pituitary rongeur and a rasp were used to remove as much cartilaginous endplate and disc material as possible down to bleeding cortical surfaces on the opposing bones. The disc space was incised and appropriately sized interbody devices were chosen and filled with local autograft bone. These were 9 mm devices at L5-S1 and at L4-5 and a 10 mm device at L3-4. The disc space was likewise filled with local autograft bone. The interbody devices were then placed 203 mm countersink within the disc space bilaterally. Pedicle screw instrumentation was performed by observing and palpating the pedicle while a hole was made in superior articular process above the pedicle using a Midas Kevan drill. The pedicle was then cannulated with a pedicle probe, checked for continuity with the ball probe, tapped with a 5.5 mm tap and a 6.5 x 50 mm screw was placed into each pedicle on each side. 90 mm rods were placed into the screw heads on either side and secured in position using the capsular that purpose. These were definitively tightened with the torque and anti torque device. A verifying x-rays obtained to verify good position of the instrumentation which was confirmed. The wound was copiously irrigated with bacitracin irrigation all bleeding stopped with bipolar and Bovie cautery and Gelfoam thrombin powder. A medium Hemovac drain was left in the subfascial position buried after the inferior right of the incision. The wound was then closed in layered fashion with 2-0 Vicryl interrupted sutures in the lumbodorsal fascia and Aileen's layer. 3-0 Vicryl buried interrupted sutures were placed in the dermis and the skin was closed with a running 4-0 Monocryl subcuticular stitch and dressed with Dermabond. The patient was allowed to wake up in the operating room and was taken to the recovery room in stable condition. There were no immediate complications of this operation. All counts were reported correct at the end of the case. Blood loss was 650 cc. The patient was neurologically at her baseline postoperatively. CPT codes: 62329, 81600 x 2, 82406, 73736 x 2, 36910, 91791 x 3, 01400 x 3 Estimated Blood Loss 650 Drains Yes Complications None Condition Stable Disposition PACU [facility] Billing Surgery - Charge Forward: Surgery Billing
--- NOTE | 2025-03-24 23:48 | PC.NURSE ---
Addendum entered by Elizabeth Barcenas RN 03/24/25 23:51: 2250: surgical site WDL Original Note: 2348: Bp soft; pt asymptomatic; getting IVF
[2025-03-25] VITALS (15 sets, daily range): BP systolic 93–128; BP diastolic 42–72; PULSE 69–83; RESP 16–18; TEMP 36.5–37.2; O2SAT 94–98; BMI 27.8
[2025-03-25] MEDS: KCL 20 MEQ/D5/0.45% SOD CHL 1,000 ML 40 ML IV CONT (05:57)
[2025-03-25] MEDS: CHOLECALCIFEROL (VITAMIN D3) 10 MCG (400 UNITS) TABLET PO (08:19)
[2025-03-25] MEDS: DOCUSATE SODIUM 100 MG CAPSULE PO ×2 (08:19→21:30)
[2025-03-25] MEDS: ceFAZolin 1 GM in SODIUM CHLORIDE 0.9% IV 50 ML 100 ML IVPB ×3 (08:19→23:59)
[2025-03-25] MEDS: OPTI-GEN TAB 1 TABLET PO (08:20)
[2025-03-25] MEDS: HYDROcodone/acetaminophen (*CRX) 10-325 MG TABLET 1 TAB PO ×2 (08:26→18:49)
[2025-03-25] MEDS: SODIUM CHLORIDE 0.9% IV 500 ML IV CONT (09:40)
[2025-03-25 10:30] LABS: Hematocrit 22.8 % (37.0-47.0); Hemoglobin 7.4 g/dL (12.0-15.0); Immature Granulocyte Percent A 0.4 % (0-0.5); Lymphocytes Absolute Auto 1.93 K/mm3 (0.9-3.2); Mean Corpuscular HGB Conc 32.5 g/dl (32-36); Mean Corpuscular Hemoglobin 30.7 pg (26-34); Mean Corpuscular Volume 94.6 fl (80-100); Nucleated Red Blood Cells Absolute Auto 0.000 K/mm3 (0.0-0.012); Nucleated Red Blood Cells Perc 0.0 % (0.0-0.2); Platelet Count Result 180 k/mm3 (150-375); Red Blood Count 2.41 M/mm3 (4.2-5.4); White Blood Count 10.5 K/mm3 (4.5-10.0)
--- NOTE | 2025-03-25 13:07 | P.PNNEUSUR_ITS ---
Progress Note: A&P Assessment and Plan (1) Status post lumbar spinal arthrodesis: Code(s): Z98.1 - Arthrodesis status Status: Acute (2) Acute blood loss anemia: Code(s): D62 - Acute posthemorrhagic anemia Status: Acute Plan -Receiving PRBC transfusion now; will check post-transfusion H&H -Continue hemovac drain today -PT/OT re-evaluations later today vs tomorrow after transfusion Subjective Date/time seen: 03/25/25 13:07 Interval history: She became dizzy and pale when walking with therapy earlier today. Hemoglobin down to 7.4 from 12.8 pre-op. Receiving PRBC transfusion now. Pain is adequately controlled with medication. She denies pain or paresthesias in the legs. Tolerating oral intake and voiding independently Review of Systems Review of Systems: All systems reviewed & are unremarkable except as noted in HPI and below Exam Narrative: Incision c/d/i with glue in place HV 425cc out since surgery Full strength and intact sensation in lower extremities Objective Data Vital Signs Vital Signs: Vital Signs - 24 hr 03/24/25 13:16 03/24/25 13:20 03/24/25 13:35 Temperature 97.8 F Pulse Rate 83 80 78 Respiratory Rate 14 Blood Pressure 109/52 L 100/58 L 103/59 L Pulse Oximetry 100 98 98 Oxygen Delivery Nasal Cannula Nasal Cannula Nasal Cannula Oxygen Flow Rate 2 2 2 03/24/25 14:05 03/24/25 15:05 03/24/25 20:02 Temperature 97.7 F Pulse Rate 77 77 Respiratory Rate 16 Blood Pressure 103/66 108/55 L Pulse Oximetry 99 100 94 Oxygen Delivery Nasal Cannula Room Air Oxygen Flow Rate 2 03/24/25 20:37 03/25/25 00:11 03/25/25 01:28 Temperature 98.7 F 98.9 F Pulse Rate 81 75 Respiratory Rate 16 18 Blood Pressure 115/63 97/49 L 100/49 L Pulse Oximetry 96 96 Oxygen Delivery Oxygen Flow Rate 03/25/25 04:37 03/25/25 08:32 03/25/25 08:37 Temperature 98.7 F 98.7 F Pulse Rate 83 83 80 Respiratory Rate 16 18 Blood Pressure 118/60 113/56 L Pulse Oximetry 96 96 95 Oxygen Delivery Room Air Oxygen Flow Rate 03/25/25 08:53 03/25/25 12:10 03/25/25 12:26 Temperature 98.4 F 98.6 F Pulse Rate 75 74 Respiratory Rate 16 16 Blood Pressure 105/49 L 114/63 Pulse Oximetry 96 95 Oxygen Delivery Room Air Oxygen Flow Rate Intake/Output Intake/Output: Intake & Output 03/22/25 03/23/25 03/24/25 03/25/25 23:59 23:59 23:59 23:59 Intake Total 1476.7 1982.0 Output Total 505 1720 Balance 971.7 262.0 Meds/Results Medications: Active Medications Generic Name Dose Route Start Last Admin Trade Name Freq PRN Reason Stop Dose Admin Hydrocodone Bitart/Acetaminophen 1 tab 03/24/25 13:42 03/24/25 13:49 Hydrocodone/Acetaminophen (*Crx) 5-325 Mg Tablet PO 1 tab Q4H PRN Administration Mild Pain (1-3) Hydrocodone Bitart/Acetaminophen 1 tab 03/24/25 13:42 03/25/25 08:26 Hydrocodone/Acetaminophen (*Crx) 10-325 Mg Tablet PO 1 tab Q4H PRN Administration Moderate Pain (4-6) Al Hydrox/Mg Hydrox/Simethicone 20 ml 03/24/25 14:32 Mag Hydrox/Al Hydrox/Simeth 30 Ml Udc PO Q4H PRN Indigestion/Heartburn Bisacodyl 10 mg 03/24/25 14:32 Bisacodyl 10 Mg Suppository RECTAL DAILY PRN Constipation Cyclobenzaprine HCl 10 mg 03/24/25 14:32 Cyclobenzaprine Hcl 10 Mg Tablet PO TID PRN Muscle Spasms Diphenhydramine HCl 25 mg 03/24/25 17:27 03/24/25 23:27 Diphenhydramine Hcl Cap 25 Mg Capsule PO 25 mg Q6H PRN Administration Itching Docusate Sodium 100 mg 03/24/25 21:00 03/25/25 08:19 Docusate Sodium 100 Mg Capsule PO 100 mg Q12HR LYNDSAY Administration Fluoxetine HCl 40 mg 03/25/25 09:00 03/25/25 08:19 Fluoxetine Hcl 20 Mg Capsule BY MOUTH 40 mg DAILY LYNDSAY Administration Hydrochlorothiazide 12.5 mg 03/25/25 09:00 03/25/25 08:19 Hydrochlorothiazide 12.5 Mg Capsule PO 12.5 mg DAILY LYNDSAY Administration Hydromorphone HCl 0.5 mg 03/24/25 14:32 Hydromorphone Hcl Inj (*Crx) 1 Mg/Ml Syr IV PUSH Q2H PRN Pain Rated 7-10 Cefazolin Sodium 1 gm/ Sodium 50 mls @ 100 mls/hr 03/24/25 16:00 03/25/25 08:49 Chloride IVPB Infused Q8H LYNDSAY Infusion Potassium Chloride/Dextrose/Sod Cl 1,000 mls @ 100 mls/hr 03/24/25 14:32 03/25/25 10:58 Kcl 20 Meq/D5/0.45% Sod Chl IV CONT 40 mls/hr .Q10H LYNDSAY Infusion Sodium Chloride 250 mls @ 30 mls/hr 03/25/25 10:45 Normal Saline Iv IV CONT 03/25/25 19:04 .Q8H20M STA Lisinopril 40 mg 03/25/25 09:00 03/25/25 08:19 Lisinopril 20 Mg Tablet PO 40 mg DAILY LYNDSAY Administration Multivitamins/Minerals 1 tablet 03/25/25 09:00 03/25/25 08:20 Opti-Gen Tab PO 1 tablet QAM LYNDSAY Administration Ondansetron HCl 4 mg 03/24/25 14:32 Ondansetron Inj 4 Mg/2 Ml Vial IV PUSH Q8H PRN Nausea And Vomiting Senna/Docusate Sodium 1 tab 03/24/25 14:32 Senna/Docusate Sodium Tablet PO HS PRN Constipation Vitamin D 10 mcg 03/25/25 09:00 03/25/25 08:19 Cholecalciferol (Vitamin D3) 10 Mcg (400 Units) Tablet PO 10 mcg DAILY LYNDSAY Administration Radiology Results: ITS Impressions Fluoroscopy 03/24/25 11:07 IMPRESSION: Fluoroscopic guided imaging. No radiologist present. See also surgical/operative notes for complete evaluation. Labs Labs: Laboratory Results - last 24 hr 03/24/25 03/25/25 06:23 10:16 WBC 10.5 H RBC 2.41 L Hgb 7.4 L D Hct 22.8 L MCV 94.6 MCH 30.7 MCHC 32.5 RDW 12.9 Plt Count 180 MPV 10.9 H Immature Gran % (Auto) 0.4 Neut % (Auto) 71.6 Lymph % (Auto) 18.4 [place] % (Auto) 9.0 H Eos % (Auto) 0.2 Baso % (Auto) 0.4 Lymph # (Auto) 1.93 [place] # (Auto) 1.0 H Eos # (Auto) 0.0 Baso # (Auto) 0.0 Abs Immat Gran (auto) 0.04 H Absolute Neuts (auto) 7.5 H Absolute Nucleated RBC 0.000 Nucleated RBC % 0.0 Blood Type A Positive Antibody Screen Negative Crossmatch See Detail
--- NOTE | 2025-03-25 15:29 | PCPTNOTE ---
Attempted PT evaluation at 10:42, but pt's BP too low. Attempted PT evaluation at 15:25 pt getting blood. Will follow.
[2025-03-25 19:53] LABS: Hematocrit 27.7 % (37.0-47.0); Hemoglobin 9.0 g/dL (12.0-15.0); Mean Corpuscular HGB Conc 32.5 g/dl (32-36); Mean Corpuscular Hemoglobin 30.5 pg (26-34); Mean Corpuscular Volume 93.9 fl (80-100); Platelet Count Result 175 k/mm3 (150-375); Red Blood Count 2.95 M/mm3 (4.2-5.4); White Blood Count 10.0 K/mm3 (4.5-10.0)
[2025-03-26] MEDS: ONDANSETRON INJ 4 MG/2 ML VIAL IV PUSH (01:41)
[2025-03-26] MEDS: HYDROcodone/acetaminophen (*CRX) 5-325 MG TABLET 1 TAB PO ×2 (01:41→09:30)
[2025-03-26 04:15] VITALS: BP 131/65; PULSE 79; RESP 14; TEMP 36.6; O2SAT 93
[2025-03-26] MEDS: CYCLOBENZAPRINE HCL 10 MG TABLET PO (05:24)
[2025-03-26] MEDS: KCL 20 MEQ/D5/0.45% SOD CHL 1,000 ML 40 ML IV CONT (06:04)
[2025-03-26 06:34] LABS: Hematocrit 27.0 % (37.0-47.0); Hemoglobin 8.8 g/dL (12.0-15.0); Mean Corpuscular HGB Conc 32.6 g/dl (32-36); Mean Corpuscular Hemoglobin 30.6 pg (26-34); Mean Corpuscular Volume 93.8 fl (80-100); Platelet Count Result 172 k/mm3 (150-375); Red Blood Count 2.88 M/mm3 (4.2-5.4); White Blood Count 12.0 K/mm3 (4.5-10.0)
[2025-03-26] MEDS: CHOLECALCIFEROL (VITAMIN D3) 10 MCG (400 UNITS) TABLET PO (09:29)
[2025-03-26] MEDS: DOCUSATE SODIUM 100 MG CAPSULE PO (09:29)
[2025-03-26] MEDS: ceFAZolin 1 GM in SODIUM CHLORIDE 0.9% IV 50 ML 100 ML IVPB ×2 (09:30→16:11)
[2025-03-26] MEDS: OPTI-GEN TAB 1 TABLET PO (09:30)
[2025-03-26 14:00] VITALS: BP 97/53; PULSE 94; RESP 14; TEMP 37.2; O2SAT 98
--- NOTE | 2025-03-26 17:55 | P.DS_ITS ---
DS: Admitting Diagnosis Discharge Date March 26, 2025 Admitting Diagnosis Lumbar spondylolisthesis, Lumbar spondylosis, lumbar foraminal stenosis DS: Discharge Diagnosis Discharge Diagnosis (1) Status post lumbar spinal arthrodesis: Code(s): Z98.1 - Arthrodesis status Status: Acute DS: Summary Hospital Course Hospital Course: Ms. Brito presented on March 24 for surgery; please see the operative note for more details. She was transferred to the floor after surgery. On POD1, she became dizzy and pale while walking. She was hypotensive and had a Hb drop to 7.4 from 12.8 pre-operatively. She received a saline bolus followed by a unit of PRBC transfusion. She improved with resolution of her symptoms. She ambulated with therapy on POD2 without difficulty. Her pain was adequately controlled with medication. She was tolerating oral intake and was voiding independently. Her drain was removed on POD2. She was determined ready for discharge home on POD2. Time Spent with Patient Time attestation: Total time spent providing and/or coordinating discharge services: DS: Data Data Completed and Pending Labs on day of discharge: Labs from last 24 hours 03/26/25 03/25/25 05:40 19:29 WBC 12.0 H 10.0 RBC 2.88 L 2.95 L Hgb 8.8 L 9.0 L Hct 27.0 L 27.7 L MCV 93.8 93.9 MCH 30.6 30.5 MCHC 32.6 32.5 RDW 13.6 13.4 Plt Count 172 175 MPV 11.5 H 11.1 H Discharge Plan Discharge Discharging Clinician: Farida Means Patient Disposition: Home Activity: other - see discharge instructions Diet: as tolerated Discharge Instructions: INSTRUCTIONS AFTER YOUR LUMBAR FUSION ? Your incision is closed with skin glue. This will peel off on its own in about 14 days. ? You may shower and get your incision wet with soap and water starting on post- operative day 3 (Sunday). Do not submerge the incision under water (like in a bathtub or swimming pool) for 4 weeks after surgery. Never apply ointments or lotions to the incision. ? The incision should be checked daily. Notify the office if there is drainage, redness, or if you have fever with a temperature of over 101 degrees. ? You are encouraged to walk as much as comfortable, with assistance as needed. For example, it may be beneficial to walk short distances hourly during the waking hours and gradually increase walking during your recovery period. Fatigue can be common. ? Avoid any bending, heavy lifting, or twisting movements. ? You have an lvlcf-[id number]-pound lift restriction until further advised by your physician (a gallon of milk weighs eight pounds). ? Make frequent position changes, avoiding long periods of sitting. Try not to sit more than 60 minutes at a time. ? You may engage in sexual activity in two weeks as tolerated. ? No housework, especially vacuuming, making beds, or doing laundry until seen in the office. ? You may walk stairs carefully. ? Minimize long car rides for the first two weeks. You may resume driving when you feel comfortable; however, you may not drive if still taking narcotic pain medications. ? You should start with Tylenol 1000mg every 6 hours for pain first. If the Tylenol is not effective, you may then take oxycodone. ? The physician may order pain medication and/or muscle relaxers. As time goes by, you should require less of these. Always take your medication as ordered, and only if needed. If you take more than prescribed, it will not be refilled early. If you feel you require narcotic medication refill, kindly give the office a 72-hour notice. No refills are given over the weekend. ? Avoid use of anti-inflammatory medications (like Ibuprofen, Aleve, Advil, Motrin) for up to three months following fusion surgery. Use of these me dications may slow healing. ? Resume your usual diet. Constipation is a common problem postop. You may use any over the counter laxative, or stool softener. Always follow the bottle directions. ? Use of nicotine products should be stopped completely. Smoking can slow the healing process significantly. It can also increase the chance for developing postop pneumonias and other complications. Please avoid use of all nicotine products for at least three months after spine surgery. FOLLOW-UP ? Schedule an appointment with your primary care physician in the near future to ensure he/she is aware of your recent hospitalization and surgery and to ensure your other medical issues are being properly managed. This is particularly important to ensure your blood sugars are being well-controlled while you are healing from surgery. For urgent calls after hours, please call our exchange through our office at : ? Call the office for: o Appointment set up. o Fever greater than 101 degrees. o Increased pain, swelling, redness or drainage from your incision. o Trouble swallowing or breathing. o Pain, swelling or weakness of your legs. o Any other question or concerns you may have. Jaun Torres MD [facility] [address] [place] [address] Patient Language: Setswana Stand Alone Forms: General Discharge Instructions Follow-up/Referrals: Jaun Torres MD [Physician, Neurosurgery] Discharge Medications: New cyclobenzaprine 10 mg Tablet 10 mg PO TID PRN (Reason: Muscle Spasms) 10 Days Qty: 30 0RF hydrocodone-acetaminophen 5-325 mg Tablet 1 tablet PO Q4H PRN (Reason: pain) 7 Days Qty: 42 0RF sennosides-docusate sodium [Senokot-S] 8.6-50 mg Tablet 1 tab PO BID 7 Days Qty: 14 0RF Continued cholecalciferol (vitamin D3) 10 mcg (400 unit) capsule 10 mcg PO DAILY lutein-zeaxanthin [Ocuvite Lutein 25] 25-5 mg capsule 1 cap PO DAILY naratriptan 2.5 mg tablet 2.5 mg PO BID PRN (Reason: migraine headache) Rx Instructions: 2.5 mg orally; hydrochlorothiazide 12.5 mg tablet 12.5 mg PO DAILY Qty: 90 3RF Patient Comments: QAM fluoxetine 40 mg capsule See Rx Instructions .ROUTE .COMPLEX Qty: 90 0RF Dose Instruction: TAKE 1 CAPSULE BY MOUTH EVERY DAY Patient Comments: QAM Rx Instructions: TAKE 1 CAPSULE BY MOUTH EVERY DAY lisinopril 40 mg tablet 40 mg PO DAILY Qty: 90 1RF Patient Comments: QAM Held meloxicam 7.5 mg tablet See Rx Instructions .ROUTE .COMPLEX Qty: 60 6RF Hold Instructions: Resume on 06/24/25. Dose Instruction: TAKE 2 TABLETS BY MOUTH EVERY DAY Rx Instructions: TAKE 2 TABLETS BY MOUTH EVERY DAY Discontinued cyclobenzaprine 5 mg tablet 5 mg PO DAILY PRN (Reason: muscle spasm) Qty: 90 0RF Date of admission: 03/24/25 14:32 Primary Care Provider: Schueler,Simone F. Admitting Provider: Jaun Torres Attending physician on admission: Jaun Torres Condition: Stable
--- OUTSIDE RECORDS SUMMARY | 2025-03-31 10:07 | XMS_ITS | Encounter Summary ---
Author Organization [facility] Address [facility] [place] [address] Care Team Providers Care Incinerator Operator Name Role Phone Rhonda De La Paz MD Unavailable [phone] Peggy BestNP Primary Care Provider [phone] Yoselin Murdock NP Primary Care Provider + [phone] Reason for Visit * Reason Onset Date Comments Billing Issue 06/02/2022 Coding issue Encounter Details Date Type Department Care Team (Late st Contact Info) Description 06/02/2022 Vimbly Message Enc [facility] Family & Internal Medicine [facility] [id number] [place] [phone] [place]ks [place] [id number] [place] [id number] My Pap test Social History Tobacco [...] Coronavirus/COVID-19? No / Unsure 05/30/2022 2:30 PM [employer] documented as of this encounter Progress Notes * Rachel Allen MA - 06/07/2022 8:20 AM CST Spoke with patient and Peggy has written a letter for her. I then left her a v/m that her letter and paperwork will be at the front end manager for her to slat pickler and she should be able to view her letter on My Chart. [employer] * Angela Benavides - 06/05/2022 8:49 AM CST Danielle calling this morning asking to set up an appointment via phone or face to face with Rachel lodge officer o discuss the billing issue she is having. CB # [phone] danielle [employer] * Kirsten Diallo - 06/02/2022 3:19 PM [...] Placed in Rachel Allen folder for review. [employer] documented in this encounter Plan of Treatment Not on file documented as of this encounter Visit Diagnoses Not on filedocumented in this encounter Additional Health Concerns Assessment Noted Time PHQ-9 Depression Total Score: 0 03/18/20 21 4:05 PM [employer] documented as of this encounter Care Teams Incinerator Operator Relationship Specialty Start Date End Date Peggy Best APNP [address] [place] [address] PCP - General Nurse Practitioner Family 12/27/21 6/2 05/08 [place] [address] [address] PCP - General Nurse Practitioner Family 10/05/22 Rhonda De La Paz MD Physician INTERNAL MEDICINE 09/08/20 documented as of this encounter
--- OUTSIDE RECORDS SUMMARY | 2025-03-31 10:07 | XMS_ITS | Encounter Summary ---
Author Organization [facility] Address [facility] [place] [address] Care Team Providers Care Spring Upholsterer Name Role Phone Rhonda De La Paz MD Unavailable [phone] Yoselin Murdock NP Primary Care Provider [phone] Ashly Cabrales CORK GRINDER Primary Care Provider Peggy SheffieldNP Primary Care Provider [phone] Yoselin Murdock NP Primary Care Provider [phone] Encounter Details Date Type Department Care Team (Late st Contact Info) Description 07/06/2021 Civic Artworkst Message Enc [facility] Family & Internal Medicine [address] [phone] Yoselin Murdock [place] [address] [place], [place] [id number] Appointment on 07/08/21 Social History Tobacco Use [...] Total Score: 0 03/18/20 21 4: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 [place] [address] PCP - General Nurse Practitioner Family 07/06/2107/21 [place] [address] [facility] [address] [place] [address] PCP - General NURSE PRACTITIONER 07/22/21 12/26/21 Peggy Best APNP [address] [facility] [address] [place] [address] PCP - General Nurse Practitioner Family 12/27/21/05/08 [place] [address] [facility] [address] [address] PCP - General Nurse Practitioner Family 10/05/22 Rhonda De La Paz MD Physician INTERNAL MEDICINE 09/08/20 documented as of this encounter
--- OUTSIDE RECORDS SUMMARY | 2025-03-31 10:07 | XMS_ITS | Patient Health Record ---
Author Organization [facility] Address [address] [place] [address] Care Team Providers Care Cogeneration Operator Name Role Phone PCP, Does Not Have [...] Insured Coverage Start Date Coverage End Date [facility] [address] [place] [phone] [id number] JEANETH LA Self - patient is the insured MEDICAL (GENERAL) HISTORY Medical History History ICD Code HTN
--- OUTSIDE RECORDS SUMMARY | 2025-03-31 10:07 | XMS_ITS | Encounter Summary ---
Author Organization [facility] Address [facility] [place] [address] Care Team Providers Care Station Baggage Porter Name Role Phone Rhonda De La Paz MD Unavailable [phone] Rhonda De La Paz MD Primary Care Provider + [phone] Yoselin Murdock CLERK Primary Care Provider + [phone] Ashly Cabrales CLERK Primary Care Provider Peggy SheffieldNP Primary Care Provider [phone] Yoselin Murdock CLERK Primary Care Provider + [phone] Encounter Details Date Type Department Care Team (Late st Contact Info) Description 09/08/2020 MyChart Message Enc [facility] Family & Internal Medicine [facility] [address] [place] [phone] Rhonda De La Paz MD [address] [place] [address] RE: Other Social History Tobacco Use [...] on filedocumented in this encounter Care Teams Station Baggage Porter Relationship Specialty Start Date End Date Rhonda De La Paz MD PCP - General INTERNAL MEDICINE 09/08/20 07/05/21 [place] [address] [facility] [address] [place] [address] PCP - General Nurse Practitioner Family 07/06/2107/21 Ashly Cabrales, DIOMEDES [address] [facility] [address] [address] PCP - General NURSE PRACTITIONER 07/22/21 12/26/21 Peggy Best APNP [address] [place] [address] PCP - General Nurse Practitioner Family 12/27/2109/15 [place] [address] [facility] [address] [place] [address] PCP - General Nurse Practitioner Family 10/05/22 Rhonda De La Paz MD [phone] (work) Physician INTERNAL MEDICINE 09/08/20 documented as of this encounter
--- OUTSIDE RECORDS SUMMARY | 2025-03-31 10:07 | XMS_ITS | Encounter Summary ---
Author Organization [facility] Address [facility] [address] [place] [address] Care Team Providers Care Top Tile Decorator Name Role Phone Rhonda De La Paz MD Unavailable [phone] Peggy BestNP Primary Care Provider [phone] Yoselin Murdock NP Primary Care Provider [phone] Encounter Details Date Type Department Care Team (Late st Contact Info) Description 05/31/2022 [employer] Message Enc [facility] Family & Internal Medicine [address] [id number] [facility] refill Social History [...] Coronavirus/COVID-19? 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 STATISTICAL PROGRAMMER documented as of this encounter Plan of Treatment Not on file documented as of this encounter Visit Diagnoses Not on filedocumented in this encounter Additional Health Concerns Assessment Noted Time PHQ-9 Depression Total Score: 0 03/18/20 21 4:05 PM SENIOR STATISTICAL PROGRAMMER documented as of this encounter Care Teams Top Tile Decorator Relationship Specialty Start Date End Date Peggy Best APNP [address] [facility] [address] [place] [id number] PCP - General Nurse Practitioner Family 12/27/2109/15 [place] [address] [facility] [address] [place] [address] PCP - General Nurse Practitioner Family 10/05/22 Rhonda De La Paz MD Physician INTERNAL MEDICINE 09/08/20 documented as of this encounter
--- OUTSIDE RECORDS SUMMARY | 2025-03-31 10:07 | XMS_ITS | Patient Health Record ---
Author Organization [facility] Address [address] [place], [place] [id number] Care Team Providers Care Placement Officer Name Role Phone Tray Luongy Unavailable Unavailable [...] Insured Coverage Start Date Coverage End Date [facility] [address] [place] [address] [id number] JEANETH LA Self - patient is the insured Medical (General) History Medical History History ICD Code Blood clots
--- OUTSIDE RECORDS SUMMARY | 2025-03-31 10:07 | XMS_ITS | Clinical Summary ---
Author Organization [facility] Address [address] [place] [address] Care Team Providers Care Senior Net Programmer Name Role Phone Rhonda De La Paz MD Unavailable [phone] Yoselin Murdock NP Primary Care Provider [phone] Allergies Active Allergy Reactions Criticality Noted Date [...] (03/23/2021): Added automatically from request for surgery [id number] History of colon polyps 03/23/2021 Overview (03/23/2021): Added automatically from request for surgery [id number] Essential hypertension Anxiety Immunizations Immunization Administration Dates [...] 09/12/2009 Mammogram Screening 11/15/2023 11/14/2021, PHQ-2 (Physician [place]) 04/16/2024 COVID-19 Vaccine (6 - season) 2024 [...] are within normal limits. us Ashly Landin IMPLEMENTATION PROJECT MANAGER MAMMO Final Result * BONE DENSITY/DEXA (09/28/2020 9:50 AM CDT) Anatomical Region Laterality Modality Bone Bone Density 09/28/2020 12:0 4 PM CDT Impressions 09/28/2020 12:08 PM CDT FINDINGS AND IMPRESSION: Examination performed on a MT[employer] Discovery SL .: LUMBAR SPINE L2-L4: 1. [...] FINDINGS AND IMPRESSION: Examination performed on a [employer] Discovery SL .: LUMBAR SPINE L2-L4: 1. [...] VE NON-REACTI VE 09/15/2020 9:02 PM CDT [facility] 09/15/2020 9:30 AM CDT [facility] Final Result [facility] [address] [place] [address], from Last 3 Months or Most Recently Relevant to Health Maintenance Insurance [facility]CIAL Care Teams Senior Net Programmer Relationship Specialty Start [place] [phone] [address] PCP - General Nurse Practitioner Family 10/05/22 Rhonda De La Paz MD Physician INTERNAL MEDICINE 09/08/20
== END 2025-03-26 18:15 | disposition home or self-care (01) | DRG 448 ==
LOC: ANH3MEDSUR 03-26 17:52
PROVIDERS: Admitting Provider Neurological Surgery; PCP Family Medicine; Visit Provider Neurological Surgery
PROC: 0SG10AJ Fusion of 2 or more Lumbar Vertebral Joints with Interbody Fusion Device, Posterior Approach, Anterior Column, Open Approach (ICD-10-PCS; CPT 22612; principal; 2025-03-24 07:30)
DX: M43.16 Spondylolisthesis, lumbar region (principal); D62 Acute posthemorrhagic anemia; M47.816 Spondylosis without myelopathy or radiculopathy, lumbar region; M48.061 Spinal stenosis, lumbar region without neurogenic claudication; E78.5 Hyperlipidemia, unspecified; E55.9 Vitamin D deficiency, unspecified; H40.9 Unspecified glaucoma; I95.9 Hypotension, unspecified; I10 Essential (primary) hypertension; K21.9 Gastro-esophageal reflux disease without esophagitis; Z90.49 Acquired absence of other specified parts of digestive tract
CPT/HCPCS: 36415; 36430; 85025; 85027; 86850; 86900; 86901; 86923; 97161; 97166; 97530; 97535; 99199; J0690; A9270; C1713; J1100; J1171; J1200; J2003; J2004; J2250; J2371; J2405; J2704; J3010; J3480; J7040; J7120; P9016